=== PATIENT | female | born 1940 | race Caucasian/White ===

== ENCOUNTER → 2017-09-24 10:53 | Outpatient (CLI) | payer MEDICARE, BC, SELFPAY ==
--- NOTE | 2017-09-24 10:58 | US_ITS ---
STUDY: RENAL ULTRASOUND - COMPLETE REASON FOR EXAM: Female, 77 years old. Stage III chronic renal disease. TECHNIQUE: Ultrasound evaluation of the kidneys was performed with real-time and static bustillos-scale imaging. COMPARISON: None. FINDINGS: RIGHT KIDNEY: Normal location of the right kidney, which is normal in size. The right kidney measures 9.2 cm x 4.9 cm x 5.0 cm. There is a normal cortex of the right kidney. The renal cortex measures 1.7 cm. There is no right renal mass or cyst. There are no right renal calculi. There is no right hydronephrosis. DISTAL RIGHT URETER: There is non-visualization of the distal right ureter. There is no demonstrated right ureterovesical junction calculus. There is no demonstrated right ureteral jet. LEFT KIDNEY: Normal location of the left kidney, which is normal in size. The left kidney measures 9.4 cm x 4.0 cm x 4.8 cm. There is a normal cortex of the left kidney. The renal cortex measures 1.3 cm. There is no left renal mass or cyst. There are no left renal calculi. There is no left hydronephrosis. DISTAL LEFT URETER: There is non-visualization of the distal left ureter. There is no demonstrated left ureterovesical junction calculus. There is no demonstrated left ureteral jet. BLADDER: The distended urinary bladder has a volume of 37.7 ml. There is a normal wall thickness of the distended urinary bladder. There is no demonstrated mass within the urinary bladder. There are no demonstrated bladder calculi. US/Kidney and Bladder IMPRESSION: Normal ultrasound of the kidneys and urinary bladder. Electronically Signed: Alfonso Kent MD at 14:57 EST Tel [phone], Service support ,
== END ==
PROVIDERS: Family Provider Family Medicine; PCP Family Medicine; Visit Provider Internal Medicine Nephrology
DX: N18.3 Chronic kidney disease, stage 3 (moderate) (principal)
CPT/HCPCS: 76770

== ENCOUNTER → 2017-11-02 09:03 | Outpatient (CLI) | payer MEDICARE, BC, SELFPAY ==
[2017-11-02 11:06] LABS: Albumin, Serum 3.7 g/dL (3.2-5.0); BUN 29 mg/dL (7-18); Calcium,Total 9.4 mg/dL (8.5-10.1); Chloride 105 mmol/L (98-107); Creatinine, Serum 1.38 mg/dL (0.55-1.02); EST Glomerular Filtration Rate 40 mL/min (>60); Est Glom Filt Rate - Afr Amer 48 mL/min (>60); Glucose 132 mg/dL (74-106); Phosphorus 3.4 mg/dL (2.5-4.9); Potassium 4.6 mmol/L (3.5-5.1); Sodium Level 140 mmol/L (136-145)
[2017-11-03 08:49] LABS: Vitamin D,25 Hydroxy 24.9 ng/mL (29.95-100.01)
[2017-11-03 10:12] LABS: PTHIN 34.2 pg/mL (18.4-80.1)
== END ==
PROVIDERS: Family Provider Nurse Practitioner Family; PCP Nurse Practitioner Family; Visit Provider Internal Medicine Nephrology
DX: N18.3 Chronic kidney disease, stage 3 (moderate) (principal)
CPT/HCPCS: 36415; 80069; 82306; 83970

== ENCOUNTER → 2017-11-18 10:56 | Outpatient (CLI) | payer MEDICARE, BC, SELFPAY ==
[2017-11-18 11:54] LABS: Hemoglobin A1c 8.2 % (4.2-6.3)
== END ==
PROVIDERS: Family Provider Nurse Practitioner Family; PCP Nurse Practitioner Family; Visit Provider Nurse Practitioner
DX: E11.9 Type 2 diabetes mellitus without complications (principal)
CPT/HCPCS: 36415; 83036

== ENCOUNTER → 2018-04-04 09:28 | Outpatient (CLI) | payer MEDICARE, BC, SELFPAY ==
[2018-04-04 10:55] LABS: Hemoglobin A1c 7.8 % (4.2-6.3)
[2018-04-04 10:59] LABS: Microalbumin,Random Urine 14.9 mg/L (NO RANGE EST.); Microalbumin:Creatinine Ratio 61.3 mg/g CRE (<30 mg/g CRE)
[2018-04-04 11:12] LABS: Albumin, Serum 3.7 g/dL (3.2-5.0); BUN 61 mg/dL (7-18); Calcium,Total 9.2 mg/dL (8.5-10.1); Chloride 100 mmol/L (98-107); Creatinine, Serum 1.97 mg/dL (0.55-1.02); EST Glomerular Filtration Rate 26 mL/min (>60); Est Glom Filt Rate - Afr Amer 32 mL/min (>60); Glucose 156 mg/dL (74-106); Phosphorus 3.5 mg/dL (2.5-4.9); Potassium 4.5 mmol/L (3.5-5.1); Sodium Level 135 mmol/L (136-145)
[2018-04-04 11:17] LABS: Vitamin D,25 Hydroxy 37.6 ng/mL (29.95-100.01)
== END ==
PROVIDERS: Nurse Practitioner; Family Provider Internal Medicine; PCP Internal Medicine; Visit Provider Internal Medicine Nephrology
DX: E55.9 Vitamin D deficiency, unspecified (principal); N18.3 Chronic kidney disease, stage 3 (moderate); E11.22 Type 2 diabetes mellitus with diabetic chronic kidney disease
CPT/HCPCS: 36415; 80069; 82043; 82306; 82570; 83036

== ENCOUNTER → 2018-04-13 12:37 | Outpatient (CLI) | payer MEDICARE, BC, SELFPAY ==
[2018-04-13 13:07] LABS: Albumin, Serum 3.9 g/dL (3.2-5.0); BUN 70 mg/dL (7-18); BUN/Creat Ratio 27.6 RATIO (10-20); Calcium,Total 9.8 mg/dL (8.5-10.1); Chloride 101 mmol/L (98-107); Creatinine, Serum 2.54 mg/dL (0.55-1.02); EST Glomerular Filtration Rate 20 mL/min (>60); Est Glom Filt Rate - Afr Amer 24 mL/min (>60); Glucose 172 mg/dL (74-106); Phosphorus 4.3 mg/dL (2.5-4.9); Potassium 4.7 mmol/L (3.5-5.1); Sodium Level 139 mmol/L (136-145)
== END ==
PROVIDERS: Family Provider Internal Medicine; PCP Internal Medicine; Visit Provider Internal Medicine Nephrology
DX: N18.3 Chronic kidney disease, stage 3 (moderate) (principal)
CPT/HCPCS: 36415; 80069

== ENCOUNTER → 2018-04-18 11:02 | Outpatient (CLI) | payer MEDICARE, BC, SELFPAY ==
[2018-04-18 13:28] LABS: Albumin, Serum 3.9 g/dL (3.2-5.0); BUN 61 mg/dL (7-18); BUN/Creat Ratio 29.6 RATIO (10-20); Calcium,Total 9.7 mg/dL (8.5-10.1); Chloride 96 mmol/L (98-107); Creatinine, Serum 2.06 mg/dL (0.55-1.02); EST Glomerular Filtration Rate 25 mL/min (>60); Est Glom Filt Rate - Afr Amer 30 mL/min (>60); Glucose 322 mg/dL (74-106); Phosphorus 3.9 mg/dL (2.5-4.9); Potassium 4.2 mmol/L (3.5-5.1); Sodium Level 134 mmol/L (136-145)
== END ==
PROVIDERS: Family Provider Internal Medicine; PCP Internal Medicine; Visit Provider Internal Medicine Nephrology
DX: N18.3 Chronic kidney disease, stage 3 (moderate) (principal)
CPT/HCPCS: 36415; 80069

== ENCOUNTER → 2018-05-21 09:16 | Outpatient (CLI) | payer MEDICARE, BC, SELFPAY ==
[2018-05-21 11:08] LABS: Albumin, Serum 3.5 g/dL (3.2-5.0); BUN 40 mg/dL (7-18); BUN/Creat Ratio 20.7 RATIO (10-20); Calcium,Total 9.3 mg/dL (8.5-10.1); Chloride 99 mmol/L (98-107); Creatinine, Serum 1.93 mg/dL (0.55-1.02); EST Glomerular Filtration Rate 27 mL/min (>60); Est Glom Filt Rate - Afr Amer 33 mL/min (>60); Glucose 230 mg/dL (74-106); Phosphorus 3.5 mg/dL (2.5-4.9); Sodium Level 140 mmol/L (136-145)
== END ==
PROVIDERS: Family Provider Internal Medicine; PCP Internal Medicine; Visit Provider Internal Medicine Nephrology
DX: N18.3 Chronic kidney disease, stage 3 (moderate) (principal)
CPT/HCPCS: 36415; 80069

== ENCOUNTER → 2018-07-08 11:16 | Outpatient (CLI) | payer MEDICARE, BC, SELFPAY ==
[2018-07-08 12:07] LABS: Microalbumin:Creatinine Ratio 190.5 mg/g CRE (<30 mg/g CRE)
[2018-07-08 12:23] LABS: Albumin, Serum 3.3 g/dL (3.2-5.0); BUN 40 mg/dL (7-18); BUN/Creat Ratio 25.2 RATIO (10-20); Calcium,Total 8.7 mg/dL (8.5-10.1); Chloride 105 mmol/L (98-107); Creatinine, Serum 1.59 mg/dL (0.55-1.02); EST Glomerular Filtration Rate 34 mL/min (>60); Est Glom Filt Rate - Afr Amer 41 mL/min (>60); Glucose 155 mg/dL (74-106); Potassium 4.6 mmol/L (3.5-5.1); Sodium Level 137 mmol/L (136-145)
[2018-07-08 12:29] LABS: Hemoglobin A1c 9.2 % (4.2-6.3)
== END ==
PROVIDERS: Family Provider Internal Medicine; PCP Internal Medicine; Referring Provider Internal Medicine Nephrology; Visit Provider Internal Medicine Nephrology
DX: N18.3 Chronic kidney disease, stage 3 (moderate) (principal); E11.22 Type 2 diabetes mellitus with diabetic chronic kidney disease
CPT/HCPCS: 36415; 80069; 82043; 82570; 83036; 97113

== ENCOUNTER → 2018-07-19 10:44 | Outpatient (CLI) | payer MEDICARE, BC, SELFPAY ==
[2018-07-19 09:33] VITALS: BMI 36.2
[2018-07-19 12:07] LABS: Albumin, Serum 3.5 g/dL (3.2-5.0); BUN 29 mg/dL (7-18); BUN/Creat Ratio 18.4 RATIO (10-20); Calcium,Total 8.9 mg/dL (8.5-10.1); Chloride 108 mmol/L (98-107); Cholesterol 169 mg/dL (200); Creatinine, Serum 1.58 mg/dL (0.55-1.02); EST Glomerular Filtration Rate 34 mL/min (>60); Est Glom Filt Rate - Afr Amer 41 mL/min (>60); Glucose 80 mg/dL (74-106); High Density Lipoprotein 42 mg/dL; Phosphorus 3.9 mg/dL (2.5-4.9); Potassium 4.9 mmol/L (3.5-5.1); Sodium Level 140 mmol/L (136-145); Thyroid Stim Hormone (TSH) 3.48 uIU/mL (0.358-3.74); Triglycerides 222 mg/dL; Very Low Density Lipoprotein 44 mg/dL (5-40)
== END ==
PROVIDERS: Family Provider Internal Medicine; PCP Internal Medicine; Referring Provider Nurse Practitioner; Visit Provider Nurse Practitioner
DX: I25.10 Atherosclerotic heart disease of native coronary artery without angina pectoris (principal); E11.8 Type 2 diabetes mellitus with unspecified complications; E11.65 Type 2 diabetes mellitus with hyperglycemia; N18.3 Chronic kidney disease, stage 3 (moderate); M54.5 Low back pain; M25.551 Pain in right hip; M25.552 Pain in left hip; G89.29 Other chronic pain
CPT/HCPCS: 36415; 80061; 80069; 84443; 97113

== ENCOUNTER 2018-07-20 10:00 | Outpatient (RCR) | payer MEDICARE, BC, SELFPAY ==
--- NOTE | 2018-05-31 09:37 | HP.PTEVAL ---
Patient's Visit Information BHARATH LONGORIA is a 77 year old F referred to Physical Therapy by DEB Mendez with a diagnosis of CHRONIC HIP PAIN, BILATERAL. Date of Evaluation: 05/27/18 Physical Therapist: Rodrigo Echevarria - Visit Plan Frequency: 2x /Week Duration: 4 Weeks Plan: Start with neutral spine core strengthening in aquatic setting, hip strenthenign, postural control. Deep water hanging. Progress as tolerated. - Subjective Subjective: Pt reports to physical therapy with chronic hip pain, bilateral. pt reports that symptoms have originated about 1 year ago. pt seeked PT intervention 1 year ago but found little benefit. pt reports symptoms began following a period of decreased activity due to recovering from a heart surgery. prior to the procedure, pt was active (walking and golfing). On this date, pt reports that symptoms have increased to a point where they spend most of their day sitting with little activity beyond occasional trips to the grocery store where they rely on the support of a shopping cart to get around the store. pt uses Advil occasionally to manage pain but due to their diabetes does not take Advil with great frequency. Heat is also used as a method of symptom releif. pt reports that symptoms are constant with pain greatest in the morming and decreasing through the day. When the pain is at its worse it reaches 8-9/10 but on average is around 5/10. pt hopes to alleviate their pain and return to a more active lifestyle. - Pain Back Pain Intensity (Out of 10): 5 Pain Intensity Range: 3, 9 Hips - bilat Pain Intensity (Out of 10): 5 Pain Intensity Range: 3, 9 - Objective POSTURE: forward head with rounded shoulders, increased thorasic kyphosis. Pt. Pt. PALPATION: Pt. has normal palpation throughout B hips and lumbar spine. NEURO: equal bilateral sensation in the LE, 2+ DTR bilaterally. Pt. is able to rise on heels and toes, but did require balance aid to complete. . ROM: Lumbar: limited lateral flexion bilat. Pt. has tightness with bilateral hip ER. increased hip pain with lateral flexion bilat, increase in pain with extension over pressure, no increase in pain with flexion. MMT: LE: R/L hip: flexion- 3/5, add- 3/5, abd- 3/5; R/L knee: flexion- 3+/5, extension- 3/5; Ankle: DF- 4+/5. core weekenss due to difficulty with supine straight leg raise. Difficulty maintaining PPT with any UE/LE movements. - Goals Goal 1:: pt reports a 0/10 pain at rest Goal Time Frame: 4-6 Weeks Goal 2:: pt reports a 0/10 pain with all lumbar movements Goal Time Frame: 4-6 Weeks Goal 3:: pt reports being able to play golf with out limitations. Goal Time Frame: 4-6 Weeks Goal 4:: Pt. to have increased BLE and core strength improved by 1/2 grade throughout Goal Time Frame: 4-6 Weeks Goal 5:: Pt. to sleep throughout the night without increase in symptoms. Goal Time Frame: 4-6 Weeks Goal 6:: Pt. to complete all ADLs and house work without increase in symptoms. Goal Time Frame: 4-6 Weeks - Rehabilitation Potential Physical Therapy Diagnosis: pt presents with signs and symptoms consistent with chronic bilateral hip pain. pt presents with an increase in pain with lateral flexion and extension. pain prevents pt from performing most desired tasks. pt would benefit from physical therapy to promote a decrease in pain and an increase in activity. Rehabilitation Potential: Good - Anticipated Interventions Patient/Client Instruction: Educate patient on: Condition, Risk Factors, Benefits of Fitness Program For the Purpose of:: To improve health and function, To foster healthy habits, To improve decision making, To facilitate caregiver knowledge, To improve self management, To prevent re-injury, To improve ability to perform tasks related to life management, To improve tolerance to ADL's Therapeutic Exercise to Include: Strength training, Balance training, Postural training, Flexibilty training, Gait and locomotor training, In an aquatic setting, Passive ROM, Active ROM For the Purpose of:: To decrease pain, To increase ROM, To improve nutrient delivery to tissue, To improve muscle performance and motor function, To improve ability to perform ADL's, To improve gait and locomotor functions, To improve health of tissue, To decrease soft tissue restriction, To increase flexibility/ROM, To improve endurance, To improve balance Thank you for the opportunity to evaluate your patient. For Medicare and Medicare HMO plans, please review the plan of care and approve it. It will need to be FAXED BACK to us at [phone] for Medicare purposes. Please let me know if there are questions or concerns regarding this plan of care. Physician Signature: Date:
--- NOTE | 2018-06-28 07:45 | HP.PTREVAL ---
Henny Douglas, SOPHIE-C, It has been my pleasure to treat BHARATH LONGORIA over the last 10 visits for CHRONIC HIP PAIN, BILATERAL. Please see the progress note below for an update on the physical therapy plan of care! Subjective: Pt. reports I feel like I am about 50% better. Pt. reports having increased relief at home, but did have a bad night last night. She reprots no longer having leg cramps, but still uses her heating pad at home a decent amount of the time. Pt. reports I am feeling stronger. Objective/Function: ROM: LUMBAR SPINE: flexion- min loss NE, ext min/mod loss increase NW, SB min loss NE, rotation min/mod loss bilat increase nW. HS length- R- 75deg, L 70deg in supine. MMT: RLE- ankle 5/5 throughout; knee- ext 5-/5, flexion 5-/5; hip- flexion 4+/5, abd 4/5, ext 4+/5. LLE- ankle 5/5 throughout; knee- ext 5-/5, flexion 5-/5; hip- flexion 4+/5, abd 4/5, ext 4+/5. COre strength- poor+. GAIT: pt. has improved gait pattern, decreased lateral hip sway noted. Pt. has proper tempo and step length. Pt. has increased erector posture as well. Pt. does report increased Low back pain at ~5 min of walking. STAIRS: Pt. is able to complete with reciprocal pattern with 2 HR without LOB or increase in symptoms. Pt. is still concerned about increased pain with static standing. I talked with patient about consistent core stbility and flexion based exercises in neutral spine. Pt. consents. Plan Plan: Pt. to extend POC for x2 per week for 4 weeks with progression to independent program. Cont. to work on hip and core stability as tolerated. May use deep water distraction to reduce symptoms. Progress land and aquatic HEP as able. Goals Goal 1:: pt reports a 0/10 pain at rest Goal Time Frame: 4-6 Weeks Goal Progress: Progressing Goal 2:: pt reports a 0/10 pain with all lumbar movements Goal Time Frame: 4-6 Weeks Goal Progress: Progressing Goal 3:: pt reports being able to play golf with out limitations. Goal Time Frame: 4-6 Weeks Goal Progress: Progressing Goal 4:: Pt. to have increased BLE and core strength improved by 1/2 grade throughout Goal Time Frame: 4-6 Weeks Goal Progress: Progressing Goal 5:: Pt. to sleep throughout the night without increase in symptoms. Goal Time Frame: 4-6 Weeks Goal Progress: Goal Met Goal 6:: Pt. to complete all ADLs and house work without increase in symptoms. Goal Time Frame: 4-6 Weeks Goal Progress: Progressing Anticipated Interventions Patient/Client Instruction: Educate patient on: Condition, Risk Factors, Benefits of Fitness Program For the Purpose of:: To improve health and function, To foster healthy habits, To improve decision making, To facilitate caregiver knowledge, To improve self management, To prevent re-injury, To improve ability to perform tasks related to life management, To improve tolerance to ADL's Therapeutic Exercise to Include: Strength training, Balance training, Postural training, Flexibilty training, Gait and locomotor training, In an aquatic setting, Passive ROM, Active ROM For the Purpose of:: To decrease pain, To increase ROM, To improve nutrient delivery to tissue, To improve muscle performance and motor function, To improve ability to perform ADL's, To improve gait and locomotor functions, To improve health of tissue, To decrease soft tissue restriction, To increase flexibility/ROM, To improve endurance, To improve balance Please do not hesitate to contact me at [phone] by phone or if you have questions or concerns regarding this new plan of care! Sincerely, Rodrigo Echevarria
--- NOTE | 2018-10-26 12:17 | HP.PTDCSUM ---
HP - PT D/C Summary It has been my pleasure to treat BHARATH LONGORIA under orders from DEB Mendez, for the diagnosis of CHRONIC HIP PAIN, BILATERAL for a total of 18 visit(s). Discharge Date: 09/19/17 Please see the following information for a summary of their discharge status. - Subjective Subjective: Pt. reports I am doing better, not all the way better though. Pt. reports being 75% better overall. Pt. reports ebing HEP compliant and plans on joining local gym to do aquatic exercises. - Pain Back Pain Intensity (Out of 10): 2 Hips - bilat Pain Intensity (Out of 10): 2 - Overall Improvement % Improvement: 75 - Objective Objective/Function: ROM- lumbar spine- min loss with flexion NE, ext mod loss NE, min loss with SB and rotation NE. Pt. has tigh HS. MMT: 5/5 BLEs without increase insymptioms, fair- core strength. Pt. has progress with core stability and posture. Pt. has reduced symptoms, but not fully rectified. Pt. would benefit from continued to exercise in aquatic setting at home. Pt - Goals Goal 1:: pt reports a 0/10 pain at rest Goal Progress: Goal Met Goal 2:: pt reports a 0/10 pain with all lumbar movements Goal Progress: Progressing Goal 3:: pt reports being able to play golf with out limitations. Goal Progress: Progressing Goal 4:: Pt. to have increased BLE and core strength improved by 1/2 grade throughout Goal Progress: Progressing Goal 5:: Pt. to sleep throughout the night without increase in symptoms. Goal Progress: Goal Met Goal 6:: Pt. to complete all ADLs and house work without increase in symptoms. Goal Progress: Progressing - Plan Plan: Pt. to be DC from PT at this point in time adn to follow up with aquatic exercises on her own. - D/C Information Discharge Comments: Pt. was treated in aquatic setting for her low back pain. Pt. was treated was core stability adn ROM exercises in aquatics. Pt. is independent with her HEP for pool exercises and is doing well. Pt. is to continue with exercises on own at this point in time and follow up with physician if needed. If there are questions or concerns regarding this patient's physical therapy, please feel free to call me at [phone]. Thank you for the referral of this patient. Sincerely, Rodrigo Echevarria DPT
== END 2018-07-20 19:00 | disposition home or self-care (01) ==
LOC: PT 10:00
PROVIDERS: Family Provider Internal Medicine; PCP Internal Medicine; Referring Provider Clinical Nurse Specialist; Visit Provider Clinical Nurse Specialist
DX: M54.5 Low back pain (principal); M25.551 Pain in right hip; M25.552 Pain in left hip; G89.29 Other chronic pain
CPT/HCPCS: 97110; 97113; 97163; 97530

== ENCOUNTER 2018-07-23 13:28 | Emergency (ER) | payer MEDICARE, BC, SELFPAY ==
[2018-07-19 09:33] VITALS: BMI 36.2
[2018-07-23 13:30] VITALS: BP 163/81; PULSE 68; RESP 14; TEMP 37; O2SAT 99; BMI 34.8
--- NOTE | 2018-07-23 14:05 | EKG12_ITS ---
Test Reason : SOB Blood Pressure : / mmHG Vent. Rate : 065 BPM Atrial Rate : 065 BPM P-R Int : 174 ms QRS Dur : 116 ms QT Int : 492 ms P-R-T Axes : 060 007 128 degrees QTc Int : 511 ms Normal sinus rhythm Incomplete left bundle branch block ST & T wave abnormality, consider lateral ischemia Prolonged QT Abnormal ECG Confirmed by MARIA L VELAZQUEZ, SOCORRO ([id number]), editorial assistant JANNETTE FARFAN ([id number]) on 07/25/2018 2:14:51 PM Referred By: Marta Torres Confirmed By:SOCORRO LISA MD
--- NOTE | 2018-07-23 14:15 | NURSING ---
NO OLD EKGS
--- NOTE | 2018-07-23 14:25 | RAD_ITS ---
STUDY: X-RAY CHEST REASON FOR EXAM: Female, 78 years old. Shortness of breath. TECHNIQUE: Single AP portable view of the chest. COMPARISON: None. FINDINGS: Anatomy wires are midline. Prominent interstitial markings are seen bilaterally. There is no demonstrated pleural abnormality. Normal size heart. Normal mediastinum and ivis. Mild prominent pulmonary vascularity is noted. There is atherosclerotic calcification of the aortic arch with tortuosity. Normal visualized thoracic spine. Normal visualized ribs, clavicles, and shoulders. There is no demonstrated abnormality of the visualized soft tissue structures of the upper abdomen. RAD/Chest 1 View (Portable) IMPRESSION: Prominent interstitial markings with mild prominent pulmonary vascularity concerning for early interstitial edema and CHF exacerbation in the appropriate clinical setting. Electronically Signed: Loyd Sanderson DO at 14:46 EST , Service support ,
[2018-07-23 14:31] LABS: Absolute Neutrophil Count 6.8 X10^3/uL (2.0-7.7); Basophil# 0.02 X10^3/uL; Basophil% 0.2 % (0-1); Eosinophil# 0.34 X10^3/uL; Eosinophils% 3.7 % (0-5); Hemoglobin 11.3 g/dl (12.0-15.0); Lymphocyte % 15.1 % (19-41); Mean Corp Hgb Conc 32.3 g/gl (32-36); Mean Corpuscular Hgb 30.1 pg (27.0-32.0); Mean Corpuscular Volume 93.3 fL (81-99); Mean Platelet Vol. 10.3 fl (6.2-12.0); Monocyte# 0.73 X10^3/uL; Monocyte% 7.9 % (0-10); Neutrophil # 6.75 X10^3/uL (2.7-7.7); Platelet Count 257 K/mm3 (150-450); RBC Distribution Width CV 13.5 % (11.6-14.6); RBC Distribution Width SD 45.7 fl (35.1-43.9); Red Blood Count 3.75 M/mm3 (4.2-5.4); White Blood Count 9.3 K/mm3 (4.4-11.0)
[2018-07-23 14:35] LABS: POSITIVE COUNT NO; POSITIVE DIFFERENTIAL NO; POSITIVE MORPHOLOGY NO
[2018-07-23 14:43] LABS: Anion Gap 7 (5-15); BUN 27 mg/dL (7-18); BUN/Creat Ratio 19.1 RATIO (10-20); Calcium,Total 9.3 mg/dL (8.5-10.1); Chloride 104 mmol/L (98-107); Creatinine, Serum 1.41 mg/dL (0.55-1.02); EST Glomerular Filtration Rate 39 mL/min (>60); Est Glom Filt Rate - Afr Amer 47 mL/min (>60); Estimated Creatinine Clearance 29.31 ml/min; Glucose 168 mg/dL (74-106); Sodium Level 139 mmol/L (136-145)
[2018-07-23 16:07] VITALS: BP 169/56; PULSE 65; RESP 16; O2SAT 97
--- NOTE | 2018-07-23 16:46 | ED.DCSUM_ITS ---
- ER Visit Summary Date of Service: 07/23/18 Chief Complaint: Patient presents with cough and some subjective dyspnea for the past few days. No fever or chills. She has some rhinorrhea. This is clear and constant. She has no chest pain shortness of breath. She has no nausea or vomiting. She has had a dry cough recently. History of Present Illness: The patient is a 78 F [] Physical Examination: Not appear in acute distress. Moist mucous membranes, no obvious facial deformity No C-spine tenderness supple neck. Regular rate and rhythm without any obvious murmurs Clear lungs bilaterally speaking in full sentences without any obvious respiratory distress Abdomen soft and nontender no guarding or rebound Moves all extremities without any difficulty or pain. Skin does not show any obvious rashes or lesions, no trauma. Alert oriented ?3 with no gross focal deficit Emergency Department Course and Treatment: Patient has a normal physical exam. I cannot hear any bronchial breath sounds any wheezing, she has no upper airway congestion. She has a normal EKG and a normal workup in the emergency department. Initially she was worried about her blood pressure being high, but she did have quite a bit of salt at [facility]. She has an unremarkable workup she feels well she tells me her shortness of breath is usually only at night, she did tell me her lisinopril got increased I told her that may be causing her dry cough. Otherwise she appears well and I believe she can be discharged with follow-up in 2 days, she has a PCP appointment. Discharge stable condition Impression: Cough Subjective dyspnea This note was generated with Elysia dictation software. It may contain incorrect words, spelling, and punctuation that were not noted in review of the chart prior to signing ED Disposition - Plan for ED Patient: Disposition: Home or Assisted Living Chief Complaint: Shortness of Breath Instructions: ED Dyspnea Shortness of Breath Referrals: Fanny De Guzman MD [Primary Care Provider] - 3-5 Days
[2018-07-23 17:01] VITALS: BP 169/56; PULSE 64; RESP 14; O2SAT 99
== END 2018-07-23 17:02 | disposition home or self-care (01) ==
PROVIDERS: Emergency Provider Emergency Medicine; Family Provider Internal Medicine; PCP Internal Medicine
DX: R05 Cough (principal); R06.00 Dyspnea, unspecified; E11.9 Type 2 diabetes mellitus without complications; I10 Essential (primary) hypertension; E78.00 Pure hypercholesterolemia, unspecified
CPT/HCPCS: 71045; 80048; 84484; 85025; 93005; 99283; A4216

== ENCOUNTER → 2018-09-01 09:21 | Outpatient (CLI) | payer MEDICARE, BC, SELFPAY ==
[2018-09-01 10:13] LABS: Albumin, Serum 3.6 g/dL (3.2-5.0); BUN 83 mg/dL (7-18); BUN/Creat Ratio 36.6 RATIO (10-20); Calcium,Total 8.9 mg/dL (8.5-10.1); Chloride 106 mmol/L (98-107); Creatinine, Serum 2.27 mg/dL (0.55-1.02); EST Glomerular Filtration Rate 22 mL/min (>60); Est Glom Filt Rate - Afr Amer 27 mL/min (>60); Glucose 84 mg/dL (74-106); Phosphorus 5.2 mg/dL (2.5-4.9); Potassium 4.6 mmol/L (3.5-5.1); Sodium Level 140 mmol/L (136-145)
== END ==
PROVIDERS: Family Provider Internal Medicine; PCP Internal Medicine; Referring Provider Internal Medicine Nephrology; Visit Provider Internal Medicine Nephrology
DX: N18.3 Chronic kidney disease, stage 3 (moderate) (principal)
CPT/HCPCS: 36415; 80069

== ENCOUNTER → 2018-09-19 11:37 | Outpatient (CLI) | payer MEDICARE, BC, SELFPAY ==
[2018-09-19 13:05] LABS: Albumin, Serum 3.5 g/dL (3.2-5.0); BUN 66 mg/dL (7-18); Calcium,Total 9.2 mg/dL (8.5-10.1); Chloride 103 mmol/L (98-107); EST Glomerular Filtration Rate 23 mL/min (>60); Est Glom Filt Rate - Afr Amer 28 mL/min (>60); Glucose 163 mg/dL (74-106); Phosphorus 4.3 mg/dL (2.5-4.9); Sodium Level 137 mmol/L (136-145)
--- OUTSIDE RECORDS SUMMARY | 2018-11-21 22:53 | XMS RPT_ITS ---
:1940 Author Organization OHIP Support Name Relationship Address Phone JUNE CAVAZOS Unavailable [address] + [place] [address] R Unavailable Unavailable Unavailable VANPELT, KAYLEIGH Unavailable [address] + [place] [address] JUNE CAVAZOS Unavailable [address] + [place] [address] R Unavailable Unavailable Unavailable VANPELT, KAYLEIGH Unavailable [address] + [place] [address] JUNE CAVAZOS Unavailable [address] + [place] [address] R Unavailable Unavailable Unavailable VANPELT, KAYLEIGH Unavailable [address] + [place] [address] JUNE CAVAZOS Unavailable [address] + [place] [address] R Unavailable Unavailable Unavailable VANPELT, KAYLEIGH Unavailable [address] + [place] [address] JUNE CAVAZOS Unavailable [address] + [place] [address] R Unavailable Unavailable Unavailable VANPELT, KAYLEIGH Unavailable [address] + [place] [address] JUNE CAVAZOS Unavailable [address] + [place] [address] R Unavailable Unavailable Unavailable VANPELT, KAYLEIGH Unavailable [address] + [place] [address] JUNE CAVAZOS Unavailable [address] + [place] [address] R Unavailable Unavailable Unavailable VANPELT, KAYLEIGH Unavailable [address] + [place] [address] JUNE CAVAZOS Unavailable [address] + [place] [address] R Unavailable Unavailable Unavailable VANPELT, KAYLEIGH Unavailable [address] + [place] [address] JUNE CAVAZOS Unavailable [address] + [place] [address] R Unavailable Unavailable Unavailable VANPELT, KAYLEIGH Unavailable [address] + [place] [address] JUNE CAVAZOS Unavailable [address] + [place] [address] R Unavailable Unavailable Unavailable VANBHAVINLT, KAYLEIGH Unavailable [address] + [place] [address] JUNE CAVAZOS Unavailable [address] + [place] [address] R Unavailable Unavailable Unavailable RHONDALT, KAYLEIGH Unavailable [address] + [place] [address] JUNE CAVAZOS Unavailable [address] + [place] [address] R Unavailable Unavailable Unavailable RHONDALT, KAYLEIGH Unavailable [address] + [place] [address] JUNE CAVAZOS Unavailable [address] + [place] [address] R Unavailable Unavailable Unavailable RHONDALT, KAYLEIGH Unavailable [address] + [place] [address] JUNE CAVAZOS Unavailable [address] + [place] [address] R Unavailable Unavailable Unavailable RHONDALT, KAYLEIGH Unavailable [address] + [place] [address] QUINCY CAVAZOS Unavailable Unavailable + JUNE CAVAZOS Unavailable [address] + [place] [address] R Unavailable Unavailable Unavailable RHONDALT KAYLEIGH Unavailable [address] [phone] [place] [address] JUNE CAVAZOS Unavailable [address] + [place] [address] R Unavailable Unavailable Unavailable RHONDAKAYLEIGH TSAI Unavailable [address] [phone] [place] [address] JUNE CAVAZOS Unavailable [address] + [place] [address] R Unavailable Unavailable Unavailable RHONDAKAYLEIGH TSAI Unavailable Unavailable + Care Team Providers Name Role Phone Maria Tolentino Attending Unavailable Maria Tolentino Referring Unavailable Amber Baumann Primary Care Unavailable Maria Tolentino Attending Unavailable Talampas, Joni Primary Care Unavailable Maria Tolentino Referring Unavailable Marta Torres INTERNATIONAL REPRESENTATIVE-C Attending Unavailable Jordan Gan Referring Unavailable Marta Torres INTERNATIONAL REPRESENTATIVE-C Attending Unavailable Marta Torres INTERNATIONAL REPRESENTATIVE-C Referring Unavailable Amber Baumann Primary Care Unavailable Marta Torres INTERNATIONAL REPRESENTATIVE-C Referring Unavailable Talampas, Joni Primary Care Unavailable Maria Tolentino Attending Unavailable Maria Tolentino Attending Unavailable Maria Tolentino Referring Unavailable Talampas, Joni Primary Care Unavailable Marta Torres INTERNATIONAL REPRESENTATIVE-C Attending Unavailable Amber Baumann Referring Unavailable Maria Tolentino Attending Unavailable Maria Tolentino Referring Unavailable Talampas, Joni Primary Care Unavailable Marta Torres INTERNATIONAL REPRESENTATIVE-C Consulting Unavailable Marta Torres INTERNATIONAL REPRESENTATIVE-C Attending Unavailable Talampas, Joni Referring Unavailable Talampas, Joni Primary Care Unavailable Maria Tolentino Attending Unavailable Talampas, Joni Primary Care Unavailable Maria Tolentino Referring Unavailable Bossman Douglas INTERNATIONAL REPRESENTATIVE-C Attending Unavailable Bossman Douglas INTERNATIONAL REPRESENTATIVE-C Referring Unavailable Talampas, Joni Primary Care Unavailable Marai Tolentino Attending Unavailable Maria Tolentino Referring Unavailable Talampas, Joni Primary Care Unavailable Maria Tolentino Attending Unavailable Talampas, Joni Primary Care Unavailable Marta Torres INTERNATIONAL REPRESENTATIVE-C Attending Unavailable Talampas, Joni Referring Unavailable Marta Torres INTERNATIONAL REPRESENTATIVE-C Attending Unavailable Marta Torres INTERNATIONAL REPRESENTATIVE-C Referring Unavailable Talampas, Joni Primary Care Unavailable Maria Tolentino Consulting Unavailable Talampas, Joni Primary Care Unavailable Moiz Lin Attending Unavailable Maria Tolentino Attending Unavailable Talampas, Joni Primary Care Unavailable Maria Tolentino Referring Unavailable TESTRAKE, DEVIN Attending Unavailable TESTRAKE, DEVIN Referring Unavailable TALAMPAS, JONI D Attending Unavailable TESTRAKE, DEVIN Attending Unavailable TESTRAKE, DEVIN Referring Unavailable NEYHART OROZCO, ANGELES Referring Unavailable NEYHART OROZCO, ANGELES Attending Unavailable NEYHART OROZCO, ANGELES Referring Unavailable GIBSON, JUAN DAVID (SAMPLE MAKER ORIGINAL) Referring Unavailable GIBSON, JUAN DAVID (SAMPLE MAKER ORIGINAL) Referring Unavailable TALAMPAS, JONI D Referring Unavailable DOUGLAS, BOSSMAN (WORD PROCESSING SUPERVISOR) Attending Unavailable DOUGLAS, BOSSMAN (WORD PROCESSING SUPERVISOR) Referring Unavailable TESTRAKE, DEVIN Attending Unavailable TESTRAKE, DEVIN Referring Unavailable TALAMPAS, JONI D Attending Unavailable DOUGLAS, BOSSMAN (WORD PROCESSING SUPERVISOR) Attending Unavailable DOUGLAS, BOSSMAN (WORD PROCESSING SUPERVISOR) Referring Unavailable DOUGLAS, BOSSMAN (WORD PROCESSING SUPERVISOR) Attending Unavailable DOUGLAS, BOSSMAN (WORD PROCESSING SUPERVISOR) Referring Unavailable ASHLEY GRIFFITH Attending Unavailable SELF, SELF Referring Unavailable MARISA ORO Attending Unavailable MARISA ORO Referring Unavailable Tesha Gan Primary Care Unavailable MARISA ORO Admitting Unavailable PROBLEMS PROBLEMS DATE TYPE CONDITION / CODE ATTENDING STATUS SOURCE 09/19/2018 Unknown E55.9 - Vitamin D Maria Tolentino Active [facility] deficiency, Community unspecified / Hospital E55.9(ICD-10) Repository 09/19/2018 Unknown N17.9 - Acute kidney Rajan Maria Active [facility] failure, unspecified Community / N17.9(ICD-10) Hospital Repository 07/25/2018 Active Cardiac arrhythmia, NA Active [facility] unspecified / Clinic Main I49.9(ICD-10) [facility] Repository 07/20/2018 Unknown M54.5 - Low back Douglas Bossman Active [facility] pain / M54.5(ICD-10) INTERNATIONAL REPRESENTATIVE-C Community Hospital Repository 07/19/2018 Unknown E11.9 - Type 2 Shook, Marta Active [place] diabetes mellitus J INTERNATIONAL REPRESENTATIVE-C [facility] without Hospital complications / Repository E11.9(ICD-10) 07/19/2018 Unknown I10 - Essential Shook, Marta Active [facility] (primary) J INTERNATIONAL REPRESENTATIVE-C Community hypertension / Hospital I10(ICD-10) Repository 07/19/2018 Unknown E11.8 - Type 2 Shook, Marta Active [place] diabetes mellitus J INTERNATIONAL REPRESENTATIVE-C Community with unspecified Hospital complications / Repository E11.8(ICD-10) 07/19/2018 Unknown I25.10 - Marta Torres Active [facility] 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 / I25.10(ICD-10) 07/19/2018 Unknown E11.65 - Type 2 Marta Torres Active [place] diabetes mellitus J INTERNATIONAL REPRESENTATIVE-C Community with hyperglycemia / Hospital E11.65(ICD-10) Repository 07/08/2018 Unknown N18.3 - Chronic Maria Tolentino Active [place] kidney disease, Community stage 3 (moderate) / Hospital N18.3(ICD-10) Repository 07/08/2018 Unknown E11.22 - Type 2 Maria Tolentino Active [place] diabetes mellitus Community with diabetic Hospital chronic kidney Repository disease / E11.22(ICD-10) 05/26/2018 Active Pain in right hip / NA Active [facility] M25.551(ICD-10) Clinic Main [place] Repository 05/26/2018 Active Pain in left hip / NA Active [facility] M25.552(ICD-10) Clinic Main [place] Repository 05/26/2018 Active Other chronic pain / NA Active [facility] G89.29(ICD-10) Clinic Main [place] Repository 04/08/2018 Active Encounter for NA Active [facility] screening for [facility] Main malignant neoplasm [place] of colon / Repository Z12.11(ICD-10) 03/31/2018 Admitting Peripheral vascular LINETSKY, Active [facility] disease[facility] / I73.9(ICD-10) Repository 03/31/2018 Admitting Nonrheumatic mitral LINETSKY, Active [facility] diagnosis (valve) [facility] insufficiency / Repository I34.0(ICD-10) 03/31/2018 Unknown Peripheral vascular LINETSKY, Active [facility] disease, unspecified [facility] / I73.9(ICD-10) Repository 03/16/2018 Active Encounter for NA Active [facility] screening mammogram Clinic Main for malignant [place] neoplasm of breast / Repository Z12.31(ICD-10) 12/02/2017 Active Unknown / TESTRAKE, Active [facility] UNK(Unknown) DEVIN [facility] Main [place] Repository 10/14/2017 Admitting Follow-up / 145() GLADIS Active [facility] Diagnosis [facility] ([place]) Repository 10/14/2017 Admitting Chest Pain / GLADIS, [facility] Diagnosis [id number]() [facility]SH[facility] ([place]) Repository 10/14/2017 Admitting Edema / 161() POLINSKI, Active [facility] Diagnosis [facility] ([place]) Repository PROCEDURES PROCEDURES No Procedure Records FoundRESULTS RESULTS RENAL PROFILE Collected: 09/19/2018 Status: F Source: [place] 11:43 AM [facility] REPOSITORY TYPE CODE TESTS RESULT OUT OF RANGE REFERENCE UNITS LAB L501.0100 74-106 mg/dL High GLU 163 Result Comment: Fasting Glucose result greater than or equal to 126 mg/dL suggests DIABETES MELLITUS per A.D.A. criteria. Please note revised GLUCOSE reference range effective 2017. LAB L501.1000 7-18 mg/dL High BUN 66 LAB L501.1100 0.55-1.02 mg/dL High CREAT,SERUM 2.20 Result Comment: The validity of the calculated GFR AND GFRAA in patients over 70 years has not been determined. Clinical correlation is essential. LAB L501.1110 >60 mL/min Low EST GFR 23 Result Comment: Non- GFR Calc LAB L501.1115 >60 mL/min Low EST GFR - AA 28 Result Comment: GFR Calc LAB L501.1300 10-20 RATIO High BUN/CRE 30.0 LAB L501.1800 3.2-5.0 g/dL Normal ALB 3.5 LAB L501.2200 8.5-10.1 mg/dL CA Normal 9.2 LAB L501.2300 2.5-4.9 mg/dL Normal PHOS 4.3 LAB L501.5300 136-145 mmol/L NA Normal 137 LAB L501.5600 3.5-5.1 mmol/L K Normal 5.0 LAB L501.5900 98-107 mmol/L CL Normal 103 LAB L501.6100 21.0-32.0 mmol/L Normal CO2 24.0 Performed By: #### L500.3600 #### [facility] [address] [place], [address] RENAL PROFILE Collected: 09/01/2018 Status: F Source: [place] 9:32 AM [facility] REPOSITORY TYPE CODE TESTS RESULT OUT OF RANGE REFERENCE UNITS LAB L501.0100 74-106 mg/dL Normal GLU 84 Result Comment: Please note revised GLUCOSE reference range effective 2017. LAB L501.1000 7-18 mg/dL High BUN 83 LAB L501.1100 0.55-1.02 mg/dL High CREAT,SERUM 2.27 Result Comment: The validity of the calculated GFR AND GFRAA in patients over 70 years has not been determined. Clinical correlation is essential. LAB L501.1110 >60 mL/min Low EST GFR 22 Result Comment: Non- GFR Calc LAB L501.1115 >60 mL/min Low EST GFR - AA 27 Result Comment: GFR Calc LAB L501.1300 10-20 RATIO High BUN/CRE 36.6 LAB L501.1800 3.2-5.0 g/dL Normal ALB 3.6 LAB L501.2200 8.5-10.1 mg/dL CA Normal 8.9 LAB L501.2300 2.5-4.9 mg/dL High PHOS 5.2 LAB L501.5300 136-145 mmol/L NA Normal 140 LAB L501.5600 3.5-5.1 mmol/L K Normal 4.6 LAB L501.5900 98-107 mmol/L CL Normal 106 LAB L501.6100 21.0-32.0 mmol/L Normal CO2 27.0 Performed By: #### L500.3600 #### [facility] [address] [place], [address] PROGRESS Observed: 08/12/2018 Status: COMPLETED Source: [place] 9:[address] [facility] REPOSITORY [facility] ID: [id number] Author: Joni Grimm Service: (none) Author Type: Physician Type: Progress Notes Filed: 09/04/2018 3:27 PM Note Text: Patient presents with: Recheck: Follow up SUBJECTIVE: Graciela Cavazos is a 78 year old year old lady here today for 6 month follow up appointment for review of medical conditions. Doing better. Back on Lasix. Does diurese but still has swelling. Still with neuropathy. Seeing MEDARDO([facility]), Dr. Tolentino([facility]) and Inez (), Gladis ([place] (ophthalmology). Fasting glucose down to 60's and 80's in AM past few days. High at night to 200 to 300's. Blood pressure controlled without adverse effects from medications. PAST MEDICAL HISTORY Diagnosis Date - Allergic rhinitis, cause unspecified Allergic rhinitis - Cataract of left eye 12/31/2010 removed - Cataract of right eye 04/15/2011 removed - Diabetes mellitus without mention of complication Diabetes mellitus - Diverticulosis of colon (without mention of hemorrhage) - Dysthymic disorder Depression (non-psychotic) - Dysthymic disorder - Esophageal reflux Gastroesophageal reflux - Internal hemorrhoids without mention of complication - Nonspecific elevation of levels of transaminase or lactic acid dehydrogenase (LDH) Elevated LFT's - Peripheral vascular disease, unspecified (HCC) - PMH - PAST MEDICAL HISTORY OF 08/2007 Broken left elbow - Rheumatoid arthritis(714.0) - Unspecified closed fracture of ankle 2009 Ankle fracture - 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 ASPIRIN 81 MG TAB, DELAYED RELEASE Take one(1) tablet daily. atorvastatin (LIPITOR) 80 mg tablet Take 1 tablet by mouth once daily. blood sugar diagnostic (ONETOUCH VERIO) test strip Test blood sugar(s) 2 times daily. Dx: Type 2 DM - Controlled E11.9 Insulin: No Blood-Glucose Meter (ONETOUCH VERIO SYSTEM) [facility] Dispense One Kit - Verio Meter Kit Dx: Type 2 DM - Uncontrolled E11.65 carvedilol (COREG) 25 mg tablet Take 1 tablet by mouth twice daily. cholecalciferol, vitamin D3, (VITAMIN D3 ORAL) Take by mouth. clopidogrel (PLAVIX) 75 mg tablet Take 1 tablet by mouth once daily. COMPOUNDED PRESCRIPTION Diabetic shoes. Has PVD dulaglutide 1.5 mg/0.5 mL pnij Inject 1.5 mg subcutaneously once each week. (BJ Shook refills) furosemide (LASIX) 40 mg tablet Take 1 tablet by mouth once daily. Take once daily glimepiride (AMARYL) 4 mg tablet Take 1 tablet by mouth daily with breakfast. (BJ) insulin glargine (BASAGLAR KWIKPEN U-100 INSULIN) 100 unit/mL (3 mL) inpn Inject 36 Units subcutaneously once daily. Will adjust as indicated Lancets lancets Use as instructed two times daily E 11.9 lisinopril (ZESTRIL, PRINIVIL) 10 mg tablet Take 1 tablet by mouth once daily. pyridoxine, vitamin B6, (VITAMIN B-6) 100 mg tablet Take 100 mg by mouth once daily. therapeutic multivitamin (THERA VITAMIN) tablet Take 1 tablet by mouth daily with breakfast. potassium chloride SR (MICRO-K) 10 mEq CR capsule Take 1 capsule by mouth twice daily. (Patient not taking: Reported on 08/12/2018 ) sodium chloride (AYR, OCEAN) 0.65 % nasal spray Use 2 Sprays in each nostril as needed for Cold/Allergy Symptoms. (Patient not taking: Reported on 05/26/2018 ) No current facility-administered medications for this visit. OBJECTIVE: BP (!) 114/42 Pulse 64 Resp 16 Wt 89.8 kg (198 lb) BMI 36.21 kg/m? Patient is alert, oriented times 3, no apparent distress, affect is bright, reactive. Last 5 Encounter BP Readings: Date: BP: 08/12/2018 114/42 08/01/2018 130/62 07/25/2018 142/70 05/26/2018 128/54 03/16/2018 114/62 Last 5 Encounter Wt Readings: Date: Wt: 08/12/2018 89.8 kg (198 lb) 08/01/2018 89.4 kg (197 lb) 07/25/2018 90.3 kg (199 lb) 05/26/2018 82.6 kg (182 lb) 03/16/2018 83 kg (183 lb) Heart: Regular rate, rhythm, no murmurs, gallops, rubs. Lungs: Clear to auscultation, bilaterally, breathing non labored. Ext: No cyanosis, clubbing; 2+ bilateral lower extremities edema. Labs done July 19 and 2017, at [facility] reviewed. ASSESSMENT AND PLAN: Encounter Diagnosis ICD-10-CM 1. Type 2 diabetes mellitus with diabetic neuropathy, without long-term current use of insulin ([facility]) E11.40 glimepiride (AMARYL) 4 mg tablet insulin glargine (BASAGLAR KWIKPEN U-100 INSULIN) 100 unit/mL (3 mL) inpn lisinopril (ZESTRIL, PRINIVIL) 10 mg tablet 2. Hyperlipidemia LDL goal <70 E78.5 3. Stage 3 chronic kidney disease (HCC) N18.3 lisinopril (ZESTRIL, PRINIVIL) 10 mg tablet 4. Essential hypertension, benign I10 lisinopril (ZESTRIL, PRINIVIL) 10 mg tablet 5. Chronic bilateral low back pain without sciatica M54.5 G89.29 6. Bilateral lower extremity edema R60.0 Alpha lipoic acid info given (from [facility] supplement info) for DM and peripheral neuropathy. She continue to follow up with MEDARDO Torres at [facility]. Adjusting meds as indicated and working on diet. Encouraged protein with all meals and snacks. Lipids with LDL at 83 close to <70 ideal goal based on prior goals; on high dose statin per current statin guidelines and tolerated well. Continue present management. Continues to follow up with psychology instructor too. Back issues noted. Continue follow up with pain management. Try chair yoga discussed. Continue follow up with Nephrology, Dr. Maria Tolentino. Above issues addressed with patient. Patient involved in shared decision making for management of medical issues. History and medications reviewed. Epic updated as needed Refills taken care of and meds adjusted as indicated after reviewed history, exam and labs. Health Maintenance reviewed. Updated record and/or ordered tests as recorded. Encouraged on efforts at healthy diet and regular exercise and adequate sleep. The majority of the visit was spent counseling and/or coordinating care for the patient. Mxiy-of-cbpc time was at least 20 minutes. Joni Grimm MD CNOV Observed: 08/12/2018 Status: COMPLETED Source: [place] 8:[address] [facility] REPOSITORY Office Visit (INTMWS) GRACIELA CAVAZOS ([id number]) 1940 F Date Time Provider Department 08/12/18 8:20 AM JONI GRIMM INTMWS During your visit today, we recorded the following information about you: Pulse Respiration Blood pressure Weight 64/minute 16/minute 114/42 89.8 kg Joni Grimm MD 09/04/2018 3:27 PM Signed Patient presents with: Recheck: Follow up SUBJECTIVE: Graciela Cavazos is a 78 year old year old lady here today for 6 month follow up appointment for review of medical conditions. Doing better. Back on Lasix. Does diurese but still has swelling. Still with neuropathy. Seeing MEDARDO([facility]), Dr. Tolentino([facility]) and Inez (), Gladis ([place]), [place] (ophthalmology). Fasting glucose down to 60's and 80's in AM past few days. High at night to 200 to 300's. Blood pressure controlled without adverse effects from medications. PAST MEDICAL HISTORY Diagnosis Date - Allergic rhinitis, cause unspecified Allergic rhinitis - Cataract of left eye 12/31/2010 removed - Cataract of right eye 04/15/2011 removed - Diabetes mellitus without mention of complication Diabetes mellitus - Diverticulosis of colon (without mention of hemorrhage) - Dysthymic disorder Depression (non-psychotic) - Dysthymic disorder - Esophageal reflux Gastroesophageal reflux - Internal hemorrhoids without mention of complication - Nonspecific elevation of levels of transaminase or lactic acid dehydrogenase (LDH) Elevated LFT's - Peripheral vascular disease, unspecified (HCC) - H - PAST MEDICAL HISTORY OF 08/2007 Broken left elbow - Rheumatoid arthritis(714.0) - Unspecified closed fracture of ankle 2009 Ankle fracture - 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 ASPIRIN 81 MG TAB, DELAYED RELEASE Take one(1) tablet daily. atorvastatin (LIPITOR) 80 mg tablet Take 1 tablet by mouth once daily. blood sugar diagnostic (ONETOUCH VERIO) test strip Test blood sugar(s) 2 times daily. Dx: Type 2 DM - Controlled E11.9 Insulin: No Blood-Glucose Meter (ONETOUCH VERIO SYSTEM) [facility] [place] Dispense One Kit - Verio Meter Kit Dx: Type 2 DM - Uncontrolled E11.65 carvedilol (COREG) 25 mg tablet Take 1 tablet by mouth twice daily. cholecalciferol, vitamin D3, (VITAMIN D3 ORAL) Take by mouth. clopidogrel (PLAVIX) 75 mg tablet Take 1 tablet by mouth once daily. COMPOUNDED PRESCRIPTION Diabetic shoes. Has PVD dulaglutide 1.5 mg/0.5 mL pnij Inject 1.5 mg subcutaneously once each week. (BJ Shook refills) furosemide (LASIX) 40 mg tablet Take 1 tablet by mouth once daily. Take once daily glimepiride (AMARYL) 4 mg tablet Take 1 tablet by mouth daily with breakfast. (BJ) insulin glargine (BASAGLAR KWIKPEN U-100 INSULIN) 100 unit/mL (3 mL) inpn Inject 36 Units subcutaneously once daily. Will adjust as indicated Lancets lancets Use as instructed two times daily E 11.9 lisinopril (ZESTRIL, PRINIVIL) 10 mg tablet Take 1 tablet by mouth once daily. pyridoxine, vitamin B6, (VITAMIN B-6) 100 mg tablet Take 100 mg by mouth once daily. therapeutic multivitamin (THERA VITAMIN) tablet Take 1 tablet by mouth daily with breakfast. potassium chloride SR (MICRO-K) 10 mEq CR capsule Take 1 capsule by mouth twice daily. (Patient not taking: Reported on 08/12/2018 ) sodium chloride (AYR, OCEAN) 0.65 % nasal spray Use 2 Sprays in each nostril as needed for Cold/Allergy Symptoms. (Patient not taking: Reported on 05/26/2018 ) No current facility-administered medications for this visit. OBJECTIVE: BP (!) 114/42 Pulse 64 Resp 16 Wt 89.8 kg (198 lb) BMI 36.21 kg/m? Patient is alert, oriented times 3, no apparent distress, affect is bright, reactive. Last 5 Encounter BP Readings: Date: BP: 08/12/2018 114/42 08/01/2018 130/62 07/25/2018 142/70 05/26/2018 128/54 03/16/2018 114/62 Last 5 Encounter Wt Readings: Date: Wt: 08/12/2018 89.8 kg (198 lb) 08/01/2018 89.4 kg (197 lb) 07/25/2018 90.3 kg (199 lb) 05/26/2018 82.6 kg (182 lb) 03/16/2018 83 kg (183 lb) Heart: Regular rate, rhythm, no murmurs, gallops, rubs. Lungs: Clear to auscultation, bilaterally, breathing non labored. Ext: No cyanosis, clubbing; 2+ bilateral lower extremities edema. Labs done July 19 and 2017, at [facility] reviewed. ASSESSMENT AND PLAN: Encounter Diagnosis ICD-10-CM 1. Type 2 diabetes mellitus with diabetic neuropathy, without long-term current use of insulin (HCC) E11.40 glimepiride (AMARYL) 4 mg tablet insulin glargine (BASAGLAR KWIKPEN U-100 INSULIN) 100 unit/mL (3 mL) inpn lisinopril (ZESTRIL, PRINIVIL) 10 mg tablet 2. Hyperlipidemia LDL goal <70 E78.5 3. Stage 3 chronic kidney disease (HCC) N18.3 lisinopril (ZESTRIL, PRINIVIL) 10 mg tablet 4. Essential hypertension, benign I10 lisinopril (ZESTRIL, PRINIVIL) 10 mg tablet 5. Chronic bilateral low back pain without sciatica M54.5 G89.29 6. Bilateral lower extremity edema R60.0 Alpha lipoic acid info given (from [facility] supplement info) for DM and peripheral neuropathy. She continue to follow up with MEDARDO Torres at [facility]. Adjusting meds as indicated and working on diet. Encouraged protein with all meals and snacks. Lipids with LDL at 83 close to <70 ideal goal based on prior goals; on high dose statin per current statin guidelines and tolerated well. Continue present management. Continues to follow up with psychology instructor too. Back issues noted. Continue follow up with pain management. Try chair yoga discussed. Continue follow up with Nephrology, Dr. Maria Tolentino. Above issues addressed with patient. Patient involved in shared decision making for management of medical issues. History and medications reviewed. Epic updated as needed Refills taken care of and meds adjusted as indicated after reviewed history, exam and labs. Health Maintenance reviewed. Updated record and/or ordered tests as recorded. Encouraged on efforts at healthy diet and regular exercise and adequate sleep. The majority of the visit was spent counseling and/or coordinating care for the patient. [id number] time was at least 20 minutes. Joni Grimm MD Referring Provider: SELF [[id number]] Allergies As of Date: 08/12/2018 Noted Allergy Reaction ADHESIVE TAPE (ROSINS) 04/29/2016 9 - Itching Comments: Possible allergy. Pt had heart cath and she says her wrist was itchy and irritated where the cath was done. batazolidin [Other] 07/10/2005 5 - Intolerance CELEBREX (CELECOXIB) 10/16/2005 Comments: affected labs work diazide [Other] 07/10/2005 5 - Intolerance EFFEXOR (VENLAFAXINE HCL) 07/10/2005 1 - Mental Status Change Comments: patient uncertain INDOCIN (INDOMETHACIN SODIUM) 07/10/2005 5 - Intolerance meclomen [Other] 07/10/2005 5 - Intolerance MEVACOR (LOVASTATIN) 07/10/2005 5 - Intolerance MOTRIN (IBUPROFEN) 07/10/2005 Comments: hair loss NAPROSYN (NAPROXEN) 07/10/2005 5 - Intolerance NSAIDS (NON-STEROIDAL ANTI-INFLAM*07/10/2005 Comments: affected blood studies patient uncertain ORUDIS (KETOPROFEN) 07/10/2005 5 - Intolerance PROZAC (FLUOXETINE HCL) 07/10/2005 1 - Mental Status Change sporostacin [Other] 07/10/2005 5 - Intolerance STATINS (UQVTCVC-SWR-RLE REDUCTAS*07/04/2009 5 - Intolerance Comments: myalgia on 80 mg simvastatin VICODIN (HYDROCODONE-ACETAMINOPHE*07/10/2005 5 - Intolerance ZOLOFT (SERTRALINE HCL) 07/10/2005 1 - Mental Status Change Date Reviewed: 08/12/2018 Reviewed by: Heather Flood LPN - Fully Assessed Reason for Visit: Recheck [92] Cmt: Follow up Primary Visit Diagnosis:Type 2 diabetes mellitus with diabetic neuropathy, without long-term current use of insulin ([facility]) [E11.40] Other Visit Diagnoses:Hyperlipidemia LDL goal <70 [E78.5] Stage 3 chronic kidney disease (HCC) [N18.3] Essential hypertension, benign [I10] Chronic bilateral low back pain without sciatica [M54.5, G89.29] Bilateral lower extremity edema [R60.0] Order(s):glimepiride (AMARYL) 4 mg tabletTake 1 tablet by mouth daily with breakfast. (BJ)Disp: Rfl: insulin glargine (BASAGLAR KWIKPEN U-100 INSULIN) 100 unit/mL (3 mL) inpnInject 36 Units subcutaneously once daily. Will adjust as indicatedDisp: Rfl: lisinopril (ZESTRIL, PRINIVIL) 10 mg tabletTake 1 tablet by mouth once daily.Disp: Rfl: Prescriptions as of 08/12/2018 Sig: GLIMEPIRIDE 4 MG TABLET Take 1 tablet by mouth daily * INSULIN GLARGINE (U-100) 100 * Inject 36 Units subcutaneousl* LISINOPRIL 10 MG TABLET Take 1 tablet by mouth once d* FUROSEMIDE 40 MG TABLET Take 1 tablet by mouth once d* PYRIDOXINE (VITAMIN B6) 100 M* Take 100 mg by mouth once tasha* CARVEDILOL 25 MG TABLET Take 1 tablet by mouth twice * AMLODIPINE 5 MG TABLET Take 10 mg by mouth once becki* VITAMIN D3 ORAL Take by mouth. ATORVASTATIN 80 MG TABLET Take 1 tablet by mouth once d* DULAGLUTIDE 1.5 MG/0.5 ML SUB* Inject 1.5 mg subcutaneously * CLOPIDOGREL 75 MG TABLET Take 1 tablet by mouth once d* BLOOD SUGAR DIAGNOSTIC STRIPS Test blood sugar(s) 2 times d* LANCETS Use as instructed two times d* BLOOD-GLUCOSE METER Dispense One Kit - Verio Mete* THERAPEUTIC MULTIVITAMIN TABL* Take 1 tablet by mouth daily * * COMPOUNDED PRESCRIPTION Diabetic shoes. Has PVD * TYLENOL ARTHRITIS PAIN 650 MG* PRN use only * ASPIRIN 81 MG TABLET,DELAYED * Take one(1) tablet daily. 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 ALLERGIC RHINITIS NOS [J30.9] More... ESOPHAGEAL REFLUX [K21.9] More... Peripheral vascular disease, unspecified (HCC) * More... GLAUCOMA NOS [H40.9] More... IDIO PERIPH NEURPTHY NOS [G60.9] INVALID FOR* PAIN IN LIMB [M79.609] INVALID FOR* SYMPTOMATIC FEMALE CLIMACTERIC STATE [N95.1] INVALID FOR* ATROPHIC VAGINITIS [N95.2] INVALID FOR* PERS HX HEALTH HAZARDS NEC [Z91.89] INVALID FOR* BLADDER DISORDER NEC [596.8] INVALID FOR* NOCTURIA [R35.1] INVALID FOR* Ingrowing Nail [L60.0] INVALID FOR* Urgency of urination [R39.15] INVALID FOR* Rectocele [N81.6] INVALID FOR* Cystocele, midline [N81.11] INVALID FOR* Albuminuria [R80.9] INVALID FOR* Mixed hyperlipidemia [E78.2] INVALID FOR* Type 2 diabetes mellitus without complication (*INVALID FOR* More... Preop testing [Z01.818] INVALID FOR* More... Discharge planning issues [Z02.9] INVALID FOR* More... Atherosclerosis of [place] coronary artery with *INVALID FOR* More... HOCM (hypertrophic obstructive cardiomyopathy) *INVALID FOR* More... (aortic stenosis) [I35.0] INVALID FOR* More... Mitral regurgitation [I34.0] INVALID FOR* More... Hypovolemia [E86.1] INVALID FOR*05/02/2016 More... More... Cardiac insufficiency (HCC) [I50.9] INVALID FOR*05/04/2016 More... Atelectasis [J98.11] INVALID FOR*05/06/2016 More... Stage 3 chronic kidney disease (HCC) [N18.3] INVALID FOR* More... Sinus bradycardia [R00.1] INVALID FOR*05/06/2016 More... Fluid overload [E87.70] INVALID FOR*05/06/2016 More... Thrombocytopenia (HCC) [D69.6] INVALID FOR*05/07/2016 More... 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 SUMMARY INVALID FOR* More... Hyperlipidemia LDL goal <70 [E78.5] INVALID FOR* More... Essential hypertension [I10] INVALID FOR* More... 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] INVALID FOR* Status post aortic valve replacement with biopr*INVALID FOR* PAD (peripheral artery disease) (HCC) [I73.9] INVALID FOR* Chronic bilateral low back pain without sciatic*INVALID FOR* Diabetic polyneuropathy associated with type 2 *INVALID FOR* Prescriptions ordered this encounter Disp Refills Start End GLIMEPIRIDE 4 MG TABLET 08/12/2018 Class: Med Update Route: ORAL Sig: Take 1 tablet by mouth daily with breakfast. (BJ) INSULIN GLARGINE (U-100) 100 UNIT/ML* 08/12/2018 Class: Med Update Route: SUBCUTANEOUS Sig: Inject 36 Units subcutaneously once daily. Will adjust as indicated LISINOPRIL 10 MG TABLET 08/12/2018 Class: Med Update Route: ORAL Sig: Take 1 tablet by mouth once daily. Medications Discontinued During This Encounter glimepiride (AMARYL) 4 mg tablet 180 * 3 10/12/2016 08/12/2018 Route: ORAL Sig: Take 1 tablet by mouth twice daily with meals. Patient taking differently: Take 4 mg by mouth daily with breakfast. Disc: Reason for discontinue is not on file. insulin glargine (LANTUS SOLOSTAR U-* 08/12/2018 Class: Historical Med Route: SUBCUTANEOUS Sig: Inject 40 Units subcutaneously. Disc: Reason for discontinue is not on file. insulin glargine,hum.rec.anlog (BASA* 08/12/2018 Class: Historical Med Route: SUBCUTANEOUS Sig: Inject 40 Units subcutaneously once daily. Disc: Reason for discontinue is not on file. lisinopril (ZESTRIL, PRINIVIL) 10 mg* 07/25/2018 08/12/2018 Class: Med Update Route: ORAL Sig: Take 2 tablets by mouth once daily. Disc: Reason for discontinue is not on file. Disposition: Return for 6 months follow up. Follow-up and Disposition History Recorded Encounter Status:Closed by JONI GRIMM MD on 09/04/18 PROGRESS Observed: 08/01/2018 Status: COMPLETED Source: [facility] 10:12 AM [facility] REPOSITORY HNO ID: [id number] Author: Bossman Douglas (Cns) Service: (none) Author Type: Nurse Specialist Type: Progress Notes Filed: 08/01/2018 10:23 AM Note Text: OUTPATIENT VISIT DATE August 01, 2018 OUTPATIENT VISIT TYPE ESTABLISHED PRIMARY CARE PHYSICIAN: Joni Grimm MD CHIEF COMPLAINT: Patient presents with: 1 week f/u: SOBOE History of Present Illness: Graciela Cavazos is a 78 year old female who was last seen 07/23/2018 in urgent care, last seen in internal medicine July 25, 2018. She has been seen in the past for ACTIVE PROBLEM LIST Rheumatoid Arthritis ([facility]) Essential Hypertension, Benign Allergic Rhinitis, Cause Unspecified Esophageal Reflux Peripheral Vascular Disease, Unspecified ([facility]) Unspecified Glaucoma(365.9) Unspecified Hereditary and Idiopathic Peripheral Neuropathy Pain in Limb Symptomatic Menopausal Or Female Climacteric States Postmenopausal Atrophic Vaginitis Other Specified Personal History Presenting Hazards to Health(v15.89) Other Specified Disorder of Bladder Nocturia Ingrowing Nail Urgency of Urination Rectocele Cystocele, Midline Albuminuria Mixed Hyperlipidemia Type 2 Diabetes Mellitus Without Complication ([facility]) Preop Testing Discharge Planning Issues Atherosclerosis of [place] Coronary Artery With Stable Angina Pectoris ([facility]) Hocm (Hypertrophic Obstructive Cardiomyopathy) ([facility]) As (Aortic Stenosis) Mitral Regurgitation Stage 3 Chronic Kidney Disease ([facility]) S/P Cabg X 3 Summary Hyperlipidemia Ldl Goal <70 Essential Hypertension S/P Mitral Valve Replacement With Bioprosthetic Valve S/P Ventricular Septal Myectomy Status Post Aortic Valve Replacement With Bioprosthetic Valve Pad (Peripheral Artery Disease) ([facility]) Chronic Bilateral Low Back Pain Without Sciatica Diabetic Polyneuropathy Associated With Type 2 Diabetes Mellitus ([facility]) HPI excerpted from last visit: She was sent to ED for complains of of shortness of breath and wheezing along with chest tightness. Seen at [facility], CXR showed early signs of CHF. Normal EKG noted. Negative troponin and labs. Noted to have increased dietary sodium. Normal exam noted. Impression subjective dyspnea and cough. Since the last visit, she states that she stopped taking lasix for the last few days. Weight is increased ~20lbs since last seen at clinic 05/13/2018. How long off lasix:4 days Stopped lisinopril 4 days ago because daughter noted is could cause wheezing when she looked up information on line Does not feel improved with these changes SOBOE:no Chest discomfort: none currently Current cardiologists: Dr. Griffith and Dr. Price [employer] Consultant: Dr. Tolentino No current report of chest pain or wheezing. Notes symptoms seem worse at night with lying down. Leg swelling present. Weight gain present. Stress test 2016 negative for ischemia 2016 Cardiac cath Conclusions Severe CAD, 3VD (LAD, D1, RCA) Recommendations Bypass grafting to LAD, Diagonal, RCA AVR EKG 2017 NSR with incomplete LBBB, LVH TTE and ALLEN 2016 [facility], normal LVEF At her last visit she was resumed on lasix, advised to increased to 80 mg for three days then continue on with her usual dose of 40 mg daily. Advised to resume lisinopril. Presents today feeling improve. Home weight have decreased ~2lbs. Does have lower extremity swelling at ankles, but less than at last visit No shortness of breath on exertion, cough or wheezing present since making these changes. PAST MEDICAL HISTORY Diagnosis Date - Allergic rhinitis, cause unspecified Allergic rhinitis - Cataract of left eye 12/31/2010 removed - Cataract of right eye 04/15/2011 removed - Diabetes mellitus without mention of complication Diabetes mellitus - Diverticulosis of colon (without mention of hemorrhage) - Dysthymic disorder Depression (non-psychotic) - Dysthymic disorder - Esophageal reflux Gastroesophageal reflux - Internal hemorrhoids without mention of complication - Nonspecific elevation of levels of transaminase or lactic acid dehydrogenase (LDH) Elevated LFT's - Peripheral vascular disease, unspecified (HCC) - [facility] - PAST MEDICAL HISTORY OF 08/2007 Broken left elbow - Rheumatoid arthritis(714.0) - Unspecified closed fracture of ankle 2009 Ankle fracture - 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 PAST SURGICAL HISTORY Procedure Laterality Date - ANGIOPLASTY 10/25/2009 no stents in left - Ballooning only left leg - CABG (3) VEIN GRAFTS AND ARTERIAL GRAFT(S) 05/01/2016 - COLONOSCOP W/ OR W/O [facility] SPEC 09/12/07 - LIGATE FALLOPIAN TUBE Tubal ligation - PAST SURGICAL HISTORY OF 08/09/09 Successful VENDOR MANAGER/Stenting -right SFA Leg - PAST SURGICAL HISTORY OF 05/19/10 left leg broken-pins, screws, plates - REMOVAL GALLBLADDER 1987- Cholecystectomy - REMOVAL OF TONSILS,<14 Y/O Tonsillectomy - REMV LENS MATERIAL,PHACOFRAGMT 12/31/2010 Cataract Extraction, left eye dr raya - REVISION OF EYELID,< 1/4 LID MARGIN 03/2015 bilateral FAMILY HISTORY Problem Relation Age of Onset - Heart Mother CABG in her 80s - Stroke Maternal Grandfather - Diabetes Paternal Grandmother - Cancer Maternal Uncle Stomach Social History Substance Use Topics - Smoking status: Never Smoker - Smokeless tobacco: Never Used - Alcohol use Yes Comment: rarely 3-4 per year ALLERGIES: ALLERGIES Allergen Reactions - Adhesive Tape (Susan* Itching Possible allergy. Pt had heart cath and she says her wrist was itchy and irritated where the cath was done. - Batazolidin [Other] Intolerance - Celebrex [Celecoxib] affected labs work - Diazide [Other] Intolerance - Effexor [Venlafaxin* Mental Status Change patient uncertain - Indocin [Indomethac* Intolerance - Meclomen [Other] Intolerance - Mevacor [Lovastatin] Intolerance - Motrin [Ibuprofen] hair loss - Naprosyn [Naproxen] Intolerance - Nsaids (Non-Steroid* affected blood studies patient uncertain - Orudis [Ketoprofen] Intolerance - Prozac [Fluoxetine * Mental Status Change - Sporostacin [Other] Intolerance - Statins [Statins-Hm* Intolerance myalgia on 80 mg simvastatin - Vicodin [Hydrocodon* Intolerance - Zoloft [Sertraline * Mental Status Change MEDICATIONS furosemide (LASIX) 40 mg tablet Take 1 tablet by mouth once daily. Take once daily pyridoxine, vitamin B6, (VITAMIN B-6) 100 mg tablet Take 100 mg by mouth once daily. potassium chloride SR (MICRO-K) 10 mEq CR capsule Take 1 capsule by mouth twice daily. lisinopril (ZESTRIL, PRINIVIL) 10 mg tablet Take 2 tablets by mouth once daily. carvedilol (COREG) 25 mg tablet Take 1 tablet by mouth twice daily. amLODIPine (NORVASC) 5 mg tablet Take 10 mg by mouth once daily. cholecalciferol, vitamin D3, (VITAMIN D3 ORAL) Take by mouth. insulin glargine (LANTUS SOLOSTAR U-100 INSULIN) 100 unit/mL (3 mL) inpn Inject 40 Units subcutaneously. atorvastatin (LIPITOR) 80 mg tablet Take 1 tablet by mouth once daily. dulaglutide 1.5 mg/0.5 mL pnij Inject 1.5 mg subcutaneously once each week. (BJ Shook refills) clopidogrel (PLAVIX) 75 mg tablet Take 1 tablet by mouth once daily. blood sugar diagnostic (PulsantUCH VERIO) test strip Test blood sugar(s) 2 times daily. Dx: Type 2 DM - Controlled E11.9 Insulin: No glimepiride (AMARYL) 4 mg tablet Take 1 tablet by mouth twice daily with meals. Lancets lancets Use as instructed two times daily E 11.9 Blood-Glucose Meter (ONETOUCH VERIO SYSTEM) [facility] Dispense One Kit - Verio Meter Kit Dx: Type 2 DM - Uncontrolled E11.65 therapeutic multivitamin (THERA VITAMIN) tablet Take 1 tablet by mouth daily with breakfast. COMPOUNDED PRESCRIPTION Diabetic shoes. Has PVD acetaminophen(TYLENOL ARTHRITIS PAIN 650 MG TAB) PRN use only ASPIRIN 81 MG TAB, DELAYED RELEASE Take one(1) tablet daily. sodium chloride (AYR, OCEAN) 0.65 % nasal spray Use 2 Sprays in each nostril as needed for Cold/Allergy Symptoms. REVIEW OF SYSTEMS: GENERAL: Negative for: Weight loss or gain, Fever or Chills, Weakness and Sleep difficulties. Physical Examination: BP 130/62 Pulse 68 Resp 16 Wt 197 lb (89.4kg)General appearance: Well appearing, alert, in no acute distress, well-hydrated, well nourished. Skin: Skin color, texture, turgor normal, no suspicious rashes or lesions Neck: Supple, no adenopathy; thyroid symmetric, normal size, no bruits Lungs: Lungs clear to auscultation. No wheezing, rhonchi, rales Heart: RRR without murmur, gallop, or rubs. No ectopy Abdomen: Normal abdominal exam, Abdomen soft, non-tender. Bowel sounds normal. No masses, organomegaly Extremities: 1+ bilateral lower extremity edema, no skin discoloration, clubbing or cyanosis. Good capillary refill. Peripheral pulses: Normal Neuro: Gait normal. Sensation grossly intact. Reviewed chart, outside records, tests I personally interviewed, confirmed and edited the above information if obtained by others. TESTING: Glucose (mg/dL) Date Value 10/26/2016 164 Potassium (mmol/L) Date Value 10/26/2016 4.7 Sodium (mmol/L) Date Value 10/26/2016 139 Chloride (mmol/L) Date Value 10/26/2016 103 CO2 (mmol/L) Date Value 10/26/2016 23 Creatinine (mg/dL) Date Value 10/26/2016 1.14 BUN (mg/dL) Date Value 10/26/2016 30 Anion Gap (mmol/L) Date Value 10/26/2016 13 Calcium (mg/dL) Date Value 10/26/2016 9.4 Glucose (mg/dL) Date Value 10/26/2016 164 Potassium (mmol/L) Date Value 10/26/2016 4.7 Sodium (mmol/L) Date Value 10/26/2016 139 Chloride (mmol/L) Date Value 10/26/2016 103 CO2 (mmol/L) Date Value 10/26/2016 23 Creatinine (mg/dL) Date Value 10/26/2016 1.14 BUN (mg/dL) Date Value 10/26/2016 30 Anion Gap (mmol/L) Date Value 10/26/2016 13 Calcium (mg/dL) Date Value 10/26/2016 9.4 Protein, Total (g/dL) Date Value 07/29/2016 7.0 Albumin (g/dL) Date Value 07/29/2016 4.1 Bilirubin, Total (mg/dL) Date Value 07/29/2016 0.6 Alkaline Phosphatase (U/L) Date Value 07/29/2016 116 AST (U/L) Date Value 07/29/2016 17 ALT (U/L) Date Value 07/29/2016 10 Hemoglobin (g/dL) Date Value 07/29/2016 13.0 Hematocrit (%) Date Value 07/29/2016 40.8 WBC (k/uL) Date Value 07/29/2016 8.22 Cholesterol, Total (mg/dL) Date Value 05/18/2016 115 HDL Cholesterol (mg/dL) Date Value 05/18/2016 31 LDL Cholesterol (mg/dL) Date Value 05/18/2016 45 Triglyceride (mg/dL) Date Value 05/18/2016 193 Hemoglobin A1C Date Value Ref Range Status 04/04/2018 7.8 (A) 4.2 - 6.3 % Final Comment: [facility] 11/18/2017 8.2 Final 02/10/2017 7.2 Final 10/26/2016 8.0 (H) 4.3 - 5.6 % Final Comment: [place] Diabetes Association guidelines indicate that patients with HgbA1c in the range 5.7-6.4% are at increased risk for development of diabetes, and intervention by lifestyle modification may be beneficial. HgbA1c greater or equal to 6.5% is considered diagnostic of diabetes. 05/18/2016 6.3 (H) 4.3 - 5.6 % Final Comment: [place] Diabetes Association guidelines indicate that patients with HgbA1c in the range 5.7-6.4% are at increased risk for development of diabetes, and intervention by lifestyle modification may be beneficial. HgbA1c greater or equal to 6.5% is considered diagnostic of diabetes. 04/29/2016 7.6 (H) 4.3 - 5.6 % Final Comment: [place] Diabetes Association guidelines indicate that patients with HgbA1c in the range 5.7-6.4% are at increased risk for development of diabetes, and intervention by lifestyle modification may be beneficial. HgbA1c greater or equal to 6.5% is considered diagnostic of diabetes. 11/15/2015 6.6 (H) 4.3 - 5.6 % Final Comment: [place] Diabetes Association guidelines indicate that patients with HgbA1c in the range 5.7-6.4% are at increased risk for development of diabetes, and intervention by lifestyle modification may be beneficial. HgbA1c greater or equal to 6.5% is considered diagnostic of diabetes. 05/22/2015 8.0 (H) 4.0 - 6.0 % Final Comment: [place] Diabetes Association guidelines indicate that patients with HgbA1c in the range 5.7-6.4% are at increased risk for development of diabetes, and intervention by lifestyle modification may be beneficial. HgbA1c greater or equal to 6.5% is considered diagnostic of diabetes. Ejection Fraction - Result: 60 % Date: 04/17/2016 Time: 09:56:45 IMPRESSION: Ms. Cavazos is a 78 year old woman presents for ER follow up After my examination and review of data, I make the following recommendations. PLAN AND RECOMMENDATIONS: 1. Irregular heartbeat - ICD9: 427.9, ICD10: I49.9 (primary diagnosis) Reviewed in clinic today, no significant change from previous, reviewed with Dr. Newell - ECG COMPLETE W INTERPRETATION Normal sinus rhythm, incomplete Left bundle branch block, PACs 2. Essential hypertension - ICD9: 401.9, ICD10: I10 - improved control - Continue with current medication(s) - Encourage dietary sodium restriction/DASH diet - Recommended regular aerobic exercise. - Recommend home blood pressure monitoring, to bring results in on next visit - Goal of BP <130/80 3. Weight gain - ICD9: 783.1, ICD10: R63.5 4. Leg swelling - ICD9: 729.81, ICD10: M79.89 5. Cough - ICD9: 786.2, ICD10: R05 All but leg swelling has resolved. Leg swelling is decreased as well as weight, continue with diuretic as advised. Go to ER for chest pain, increased shortness of breath on exertion or other concerning symptoms. Follow up with psychology instructor as scheduled, sooner if not feeling improved Advised to go to ER if develops chest pain, shortness of breath, or severe worsening of symptoms. Discussed risks, benefits, alternatives, and potential side effects of medications. Ms. Cavazos expressed understanding and agreed with the plan. Bossman Douglas APRN.WORD PROCESSING SUPERVISOR CNOV Observed: 08/01/2018 Status: COMPLETED Source: ENIO 8:[address] [facility] REPOSITORY Office Visit (INTMWS) GRACIELA CAVAZOS ([id number]) 1940 F Date Time Provider Department 08/01/18 8:40 AM [facility] (JIMBO) INTMWS During your visit today, we recorded the following information about you: Pulse Respiration Blood pressure Weight 68/minute 16/minute 130/62 89.4 kg Bossman Douglas APRN.CNS 08/01/2018 10:23 AM Signed OUTPATIENT VISIT DATE August 01, 2018 OUTPATIENT VISIT TYPE ESTABLISHED PRIMARY CARE PHYSICIAN: Joni Grimm MD CHIEF COMPLAINT: Patient presents with: 1 week f/u: SOBOE History of Present Illness: Graciela Cavazos is a 78 year old female who was last seen 07/23/2018 in urgent care, last seen in internal medicine July 25, 2018. She has been seen in the past for ACTIVE PROBLEM LIST Rheumatoid Arthritis ([facility]) Essential Hypertension, Benign Allergic Rhinitis, Cause Unspecified Esophageal Reflux Peripheral Vascular Disease, Unspecified ([facility]) Unspecified Glaucoma(365.9) Unspecified Hereditary and Idiopathic Peripheral Neuropathy Pain in Limb Symptomatic Menopausal Or Female Climacteric States Postmenopausal Atrophic Vaginitis Other Specified Personal History Presenting Hazards to Health(v15.89) Other Specified Disorder of Bladder Nocturia Ingrowing Nail Urgency of Urination Rectocele Cystocele, Midline Albuminuria Mixed Hyperlipidemia Type 2 Diabetes Mellitus Without Complication ([facility]) Preop Testing Discharge Planning Issues Atherosclerosis of [place] Coronary Artery With Stable Angina Pectoris ([facility]) Hocm (Hypertrophic Obstructive Cardiomyopathy) ([facility]) As (Aortic Stenosis) Mitral Regurgitation Stage 3 Chronic Kidney Disease ([facility]) S/P Cabg X 3 Summary Hyperlipidemia Ldl Goal <70 Essential Hypertension S/P Mitral Valve Replacement With Bioprosthetic Valve S/P Ventricular Septal Myectomy Status Post Aortic Valve Replacement With Bioprosthetic Valve Pad (Peripheral Artery Disease) ([facility]) Chronic Bilateral Low Back Pain Without Sciatica Diabetic Polyneuropathy Associated With Type 2 Diabetes Mellitus ([facility]) HPI excerpted from last visit: She was sent to ED for complains of of shortness of breath and wheezing along with chest tightness. Seen at [facility], CXR showed early signs of CHF. Normal EKG noted. Negative troponin and labs. Noted to have increased dietary sodium. Normal exam noted. Impression subjective dyspnea and cough. Since the last visit, she states that she stopped taking lasix for the last few days. Weight is increased ~20lbs since last seen at clinic 05/13/2018. How long off lasix:4 days Stopped lisinopril 4 days ago because daughter noted is could cause wheezing when she looked up information on line Does not feel improved with these changes SOBOE:no Chest discomfort: none currently Current cardiologists: Dr. Griffith and Dr. Price Sap Security Consultant: Dr. Tolentino No current report of chest pain or wheezing. Notes symptoms seem worse at night with lying down. Leg swelling present. Weight gain present. Stress test 2016 negative for ischemia 2016 Cardiac cath Conclusions Severe CAD, 3VD (LAD, D1, RCA) Recommendations Bypass grafting to LAD, Diagonal, RCA AVR EKG 2017 NSR with incomplete LBBB, LVH TTE and ALLEN 2016 [facility], normal LVEF At her last visit she was resumed on lasix, advised to increased to 80 mg for three days then continue on with her usual dose of 40 mg daily. Advised to resume lisinopril. Presents today feeling improve. Home weight have decreased ~2lbs. Does have lower extremity swelling at ankles, but less than at last visit No shortness of breath on exertion, cough or wheezing present since making these changes. PAST MEDICAL HISTORY Diagnosis Date - Allergic rhinitis, cause unspecified Allergic rhinitis - Cataract of left eye 12/31/2010 removed - Cataract of right eye 04/15/2011 removed - Diabetes mellitus without mention of complication Diabetes mellitus - Diverticulosis of colon (without mention of hemorrhage) - Dysthymic disorder Depression (non-psychotic) - Dysthymic disorder - Esophageal reflux Gastroesophageal reflux - Internal hemorrhoids without mention of complication - Nonspecific elevation of levels of transaminase or lactic acid dehydrogenase (LDH) Elevated LFT's - Peripheral vascular disease, unspecified (HCC) - PMH - PAST MEDICAL HISTORY OF 08/2007 Broken left elbow - Rheumatoid arthritis(714.0) - Unspecified closed fracture of ankle 2009 Ankle fracture - 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 PAST SURGICAL HISTORY Procedure Laterality Date - ANGIOPLASTY 10/25/2009 no stents in left - Ballooning only left leg - CABG (3) VEIN GRAFTS AND ARTERIAL GRAFT(S) 05/01/2016 - COLONOSCOP W/ OR W/O BRSH SPEC 09/12/07 - LIGATE FALLOPIAN TUBE Tubal ligation - PAST SURGICAL HISTORY OF 08/09/09 Successful VENDOR MANAGER/Stenting -right SFA Leg - PAST SURGICAL HISTORY OF 05/19/10 left leg broken-pins, screws, plates - REMOVAL GALLBLADDER 1987- Cholecystectomy - REMOVAL OF TONSILS,<14 Y/O Tonsillectomy - REMV LENS MATERIAL,PHACOFRAGMT 12/31/2010 Cataract Extraction, left eye dr raya - REVISION OF EYELID,< 1/4 LID MARGIN 03/2015 bilateral FAMILY HISTORY Problem Relation Age of Onset - Heart Mother CABG in her 80s - Stroke Maternal Grandfather - Diabetes Paternal Grandmother - Cancer Maternal Uncle Stomach Social History Substance Use Topics - Smoking status: Never Smoker - Smokeless tobacco: Never Used - Alcohol use Yes Comment: rarely 3-4 per year ALLERGIES: ALLERGIES Allergen Reactions - Adhesive Tape (Susan* Itching Possible allergy. Pt had heart cath and she says her wrist was itchy and irritated where the cath was done. - Batazolidin [Other] Intolerance - Celebrex [Celecoxib] affected labs work - Diazide [Other] Intolerance - Effexor [Venlafaxin* Mental Status Change patient uncertain - Indocin [Indomethac* Intolerance - Meclomen [Other] Intolerance - Mevacor [Lovastatin] Intolerance - Motrin [Ibuprofen] hair loss - Naprosyn [Naproxen] Intolerance - Nsaids (Non-Steroid* affected blood studies patient uncertain - Orudis [Ketoprofen] Intolerance - Prozac [Fluoxetine * Mental Status Change - Sporostacin [Other] Intolerance - Statins [Statins-Hm* Intolerance myalgia on 80 mg simvastatin - Vicodin [Hydrocodon* Intolerance - Zoloft [Sertraline * Mental Status Change MEDICATIONS furosemide (LASIX) 40 mg tablet Take 1 tablet by mouth once daily. Take once daily pyridoxine, vitamin B6, (VITAMIN B-6) 100 mg tablet Take 100 mg by mouth once daily. potassium chloride SR (MICRO-K) 10 mEq CR capsule Take 1 capsule by mouth twice daily. lisinopril (ZESTRIL, PRINIVIL) 10 mg tablet Take 2 tablets by mouth once daily. carvedilol (COREG) 25 mg tablet Take 1 tablet by mouth twice daily. amLODIPine (NORVASC) 5 mg tablet Take 10 mg by mouth once daily. cholecalciferol, vitamin D3, (VITAMIN D3 ORAL) Take by mouth. insulin glargine (LANTUS SOLOSTAR U-100 INSULIN) 100 unit/mL (3 mL) inpn Inject 40 Units subcutaneously. atorvastatin (LIPITOR) 80 mg tablet Take 1 tablet by mouth once daily. dulaglutide 1.5 mg/0.5 mL pnij Inject 1.5 mg subcutaneously once each week. (BJ Shook refills) clopidogrel (PLAVIX) 75 mg tablet Take 1 tablet by mouth once daily. blood sugar diagnostic (ONETOUCH VERIO) test strip Test blood sugar(s) 2 times daily. Dx: Type 2 DM - Controlled E11.9 Insulin: No glimepiride (AMARYL) 4 mg tablet Take 1 tablet by mouth twice daily with meals. Lancets lancets Use as instructed two times daily E 11.9 Blood-Glucose Meter (WhoJamTOUCH VERIO SYSTEM) [facility] [place] Dispense One Kit - Verio Meter Kit Dx: Type 2 DM - Uncontrolled E11.65 therapeutic multivitamin (THERA VITAMIN) tablet Take 1 tablet by mouth daily with breakfast. COMPOUNDED PRESCRIPTION Diabetic shoes. Has PVD acetaminophen(TYLENOL ARTHRITIS PAIN 650 MG TAB) PRN use only ASPIRIN 81 MG TAB, DELAYED RELEASE Take one(1) tablet daily. sodium chloride (AYR, OCEAN) 0.65 % nasal spray Use 2 Sprays in each nostril as needed for Cold/Allergy Symptoms. REVIEW OF SYSTEMS: GENERAL: Negative for: Weight loss or gain, Fever or Chills, Weakness and Sleep difficulties. Physical Examination: BP 130/62 Pulse 68 Resp 16 Wt 197 lb (89.4kg)General appearance: Well appearing, alert, in no acute distress, well-hydrated, well nourished. Skin: Skin color, texture, turgor normal, no suspicious rashes or lesions Neck: Supple, no adenopathy; thyroid symmetric, normal size, no bruits Lungs: Lungs clear to auscultation. No wheezing, rhonchi, rales Heart: RRR without murmur, gallop, or rubs. No ectopy Abdomen: Normal abdominal exam, Abdomen soft, non-tender. Bowel sounds normal. No masses, organomegaly Extremities: 1+ bilateral lower extremity edema, no skin discoloration, clubbing or cyanosis. Good capillary refill. Peripheral pulses: Normal Neuro: Gait normal. Sensation grossly intact. Reviewed chart, outside records, tests I personally interviewed, confirmed and edited the above information if obtained by others. TESTING: Glucose (mg/dL) Date Value 10/26/2016 164 Potassium (mmol/L) Date Value 10/26/2016 4.7 Sodium (mmol/L) Date Value 10/26/2016 139 Chloride (mmol/L) Date Value 10/26/2016 103 CO2 (mmol/L) Date Value 10/26/2016 23 Creatinine (mg/dL) Date Value 10/26/2016 1.14 BUN (mg/dL) Date Value 10/26/2016 30 Anion Gap (mmol/L) Date Value 10/26/2016 13 Calcium (mg/dL) Date Value 10/26/2016 9.4 Glucose (mg/dL) Date Value 10/26/2016 164 Potassium (mmol/L) Date Value 10/26/2016 4.7 Sodium (mmol/L) Date Value 10/26/2016 139 Chloride (mmol/L) Date Value 10/26/2016 103 CO2 (mmol/L) Date Value 10/26/2016 23 Creatinine (mg/dL) Date Value 10/26/2016 1.14 BUN (mg/dL) Date Value 10/26/2016 30 Anion Gap (mmol/L) Date Value 10/26/2016 13 Calcium (mg/dL) Date Value 10/26/2016 9.4 Protein, Total (g/dL) Date Value 07/29/2016 7.0 Albumin (g/dL) Date Value 07/29/2016 4.1 Bilirubin, Total (mg/dL) Date Value 07/29/2016 0.6 Alkaline Phosphatase (U/L) Date Value 07/29/2016 116 AST (U/L) Date Value 07/29/2016 17 ALT (U/L) Date Value 07/29/2016 10 Hemoglobin (g/dL) Date Value 07/29/2016 13.0 Hematocrit (%) Date Value 07/29/2016 40.8 WBC (k/uL) Date Value 07/29/2016 8.22 Cholesterol, Total (mg/dL) Date Value 05/18/2016 115 HDL Cholesterol (mg/dL) Date Value 05/18/2016 31 LDL Cholesterol (mg/dL) Date Value 05/18/2016 45 Triglyceride (mg/dL) Date Value 05/18/2016 193 Hemoglobin A1C Date Value Ref Range Status 04/04/2018 7.8 (A) 4.2 - 6.3 % Final Comment: [facility] 11/18/2017 8.2 Final 02/10/2017 7.2 Final 10/26/2016 8.0 (H) 4.3 - 5.6 % Final Comment: [place] Diabetes Association guidelines indicate that patients with HgbA1c in the range 5.7-6.4% are at increased risk for development of diabetes, and intervention by lifestyle modification may be beneficial. HgbA1c greater or equal to 6.5% is considered diagnostic of diabetes. 05/18/2016 6.3 (H) 4.3 - 5.6 % Final Comment: [place] Diabetes Association guidelines indicate that patients with HgbA1c in the range 5.7-6.4% are at increased risk for development of diabetes, and intervention by lifestyle modification may be beneficial. HgbA1c greater or equal to 6.5% is considered diagnostic of diabetes. 04/29/2016 7.6 (H) 4.3 - 5.6 % Final Comment: [place] Diabetes Association guidelines indicate that patients with HgbA1c in the range 5.7-6.4% are at increased risk for development of diabetes, and intervention by lifestyle modification may be beneficial. HgbA1c greater or equal to 6.5% is considered diagnostic of diabetes. 11/15/2015 6.6 (H) 4.3 - 5.6 % Final Comment: [place] Diabetes Association guidelines indicate that patients with HgbA1c in the range 5.7-6.4% are at increased risk for development of diabetes, and intervention by lifestyle modification may be beneficial. HgbA1c greater or equal to 6.5% is considered diagnostic of diabetes. 05/22/2015 8.0 (H) 4.0 - 6.0 % Final Comment: [place] Diabetes Association guidelines indicate that patients with HgbA1c in the range 5.7-6.4% are at increased risk for development of diabetes, and intervention by lifestyle modification may be beneficial. HgbA1c greater or equal to 6.5% is considered diagnostic of diabetes. Ejection Fraction - Result: 60 % Date: 04/17/2016 Time: 09:56:45 IMPRESSION: Ms. Cavazos is a 78 year old woman presents for ER follow up After my examination and review of data, I make the following recommendations. PLAN AND RECOMMENDATIONS: 1. Irregular heartbeat - ICD9: 427.9, ICD10: I49.9 (primary diagnosis) Reviewed in clinic today, no significant change from previous, reviewed with Dr. Newell - ECG COMPLETE W INTERPRETATION Normal sinus rhythm, incomplete Left bundle branch block, PACs 2. Essential hypertension - ICD9: 401.9, ICD10: I10 - improved control - Continue with current medication(s) - Encourage dietary sodium restriction/DASH diet - Recommended regular aerobic exercise. - Recommend home blood pressure monitoring, to bring results in on next visit - Goal of BP <130/80 3. Weight gain - ICD9: 783.1, ICD10: R63.5 4. Leg swelling - ICD9: 729.81, ICD10: M79.89 5. Cough - ICD9: 786.2, ICD10: R05 All but leg swelling has resolved. Leg swelling is decreased as well as weight, continue with diuretic as advised. Go to ER for chest pain, increased shortness of breath on exertion or other concerning symptoms. Follow up with psychology instructor as scheduled, sooner if not feeling improved Advised to go to ER if develops chest pain, shortness of breath, or severe worsening of symptoms. Discussed risks, benefits, alternatives, and potential side effects of medications. Ms. Cavazos expressed understanding and agreed with the plan. Bossman Douglas APRN.WORD PROCESSING SUPERVISOR Referring Provider: BOSSMAN DOUGLAS (WORD PROCESSING SUPERVISOR) [[id number]] Allergies As of Date: 08/01/2018 Noted Allergy Reaction ADHESIVE TAPE (ROSINS) 04/29/2016 9 - Itching Comments: Possible allergy. Pt had heart cath and she says her wrist was itchy and irritated where the cath was done. batazolidin [Other] 07/10/2005 5 - Intolerance CELEBREX (CELECOXIB) 10/16/2005 Comments: affected labs work diazide [Other] 07/10/2005 5 - Intolerance EFFEXOR (VENLAFAXINE HCL) 07/10/2005 1 - Mental Status Change Comments: patient uncertain INDOCIN (INDOMETHACIN SODIUM) 07/10/2005 5 - Intolerance meclomen [Other] 07/10/2005 5 - Intolerance MEVACOR (LOVASTATIN) 07/10/2005 5 - Intolerance MOTRIN (IBUPROFEN) 07/10/2005 Comments: hair loss NAPROSYN (NAPROXEN) 07/10/2005 5 - Intolerance NSAIDS (NON-STEROIDAL ANTI-INFLAM*07/10/2005 Comments: affected blood studies patient uncertain ORUDIS (KETOPROFEN) 07/10/2005 5 - Intolerance PROZAC (FLUOXETINE HCL) 07/10/2005 1 - Mental Status Change sporostacin [Other] 07/10/2005 5 - Intolerance STATINS (QCBLUYD-OVA-UAD REDUCTAS*07/04/2009 5 - Intolerance Comments: myalgia on 80 mg simvastatin VICODIN (HYDROCODONE-ACETAMINOPHE*07/10/2005 5 - Intolerance ZOLOFT (SERTRALINE HCL) 07/10/2005 1 - Mental Status Change Date Reviewed: 08/01/2018 Reviewed by: Puja Veliz LPN - Fully Assessed Reason for Visit: 1 week f/u [Other] Cmt: SOBOE Primary Visit Diagnosis:Essential hypertension [I10] Other Visit Diagnoses:Weight gain [R63.5] Leg swelling [M79.89] Cough [R05] Order(s):furosemide (LASIX) 40 mg tabletTake 1 tablet by mouth once daily. Take once dailyDisp: 30 tabletRfl: 6 Prescriptions as of 08/01/2018 Sig: FUROSEMIDE 40 MG TABLET Take 1 tablet by mouth once d* PYRIDOXINE (VITAMIN B6) 100 M* Take 100 mg by mouth once tasha* POTASSIUM CHLORIDE ER 10 MEQ * Take 1 capsule by mouth twice* LISINOPRIL 10 MG TABLET Take 2 tablets by mouth once * CARVEDILOL 25 MG TABLET Take 1 tablet by mouth twice * AMLODIPINE 5 MG TABLET Take 10 mg by mouth once becki* VITAMIN D3 ORAL Take by mouth. INSULIN GLARGINE (U-100) 100 * Inject 40 Units subcutaneousl* ATORVASTATIN 80 MG TABLET Take 1 tablet by mouth once d* DULAGLUTIDE 1.5 MG/0.5 ML SUB* Inject 1.5 mg subcutaneously * CLOPIDOGREL 75 MG TABLET Take 1 tablet by mouth once d* BLOOD SUGAR DIAGNOSTIC STRIPS Test blood sugar(s) 2 times d* GLIMEPIRIDE 4 MG TABLET Take 1 tablet by mouth twice * Patient taking differently: Take 4 mg by mouth daily with* LANCETS Use as instructed two times d* BLOOD-GLUCOSE METER Dispense One Kit - Verio Mete* THERAPEUTIC MULTIVITAMIN TABL* Take 1 tablet by mouth daily * * COMPOUNDED PRESCRIPTION Diabetic shoes. Has PVD * TYLENOL ARTHRITIS PAIN 650 MG* PRN use only * ASPIRIN 81 MG TABLET,DELAYED * Take one(1) tablet daily. SODIUM CHLORIDE 0.65 % NASAL * Use 2 Sprays in each nostril * Patient not taking: Reported on 05/26/2018 Medication notes this encounter GLIMEPIRIDE 4 MG TABLET >> Puja Veliz LPN 08/01/2018 8:51 AM >> PUJA VELIZ LPN WedAug 01, 2018 8:51 AM Taking once daily, MEDARDO Torres refills Problem List As Of Date 08/01/2018 Noted Resolved Rheumatoid arthritis (HCC) [M06.9] INVALID FOR* BENIGN HYPERTENSION [I10] INVALID FOR* 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 ALLERGIC RHINITIS NOS [J30.9] More... ESOPHAGEAL REFLUX [K21.9] More... Peripheral vascular disease, unspecified (HCC) * More... GLAUCOMA NOS [H40.9] More... IDIO PERIPH NEURPTHY NOS [G60.9] INVALID FOR* PAIN IN LIMB [M79.609] INVALID FOR* SYMPTOMATIC FEMALE CLIMACTERIC STATE [N95.1] INVALID FOR* ATROPHIC VAGINITIS [N95.2] INVALID FOR* PERS HX HEALTH HAZARDS NEC [Z91.89] INVALID FOR* BLADDER DISORDER NEC [596.8] INVALID FOR* NOCTURIA [R35.1] INVALID FOR* Ingrowing Nail [L60.0] INVALID FOR* Urgency of urination [R39.15] INVALID FOR* Rectocele [N81.6] INVALID FOR* Cystocele, midline [N81.11] INVALID FOR* Albuminuria [R80.9] INVALID FOR* Mixed hyperlipidemia [E78.2] INVALID FOR* Type 2 diabetes mellitus without complication (*INVALID FOR* More... Preop testing [Z01.818] INVALID FOR* More... Discharge planning issues [Z02.9] INVALID FOR* More... Atherosclerosis of [place] coronary artery with *INVALID FOR* More... HOCM (hypertrophic obstructive cardiomyopathy) *INVALID FOR* More... (aortic stenosis) [I35.0] INVALID FOR* More... Mitral regurgitation [I34.0] INVALID FOR* More... Hypovolemia [E86.1] INVALID FOR*05/02/2016 More... More... Cardiac insufficiency (HCC) [I50.9] INVALID FOR*05/04/2016 More... Atelectasis [J98.11] INVALID FOR*05/06/2016 More... Stage 3 chronic kidney disease (HCC) [N18.3] INVALID FOR* More... Sinus bradycardia [R00.1] INVALID FOR*05/06/2016 More... Fluid overload [E87.70] INVALID FOR*05/06/2016 More... Thrombocytopenia (HCC) [D69.6] INVALID FOR*05/07/2016 More... 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 SUMMARY INVALID FOR* More... Hyperlipidemia LDL goal <70 [E78.5] INVALID FOR* More... Essential hypertension [I10] INVALID FOR* More... 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] INVALID FOR* Status post aortic valve replacement with biopr*INVALID FOR* PAD (peripheral artery disease) (HCC) [I73.9] INVALID FOR* Chronic bilateral low back pain without sciatic*INVALID FOR* Diabetic polyneuropathy associated with type 2 *INVALID FOR* Prescriptions ordered this encounter Disp Refills Start End FUROSEMIDE 40 MG TABLET 30 t* 6 08/01/2018 Class: Med Update Route: ORAL Sig: Take 1 tablet by mouth once daily. Take once daily Medications Discontinued During This Encounter furosemide (LASIX) 40 mg tablet 30 t* 6 07/25/2018 08/01/2018 Class: Med Update Route: ORAL Sig: Take 1 tablet by mouth once daily. Take two daily for three days then resume once daily (start July 25, 2018) Disc: Reason for discontinue is not on file. Encounter Status:Closed by BOSSMAN BRADEN on 08/01/18 12 LEAD ELECTROCARDIOGRAM Observed: 07/29/2018 Status: F Source: [place] 9:22 AM [facility] REPOSITORY [facility] Cardiovascular Services [address] [place] [id number] Lead EKG 07/23/18 1420 MR#: [id number] Acct: [id number] Name: GRACIELA CAVAZOS Rep #: [id number] : 1940 78 From: Shailesh Gaitan MD Attending Dr: Status: DEP ER Ordering Dr: Moiz Lin MD Date: 07/23/18 Location: ED Sex: F C Admitted: Test Reason : SOB Blood Pressure : / mmHG Vent. Rate : 065 BPM Atrial Rate : 065 BPM P-R Int : 174 ms QRS Dur : 116 ms QT Int : 492 ms P-R-T Axes : 060 007 128 degrees QTc Int : 511 ms Normal sinus rhythm Incomplete left bundle branch block ST AND T wave abnormality, consider lateral ischemia Prolonged QT Abnormal ECG Confirmed by SHAILESH GAITAN MD ([id number]), photograph editor JANNETTE FARFAN ([id number]) on 07/25/2018 2:14:51 PM Referred By: Marta Torres Confirmed By:SHAILESH GAITAN MD 07/25/18 1414 Date Shailesh Gaitan MD CC: Joni Grimm MD; Moiz Lin MD Signed ECG COMPLETE W Observed: 07/25/2018 Status: F Source: [facility]PRET[facility] 9:07 AM [facility] REPOSITORY NAME : GRACIELA CAVAZOS PID : [id number] : 1940 Gender : Female Race : ORD : [id number] Procedure Date : Jul 25 2018 09:07:44 Edit Date : Jul 27 2018 16:33:59 Diagnosis:SINUS RHYTHM WITH PREMATURE ATRIAL COMPLEXES ANTERIOR MYOCARDIAL INFARCTION , AGE UNDETERMINED ST & LATERAL T WAVE ABNORMALITY PROLONGED QT INTERVAL OR TU FUSION, CONSIDER HYPOKALEMIA NONSPECIFIC INTRAVENTRICULAR CONDUCTION DELAY ABNORMAL ECG Confirmed by CLIVE CASTANEDA D.O. ([id number]) on 07/27/2018 4:33:58 PM Ventricular Rate : 72 BPM Atrial Rate : 72 BPM P-R Interval : 174 ms QRS Duration : 116 ms Q-T Interval : 476 ms QTC Calculation(Bezet) : 521 ms P [place] : 46 degrees R [place] : 0 degrees T [place] : 131 degrees Test Reason : Location : [facility] : [facility] Overread By : CLIVE CASTANEDA D.O. Edited By : CLIVE CASTANEDA D.O. Referred By : BOSSMAN DOUGLAS Acquired by : BELKIS VELIZ LPN, PROGRESS Observed: 07/25/2018 Status: COMPLETED Source: [facility] 8:42 AM [facility] REPOSITORY HNO ID: [id number] Author: Bossman (Fish Frog Or Oyster Farmer) Misael Service: (none) Author Type: Nurse Specialist Type: Progress Notes Filed: 07/28/2018 7:50 AM Note Text: OUTPATIENT VISIT DATE July 25, 2018 OUTPATIENT VISIT TYPE ESTABLISHED PRIMARY CARE PHYSICIAN: Joni Grimm MD CHIEF COMPLAINT: Patient presents with: Hospital F/U: Elevated BP AND Wheezing History of Present Illness: Graciela Cavazos is a 78 year old female who was last seen 07/23/2018 in urgent care. She has been seen in the past for ACTIVE PROBLEM LIST Rheumatoid Arthritis (Hcc) Essential Hypertension, Benign Allergic Rhinitis, Cause Unspecified Esophageal Reflux Peripheral Vascular Disease, Unspecified (Hcc) Unspecified Glaucoma(365.9) Unspecified Hereditary and Idiopathic Peripheral Neuropathy Pain in Limb Symptomatic Menopausal Or Female Climacteric States Postmenopausal Atrophic Vaginitis Other Specified Personal History Presenting Hazards to Health(v15.89) Other Specified Disorder of Bladder Nocturia Ingrowing Nail Urgency of Urination Rectocele Cystocele, Midline Albuminuria Mixed Hyperlipidemia Type 2 Diabetes Mellitus Without Complication ([facility]) Preop Testing Discharge Planning Issues Atherosclerosis of [place] Coronary Artery With Stable Angina Pectoris ([facility]) Hocm (Hypertrophic Obstructive Cardiomyopathy) ([facility]) As (Aortic Stenosis) Mitral Regurgitation Stage 3 Chronic Kidney Disease ([facility]) S/P Cabg X 3 Summary Hyperlipidemia Ldl Goal <70 Essential Hypertension S/P Mitral Valve Replacement With Bioprosthetic Valve S/P Ventricular Septal Myectomy Status Post Aortic Valve Replacement With Bioprosthetic Valve Pad (Peripheral Artery Disease) ([facility]) Chronic Bilateral Low Back Pain Without Sciatica Diabetic Polyneuropathy Associated With Type 2 Diabetes Mellitus ([facility]) She was sent to ED for complains of of shortness of breath and wheezing along with chest tightness. Seen at [facility], CXR showed early signs of CHF. Normal EKG noted. Negative troponin and labs. Noted to have increased dietary sodium. Normal exam noted. Impression subjective dyspnea and cough. Since the last visit, she states that she stopped taking lasix for the last few days. Weight is increased ~20lbs since last seen at clinic 05/13/2018. Stress test 2016 negative for ischemia 2016 Cardiac cath Conclusions Severe CAD, 3VD (LAD, D1, RCA) Recommendations Bypass grafting to LAD, Diagonal, RCA AVR EKG 2017 NSR with incomplete LBBB, LVH TTE and ALLEN 2016 [facility], nor LVEF How long off lasix:4 days Stopped lisinopril 4 days ago because daughter noted is could cause wheezing when she looked up information on line Does not feel improved with these changes SOBOE:no Chest discomfort: none currently Current cardiologists: Dr. Griffith and Dr. Price Sap Security Consultant: Dr. Tolentino No current report of chest pain or wheezing. Notes symptoms seem worse at night with lying down. Leg swelling present. Weight gain present. PAST MEDICAL HISTORY Diagnosis Date - Allergic rhinitis, cause unspecified Allergic rhinitis - Cataract of left eye 12/31/2010 removed - Cataract of right eye 04/15/2011 removed - Diabetes mellitus without mention of complication Diabetes mellitus - Diverticulosis of colon (without mention of hemorrhage) - Dysthymic disorder Depression (non-psychotic) - Dysthymic disorder - Esophageal reflux Gastroesophageal reflux - Internal hemorrhoids without mention of complication - Nonspecific elevation of levels of transaminase or lactic acid dehydrogenase (LDH) Elevated LFT's - Peripheral vascular disease, unspecified (HCC) - PMH - PAST MEDICAL HISTORY OF 08/2007 Broken left elbow - Rheumatoid arthritis(714.0) - Unspecified closed fracture of ankle 2009 Ankle fracture - 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 PAST SURGICAL HISTORY Procedure Laterality Date - ANGIOPLASTY 10/25/2009 no stents in left - Ballooning only left leg - CABG (3) VEIN GRAFTS AND ARTERIAL GRAFT(S) 05/01/2016 - COLONOSCOP W/ OR W/O BRSH SPEC 09/12/07 - LIGATE FALLOPIAN TUBE Tubal ligation - PAST SURGICAL HISTORY OF 08/09/09 Successful VENDOR MANAGER/Stenting -right SFA Leg - PAST SURGICAL HISTORY OF 05/19/10 left leg broken-pins, screws, plates - REMOVAL GALLBLADDER 1987- Cholecystectomy - REMOVAL OF TONSILS,<14 Y/O Tonsillectomy - REMV LENS MATERIAL,PHACOFRAGMT 12/31/2010 Cataract Extraction, left eye dr raya - REVISION OF EYELID,< 1/4 LID MARGIN 03/2015 bilateral FAMILY HISTORY Problem Relation Age of Onset - Heart Mother CABG in her 80s - Stroke Maternal Grandfather - Diabetes Paternal Grandmother - Cancer Maternal Uncle Stomach Social History Substance Use Topics - Smoking status: Never Smoker - Smokeless tobacco: Never Used - Alcohol use Yes Comment: rarely 3-4 per year ALLERGIES: ALLERGIES Allergen Reactions - Adhesive Tape (Susan* Itching Possible allergy. Pt had heart cath and she says her wrist was itchy and irritated where the cath was done. - Batazolidin [Other] Intolerance - Celebrex [Celecoxib] affected labs work - Diazide [Other] Intolerance - Effexor [Venlafaxin* Mental Status Change patient uncertain - Indocin [Indomethac* Intolerance - Meclomen [Other] Intolerance - Mevacor [Lovastatin] Intolerance - Motrin [Ibuprofen] hair loss - Naprosyn [Naproxen] Intolerance - Nsaids (Non-Steroid* affected blood studies patient uncertain - Orudis [Ketoprofen] Intolerance - Prozac [Fluoxetine * Mental Status Change - Sporostacin [Other] Intolerance - Statins [Statins-Hm* Intolerance myalgia on 80 mg simvastatin - Vicodin [Hydrocodon* Intolerance - Zoloft [Sertraline * Mental Status Change MEDICATIONS lisinopril (ZESTRIL, PRINIVIL) 10 mg tablet Take 10 mg by mouth once daily. pyridoxine, vitamin B6, (VITAMIN B-6) 100 mg tablet Take 100 mg by mouth once daily. carvedilol (COREG) 25 mg tablet Take 1 tablet by mouth twice daily. amLODIPine (NORVASC) 5 mg tablet Take 10 mg by mouth once daily. cholecalciferol, vitamin D3, (VITAMIN D3 ORAL) Take by mouth. insulin glargine (LANTUS SOLOSTAR U-100 INSULIN) 100 unit/mL (3 mL) inpn Inject 40 Units subcutaneously. atorvastatin (LIPITOR) 80 mg tablet Take 1 tablet by mouth once daily. dulaglutide 1.5 mg/0.5 mL pnij Inject 1.5 mg subcutaneously once each week. (BJ Shook refills) clopidogrel (PLAVIX) 75 mg tablet Take 1 tablet by mouth once daily. blood sugar diagnostic (ONETOUCH VERIO) test strip Test blood sugar(s) 2 times daily. Dx: Type 2 DM - Controlled E11.9 Insulin: No furosemide (LASIX) 40 mg tablet Take 1 tablet by mouth once daily. glimepiride (AMARYL) 4 mg tablet Take 1 tablet by mouth twice daily with meals. Lancets lancets Use as instructed two times daily E 11.9 Blood-Glucose Meter (ONETOUCH VERIO SYSTEM) [facility] [place] Dispense One Kit - Verio Meter Kit Dx: Type 2 DM - Uncontrolled E11.65 therapeutic multivitamin (THERA VITAMIN) tablet Take 1 tablet by mouth daily with breakfast. COMPOUNDED PRESCRIPTION Diabetic shoes. Has PVD ASPIRIN 81 MG TAB, DELAYED RELEASE Take one(1) tablet daily. sodium chloride (AYR, OCEAN) 0.65 % nasal spray Use 2 Sprays in each nostril as needed for Cold/Allergy Symptoms. acetaminophen(TYLENOL ARTHRITIS PAIN 650 MG TAB) PRN use only REVIEW OF SYSTEMS: GENERAL: Negative for: Weight loss or gain, Fever or Chills, Weakness and Sleep difficulties. Physical Examination: BP 142/70 Pulse 84 Resp 16 Wt 199 lb (90.3kg) BP w/Orthostatic Vitals Date and Time Orthostatic BP Orthostatic Pulse BP Pulse BP Position BP Site BP Cuff Size 11/26/18 0838 -- -- 142/70 -- Sitting Right Arm Regular Adult 07/25/18 0830 -- -- 142/82 84 Sitting Right Arm Regular Adult Peak Flow Date and Time PF Resp 07/25/18829 -- 16 General appearance: Well appearing, alert, in no acute distress, well-hydrated, well nourished. Skin: Skin color, texture, turgor normal, no suspicious rashes or lesions Neck: Supple, no adenopathy; thyroid symmetric, normal size, no bruits Lungs: Lungs clear to auscultation. No wheezing, rhonchi, rales Heart: RRR without murmur, gallop, or rubs. No ectopy Abdomen: Normal abdominal exam, Abdomen soft, non-tender. Bowel sounds normal. No masses, organomegaly Extremities: 1-2+ bilateral lower extremity edema, noskin discoloration, clubbing or cyanosis. Good capillary refill. Peripheral pulses: Normal Neuro: Gait normal. Sensation grossly intact. Reviewed chart, outside records, tests I personally interviewed, confirmed and edited the above information if obtained by others. TESTING: Glucose (mg/dL) Date Value 10/26/2016 164 Potassium (mmol/L) Date Value 10/26/2016 4.7 Sodium (mmol/L) Date Value 10/26/2016 139 Chloride (mmol/L) Date Value 10/26/2016 103 CO2 (mmol/L) Date Value 10/26/2016 23 Creatinine (mg/dL) Date Value 10/26/2016 1.14 BUN (mg/dL) Date Value 10/26/2016 30 Anion Gap (mmol/L) Date Value 10/26/2016 13 Calcium (mg/dL) Date Value 10/26/2016 9.4 Glucose (mg/dL) Date Value 10/26/2016 164 Potassium (mmol/L) Date Value 10/26/2016 4.7 Sodium (mmol/L) Date Value 10/26/2016 139 Chloride (mmol/L) Date Value 10/26/2016 103 CO2 (mmol/L) Date Value 10/26/2016 23 Creatinine (mg/dL) Date Value 10/26/2016 1.14 BUN (mg/dL) Date Value 10/26/2016 30 Anion Gap (mmol/L) Date Value 10/26/2016 13 Calcium (mg/dL) Date Value 10/26/2016 9.4 Protein, Total (g/dL) Date Value 07/29/2016 7.0 Albumin (g/dL) Date Value 07/29/2016 4.1 Bilirubin, Total (mg/dL) Date Value 07/29/2016 0.6 Alkaline Phosphatase (U/L) Date Value 07/29/2016 116 AST (U/L) Date Value 07/29/2016 17 ALT (U/L) Date Value 07/29/2016 10 Hemoglobin (g/dL) Date Value 07/29/2016 13.0 Hematocrit (%) Date Value 07/29/2016 40.8 WBC (k/uL) Date Value 07/29/2016 8.22 Cholesterol, Total (mg/dL) Date Value 05/18/2016 115 HDL Cholesterol (mg/dL) Date Value 05/18/2016 31 LDL Cholesterol (mg/dL) Date Value 05/18/2016 45 Triglyceride (mg/dL) Date Value 05/18/2016 193 Hemoglobin A1C Date Value Ref Range Status 04/04/2018 7.8 (A) 4.2 - 6.3 % Final Comment: [facility] 11/18/2017 8.2 Final 02/10/2017 7.2 Final 10/26/2016 8.0 (H) 4.3 - 5.6 % Final Comment: [place] Diabetes Association guidelines indicate that patients with HgbA1c in the range 5.7-6.4% are at increased risk for development of diabetes, and intervention by lifestyle modification may be beneficial. HgbA1c greater or equal to 6.5% is considered diagnostic of diabetes. 05/18/2016 6.3 (H) 4.3 - 5.6 % Final Comment: [place] Diabetes Association guidelines indicate that patients with HgbA1c in the range 5.7-6.4% are at increased risk for development of diabetes, and intervention by lifestyle modification may be beneficial. HgbA1c greater or equal to 6.5% is considered diagnostic of diabetes. 04/29/2016 7.6 (H) 4.3 - 5.6 % Final Comment: [place] Diabetes Association guidelines indicate that patients with HgbA1c in the range 5.7-6.4% are at increased risk for development of diabetes, and intervention by lifestyle modification may be beneficial. HgbA1c greater or equal to 6.5% is considered diagnostic of diabetes. 11/15/2015 6.6 (H) 4.3 - 5.6 % Final Comment: [place] Diabetes Association guidelines indicate that patients with HgbA1c in the range 5.7-6.4% are at increased risk for development of diabetes, and intervention by lifestyle modification may be beneficial. HgbA1c greater or equal to 6.5% is considered diagnostic of diabetes. 05/22/2015 8.0 (H) 4.0 - 6.0 % Final Comment: [place] Diabetes Association guidelines indicate that patients with HgbA1c in the range 5.7-6.4% are at increased risk for development of diabetes, and intervention by lifestyle modification may be beneficial. HgbA1c greater or equal to 6.5% is considered diagnostic of diabetes. Ejection Fraction - Result: 60 % Date: 04/17/2016 Time: 09:56:45 IMPRESSION: Ms. Cavazos is a 78 year old woman presents for ER follow up After my examination and review of data, I make the following recommendations. PLAN AND RECOMMENDATIONS: 1. Irregular heartbeat - ICD9: 427.9, ICD10: I49.9 (primary diagnosis) Reviewed in clinic today, no significant change from previous, reviewed with Dr. Newell - ECG COMPLETE W INTERPRETATION Normal sinus rhythm, incomplete Left bundle branch block, PACs 2. Essential hypertension - ICD9: 401.9, ICD10: I10 - suboptimal control - Continue current medication(s) - Encouraged dietary sodium restriction/DASH diet - Recommended regular aerobic exercise. - Recommend home blood pressure monitoring, to bring results in on next visit - Goal of BP <130/80 3. Weight gain - ICD9: 783.1, ICD10: R63.5 4. Leg swelling - ICD9: 729.81, ICD10: M79.89 5. Cough - ICD9: 786.2, ICD10: R05 Likely due to volume overload having stopped lisinopril and lasix. Advised: Resume lasix, take two daily for the next three days (one in morning and one early afternoon) then resume once daily dosing. Take supplemental potassium for the next 3 days then discontinue Resume lisinopril Check weight daily and write down results. Return to clinic one week for recheck. Go to ER for chest pain, increased shortness of breath on exertion or other concerning symptoms. Follow up with psychology instructor as scheduled, sooner if not feeling improved Advised to go to ER if develops chest pain, shortness of breath, or severe worsening of symptoms. Discussed risks, benefits, alternatives, and potential side effects of medications. Ms. Cavazos expressed understanding and agreed with the plan. Bossman Douglas APRN.WORD PROCESSING SUPERVISOR CNOV Observed: 07/25/2018 Status: COMPLETED Source: JOINER 8:[address] [facility] REPOSITORY Office Visit (INTMWS) GRACIELA CAVAZOS ([id number]) 1940 F Date Time Provider Department 07/25/18 8:20 AM BOSSMAN DOUGLAS (WORD PROCESSING SUPERVISOR) INTMWS During your visit today, we recorded the following information about you: Pulse Respiration Blood pressure Weight 84/minute 16/minute 142/70 90.3 kg Bossman Douglas APRN.CNS 07/28/2018 7:50 AM Addendum OUTPATIENT VISIT DATE July 25, 2018 OUTPATIENT VISIT TYPE ESTABLISHED PRIMARY CARE PHYSICIAN: Joni Grimm MD CHIEF COMPLAINT: Patient presents with: Hospital F/U: Elevated BP AND Wheezing History of Present Illness: Graciela Cavazos is a 78 year old female who was last seen 07/23/2018 in urgent care. She has been seen in the past for ACTIVE PROBLEM LIST Rheumatoid Arthritis ([facility]) Essential Hypertension, Benign Allergic Rhinitis, Cause Unspecified Esophageal Reflux Peripheral Vascular Disease, Unspecified ([facility]) Unspecified Glaucoma(365.9) Unspecified Hereditary and Idiopathic Peripheral Neuropathy Pain in Limb Symptomatic Menopausal Or Female Climacteric States Postmenopausal Atrophic Vaginitis Other Specified Personal History Presenting Hazards to Health(v15.89) Other Specified Disorder of Bladder Nocturia Ingrowing Nail Urgency of Urination Rectocele Cystocele, Midline Albuminuria Mixed Hyperlipidemia Type 2 Diabetes Mellitus Without Complication ([facility]) Preop Testing Discharge Planning Issues Atherosclerosis of [place] Coronary Artery With Stable Angina Pectoris ([facility]) Hocm (Hypertrophic Obstructive Cardiomyopathy) ([facility]) As (Aortic Stenosis) Mitral Regurgitation Stage 3 Chronic Kidney Disease ([facility]) S/P Cabg X 3 Summary Hyperlipidemia Ldl Goal <70 Essential Hypertension S/P Mitral Valve Replacement With Bioprosthetic Valve S/P Ventricular Septal Myectomy Status Post Aortic Valve Replacement With Bioprosthetic Valve Pad (Peripheral Artery Disease) ([facility]) Chronic Bilateral Low Back Pain Without Sciatica Diabetic Polyneuropathy Associated With Type 2 Diabetes Mellitus ([facility]) She was sent to ED for complains of of shortness of breath and wheezing along with chest tightness. Seen at [facility], CXR showed early signs of CHF. Normal EKG noted. Negative troponin and labs. Noted to have increased dietary sodium. Normal exam noted. Impression subjective dyspnea and cough. Since the last visit, she states that she stopped taking lasix for the last few days. Weight is increased ~20lbs since last seen at clinic 05/13/2018. Stress test 2015 negative for ischemia 2016 Cardiac cath Conclusions Severe CAD, 3VD (LAD, D1, RCA) Recommendations Bypass grafting to LAD, Diagonal, RCA AVR EKG 2017 NSR with incomplete LBBB, LVH TTE and ALLEN 2016 [facility], nor LVEF How long off lasix:4 days Stopped lisinopril 4 days ago because daughter noted is could cause wheezing when she looked up information on line Does not feel improved with these changes SOBOE:no Chest discomfort: none currently Current cardiologists: Dr. Griffith and Dr. Price [employer] Consultant: Dr. Tolentino No current report of chest pain or wheezing. Notes symptoms seem worse at night with lying down. Leg swelling present. Weight gain present. PAST MEDICAL HISTORY Diagnosis Date - Allergic rhinitis, cause unspecified Allergic rhinitis - Cataract of left eye 12/31/2010 removed - Cataract of right eye 04/15/2011 removed - Diabetes mellitus without mention of complication Diabetes mellitus - Diverticulosis of colon (without mention of hemorrhage) - Dysthymic disorder Depression (non-psychotic) - Dysthymic disorder - Esophageal reflux Gastroesophageal reflux - Internal hemorrhoids without mention of complication - Nonspecific elevation of levels of transaminase or lactic acid dehydrogenase (LDH) Elevated LFT's - Peripheral vascular disease, unspecified (H[facility]) - PMH - PAST MEDICAL HISTORY OF 08/2007 Broken left elbow - Rheumatoid arthritis(714.0) - Unspecified closed fracture of ankle 2009 Ankle fracture - 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 PAST SURGICAL HISTORY Procedure Laterality Date - ANGIOPLASTY 10/25/2009 no stents in left - Ballooning only left leg - CABG (3) VEIN GRAFTS AND ARTERIAL GRAFT(S) 05/01/2016 - COLONOSCOP W/ OR W/O BRSH SPEC 09/12/07 - LIGATE FALLOPIAN TUBE Tubal ligation - PAST SURGICAL HISTORY OF 08/09/09 Successful VENDOR MANAGER/Stenting -right SFA Leg - PAST SURGICAL HISTORY OF 05/19/10 left leg broken-pins, screws, plates - REMOVAL GALLBLADDER 1987- Cholecystectomy - REMOVAL OF TONSILS,<14 Y/O Tonsillectomy - REMV LENS MATERIAL,PHACOFRAGMT 12/31/2010 Cataract Extraction, left eye dr raya - REVISION OF EYELID,< 1/4 LID MARGIN 03/2015 bilateral FAMILY HISTORY Problem Relation Age of Onset - Heart Mother CABG in her 80s - Stroke Maternal Grandfather - Diabetes Paternal Grandmother - Cancer Maternal Uncle Stomach Social History Substance Use Topics - Smoking status: Never Smoker - Smokeless tobacco: Never Used - Alcohol use Yes Comment: rarely 3-4 per year ALLERGIES: ALLERGIES Allergen Reactions - Adhesive Tape (Susan* Itching Possible allergy. Pt had heart cath and she says her wrist was itchy and irritated where the cath was done. - Batazolidin [Other] Intolerance - Celebrex [Celecoxib] affected labs work - Diazide [Other] Intolerance - Effexor [Venlafaxin* Mental Status Change patient uncertain - Indocin [Indomethac* Intolerance - Meclomen [Other] Intolerance - Mevacor [Lovastatin] Intolerance - Motrin [Ibuprofen] hair loss - Naprosyn [Naproxen] Intolerance - Nsaids (Non-Steroid* affected blood studies patient uncertain - Orudis [Ketoprofen] Intolerance - Prozac [Fluoxetine * Mental Status Change - Sporostacin [Other] Intolerance - Statins [Statins-Hm* Intolerance myalgia on 80 mg simvastatin - Vicodin [Hydrocodon* Intolerance - Zoloft [Sertraline * Mental Status Change MEDICATIONS lisinopril (ZESTRIL, PRINIVIL) 10 mg tablet Take 10 mg by mouth once daily. pyridoxine, vitamin B6, (VITAMIN B-6) 100 mg tablet Take 100 mg by mouth once daily. carvedilol (COREG) 25 mg tablet Take 1 tablet by mouth twice daily. amLODIPine (NORVASC) 5 mg tablet Take 10 mg by mouth once daily. cholecalciferol, vitamin D3, (VITAMIN D3 ORAL) Take by mouth. insulin glargine (LANTUS SOLOSTAR U-100 INSULIN) 100 unit/mL (3 mL) inpn Inject 40 Units subcutaneously. atorvastatin (LIPITOR) 80 mg tablet Take 1 tablet by mouth once daily. dulaglutide 1.5 mg/0.5 mL pnij Inject 1.5 mg subcutaneously once each week. (BJ Shook refills) clopidogrel (PLAVIX) 75 mg tablet Take 1 tablet by mouth once daily. blood sugar diagnostic ([employer] VERIO) test strip Test blood sugar(s) 2 times daily. Dx: Type 2 DM - Controlled E11.9 Insulin: No furosemide (LASIX) 40 mg tablet Take 1 tablet by mouth once daily. glimepiride (AMARYL) 4 mg tablet Take 1 tablet by mouth twice daily with meals. Lancets lancets Use as instructed two times daily E 11.9 Blood-Glucose Meter (ONETOUCH VERIO SYSTEM) [facility] [place] Dispense One Kit - Verio Meter Kit Dx: Type 2 DM - Uncontrolled E11.65 therapeutic multivitamin (THERA VITAMIN) tablet Take 1 tablet by mouth daily with breakfast. COMPOUNDED PRESCRIPTION Diabetic shoes. Has PVD ASPIRIN 81 MG TAB, DELAYED RELEASE Take one(1) tablet daily. sodium chloride (AYR, OCEAN) 0.65 % nasal spray Use 2 Sprays in each nostril as needed for Cold/Allergy Symptoms. acetaminophen(TYLENOL ARTHRITIS PAIN 650 MG TAB) PRN use only REVIEW OF SYSTEMS: GENERAL: Negative for: Weight loss or gain, Fever or Chills, Weakness and Sleep difficulties. Physical Examination: BP 142/70 Pulse 84 Resp 16 Wt 199 lb (90.3kg) BP w/Orthostatic Vitals Date and Time Orthostatic BP Orthostatic Pulse BP Pulse BP Position BP Site BP Cuff Size 07/25/18837 -- -- 142/70 -- Sitting Right Arm Regular Adult 07/25/18829 -- -- 142/82 84 Sitting Right Arm Regular Adult Peak Flow Date and Time PF Resp 07/25/18829 -- 16 General appearance: Well appearing, alert, in no acute distress, well-hydrated, well nourished. Skin: Skin color, texture, turgor normal, no suspicious rashes or lesions Neck: Supple, no adenopathy; thyroid symmetric, normal size, no bruits Lungs: Lungs clear to auscultation. No wheezing, rhonchi, rales Heart: RRR without murmur, gallop, or rubs. No ectopy Abdomen: Normal abdominal exam, Abdomen soft, non-tender. Bowel sounds normal. No masses, organomegaly Extremities: 1-2+ bilateral lower extremity edema, noskin discoloration, clubbing or cyanosis. Good capillary refill. Peripheral pulses: Normal Neuro: Gait normal. Sensation grossly intact. Reviewed chart, outside records, tests I personally interviewed, confirmed and edited the above information if obtained by others. TESTING: Glucose (mg/dL) Date Value 10/26/2016 164 Potassium (mmol/L) Date Value 10/26/2016 4.7 Sodium (mmol/L) Date Value 10/26/2016 139 Chloride (mmol/L) Date Value 10/26/2016 103 CO2 (mmol/L) Date Value 10/26/2016 23 Creatinine (mg/dL) Date Value 10/26/2016 1.14 BUN (mg/dL) Date Value 10/26/2016 30 Anion Gap (mmol/L) Date Value 10/26/2016 13 Calcium (mg/dL) Date Value 10/26/2016 9.4 Glucose (mg/dL) Date Value 10/26/2016 164 Potassium (mmol/L) Date Value 10/26/2016 4.7 Sodium (mmol/L) Date Value 10/26/2016 139 Chloride (mmol/L) Date Value 10/26/2016 103 CO2 (mmol/L) Date Value 10/26/2016 23 Creatinine (mg/dL) Date Value 10/26/2016 1.14 BUN (mg/dL) Date Value 10/26/2016 30 Anion Gap (mmol/L) Date Value 10/26/2016 13 Calcium (mg/dL) Date Value 10/26/2016 9.4 Protein, Total (g/dL) Date Value 07/29/2016 7.0 Albumin (g/dL) Date Value 07/29/2016 4.1 Bilirubin, Total (mg/dL) Date Value 07/29/2016 0.6 Alkaline Phosphatase (U/L) Date Value 07/29/2016 116 AST (U/L) Date Value 07/29/2016 17 ALT (U/L) Date Value 07/29/2016 10 Hemoglobin (g/dL) Date Value 07/29/2016 13.0 Hematocrit (%) Date Value 07/29/2016 40.8 WBC (k/uL) Date Value 07/29/2016 8.22 Cholesterol, Total (mg/dL) Date Value 05/18/2016 115 HDL Cholesterol (mg/dL) Date Value 05/18/2016 31 LDL Cholesterol (mg/dL) Date Value 05/18/2016 45 Triglyceride (mg/dL) Date Value 05/18/2016 193 Hemoglobin A1C Date Value Ref Range Status 04/04/2018 7.8 (A) 4.2 - 6.3 % Final Comment: [facility] 11/18/2017 8.2 Final 02/10/2017 7.2 Final 10/26/2016 8.0 (H) 4.3 - 5.6 % Final Comment: [place] Diabetes Association guidelines indicate that patients with HgbA1c in the range 5.7-6.4% are at increased risk for development of diabetes, and intervention by lifestyle modification may be beneficial. HgbA1c greater or equal to 6.5% is considered diagnostic of diabetes. 05/18/2016 6.3 (H) 4.3 - 5.6 % Final Comment: [place] Diabetes Association guidelines indicate that patients with HgbA1c in the range 5.7-6.4% are at increased risk for development of diabetes, and intervention by lifestyle modification may be beneficial. HgbA1c greater or equal to 6.5% is considered diagnostic of diabetes. 04/29/2016 7.6 (H) 4.3 - 5.6 % Final Comment: [place] Diabetes Association guidelines indicate that patients with HgbA1c in the range 5.7-6.4% are at increased risk for development of diabetes, and intervention by lifestyle modification may be beneficial. HgbA1c greater or equal to 6.5% is considered diagnostic of diabetes. 11/15/2015 6.6 (H) 4.3 - 5.6 % Final Comment: [place] Diabetes Association guidelines indicate that patients with HgbA1c in the range 5.7-6.4% are at increased risk for development of diabetes, and intervention by lifestyle modification may be beneficial. HgbA1c greater or equal to 6.5% is considered diagnostic of diabetes. 05/22/2015 8.0 (H) 4.0 - 6.0 % Final Comment: [place] Diabetes [employer] guidelines indicate that patients with HgbA1c in the range 5.7-6.4% are at increased risk for development of diabetes, and intervention by lifestyle modification may be beneficial. HgbA1c greater or equal to 6.5% is considered diagnostic of diabetes. Ejection Fraction - Result: 60 % Date: 04/17/2016 Time: 09:56:45 IMPRESSION: Ms. Cavazos is a 78 year old woman presents for ER follow up After my examination and review of data, I make the following recommendations. PLAN AND RECOMMENDATIONS: 1. Irregular heartbeat - ICD9: 427.9, ICD10: I49.9 (primary diagnosis) Reviewed in clinic today, no significant change from previous, reviewed with Dr. Newell - ECG COMPLETE W INTERPRETATION Normal sinus rhythm, incomplete Left bundle branch block, PACs 2. Essential hypertension - ICD9: 401.9, ICD10: I10 - suboptimal control - Continue current medication(s) - Encouraged dietary sodium restriction/DASH diet - Recommended regular aerobic exercise. - Recommend home blood pressure monitoring, to bring results in on next visit - Goal of BP <130/80 3. Weight gain - ICD9: 783.1, ICD10: R63.5 4. Leg swelling - ICD9: 729.81, ICD10: M79.89 5. Cough - ICD9: 786.2, ICD10: R05 Likely due to volume overload having stopped lisinopril and lasix. Advised: Resume lasix, take two daily for the next three days (one in morning and one early afternoon) then resume once daily dosing. Take supplemental potassium for the next 3 days then discontinue Resume lisinopril Check weight daily and write down results. Return to clinic one week for recheck. Go to ER for chest pain, increased shortness of breath on exertion or other concerning symptoms. Follow up with psychology instructor as scheduled, sooner if not feeling improved Advised to go to ER if develops chest pain, shortness of breath, or severe worsening of symptoms. Discussed risks, benefits, alternatives, and potential side effects of medications. Ms. Cavazos expressed understanding and agreed with the plan. Bossman Douglas APRN.WORD PROCESSING SUPERVISOR Bossman Douglas APRN.JIMBO 07/25/2018 9:51 AM Addendum Resume lasix, take two daily for the next three days (one in morning and one early afternoon) then resume once daily dosing. Take supplemental potassium for the next 3 days then discontinue Resume lisinopril Check weight daily and write down results. Return to clinic one week for recheck. Go to ER for chest pain, increased shortness of breath on exertion or other concerning symptoms. Follow up with psychology instructor as scheduled, sooner if not feeling improved Referring Provider: SELF [[id number]] Allergies As of Date: 07/25/2018 Noted Allergy Reaction ADHESIVE TAPE (ROSINS) 04/29/2016 9 - Itching Comments: Possible allergy. Pt had heart cath and she says her wrist was itchy and irritated where the cath was done. batazolidin [Other] 07/10/2005 5 - Intolerance CELEBREX (CELECOXIB) 10/16/2005 Comments: affected labs work diazide [Other] 07/10/2005 5 - Intolerance EFFEXOR (VENLAFAXINE HCL) 07/10/2005 1 - Mental Status Change Comments: patient uncertain INDOCIN (INDOMETHACIN SODIUM) 07/10/2005 5 - Intolerance meclomen [Other] 07/10/2005 5 - Intolerance MEVACOR (LOVASTATIN) 07/10/2005 5 - Intolerance MOTRIN (IBUPROFEN) 07/10/2005 Comments: hair loss NAPROSYN (NAPROXEN) 07/10/2005 5 - Intolerance NSAIDS (NON-STEROIDAL ANTI-INFLAM*07/10/2005 Comments: affected blood studies patient uncertain ORUDIS (KETOPROFEN) 07/10/2005 5 - Intolerance PROZAC (FLUOXETINE HCL) 07/10/2005 1 - Mental Status Change sporostacin [Other] 07/10/2005 5 - Intolerance STATINS (TOIYLEE-YHP-ILL REDUCTAS*07/04/2009 5 - Intolerance Comments: myalgia on 80 mg simvastatin VICODIN (HYDROCODONE-ACETAMINOPHE*07/10/2005 5 - Intolerance ZOLOFT (SERTRALINE HCL) 07/10/2005 1 - Mental Status Change Date Reviewed: 07/25/2018 Reviewed by: Puja Veliz LPN - Fully Assessed Reason for Visit: Hospital F/U [57] Cmt: Elevated BP AND Wheezing Primary Visit Diagnosis:Irregular heartbeat [I49.9] Other Visit Diagnoses:Essential hypertension [I10] Weight gain [R63.5] Leg swelling [M79.89] Cough [R05] Order(s):ECG COMPLETE W INTERPRETATION [ECG01] Order #: [id number] FUTURE potassium chloride SR (MICRO-K) 10 mEq CR capsuleTake 1 capsule by mouth twice daily.Disp: 6 capsuleRfl: 0 furosemide (LASIX) 40 mg tabletTake 1 tablet by mouth once daily. Take two daily for three days then resume once daily (start July 25, 2018)Disp: 30 tabletRfl: 6 lisinopril (ZESTRIL, PRINIVIL) 10 mg tabletTake 2 tablets by mouth once daily.Disp: Rfl: Prescriptions as of 07/25/2018 Sig: PYRIDOXINE (VITAMIN B6) 100 M* Take 100 mg by mouth once tasha* FUROSEMIDE 40 MG TABLET Take 1 tablet by mouth once d* CARVEDILOL 25 MG TABLET Take 1 tablet by mouth twice * AMLODIPINE 5 MG TABLET Take 10 mg by mouth once becki* VITAMIN D3 ORAL Take by mouth. INSULIN GLARGINE (U-100) 100 * Inject 40 Units subcutaneousl* ATORVASTATIN 80 MG TABLET Take 1 tablet by mouth once d* DULAGLUTIDE 1.5 MG/0.5 ML SUB* Inject 1.5 mg subcutaneously * CLOPIDOGREL 75 MG TABLET Take 1 tablet by mouth once d* BLOOD SUGAR DIAGNOSTIC STRIPS Test blood sugar(s) 2 times d* GLIMEPIRIDE 4 MG TABLET Take 1 tablet by mouth twice * Patient taking differently: Take by mouth. Taking 4 mg in* LANCETS Use as instructed two times d* BLOOD-GLUCOSE METER Dispense One Kit - Verio Mete* THERAPEUTIC MULTIVITAMIN TABL* Take 1 tablet by mouth daily * * COMPOUNDED PRESCRIPTION Diabetic shoes. Has PVD * ASPIRIN 81 MG TABLET,DELAYED * Take one(1) tablet daily. 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 ALLERGIC RHINITIS NOS [J30.9] More... ESOPHAGEAL REFLUX [K21.9] More... Peripheral vascular disease, unspecified (HCC) * More... GLAUCOMA NOS [H40.9] More... IDIO PERIPH NEURPTHY NOS [G60.9] INVALID FOR* PAIN IN LIMB [M79.609] INVALID FOR* SYMPTOMATIC FEMALE CLIMACTERIC STATE [N95.1] INVALID FOR* ATROPHIC VAGINITIS [N95.2] INVALID FOR* PERS HX HEALTH HAZARDS NEC [Z91.89] INVALID FOR* BLADDER DISORDER NEC [596.8] INVALID FOR* NOCTURIA [R35.1] INVALID FOR* Ingrowing Nail [L60.0] INVALID FOR* Urgency of urination [R39.15] INVALID FOR* Rectocele [N81.6] INVALID FOR* Cystocele, midline [N81.11] INVALID FOR* Albuminuria [R80.9] INVALID FOR* Mixed hyperlipidemia [E78.2] INVALID FOR* Type 2 diabetes mellitus without complication (*INVALID FOR* More... Preop testing [Z01.818] INVALID FOR* More... Discharge planning issues [Z02.9] INVALID FOR* More... Atherosclerosis of tangirnaq coronary artery with *INVALID FOR* More... HOCM (hypertrophic obstructive cardiomyopathy) *INVALID FOR* More... (aortic stenosis) [I35.0] INVALID FOR* More... Mitral regurgitation [I34.0] INVALID FOR* More... Hypovolemia [E86.1] INVALID FOR*05/02/2016 More... More... Cardiac insufficiency (HCC) [I50.9] INVALID FOR*05/04/2016 More... Atelectasis [J98.11] INVALID FOR*05/06/2016 More... Stage 3 chronic kidney disease (HCC) [N18.3] INVALID FOR* More... Sinus bradycardia [R00.1] INVALID FOR*05/06/2016 More... Fluid overload [E87.70] INVALID FOR*05/06/2016 More... Thrombocytopenia (HCC) [D69.6] INVALID FOR*05/07/2016 More... 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 SUMMARY INVALID FOR* More... Hyperlipidemia LDL goal <70 [E78.5] INVALID FOR* More... Essential hypertension [I10] INVALID FOR* More... 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 Take supplemental potassium for the next 3 days then discontinue Resume lisinopril Check weight daily and write down results. Return to clinic one week for recheck. Go to ER for chest pain, increased shortness of breath on exertion or other concerning symptoms. Follow up with psychology instructor as scheduled, sooner if not feeling improved Prescriptions ordered this encounter Disp Refills Start End LISINOPRIL 10 MG TABLET 07/25/2018 07/25/2018 Class: Med Update Route: ORAL Sig: Take 2 tablets by mouth once daily. POTASSIUM CHLORIDE ER 10 MEQ CAPSULE* 6 ca* 0 07/25/2018 Route: ORAL Sig: Take 1 capsule by mouth twice daily. FUROSEMIDE 40 MG TABLET 30 t* 6 07/25/2018 Class: Med Update Route: ORAL Sig: Take 1 tablet by mouth once daily. Take two daily for three days then resume once daily (start July 25, 2018) LISINOPRIL 10 MG TABLET 07/25/2018 Class: Med Update Route: ORAL Sig: Take 2 tablets by mouth once daily. Medications Discontinued During This Encounter lisinopril (ZESTRIL, PRINIVIL) 10 mg* 07/25/2018 Class: Historical Med Route: ORAL Sig: Take 10 mg by mouth once daily. Disc: Adjust Sig - Block E-Cancel lisinopril (ZESTRIL, PRINIVIL) 10 mg* 07/25/2018 07/25/2018 Class: Med Update Route: ORAL Sig: Take 2 tablets by mouth once daily. Disc: Reason for discontinue is not on file. furosemide (LASIX) 40 mg tablet 30 t* 6 12/17/2016 07/25/2018 Route: ORAL Sig: Take 1 tablet by mouth once daily. Disc: Adjust Sig - Block E-Cancel Encounter Status:Closed by BOSSMAN BRADEN on 07/25/18 EMERGENCY DEPARTMENT Observed: 07/23/2018 Status: F Source: [place] SUMMARY 4:46 PM [facility] REPOSITORY [facility] Medical Records Department [address] [place] [address] Emergency Department Summary 07/23/18 1642 MR#: [id number] Acct: [id number] Name: GRACIELA CAVAZOS Rep #: [id number] : 1940 78 From: Moiz Lin MD PCP: Joni Grimm MD Status: REG ER - ER Visit Summary Date of Service: 07/23/18 Chief Complaint: Patient presents with cough and some subjective dyspnea for the past few days. No fever or chills. She has some rhinorrhea. This is clear and constant. She has no chest pain shortness of breath. She has no nausea or vomiting. She has had a dry cough recently. History of Present Illness: The patient is a 78 F [] Physical Examination: Not appear in acute distress. Moist mucous membranes, no obvious facial deformity No C-spine tenderness supple neck. Regular rate and rhythm without any obvious murmurs Clear lungs bilaterally speaking in full sentences without any obvious respiratory distress Abdomen soft and nontender no guarding or rebound Moves all extremities without any difficulty or pain. Skin does not show any obvious rashes or lesions, no trauma. Alert oriented 3 with no gross focal deficit Emergency Department Course and Treatment: Patient has a normal physical exam. I cannot hear any bronchial breath sounds any wheezing, she has no upper airway congestion. She has a normal EKG and a normal workup in the emergency department. Initially she was worried about her blood pressure being high, but she did have quite a bit of salt at Thanksgiving. She has an unremarkable workup she feels well she tells me her shortness of breath is usually only at night, she did tell me her lisinopril got increased I told her that may be causing her dry cough. Otherwise she appears well and I believe she can be discharged with follow-up in 2 days, she has a PCP appointment. Discharge stable condition Impression: Cough Subjective dyspnea This note was generated with Squirrly dictation software. It may contain incorrect words, spelling, and punctuation that were not noted in review of the chart prior to signing ED Disposition - Plan for ED Patient: Disposition: Home or Assisted Living Chief Complaint: Shortness of Breath Instructions: ED Dyspnea Shortness of Breath Referrals: Joni Grimm MD [Primary Care Provider] - 3-5 Days What to do if you have Problems For any increased pain, shortness of breath, bleeding, nausea or vomiting, chest pain, or any unexpected problems, contact your Primary Care Provider. Call [facility] ([phone]) or report to the closest Emergency Room. Call 911 if necessary. 07/23/18 1646 <Electronically signed by Moiz Lin MD> Date Moiz Lin MD Cosigner Signature (If Indicated): Date CC: Joni Grimm MD CBC W/DIFF, AUTOMATED Collected: 07/23/2018 Status: F Source: [place] 2:20 PM [facility] REPOSITORY TYPE CODE TESTS RESULT OUT OF RANGE REFERENCE UNITS LAB L100.1000 4.4-11.0 K/mm3 Normal WBC 9.3 LAB L100.1200 4.2-5.4 M/mm3 Low RBC 3.75 LAB L100.1300 12.0-15.0 g/dl Low HGB 11.3 LAB L100.1400 37-47 % Low HCT 35.0 LAB L100.1500 81-99 fL Normal MCV 93.3 LAB L100.1600 27.0-32.0 pg Normal MCH 30.1 LAB L100.1700 32-36 g/gl Normal MCHC 32.3 LAB L100.1810 11.6-14.6 % Normal RDW CV 13.5 LAB L100.1820 35.1-43.9 fl High RDW SD 45.7 LAB L100.1900 150-450 K/mm3 Normal PLT 257 LAB L100.2000 6.2-12.0 fl Normal MPV 10.3 LAB L100.2100 47-70 % High NEUT% 73.0 LAB L100.2200 19-41 % Low LY% 15.1 LAB L100.2300 0-10 % Normal MONO% 7.9 LAB L100.2400 0-5 % Normal EO% 3.7 LAB L100.2500 0-1 % Normal BASO% 0.2 LAB L100.2550 0.0-0.9 % Normal IM GRAN % 0.100 Result Comment: IG% - Immature Granulocytes (promyelocytes, myelocytes and metamyelocytes) > 1% indicates that a LEFT SHIFT is Present. LAB L100.2620 2.0-7.7 X10 3/uL Normal Absolute Neut 6.8 LAB L100.2720 0.83-4.51 X10 3/ul Normal Absolute Lymph 1.40 Performed By: #### L100.0100 #### [facility] [address] [place], [place], [address] BASIC METABOLIC Collected: 07/23/2018 Status: F Source: [facility] PROFILE ([facility]) 2:20 PM [facility] REPOSITORY TYPE CODE TESTS RESULT OUT OF RANGE REFERENCE UNITS LAB L501.0100 74-106 mg/dL High GLU 168 Result Comment: Fasting Glucose result greater than or equal to 126 mg/dL suggests DIABETES MELLITUS per A.D.A. criteria. Please note revised GLUCOSE reference range effective 2017. LAB L501.1000 7-18 mg/dL High BUN 27 LAB L501.1100 0.55-1.02 mg/dL High CREAT,SERUM 1.41 Result Comment: The validity of the calculated GFR AND GFRAA in patients over 70 years has not been determined. Clinical correlation is essential. LAB L501.1110 >60 mL/min Low EST GFR 39 Result Comment: Non- GFR Calc LAB L501.1115 >60 mL/min Low EST GFR - AA 47 Result Comment: GFR Calc LAB L501.1255 ml/min Normal Estimated CRCL 29.31 LAB L501.1300 10-20 RATIO Normal BUN/CRE 19.1 LAB L501.2200 8.5-10 mg/dL Normal .1 CA 9.3 LAB L501.5300 136-14 mmol/L Normal 5 NA 139 LAB L501.5600 3.5-5. mmol/L Normal 1 K 4.0 LAB L501.5900 98-107 mmol/L Normal CL 104 LAB L501.6100 21.0-3 mmol/L Normal 2.0 CO2 28.0 LAB L501.6200 5-15 Normal GAP 7 Performed By: #### L500.2500, L501.4010 #### [facility] [address] [place], [place], [address] TROPONIN-I Collected: 07/23/2018 Status: F Source: [place] 2:20 PM [facility] REPOSITORY TYPE CODE TESTS RESULT OUT OF RANGE REFERENCE UNITS LAB L501.4010 <0.045 ng/mL Normal < 0.015 TROPONIN-I Result Comment: TROPONIN-I EXPECTED VALUES <0.045 Negative 0.045 - 0.590 Consistent with Cardiac Damage > OR = 0.600 Critical Value Not every elevated troponin is indicative of PA. These values should be used with clinical judgement in examining the patient's clinical picture for diagnosis. To establish a diagnosis of PA versus myocardial injury, there must be a demonstrated rise and/or fall in the troponin values, in addition to ischemic symptoms, EKG changes, new regional wall motion abnormality, and/or angiographical evidence. PLEASE NOTE: REFERENCE RANGES EDITED 18 Performed By: #### L500.2500, L501.4010 #### [facility] [address] [facility]. [place], [place], [address] CHEST 1 VIEW Observed: 07/23/2018 Status: F Source: [place] (PORTABLE) 2:08 PM [facility] REPOSITORY [facility] Imaging Services [address] [place] [address] 2020[address] Chest 1 View (Portable) MR#: [id number] Acct: [id number] Name: GRACIELA CAVAZOS Rep #: [id number] : 1940 F 78 From: Loyd Sanderson DO PCP: Joni Grimm MD Status: REG ER Study: Chest 1 View (Portable) Date of Exam: 07/23/18 Exam# [id number] Ordering Dr: Moiz Lin MD STUDY: X-RAY CHEST REASON FOR EXAM: Female, 78 years old. Shortness of breath. TECHNIQUE: Single AP portable view of the chest. COMPARISON: None. FINDINGS: Anatomy wires are midline. Prominent interstitial markings are seen bilaterally. There is no demonstrated pleural abnormality. Normal size heart. Normal mediastinum and ivis. Mild prominent pulmonary vascularity is noted. There is atherosclerotic calcification of the aortic arch with tortuosity. Normal visualized thoracic spine. Normal visualized ribs, clavicles, and shoulders. There is no demonstrated abnormality of the visualized soft tissue structures of the upper abdomen. RAD/Chest 1 View (Portable) IMPRESSION: Prominent interstitial markings with mild prominent pulmonary vascularity concerning for early interstitial edema and CHF exacerbation in the appropriate clinical setting. Electronically Signed: Loyd Sanderson DO at 14:46 EST , Service support , CC: Joni Grimm MD; Moiz Lin MD Staff Physical Therapist: Signed PROGRESS Observed: 07/23/2018 Status: COMPLETED Source: [facility]ER 1:17 PM [facility] REPOSITORY O ID: [id number] Author: Winifred Flower Service: (none) Author Type: Nurse Practitioner Type: Progress Notes Filed: 07/23/2018 1:28 PM Note Text: HANNAH Cavazos is a 78 year old female who presents today for CC of wheezing at night and uncomfortable feeling in chest. She is concerned she is having a stroke, or possible heart issues. Patient is talking in full sentences with no signs of facial drooping, slurred speech, weakness. States she just doesn't feel right. There were no vitals taken for this visit. PAST MEDICAL HISTORY Diagnosis Date - Allergic rhinitis, cause unspecified Allergic rhinitis - Cataract of left eye 12/31/2010 removed - Cataract of right eye 04/15/2011 removed - Diabetes mellitus without mention of complication Diabetes mellitus - Diverticulosis of colon (without mention of hemorrhage) - Dysthymic disorder Depression (non-psychotic) - Dysthymic disorder - Esophageal reflux Gastroesophageal reflux - Internal hemorrhoids without mention of complication - Nonspecific elevation of levels of transaminase or lactic acid dehydrogenase (LDH) Elevated LFT's - Peripheral vascular disease, unspecified (HCC) - PMH - PAST MEDICAL HISTORY OF 08/2007 Broken left elbow - Rheumatoid arthritis(714.0) - Unspecified closed fracture of ankle 2009 Ankle fracture - 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 ASSESSMENT/PLAN: 1. Chest tightness - ICD9: 786.59, ICD10: R07.89 Due to nature of patient's complaint and lack of investigative tools available at [facility], recommend patient be seen at nearest ED for further work up, patient's son present will transport. Declined squad. Patient does not appear toxic. Winifred Flower APRN.ABEL CNOV Observed: 07/23/2018 Status: COMPLETED Source: JOINER 1:[address] [facility] REPOSITORY Office Visit ([facility]) MACYGRACIELA Whitehead ([id number]) 1940 F Date Time Provider Department 07/23/18 1:00 PM [facility] During your visit today, we recorded the following information about you: Winifred Flower APRN.CNP 07/23/2018 1:28 PM Signed HPI Graciela Whitehead Macy is a 78 year old female who presents today for CC of wheezing at night and uncomfortable feeling in chest. She is concerned she is having a stroke, or possible heart issues. Patient is talking in full sentences with no signs of facial drooping, slurred speech, weakness. States she just doesn't feel right. There were no vitals taken for this visit. PAST MEDICAL HISTORY Diagnosis Date - Allergic rhinitis, cause unspecified Allergic rhinitis - Cataract of left eye 12/31/2010 removed - Cataract of right eye 04/15/2011 removed - Diabetes mellitus without mention of complication Diabetes mellitus - Diverticulosis of colon (without mention of hemorrhage) - Dysthymic disorder Depression (non-psychotic) - Dysthymic disorder - Esophageal reflux Gastroesophageal reflux - Internal hemorrhoids without mention of complication - Nonspecific elevation of levels of transaminase or lactic acid dehydrogenase (LDH) Elevated LFT's - Peripheral vascular disease, unspecified (HCC) - PMH - PAST MEDICAL HISTORY OF 08/2007 Broken left elbow - Rheumatoid arthritis(714.0) - Unspecified closed fracture of ankle 2009 Ankle fracture - 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 ASSESSMENT/PLAN: 1. Chest tightness - ICD9: 786.59, ICD10: R07.89 Due to nature of patient's complaint and lack of investigative tools available at [facility], recommend patient be seen at nearest ED for further work up, patient's son present will transport. Declined squad. Patient does not appear toxic. Winifred Flower, CLINICAL REVIEWER.SAMPLE MAKER ORIGINAL Referring Provider: SELF [200] Allergies As of Date: 07/23/2018 Noted Allergy Reaction ADHESIVE TAPE (ROSINS) 04/29/2016 9 - Itching Comments: Possible allergy. Pt had heart cath and she says her wrist was itchy and irritated where the cath was done. batazolidin [Other] 07/10/2005 5 - Intolerance CELEBREX (CELECOXIB) 10/16/2005 Comments: affected labs work diazide [Other] 07/10/2005 5 - Intolerance EFFEXOR (VENLAFAXINE HCL) 07/10/2005 1 - Mental Status Change Comments: patient uncertain INDOCIN (INDOMETHACIN SODIUM) 07/10/2005 5 - Intolerance meclomen [Other] 07/10/2005 5 - Intolerance MEVACOR (LOVASTATIN) 07/10/2005 5 - Intolerance MOTRIN (IBUPROFEN) 07/10/2005 Comments: hair loss NAPROSYN (NAPROXEN) 07/10/2005 5 - Intolerance NSAIDS (NON-STEROIDAL ANTI-INFLAM*07/10/2005 Comments: affected blood studies patient uncertain ORUDIS (KETOPROFEN) 07/10/2005 5 - Intolerance PROZAC (FLUOXETINE HCL) 07/10/2005 1 - Mental Status Change sporostacin [Other] 07/10/2005 5 - Intolerance STATINS (HYOXMXJ-OZF-MWI REDUCTAS*07/04/2009 5 - Intolerance Comments: myalgia on 80 mg simvastatin VICODIN (HYDROCODONE-ACETAMINOPHE*07/10/2005 5 - Intolerance ZOLOFT (SERTRALINE HCL) 07/10/2005 1 - Mental Status Change Date Reviewed: 06/17/2018 Reviewed by: Mica Shaw RN - Fully Assessed Primary Visit Diagnosis:Chest tightness [R07.89] Prescriptions as of 07/23/2018 Sig: CARVEDILOL 25 MG TABLET Take 1 tablet by mouth twice * AMLODIPINE 5 MG TABLET Take 5 mg by mouth once daily. VITAMIN D3 ORAL Take by mouth. INSULIN GLARGINE (U-100) 100 * Inject 24 Units subcutaneousl* ATORVASTATIN 80 MG TABLET Take 1 tablet by mouth once d* DULAGLUTIDE 1.5 MG/0.5 ML SUB* Inject 1.5 mg subcutaneously * CLOPIDOGREL 75 MG TABLET Take 1 tablet by mouth once d* BLOOD SUGAR DIAGNOSTIC STRIPS Test blood sugar(s) 2 times d* FUROSEMIDE 40 MG TABLET Take 1 tablet by mouth once d* GLIMEPIRIDE 4 MG TABLET Take 1 tablet by mouth twice * LANCETS Use as instructed two times d* BLOOD-GLUCOSE METER Dispense One Kit - Verio Mete* THERAPEUTIC MULTIVITAMIN TABL* Take 1 tablet by mouth daily * SODIUM CHLORIDE 0.65 % NASAL * Use 2 Sprays in each nostril * Patient not taking: Reported on 05/26/2018 * COMPOUNDED PRESCRIPTION Diabetic shoes. Has PVD * TYLENOL ARTHRITIS PAIN 650 MG* PRN use only * ASPIRIN 81 MG TABLET,DELAYED * Take one(1) tablet daily. 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 ALLERGIC RHINITIS NOS [J30.9] More... ESOPHAGEAL REFLUX [K21.9] More... Peripheral vascular disease, unspecified (HCC) * Priority: D More... GLAUCOMA NOS [H40.9] More... 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 Preop testing [Z01.818] INVALID FOR* More... Discharge planning issues [Z02.9] INVALID FOR* Priority: M More... Atherosclerosis of tangirnaq coronary artery with *INVALID FOR* Priority: A More... HOCM (hypertrophic obstructive cardiomyopathy) *INVALID FOR* Priority: A More... (aortic stenosis) [I35.0] INVALID FOR* Priority: A More... Mitral regurgitation [I34.0] INVALID FOR* Priority: A More... Hypovolemia [E86.1] INVALID FOR*05/02/2016 Priority: F More... More... Cardiac insufficiency (HCC) [I50.9] INVALID FOR*05/04/2016 Priority: C More... Atelectasis [J98.11] INVALID FOR*05/06/2016 Priority: B More... Stage 3 chronic kidney disease (HCC) [N18.3] INVALID FOR* Priority: F More... Sinus bradycardia [R00.1] INVALID FOR*05/06/2016 Priority: C More... Fluid overload [E87.70] INVALID FOR*05/06/2016 Priority: F More... Thrombocytopenia (HCC) [D69.6] INVALID FOR*05/07/2016 Priority: H More... 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 SUMMARY INVALID FOR* Priority: Very Severe More... Hyperlipidemia LDL goal <70 [E78.5] INVALID FOR* Priority: D More... Essential hypertension [I10] INVALID FOR* Priority: C More... 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 [address] [place] [address] OFFICE VISIT Date of Service: 07/19/18 MR#: [id number] Acct: [id number] Name: GRACIELA CAVAZOS Rep #: [id number] : 1940 Provider: Marta Torres NP Age/Sex: 78/F Location: [facility] Status: Signed HPI History of present illness Graciela Cavazos is a 77 year old female who presents for follow up of diabetes type 2. Diagnosed in 1995. Known renal issues. Had 2 heart valves replaced 2 years . She reports feeling well. Has not changed eating habits. Following with Dr. Tolentino nephrology. On basaglar 40 units daily in am as well as trulicity and glimepiride 4mg bid. Having low BG in am followed by rebound high at lunch. Pt denies difficulty with injections or self monitoring of BG. Denies any signs of infection or irritation at site of injections. Reports taking insulin as directed At time of visit: -Pt denies symptoms of hypertensive emergency (CP,SOB,YANG, or blurred vision) and hypotension(dizziness or lightheadedness) -Pt denies symptoms of hypoglycemia ( sweaty, confusion, anxiety, tremor, hunger, palpitations) and hyperglycemia ( polydipsia, polyuria) -Pt denies potential medication adverse effect. Hypoglycemia Aware of hypoglycemia: Yes Able to self treat low BG: Yes Frequent low Blood sugar: No Has supply of glucagon: No SMBG Checking BG 3 times daily BG 60-200+ Exam Const General: comfortable, well groomed Nutritional Appearance: overweight Orientation: oriented x3 HENMA Head: normal to inspection, normocephalic Ears: hearing grossly normal bilaterally Mouth: oral mucosae normal, moist mucous membranes Teeth and gingiva: dentition normal Eyes General: appearance normal, both eyes and all related structures Eyelids: eyelids normal Conjunctivae: conjunctivae normal Cornea: corneas normal Pupils: PERRL Neck Neck: normal visual inspection, no lymphadenopathy Resp Effort AND Inspection: normal respiratory effort, able to speak in complete sentences, symmetric chest movement Auscultation: Bilateral: Clear to Auscultation Cardio Rate: regular rate Rhythm: regular rhythm Heart Sounds: S1 normal, S2 normal GI Inspection: normal to inspection Auscultation: normal bowel sounds Palpation: soft, no guarding Skin General: no rashes or lesions noted Wounds: no wounds Diabetic Foot Pulses: L dorsalis pedis pulse: normal, R dorsalis pedis pulse: normal Monofilament test: Left foot: normal, Right foot: normal Neuro General: moves all extremities, normal light touch, pain and propioception Cranial Nerves: CN's II-XI intact bilaterally Speech: speech normal Extrem General: normal to inspection, normal capillary refill, edema 2+ Psych Appearance: well kempt Mental Status: mental status grossly normal Mood: congruent mood Affect: normal affect Speech and Movement: speech and movement normal Attitude: cooperative Thought Process: normal Thought Content: normal Judgment: judgment good Type: type 2, insulin-requiring Glucose control symptoms: Reports high post-meal glucose and nocturnal hypoglycemia Cardiopulmonary symptoms: Denies chest pain at rest or dizziness GI symptoms: Denies diarrhea, constipation, vomiting, nausea/dyspepsia or increased hunger Other symptoms: Denies change in vision or depression Pertinent visit history: Denies recent visit to ER, recent hospital admission or recent 911 calls Percentage of fasting blood glucose within goal: 25%-50% of the time Dietary compliance: Diabetes: good Diabetes education in past year: Yes Glucose testing: demonstrates correct use of meter, understands testing schedule Sick day education - understands ketone testing: Yes Physical activity: regular Intake Vital Signs07/19/18 Height 5 ft 2 in 07/19/18 Weight: 198 lb 07/19/18 Body Mass Index (BMI) 36.2 07/19/18 Blood Pressure 151/80 H 07/19/18 Blood Pressure Location Lt brachial Intake Visit Reasons: Diabetes follow-up Proc Tech Required: No Accompanied by: Self Is patient in pain?: No Allergies celecoxib [From Celebrex] Allergy (Verified 07/19/18 09:33) Other indomethacin [From Indocin] Allergy (Verified 07/19/18 09:33) Other [place]-Dye-Ukl Reductase Inhibitor Allergy (Verified 07/19/18 09:33) Pain in joints acetaminophen [From Vicodin] Adverse Reaction (Verified 07/19/18 09:33) Other adhesive tape Adverse Reaction (Verified 07/19/18 09:33) Itching fluoxetine [From Prozac] Adverse Reaction (Verified 07/19/18 09:33) Other hydrocodone [From Vicodin] Adverse Reaction (Verified 07/19/18 09:33) Other ibuprofen [From Motrin] Adverse Reaction (Verified 07/19/18 09:33) Other ketoprofen Adverse Reaction (Verified 07/19/18 09:33) Other lovastatin [From Mevacor] Adverse Reaction (Verified 07/19/18 09:33) Other meclofenamic acid [From Meclomen] Adverse Reaction (Verified 07/19/18 09:33) Other naproxen [From Naprosyn] Adverse Reaction (Verified 07/19/18 09:33) Other NSAIDS (Non-Steroidal Anti-Inflamma Adverse Reaction (Verified 07/19/18 09:33) Other sertraline [From Zoloft] Adverse Reaction (Verified 07/19/18 09:33) Other venlafaxine [From Effexor] Adverse Reaction (Verified 07/19/18 09:33) Other BATAZOLIDIN Adverse Reaction (Uncoded 04/25/18 08:43) Other DIAZIDE Adverse Reaction (Uncoded 04/25/18 08:43) Other SPOROSTACIN Adverse Reaction (Uncoded 04/25/18 08:43) Other Medications Aspirin [Adult Low Dose Aspirin EC] 81 mg PO DAILY #30 tablet. 05/11/16 [Rx Confirmed 07/19/18] Atorvastatin Calcium [Lipitor] 80 mg PO QHS #30 tab 05/11/16 [Rx Confirmed 07/19/18] Clopidogrel Bisulfate [Plavix] 75 mg PO DAILY #0 tab 05/11/16 [Rx Confirmed 07/19/18] acetaminophen ER 650 mg tablet,extended release 650 mg PO .prn tab 08/19/17 [History Confirmed 07/19/18] carvedilol 25 mg tablet 25 mg PO BID 08/19/17 [History Confirmed 07/19/18] furosemide 40 mg tablet 40 mg PO QDAY 08/19/17 [History Confirmed 07/19/18] multivitamin capsule 1 cap PO QAM 08/19/17 [History Confirmed 07/19/18] glimepiride 4 mg tablet 4 mg PO BID #180 tab 01/06/18 [Rx Confirmed 07/19/18] pen needle, diabetic 32 gauge x See Dose Instructions .ROUTE .MEDSUPPLY #50 ea 04/25/18 [Rx Confirmed 07/19/18] blood sugar diagnostic strips See Dose Instructions .ROUTE .MEDSUPPLY #100 ea 06/20/18 [Rx Confirmed 07/19/18] dulaglutide 1.5 mg/0.5 mL subcutaneous pen injector 1.5 mg SC QWEEK #2 ml 06/20/18 [Rx Confirmed 07/19/18] insulin glargine (U-100) 100 unit/mL (3 mL) subcutaneous pen 40 unit SC DAILY #12 ml 06/20/18 [Rx Confirmed 07/19/18] amlodipine 5 mg tablet 5 mg PO DAILY #90 tab 07/19/18 [Rx Confirmed 07/19/18] glimepiride 2 mg tablet 2 mg PO QAM #30 tab 07/19/18 [Rx Confirmed 07/19/18] [facility] Medical History Diabetes type 2, controlled (Acute) Heart disease (Acute) HTN (hypertension) (Chronic) Surgical History History of cataract extraction with lens replacement (Acute) S/P triple vessel bypass (Acute) Family History Grandmother Diabetes Mother Heart disease Social History Smoking Status: Never smoker second hand exposure: No alcohol intake: never substance use type: does not use ROS Const Constitutional: No chills, night sweats or fever(s) Eyes Eyes: No change in vision ENT ENT: No ear pain, ear discharge or nosebleed/epistaxis Resp Respiratory: No cough or shortness of breath Cardio Cardiology: No chest pain at rest or chest pain with exertion Gastro GI: No abdominal pain, diarrhea, constipation, vomiting or nausea/dyspepsia Genitourinary-Female: No difficulty urinating or urinary urgency Musc Musculoskeletal: Positive for back pain (doing water therapy at [facility] 1 month now) Skin Skin: No lesions or rash Neuro Neurology: No fainting or dizziness Psych Psychiatric: No anxiety, No depression Endo Endocrine: No increased thirst/drinking or increased hunger Toni/Lymp Hematologic/Lymphatic: Positive for easy bruising (medication caused); no easy bleeding Assessment AND Plan 1. Type 2 diabetes mellitus with chronic kidney disease, without long-term current use of insulin, unspecified CKD stage E11.22 BG readings high Plan Is taking insulin without issues in am. Is having low BG in am. Will give rx for glimeipride 2mg and change timing of administration. Change to 4mg in am, 2mg at lunch and if needed trial 1mg at supper to see if we can avoid am low BG. She will call in 3-4 days with update. Ob daily asa. Enc to avoid desserts in diet until BG controlled and then continue to limit. 2. Essential hypertension I10 Plan Dr. Tolentino is now managing her BP and today her BP sl elevated. Medications New: 3. Mixed hyperlipidemia E78.2 Plan Continues on statin without side effect. Taking as directed. Plan Detail Other Orders Orders: Other Medications New: Additional Comments 1. Please schedule follow up in 3 months. 2. Lab work one week before appointment. 3. Discussed importance of regular exercise and recommend starting or continuing a regular exercise program for good health. 4. The patient was encouraged to lose weight for good health 5. The importance of monitoring blood sugar regularly was reviewed. 6. The importance of monitoring the HBA1c level regularly was reviewed. 7. The importance of prper foot care and regularly checking feet to prevent sores and loss of limbs was reviewed. 8. The importance of keeping BP at or below 130/80 to prevent stroke, heart attacks, kidney failure, blindness was reviewed. Spent approximately 30 minutes with patient with over 50% of time spent in discussion and counseling regarding medication adjustment, symptoms and treatment of hypoglycemia, diet adherence, and checking BG before driving. 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: without jail use Chronic kidney disease stage: unspecified stage Essential hypertension I10 Hypertension type: essential hypertension Mixed hyperlipidemia E78.2 Hyperlipidemia type: mixed hyperlipidemia 07/20/18 0646 <Electronically signed by Marat HUANGC> Date Marta HUANGC Cosigner Signature: Date (if applicable) CC: RENAL PROFILE Collected: 07/19/2018 Status: F Source: [place] 10:50 AM [facility] REPOS[facility] Order Comment: WANTS THE RENAL INTERNATIONAL REPRESENTATIVE.SHAD WANTS THE TSH LIPID TYPE CODE TESTS RESULT OUT OF RANGE REFERENCE UNITS LAB L501.0100 74-106 mg/dL Normal GLU 80 Result Comment: Please note revised GLUCOSE reference range effective 2017. LAB L501.1000 7-18 mg/dL High BUN 29 LAB L501.1100 0.55-1.02 mg/dL High CREAT,SERUM 1.58 Result Comment: The validity of the calculated GFR AND GFRAA in patients over 70 years has not been determined. Clinical correlation is essential. LAB L501.1110 >60 mL/min Low EST GFR 34 Result Comment: Non- GFR Calc LAB L501.1115 >60 mL/min Low EST GFR - AA 41 Result Comment: GFR Calc LAB L501.1300 10-20 RATIO Normal BUN/CRE 18.4 LAB L501.1800 3.2-5.0 g/dL Normal ALB 3.5 LAB L501.2200 8.5-10.1 mg/dL CA Normal 8.9 LAB L501.2300 2.5-4.9 mg/dL Normal PHOS 3.9 LAB L501.5300 136-145 mmol/L NA Normal 140 LAB L501.5600 3.5-5.1 mmol/L K Normal 4.9 LAB L501.5900 98-107 mmol/L High CL 108 LAB L501.6100 21.0-32.0 mmol/L Normal CO2 26.0 Performed By: #### L500.3600, L500.4100, L501.9520 #### [facility] [address] [place], [place], [id number] LIPID PROFILE Collected: 07/19/2018 Status: F Source: PAT[place] 10:50 AM [facility] REPOS[facility] Order Comment: WANTS THE RENAL INTERNATIONAL REPRESENTATIVE.SHAD WANTS THE TSH LIPID TYPE CODE TESTS RESULT OUT OF RANGE REFERENCE UNITS LAB L501.4900 200 mg/dL Normal CHOL 169 Result Comment: <200 mg/dL Desirable 200-240 mg/dL Borderline >240 mg/dL High Risk LAB L501.5000 mg/dL High TRIG 222 Result Comment: The drugs N-Acetylcysteine and Metamizole may falsely depress this assay. Serum Triglycerides Reference Interval Normal <150 mg/dL Borderline high 150 - 199 mg/dL High 200 - 499 mg/dL Very High > or = 500 mg/dL LAB L501.6400 mg/dL Normal HDL 42 Result Comment: The drugs N-Acetylcysteine and Metamizole may falsely depress this assay. Reference Range HDL <40 mg/dL Low HDL Cholesterol HDL >or= 60 mg/dL High HDL Cholesterol LAB L501.6500 0-130 mg/dL Normal LDL 83 LAB L501.6600 5-40 mg/dL High VLDL 44 Performed By: #### L500.3600, L500.4100, L501.9520 #### [facility] [address] [place], [place], [id number] THYROID STIM HORMONE Collected: 07/19/2018 Status: F Source: PATO (TSH) 10:50 AM [facility] REPOS[facility] Order Comment: WANTS THE RENAL INTERNATIONAL REPRESENTATIVE.SHAD WANTS THE TSH LIPID TYPE CODE TESTS RESULT OUT OF RANGE REFERENCE UNITS LAB L501.9520 0.358-3.74 uIU/mL Normal TSH 3.48 Performed By: #### L500.3600, L500.4100, L501.9520 #### [facility] [address] [place], [address] PROGRESS Observed: 07/15/2018 Status: COMPLETED Source: JOINER 11:[address] [facility] REPOSITORY HNO ID: [id number] Author: Teodoro Keys (Rn) Service: (none) Author Type: Registered Nurse Type: Progress Notes Filed: 07/15/2018 12:04 PM Note Text: PRIMARY CARE COORDINATION FOLLOW-UP NOTE Provider Action/FYI Faxed lipid panel to [facility] per Pt request Patient identified by name and date of . YES Class A Lineman plan for next outreach: DM Self Care Signature Massimo Valerio RN July 15, 2018 PROGRESS Observed: 07/13/2018 Status: COMPLETED Source: JOINER 4:[address] [facility] REPOSITORY HNO ID: [id number] Author: Teodoro Leiva) Service: (none) Author Type: Registered Nurse Type: Progress Notes Filed: 07/15/2018 12:04 PM Note Text: PRIMARY CARE COORDINATION FOLLOW-UP NOTE Provider Action/FYI 1. Call from Pt who reports Dr. Tolentino ordered Pt to take Amlodipine 5 mg po daily, and noted she could take B6 OTC for Neuropathy 2. Pt is requesting to have lab for Lipid panel sent to [facility] Lab, she has an appt with BJ 07/19/18 and will have labs drawn at [facility] next week Patient identified by name and date of . YES Spoke to patient Class A Lineman plan for next outreach: DM Self Care Signature Massimo Valerio RN July 13, 2018 CNPTOUTREACH Observed: 07/13/2018 Status: COMPLETED Source: JOINER 12:[address] [facility] REPOSITORY Patient Outreach (FAMPWS) GRACIELA [id number]) 1940 F Date Time Provider Department 07/13/18 TEODORO KEYS (RN) FAMPWS During your visit today, we recorded the following information about you: Massimo Valerio RN 07/15/2018 12:04 PM Signed PRIMARY CARE COORDINATION FOLLOW-UP NOTE Provider Action/FYI 1. Call from Pt who reports Dr. Tolentino ordered Pt to take Amlodipine 5 mg po daily, and noted she could take B6 OTC for Neuropathy 2. Pt is requesting to have lab for Lipid panel sent to [facility], she has an appt with BJ 07/19/18 and will have labs drawn at [facility] next week Patient identified by name and date of . YES Spoke to patient Class A Lineman plan for next outreach: DM Self Care Signature Massimo Valerio RN July 13, 2018 Massimo Valerio RN 07/15/2018 12:04 PM Signed PRIMARY CARE COORDINATION FOLLOW-UP NOTE Provider Action/FYI Faxed lipid panel to [facility] per Pt request Patient identified by name and date of . YES Class A Lineman plan for next outreach: DM Self Care Signature Massimo Valerio RN July 15, 2018 Allergies As of Date: 07/13/2018 Noted Allergy Reaction ADHESIVE TAPE (ROSINS) 04/29/2016 9 - Itching Comments: Possible allergy. Pt had heart cath and she says her wrist was itchy and irritated where the cath was done. batazolidin [Other] 07/10/2005 5 - Intolerance CELEBREX (CELECOXIB) 10/16/2005 Comments: affected labs work diazide [Other] 07/10/2005 5 - Intolerance EFFEXOR (VENLAFAXINE HCL) 07/10/2005 1 - Mental Status Change Comments: patient uncertain INDOCIN (INDOMETHACIN SODIUM) 07/10/2005 5 - Intolerance meclomen [Other] 07/10/2005 5 - Intolerance MEVACOR (LOVASTATIN) 07/10/2005 5 - Intolerance MOTRIN (IBUPROFEN) 07/10/2005 Comments: hair loss NAPROSYN (NAPROXEN) 07/10/2005 5 - Intolerance NSAIDS (NON-STEROIDAL ANTI-INFLAM*07/10/2005 Comments: affected blood studies patient uncertain ORUDIS (KETOPROFEN) 07/10/2005 5 - Intolerance PROZAC (FLUOXETINE HCL) 07/10/2005 1 - Mental Status Change sporostacin [Other] 07/10/2005 5 - Intolerance STATINS (LEJMLUB-WEE-ZNB REDUCTAS*07/04/2009 5 - Intolerance Comments: myalgia on 80 mg simvastatin VICODIN (HYDROCODONE-ACETAMINOPHE*07/10/2005 5 - Intolerance ZOLOFT (SERTRALINE HCL) 07/10/2005 1 - Mental Status Change Date Reviewed: 06/17/2018 Reviewed by: Mica Shaw RN - Fully 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 VITAMIN D3 ORAL Take by mouth. INSULIN GLARGINE (U-100) 100 * Inject 24 Units subcutaneousl* ATORVASTATIN 80 MG TABLET Take 1 tablet by mouth once d* DULAGLUTIDE 1.5 MG/0.5 ML SUB* Inject 1.5 mg subcutaneously * CLOPIDOGREL 75 MG TABLET Take 1 tablet by mouth once d* BLOOD SUGAR DIAGNOSTIC STRIPS Test blood sugar(s) 2 times d* FUROSEMIDE 40 MG TABLET Take 1 tablet by mouth once d* GLIMEPIRIDE 4 MG TABLET Take 1 tablet by mouth twice * LANCETS Use as instructed two times d* BLOOD-GLUCOSE METER Dispense One Kit - Verio Mete* THERAPEUTIC MULTIVITAMIN TABL* Take 1 tablet by mouth daily * SODIUM CHLORIDE 0.65 % NASAL * Use 2 Sprays in each nostril * Patient not taking: Reported on 05/26/2018 * COMPOUNDED PRESCRIPTION Diabetic shoes. Has PVD * TYLENOL ARTHRITIS PAIN 650 MG* PRN use only * ASPIRIN 81 MG TABLET,DELAYED * Take one(1) tablet daily. 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 ALLERGIC RHINITIS NOS [J30.9] More... ESOPHAGEAL REFLUX [K21.9] More... Peripheral vascular disease, unspecified (HCC) * Priority: D More... GLAUCOMA NOS [H40.9] More... 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 Preop testing [Z01.818] INVALID FOR* More... Discharge planning issues [Z02.9] INVALID FOR* Priority: M More... Atherosclerosis of tangirnaq coronary artery with *INVALID FOR* Priority: A More... HOCM (hypertrophic obstructive cardiomyopathy) *INVALID FOR* Priority: A More... (aortic stenosis) [I35.0] INVALID FOR* Priority: A More... Mitral regurgitation [I34.0] INVALID FOR* Priority: A More... Hypovolemia [E86.1] INVALID FOR*05/02/2016 Priority: F More... More... Cardiac insufficiency (HCC) [I50.9] INVALID FOR*05/04/2016 Priority: C More... Atelectasis [J98.11] INVALID FOR*05/06/2016 Priority: B More... Stage 3 chronic kidney disease (HCC) [N18.3] INVALID FOR* Priority: F More... Sinus bradycardia [R00.1] INVALID FOR*05/06/2016 Priority: C More... Fluid overload [E87.70] INVALID FOR*05/06/2016 Priority: F More... Thrombocytopenia (HCC) [D69.6] INVALID FOR*05/07/2016 Priority: H More... 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 SUMMARY INVALID FOR* Priority: Very Severe More... Hyperlipidemia LDL goal <70 [E78.5] INVALID FOR* Priority: D More... Essential hypertension [I10] INVALID FOR* Priority: C More... 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 REPOSITORY HNO ID: [id number] Author: Teodoro Keys (Rn) Service: (none) Author Type: Registered Nurse Type: Progress Notes Filed: 07/08/2018 1:13 PM Note Text: PRIMARY CARE COORDINATION FOLLOW-UP NOTE Provider Action/FYI Spk with Pt notified Coreg sent to [facility]. Pt verbalized appreciation Patient identified by name and date of . YES Spoke to patient Signature Massimo Valerio RN July 08, 2018 PROGRESS Observed: 07/08/2018 Status: COMPLETED Source: JOINER 12:[address] [facility] REPOSITORY HNO ID: [id number] Author: Teodoro Keys (Rn) Service: (none) Author Type: Registered Nurse Type: Progress Notes Filed: 07/08/2018 1:13 PM Note Text: PRIMARY CARE COORDINATION FOLLOW-UP NOTE Provider Action/FYI Call from Pt requesting to have Coreg refill, notes checked at [facility] and it has not been sent, Class A Lineman noted it was inadvertently sent to mail order on 07/06/18. Pt is requesting Coreg be sent to [facility] in [place], will re-send request to [employer]. Patient identified by name and date of . YES Spoke to patient Signature Massimo Valerio RN July 08, 2018 MICROALB:CREAT Collected: 07/08/2018 Status: F Source: [facility] 11:30 AM [facility] REPOS[facility] TYPE CODE TESTS RESULT OUT OF RANGE REFERENCE UNITS LAB L501.1200 NO RANGE EST. mg/dL Normal UR CREAT 105.00 LAB L502.0500 NO RANGE EST. mg/L Normal 200.0 MICROALBUMIN ,UR LAB L502.0600 <30 mg/g CRE mg/g CRE High 190.5 MALB:CREAT Performed By: #### L502.0250 #### [facility] [address] [place], [address] RENAL PROFILE Collected: 07/08/2018 Status: F Source: [place] 11:30 AM [facility] REPOSITORY TYPE CODE TESTS RESULT OUT OF RANGE REFERENCE UNITS LAB L501.0100 74-106 mg/dL High GLU 155 Result Comment: Fasting Glucose result greater than or equal to 126 mg/dL suggests DIABETES MELLITUS per A.D.A. criteria. Please note revised GLUCOSE reference range effective 2017. LAB L501.1000 7-18 mg/dL High BUN 40 LAB L501.1100 0.55-1.02 mg/dL High CREAT,SERUM 1.59 Result Comment: The validity of the calculated GFR AND GFRAA in patients over 70 years has not been determined. Clinical correlation is essential. LAB L501.1110 >60 mL/min Low EST GFR 34 Result Comment: Non- GFR Calc LAB L501.1115 >60 mL/min Low EST GFR - AA 41 Result Comment: GFR Calc LAB L501.1300 10-20 RATIO High BUN/CRE 25.2 LAB L501.1800 3.2-5.0 g/dL Normal ALB 3.3 LAB L501.2200 8.5-10.1 mg/dL CA Normal 8.7 LAB L501.2300 2.5-4.9 mg/dL Normal PHOS 4.0 LAB L501.5300 136-145 mmol/L NA Normal 137 LAB L501.5600 3.5-5.1 mmol/L K Normal 4.6 LAB L501.5900 98-107 mmol/L CL Normal 105 LAB L501.6100 21.0-32.0 mmol/L Normal CO2 26.0 Performed By: #### L500.3600 #### [facility] [address] [place], [address] HEMOGLOBIN A1C Collected: 07/08/2018 Status: F Source: [place] 11:30 [facility] REPOSITORY TYPE CODE TESTS RESULT OUT OF RANGE REFERENCE UNITS LAB L501.9985 4.2-6.3 % High HGB A1C 9.2 Performed By: #### L501.9985 #### [facility] [address] [place], [address] BEBA Observed: 07/08/2018 Status: COMPLETED Source: JOINER 12:[address] [facility] REPOSITORY Patient Outreach (FAMPWS) GRACIELA CAVAZOS ([id number]) 1940 F Date Time Provider Department 07/08/18 [facility] LEIVA[facility] your visit today, we recorded the following information about you: Massimo Valerio RN 07/08/2018 1:13 PM Signed PRIMARY CARE COORDINATION FOLLOW-UP NOTE Provider Action/FYI Call from Pt requesting to have Coreg refill, notes checked at [facility] and it has not been sent, Class A Lineman noted it was inadvertently sent to mail order on 07/06/18. Pt is requesting Coreg be sent to [facility] in [place], will re-send request to [facility]. Patient identified by name and date of . YES Spoke to patient Signature Massimo Valerio RN July 08, 2018 Massimo Valerio RN 07/08/2018 1:13 PM Signed PRIMARY CARE COORDINATION FOLLOW-UP NOTE Provider Action/FYI Spk with Pt notified Coreg sent to [facility]. Pt verbalized appreciation Patient identified by name and date of . YES Spoke to patient Signature Massimo Valerio RN July 08, 2018 Allergies As of Date: 07/08/2018 Noted Allergy Reaction ADHESIVE TAPE (ROSINS) 04/29/2016 9 - Itching Comments: Possible allergy. Pt had heart cath and she says her wrist was itchy and irritated where the cath was done. batazolidin [Other] 07/10/2005 5 - Intolerance CELEBREX (CELECOXIB) 10/16/2005 Comments: affected labs work diazide [Other] 07/10/2005 5 - Intolerance EFFEXOR (VENLAFAXINE HCL) 07/10/2005 1 - Mental Status Change Comments: patient uncertain INDOCIN (INDOMETHACIN SODIUM) 07/10/2005 5 - Intolerance meclomen [Other] 07/10/2005 5 - Intolerance MEVACOR (LOVASTATIN) 07/10/2005 5 - Intolerance MOTRIN (IBUPROFEN) 07/10/2005 Comments: hair loss NAPROSYN (NAPROXEN) 07/10/2005 5 - Intolerance NSAIDS (NON-STEROIDAL ANTI-INFLAM*07/10/2005 Comments: affected blood studies patient uncertain ORUDIS (KETOPROFEN) 07/10/2005 5 - Intolerance PROZAC (FLUOXETINE HCL) 07/10/2005 1 - Mental Status Change sporostacin [Other] 07/10/2005 5 - Intolerance STATINS (AISPTWH-KIW-QVC REDUCTAS*07/04/2009 5 - Intolerance Comments: myalgia on 80 mg simvastatin VICODIN (HYDROCODONE-ACETAMINOPHE*07/10/2005 5 - Intolerance ZOLOFT (SERTRALINE HCL) 07/10/2005 1 - Mental Status Change Date Reviewed: 06/17/2018 Reviewed by: Mica Shaw RN - Fully Assessed 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 VITAMIN D3 ORAL Take by mouth. INSULIN GLARGINE (U-100) 100 * Inject 24 Units subcutaneousl* ATORVASTATIN 80 MG TABLET Take 1 tablet by mouth once d* DULAGLUTIDE 1.5 MG/0.5 ML SUB* Inject 1.5 mg subcutaneously * CLOPIDOGREL 75 MG TABLET Take 1 tablet by mouth once d* BLOOD SUGAR DIAGNOSTIC STRIPS Test blood sugar(s) 2 times d* FUROSEMIDE 40 MG TABLET Take 1 tablet by mouth once d* GLIMEPIRIDE 4 MG TABLET Take 1 tablet by mouth twice * LANCETS Use as instructed two times d* BLOOD-GLUCOSE METER Dispense One Kit - Verio Mete* THERAPEUTIC MULTIVITAMIN TABL* Take 1 tablet by mouth daily * SODIUM CHLORIDE 0.65 % NASAL * Use 2 Sprays in each nostril * Patient not taking: Reported on 05/26/2018 * COMPOUNDED PRESCRIPTION Diabetic shoes. Has PVD * TYLENOL ARTHRITIS PAIN 650 MG* PRN use only * ASPIRIN 81 MG TABLET,DELAYED * Take one(1) tablet daily. 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 ALLERGIC RHINITIS NOS [J30.9] More... ESOPHAGEAL REFLUX [K21.9] More... Peripheral vascular disease, unspecified (HCC) * Priority: D More... GLAUCOMA NOS [H40.9] More... 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 Preop testing [Z01.818] INVALID FOR* More... Discharge planning issues [Z02.9] INVALID FOR* Priority: M More... Atherosclerosis of tangirnaq coronary artery with *INVALID FOR* Priority: A More... HOCM (hypertrophic obstructive cardiomyopathy) *INVALID FOR* Priority: A More... (aortic stenosis) [I35.0] INVALID FOR* Priority: A More... Mitral regurgitation [I34.0] INVALID FOR* Priority: A More... Hypovolemia [E86.1] INVALID FOR*05/02/2016 Priority: F More... More... Cardiac insufficiency (HCC) [I50.9] INVALID FOR*05/04/2016 Priority: C More... Atelectasis [J98.11] INVALID FOR*05/06/2016 Priority: B More... Stage 3 chronic kidney disease (HCC) [N18.3] INVALID FOR* Priority: F More... Sinus bradycardia [R00.1] INVALID FOR*05/06/2016 Priority: C More... Fluid overload [E87.70] INVALID FOR*05/06/2016 Priority: F More... Thrombocytopenia (HCC) [D69.6] INVALID FOR*05/07/2016 Priority: H More... 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 SUMMARY INVALID FOR* Priority: Very Severe More... Hyperlipidemia LDL goal <70 [E78.5] INVALID FOR* Priority: D More... Essential hypertension [I10] INVALID FOR* Priority: C More... 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 Medications Discontinued During This Encounter carvedilol (COREG) 25 mg tablet 60 t* 6 07/06/2018 07/08/2018 Route: ORAL Sig: Take 1 tablet by mouth twice daily. Disc: Reason for discontinue is not on file. Encounter Status:Closed by MASSIMO VALERIO on 07/08/18 PROGRESS Observed: 07/07/2018 Status: COMPLETED Source: JOINER 3:18 PM [facility] [place] REPOSITORY HNO ID: [id number] Author: Teodoro Keys (Rn) Service: (none) Author Type: Registered Nurse Type: Progress Notes Filed: 07/07/2018 3:20 PM Note Text: PRIMARY CARE COORDINATION FOLLOW-UP NOTE Provider Action/FYI Spk with Pt notified Coreg refilled. Pt verbalized understanding and appreciation. Patient identified by name and date of . YES Spoke to patient Signature Massimo Valerio RN July 07, 2018 PROGRESS Observed: 07/06/2018 Status: COMPLETED Source: JOINER 9:[address] [facility] REPOSITORY HNO ID: [id number] Author: Teodoro Keys (Rn) Service: (none) Author Type: Registered Nurse Type: Progress Notes Filed: 07/07/2018 3:20 PM Note Text: PRIMARY CARE COORDINATION FOLLOW-UP NOTE Provider Action/FYI 1. Pt called asking for a refill of Coreg 25 mg po to [facility] in [place]- Pended for Pcp/ [employer] 2. Pt has 07/13/[address] Tolentino, Appt 07/19/18 with MEDARDO Torres who has sent in for Prescription assistance program for DM meds, awaiting decision 3. Pt was ordered dose change of Lantus to 40 units every Am, testing 3 x daily, 07/06/18 FBS 91, denies Hypoglycemia symptoms 4. Pt started receiving Physical Therapy at [facility], reports pd by Insurance Patient identified by name and date of . YES Spoke to patient Signature Massimo Valerio RN July 06, 2018 CNPTOUTREACH Observed: 07/06/2018 Status: COMPLETED Source: JOINER 12:[address] [facility] REPOSITORY Patient Outreach (FAMPWS) GRACIELA CAVAZOS ([id number]) 1940 F Date Time Provider Department 07/06/18 TEODORO KEYS (RN) FAMPWS During your visit today, we recorded the following information about you: Massimo Valerio RN 07/07/2018 3:20 PM Signed PRIMARY CARE COORDINATION FOLLOW-UP NOTE Provider Action/FYI 1. Pt called asking for a refill of Coreg 25 mg po to [facility] in [place]- Pended for Pcp/ [employer] 2. Pt has 07/13/[address] Tolentino, Appt 07/19/18 with MEDARDO Torres who has sent in for Prescription assistance program for DM meds, awaiting decision 3. Pt was ordered dose change of Lantus to 40 units every Am, testing 3 x daily, 07/06/18 FBS 91, denies Hypoglycemia symptoms 4. Pt started receiving Physical Therapy at [facility], reports pd by Insurance Patient identified by name and date of . YES Spoke to patient Signature Massimo Valerio RN July 06, 2018 Massimo Valerio RN 07/07/2018 3:20 PM Signed PRIMARY CARE COORDINATION FOLLOW-UP NOTE Provider Action/FYI Spk with Pt notified Coreg refilled. Pt verbalized understanding and appreciation. Patient identified by name and date of . YES Spoke to patient Signature Massimo Valerio RN July 07, 2018 Allergies As of Date: 07/06/2018 Noted Allergy Reaction ADHESIVE TAPE (ROSINS) 04/29/2016 9 - Itching Comments: Possible allergy. Pt had heart cath and she says her wrist was itchy and irritated where the cath was done. batazolidin [Other] 07/10/2005 5 - Intolerance CELEBREX (CELECOXIB) 10/16/2005 Comments: affected labs work diazide [Other] 07/10/2005 5 - Intolerance EFFEXOR (VENLAFAXINE HCL) 07/10/2005 1 - Mental Status Change Comments: patient uncertain INDOCIN (INDOMETHACIN SODIUM) 07/10/2005 5 - Intolerance meclomen [Other] 07/10/2005 5 - Intolerance MEVACOR (LOVASTATIN) 07/10/2005 5 - Intolerance MOTRIN (IBUPROFEN) 07/10/2005 Comments: hair loss NAPROSYN (NAPROXEN) 07/10/2005 5 - Intolerance NSAIDS (NON-STEROIDAL ANTI-INFLAM*07/10/2005 Comments: affected blood studies patient uncertain ORUDIS (KETOPROFEN) 07/10/2005 5 - Intolerance PROZAC (FLUOXETINE HCL) 07/10/2005 1 - Mental Status Change sporostacin [Other] 07/10/2005 5 - Intolerance STATINS (ORCDMAK-DUM-VPT REDUCTAS*07/04/2009 5 - Intolerance Comments: myalgia on 80 mg simvastatin VICODIN (HYDROCODONE-ACETAMINOPHE*07/10/2005 5 - Intolerance ZOLOFT (SERTRALINE HCL) 07/10/2005 1 - Mental Status Change Date Reviewed: 06/17/2018 Reviewed by: Mica Shaw RN - Fully Assessed 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 VITAMIN D3 ORAL Take by mouth. INSULIN GLARGINE (U-100) 100 * Inject 24 Units subcutaneousl* ATORVASTATIN 80 MG TABLET Take 1 tablet by mouth once d* DULAGLUTIDE 1.5 MG/0.5 ML SUB* Inject 1.5 mg subcutaneously * CLOPIDOGREL 75 MG TABLET Take 1 tablet by mouth once d* BLOOD SUGAR DIAGNOSTIC STRIPS Test blood sugar(s) 2 times d* FUROSEMIDE 40 MG TABLET Take 1 tablet by mouth once d* GLIMEPIRIDE 4 MG TABLET Take 1 tablet by mouth twice * LANCETS Use as instructed two times d* BLOOD-GLUCOSE METER Dispense One Kit - Verio Mete* THERAPEUTIC MULTIVITAMIN TABL* Take 1 tablet by mouth daily * SODIUM CHLORIDE 0.65 % NASAL * Use 2 Sprays in each nostril * Patient not taking: Reported on 05/26/2018 * COMPOUNDED PRESCRIPTION Diabetic shoes. Has PVD * TYLENOL ARTHRITIS PAIN 650 MG* PRN use only * ASPIRIN 81 MG TABLET,DELAYED * Take one(1) tablet daily. 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 ALLERGIC RHINITIS NOS [J30.9] More... ESOPHAGEAL REFLUX [K21.9] More... Peripheral vascular disease, unspecified (HCC) * Priority: D More... GLAUCOMA NOS [H40.9] More... 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 Preop testing [Z01.818] INVALID FOR* More... Discharge planning issues [Z02.9] INVALID FOR* Priority: M More... Atherosclerosis of tangirnaq coronary artery with *INVALID FOR* Priority: A More... HOCM (hypertrophic obstructive cardiomyopathy) *INVALID FOR* Priority: A More... (aortic stenosis) [I35.0] INVALID FOR* Priority: A More... Mitral regurgitation [I34.0] INVALID FOR* Priority: A More... Hypovolemia [E86.1] INVALID FOR*05/02/2016 Priority: F More... More... Cardiac insufficiency (HCC) [I50.9] INVALID FOR*05/04/2016 Priority: C More... Atelectasis [J98.11] INVALID FOR*05/06/2016 Priority: B More... Stage 3 chronic kidney disease (HCC) [N18.3] INVALID FOR* Priority: F More... Sinus bradycardia [R00.1] INVALID FOR*05/06/2016 Priority: C More... Fluid overload [E87.70] INVALID FOR*05/06/2016 Priority: F More... Thrombocytopenia (HCC) [D69.6] INVALID FOR*05/07/2016 Priority: H More... 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 SUMMARY INVALID FOR* Priority: Very Severe More... Hyperlipidemia LDL goal <70 [E78.5] INVALID FOR* Priority: D More... Essential hypertension [I10] INVALID FOR* Priority: C More... 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 Medications Discontinued During This Encounter carvedilol (COREG) 25 mg tablet 60 t* 6 11/29/2017 07/06/2018 Route: ORAL Sig: Take 1 tablet by mouth twice daily. Patient not taking: Reported on 06/17/2018 Disc: Reason for discontinue is not on file. Encounter Status:Closed by MASSIMO VALERIO on 07/07/18 RE-EVALUATION - PT (1) Observed: 06/28/2018 Status: F Source: DWIGHT 7:45 AM [facility] REPOSITORY [facility] [address] [place] [address] Fax REEVALUATION / MEDICARE RECERTIFICATION PHYSICAL THERAPY MR#: [id number] Acct: [id number] Name: GRACIELA CAVAZOS Rep #: [id number] : 1940 78 From: Rodrigo Echevarria DPT Referring Dr.: Bossman Douglas Status: REG RCR Insurance: MEDICARE PART A B DEB Alvarado, It has been my pleasure to treat GRACIELA CAVAZOS over the last 10 visits for CHRONIC HIP PAIN, BILATERAL. Please see the progress note below for an update on the physical therapy plan of care! Subjective: Pt. reports I feel like I am about 50% better. Pt. reports having increased relief at home, but did have a bad night last night. She reprots no longer having leg cramps, but still uses her heating pad at home a decent amount of the time. Pt. reports I am feeling stronger. Objective/Function: ROM: LUMBAR SPINE: flexion- min loss NE, ext min/mod loss increase NW, SB min loss NE, rotation min/mod loss bilat increase nW. HS length- R- 75deg, L 70deg in supine. MMT: RLE- ankle 5/5 throughout; knee- ext 5-/5, flexion 5- /5; hip- flexion 4+/5, abd 4/5, ext 4+/5. LLE- ankle 5/5 throughout; knee- ext 5-/5, flexion 5- /5; hip- flexion 4+/5, abd 4/5, ext 4+/5. COre strength- poor+. GAIT: pt. has improved gait pattern, decreased lateral hip sway noted. Pt. has proper tempo and step length. Pt. has increased erector posture as well. Pt. does report increased Low back pain at 5 min of walking. STAIRS: Pt. is able to complete with reciprocal pattern with 2 HR without LOB or increase in symptoms. Pt. is still concerned about increased pain with static standing. I talked with patient about consistent core stbility and flexion based exercises in neutral spine. Pt. consents. Plan Plan: Pt. to extend POC for x2 per week for 4 weeks with progression to independent program. Cont. to work on hip and core stability as tolerated. May use deep water distraction to reduce symptoms. Progress land and aquatic HEP as able. Goals Goal 1:: pt reports a 0/10 pain at rest Goal Time Frame: 4-6 Weeks Goal Progress: Progressing Goal 2:: pt reports a 0/10 pain with all lumbar movements Goal Time Frame: 4-6 Weeks Goal Progress: Progressing Goal 3:: pt reports being able to play golf with out limitations. Goal Time Frame: 4-6 Weeks Goal Progress: Progressing Goal 4:: Pt. to have increased BLE and core strength improved by 1/2 grade throughout Goal Time Frame: 4-6 Weeks Goal Progress: Progressing Goal 5:: Pt. to sleep throughout the night without increase in symptoms. Goal Time Frame: 4-6 Weeks Goal Progress: Goal Met Goal 6:: Pt. to complete all ADLs and house work without increase in symptoms. Goal Time Frame: 4-6 Weeks Goal Progress: Progressing Anticipated Interventions Patient/Client Instruction: Educate patient on: Condition, Risk Factors, Benefits of Fitness Program For the Purpose of:: To improve health and function, To foster healthy habits, To improve decision making, To facilitate caregiver knowledge, To improve self management, To prevent re-injury, To improve ability to perform tasks related to life management, To improve tolerance to ADL's Therapeutic Exercise to Include: Strength training, Balance training, Postural training, Flexibilty training, Gait and locomotor training, In an aquatic setting, Passive ROM, Active ROM For the Purpose of:: To decrease pain, To increase ROM, To improve nutrient delivery to tissue, To improve muscle performance and motor function, To improve ability to perform ADL's, To improve gait and locomotor functions, To improve health of tissue, To decrease soft tissue restriction, To increase flexibility/ROM, To improve endurance, To improve balance Please do not hesitate to contact me at [phone] by phone or if you have questions or concerns regarding this new plan of care! Sincerely, Rodrigo Echevarria <Electronically signed by Rodrigo Echevarria DPT> 06/28/18 0745 CC: Bossman Douglas; Joni Grimm MD CLS Signed For Medicare only, by signing this I certify the plan of care. Physicians Signature Date PROGRESS Observed: 06/17/2018 Status: COMPLETED Source: JOINER 12:47 PM [facility] RE[facility] HNO ID: [id number] Author: Devin Cespedes Service: (none) Author Type: Physician Type: Progress Notes Filed: 06/19/2018 8:02 PM Note Text: Subjective: Patient presents to clinic c/o painful toenails. They state that the nails are especially painful with shoe gear and pressure. Patient states that nails 1-5 b/l are painful. Patient admits to being diabetic and states that their blood sugar was 110 mg/dL this AM. Patient complaining of burning in feet and wonders if this is neuropathy. No other pedal complaints at this time. Patient states no change in medications or medical history since last visit. Objective: Patient presents to clinic ambulating in sandals Vasc: DP and PT pulses are palpable bilateral. CFT is less than 5 seconds bilateral. Skin temperature is warm to cool proximal to distal bilateral. There is no edema or varicosities noted. Neuro: Protective sensation is decreased to the foot and toes when tested with the 5.07 SWM bilateral. Vibratory sensation is decreased at the hallux IPJ bilateral. The hallux is downgoing bilateral. Derm: Nails 1-5 b/l are painful, discolored-yellow, thick, crumbly, dystrophic and with subungal debris. Skin is of normal turgor, texture and hair growth is present bilateral. There are no hyperkeratosis, ulcerations, scars, verruca or other lesions noted. Ortho: Muscle strength is 5/5 for all pedal groups tested. Ankle joint DF is full with the knee extended with no pain or crepitus noted. 1st MPJ ROM is full bilateral. Assessment: (B35.1) Onychomycosis (primary encounter diagnosis) (M79.675) Pain in toe of left foot (M79.674) Pain in toe of right foot (E11.42) Diabetic polyneuropathy associated with type 2 diabetes mellitus (HCC) Plan: Patient was seen and evaluated. Nails 1-5 bilateral were debrided in length and thickness. Discussed neuropathy of b/l feet causing burning in feet. Discussed topical medication, oral medication. Patient not interested in gabapentin as she has tried in past. Offered topical pain cream but she declined. She is going to continue with lidocaine cream Patient was instructed on the continued importance of diabetic foot care along with proper diet and keeping their blood sugar under control to prevent complications. Patient is to RTC in 3-4 months. Devin Cespedes DPM PROGRESS Observed: 06/17/2018 Status: COMPLETED Source: JOINER 12:45 PM [facility] RE[facility]ITORY HNO ID: [id number] Author: Mica Shaw RN Service: (none) Author Type: (none) Type: Progress Notes Filed: 06/19/2018 8:02 PM Note Text: AMB ROOMING INTAKE FLOWSHEET DATA Risk Screening Do you have concerns about personal safety or safety in the home?: No Pain Pain Score: 7/10 Pain Location: Other: See Comment (bilateral feet) Description: Burning, Tightness, Tingling Duration Amount of Time: 6 Duration Units: Months Frequency: Continuous Intervention: Relaxation, Other: See comment (aqua therapy) Patient is here for diabetic nail care. She reports that her blood sugar was 110 mg/dL this morning. She also c/o constant burning and tingling pain that is getting progressively worse. Pt wondering if this is neuropathy. CNOV Observed: 06/17/2018 Status: COMPLETED Source: JOINER 12:[address] [facility] REPOSITORY Office Visit (PODIWS) GRACIELA CAVAZOS ([id number]) 1940 F Date Time Provider Department 06/17/18 12:40 PM DEVIN CESPEDES PODIWS During your visit today, we recorded the following information about you: Mica Shaw RN 06/19/2018 8:02 PM Signed AMB ROOMING INTAKE FLOWSHEET DATA Risk Screening Do you have concerns about personal safety or safety in the home?: No Pain Pain Score: 7/10 Pain Location: Other: See Comment (bilateral feet) Description: Burning, Tightness, Tingling Duration Amount of Time: 6 Duration Units: Months Frequency: Continuous Intervention: Relaxation, Other: See comment (aqua therapy) Patient is here for diabetic nail care. She reports that her blood sugar was 110 mg/dL this morning. She also c/o constant burning and tingling pain that is getting progressively worse. Pt wondering if this is neuropathy. Devin Cespedes DPM 06/19/2018 8:02 PM Signed Subjective: Patient presents to clinic c/o painful toenails. They state that the nails are especially painful with shoe gear and pressure. Patient states that nails 1-5 b/l are painful. Patient admits to being diabetic and states that their blood sugar was 110 mg/dL this AM. Patient complaining of burning in feet and wonders if this is neuropathy. No other pedal complaints at this time. Patient states no change in medications or medical history since last visit. Objective: Patient presents to clinic ambulating in [facility] Vasc: DP and PT pulses are palpable bilateral. CFT is less than 5 seconds bilateral. Skin temperature is warm to cool proximal to distal bilateral. There is no edema or varicosities noted. Neuro: Protective sensation is decreased to the foot and toes when tested with the 5.07 SWM bilateral. Vibratory sensation is decreased at the hallux IPJ bilateral. The hallux is downgoing bilateral. Derm: Nails 1-5 b/l are painful, discolored-yellow, thick, crumbly, dystrophic and with subungal debris. Skin is of normal turgor, texture and hair growth is present bilateral. There are no hyperkeratosis, ulcerations, scars, verruca or other lesions noted. Ortho: Muscle strength is 5/5 for all pedal groups tested. Ankle joint DF is full with the knee extended with no pain or crepitus noted. 1st MPJ ROM is full bilateral. Assessment: (B35.1) Onychomycosis (primary encounter diagnosis) (M79.675) Pain in toe of left foot (M79.674) Pain in toe of right foot (E11.42) Diabetic polyneuropathy associated with type 2 diabetes mellitus (HCC) Plan: Patient was seen and evaluated. Nails 1-5 bilateral were debrided in length and thickness. Discussed neuropathy of b/l feet causing burning in feet. Discussed topical medication, oral medication. Patient not interested in gabapentin as she has tried in past. Offered topical pain cream but she declined. She is going to continue with lidocaine cream Patient was instructed on the continued importance of diabetic foot care along with proper diet and keeping their blood sugar under control to prevent complications. Patient is to RTC in 3-4 months. Devin Cespedes DPM Referring Provider: DEVIN CESPEDES [[id number]] Allergies As of Date: 06/17/2018 Noted Allergy Reaction ADHESIVE TAPE (ROSINS) 04/29/2016 9 - Itching Comments: Possible allergy. Pt had heart cath and she says her wrist was itchy and irritated where the cath was done. batazolidin [Other] 07/10/2005 5 - Intolerance CELEBREX (CELECOXIB) 10/16/2005 Comments: affected labs work diazide [Other] 07/10/2005 5 - Intolerance EFFEXOR (VENLAFAXINE HCL) 07/10/2005 1 - Mental Status Change Comments: patient uncertain INDOCIN (INDOMETHACIN SODIUM) 07/10/2005 5 - Intolerance meclomen [Other] 07/10/2005 5 - Intolerance MEVACOR (LOVASTATIN) 07/10/2005 5 - Intolerance MOTRIN (IBUPROFEN) 07/10/2005 Comments: hair loss NAPROSYN (NAPROXEN) 07/10/2005 5 - Intolerance NSAIDS (NON-STEROIDAL ANTI-INFLAM*07/10/2005 Comments: affected blood studies patient uncertain ORUDIS (KETOPROFEN) 07/10/2005 5 - Intolerance PROZAC (FLUOXETINE HCL) 07/10/2005 1 - Mental Status Change sporostacin [Other] 07/10/2005 5 - Intolerance STATINS (MJBXYTI-MWB-WFT REDUCTAS*07/04/2009 5 - Intolerance Comments: myalgia on 80 mg simvastatin VICODIN (HYDROCODONE-ACETAMINOPHE*07/10/2005 5 - Intolerance ZOLOFT (SERTRALINE HCL) 07/10/2005 1 - Mental Status Change Date Reviewed: 06/17/2018 Reviewed by: Mica Shaw RN - Fully Assessed Reason for Visit: Diabetic Foot Care [916] Primary Visit Diagnosis:Onychomycosis [B35.1] Other Visit Diagnoses:Pain in toe of left foot [M79.675] Pain in toe of right foot [M79.674] Diabetic polyneuropathy associated with type 2 diabetes mellitus (HCC) [E11.42] Prescriptions as of 06/17/2018 Sig: AMLODIPINE 5 MG TABLET Take 5 mg by mouth once daily. VITAMIN D3 ORAL Take by mouth. INSULIN GLARGINE (U-100) 100 * Inject 24 Units subcutaneousl* ATORVASTATIN 80 MG TABLET Take 1 tablet by mouth once d* DULAGLUTIDE 1.5 MG/0.5 ML SUB* Inject 1.5 mg subcutaneously * CLOPIDOGREL 75 MG TABLET Take 1 tablet by mouth once d* BLOOD SUGAR DIAGNOSTIC STRIPS Test blood sugar(s) 2 times d* FUROSEMIDE 40 MG TABLET Take 1 tablet by mouth once d* GLIMEPIRIDE 4 MG TABLET Take 1 tablet by mouth twice * LANCETS Use as instructed two times d* BLOOD-GLUCOSE METER Dispense One Kit - Verio Mete* THERAPEUTIC MULTIVITAMIN TABL* Take 1 tablet by mouth daily * * COMPOUNDED PRESCRIPTION Diabetic shoes. Has PVD * TYLENOL ARTHRITIS PAIN 650 MG* PRN use only * ASPIRIN 81 MG TABLET,DELAYED * Take one(1) tablet daily. 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 ALLERGIC RHINITIS NOS [J30.9] More... ESOPHAGEAL REFLUX [K21.9] More... Peripheral vascular disease, unspecified (HCC) * Priority: D More... GLAUCOMA NOS [H40.9] More... 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 Preop testing [Z01.818] INVALID FOR* More... Discharge planning issues [Z02.9] INVALID FOR* Priority: M More... Atherosclerosis of [place] coronary artery with *INVALID FOR* Priority: A More... HOCM (hypertrophic obstructive cardiomyopathy) *INVALID FOR* Priority: A More... (aortic stenosis) [I35.0] INVALID FOR* Priority: A More... Mitral regurgitation [I34.0] INVALID FOR* Priority: A More... Hypovolemia [E86.1] INVALID FOR*05/02/2016 Priority: F More... More... Cardiac insufficiency (HCC) [I50.9] INVALID FOR*05/04/2016 Priority: C More... Atelectasis [J98.11] INVALID FOR*05/06/2016 Priority: B More... Stage 3 chronic kidney disease (HCC) [N18.3] INVALID FOR* Priority: F More... Sinus bradycardia [R00.1] INVALID FOR*05/06/2016 Priority: C More... Fluid overload [E87.70] INVALID FOR*05/06/2016 Priority: F More... Thrombocytopenia (HCC) [D69.6] INVALID FOR*05/07/2016 Priority: H More... 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 SUMMARY INVALID FOR* Priority: Very Severe More... Hyperlipidemia LDL goal <70 [E78.5] INVALID FOR* Priority: D More... Essential hypertension [I10] INVALID FOR* Priority: C More... 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] INVALID FOR* Status post aortic valve replacement with biopr*INVALID FOR* PAD (peripheral artery disease) ([facility]) [I73.9] INVALID FOR* Chronic bilateral low back pain without sciatic*INVALID FOR* Diabetic polyneuropathy associated with type 2 *INVALID FOR* Encounter Status:Closed by DEVIN CESPEDES DPM on 06/19/18 INITAL EVALUATION (1) Observed: 05/31/2018 Status: F Source: [facility] - PT 9:38 AM [facility] REPOSITORY [facility] [address] [place] [address] Fax REHABILITATION SERVICES INITIAL EVALUATION MR#: [id number] Acct: [id number] Name: GRACIELA CAVAZOS Rep #: [id number] : [id number] 77 From: Rodrigo Echevarria DPT Referring Dr.: Bossman Douglas Status: REG RCR Insurance: MEDICARE PART A B ANTHEM Patient's Visit Information GRACIELA CAVAZOS is a 77 year old F referred to Physical Therapy by DEB Mendez with a diagnosis of CHRONIC HIP PAIN, BILATERAL. Date of Evaluation: 05/27/18 Physical Therapist: Rodrigo Echevarria - Visit Plan Frequency: 2x /Week Duration: 4 Weeks Plan: Start with neutral spine core strengthening in aquatic setting, hip strenthenign, postural control. Deep water hanging. Progress as tolerated. - Subjective Subjective: Pt reports to physical therapy with chronic hip pain, bilateral. pt reports that symptoms have originated about 1 year ago. pt seeked PT intervention 1 year ago but found little benefit. pt reports symptoms began following a period of decreased activity due to recovering from a heart surgery. prior to the procedure, pt was active (walking and golfing). On this date, pt reports that symptoms have increased to a point where they spend most of their day sitting with little activity beyond occasional trips to the grocery store where they rely on the support of a shopping cart to get around the store. pt uses Advil occasionally to manage pain but due to their diabetes does not take Advil with great frequency. Heat is also used as a method of symptom releif. pt reports that symptoms are constant with pain greatest in the morming and decreasing through the day. When the pain is at its worse it reaches 8-9/10 but on average is around 5/10. pt hopes to alleviate their pain and return to a more active lifestyle. - Pain Back Pain Intensity (Out of 10): 5 Pain Intensity Range: 3, 9 Hips - bilat Pain Intensity (Out of 10): 5 Pain Intensity Range: 3, 9 - Objective POSTURE: forward head with rounded shoulders, increased thorasic kyphosis. Pt. Pt. PALPATION: Pt. has normal palpation throughout B hips and lumbar spine. NEURO: equal bilateral sensation in the LE, 2+ DTR bilaterally. Pt. is able to rise on heels and toes, but did require balance aid to complete. . ROM: Lumbar: limited lateral flexion bilat. Pt. has tightness with bilateral hip ER. increased hip pain with lateral flexion bilat, increase in pain with extension over pressure, no increase in pain with flexion. MMT: LE: R/L hip: flexion- 3/5, add- 3/5, abd- 3/5; R/L knee: flexion- 3+/5, extension- 3/5; Ankle: DF- 4+/5. core weekenss due to difficulty with supine straight leg raise. Difficulty maintaining PPT with any UE/LE movements. - Goals Goal 1:: pt reports a 0/10 pain at rest Goal Time Frame: 4-6 Weeks Goal 2:: pt reports a 0/10 pain with all lumbar movements Goal Time Frame: 4-6 Weeks Goal 3:: pt reports being able to play golf with out limitations. Goal Time Frame: 4-6 Weeks Goal 4:: Pt. to have increased BLE and core strength improved by 1/2 grade throughout Goal Time Frame: 4-6 Weeks Goal 5:: Pt. to sleep throughout the night without increase in symptoms. Goal Time Frame: 4-6 Weeks Goal 6:: Pt. to complete all ADLs and house work without increase in symptoms. Goal Time Frame: 4-6 Weeks - Rehabilitation Potential Physical Therapy Diagnosis: pt presents with signs and symptoms consistent with chronic bilateral hip pain. pt presents with an increase in pain with lateral flexion and extension. pain prevents pt from performing most desired tasks. pt would benefit from physical therapy to promote a decrease in pain and an increase in activity. Rehabilitation Potential: Good - Anticipated Interventions Patient/Client Instruction: Educate patient on: Condition, Risk Factors, Benefits of Fitness Program For the Purpose of:: To improve health and function, To foster healthy habits, To improve decision making, To facilitate caregiver knowledge, To improve self management, To prevent re-injury, To improve ability to perform tasks related to life management, To improve tolerance to ADL's Therapeutic Exercise to Include: Strength training, Balance training, Postural training, Flexibilty training, Gait and locomotor training, In an aquatic setting, Passive ROM, Active ROM For the Purpose of:: To decrease pain, To increase ROM, To improve nutrient delivery to tissue, To improve muscle performance and motor function, To improve ability to perform ADL's, To improve gait and locomotor functions, To improve health of tissue, To decrease soft tissue restriction, To increase flexibility/ROM, To improve endurance, To improve balance Thank you for the opportunity to evaluate your patient. For Medicare and Medicare HMO plans, please review the plan of care and approve it. It will need to be FAXED BACK to us at [phone] for Medicare purposes. Please let me know if there are questions or concerns regarding this plan of care. Physician Signature: Date: <Electronically signed by Rodrigo Echevarria DPT> 05/31/18 0938 CC: Bossman Douglas; Joni Grimm MD CLS Signed For Medicare only, by signing this I certify the plan of care. Physicians Signature Date XR HIP 3V PELV+ Observed: 05/26/2018 Status: F Source: TAPIA AP/LAT LT 4:43 PM [facility] * * *Final Report* * * DATE OF EXAM: May 26 2018 4:43PM WOX [id number] - XR HIP 3V PELV+ AP/LAT LT / PROCEDURE REASON: multiple diagnoses * * * * Physician Interpretation * * * * XR HIP 3V PELV+ AP/LAT RT, XR HIP 3V PELV+ AP/LAT LT 05/26/2018 4:43 PM INDICATION: Chronic hip pain, bilateral Chronic hip pain, bilateral Chronic hip pain, bilateral 77 years / Female / [id number] FINDINGS: No acute bony pathology identified. Sclerotic density within the right acetabulum distribution most likely represents a bone island. Degenerative changes right and left hips identified. The SI joints are unremarkable. Stent material projects within the distribution of the right thigh IMPRESSION: No acute bony pathology Degenerative changes Staff Physical Therapist: JAZMYNE Transcribe Date/Time: May 26 2018 6:05P Dictated by : CLIVE TARIQ MD This examination was interpreted and the report reviewed and electronically signed by: CLIVE TARIQ MD on May 26 2018 6:06PM EST [id number] XR HIP 3V PELV+ Observed: 05/26/2018 Status: F Source: TAPIA AP/LAT RT 4:43 PM [facility] * * *Final Report* * * DATE OF EXAM: May 26 2018 4:43PM WOX [id number] - XR HIP 3V PELV+ AP/LAT RT / PROCEDURE REASON: multiple diagnoses * * * * Physician Interpretation * * * * XR HIP 3V PELV+ AP/LAT RT, XR HIP 3V PELV+ AP/LAT LT 05/26/2018 4:43 PM INDICATION: Chronic hip pain, bilateral Chronic hip pain, bilateral Chronic hip pain, bilateral 77 years / Female / [id number] FINDINGS: No acute bony pathology identified. Sclerotic density within the right acetabulum distribution most likely represents a bone island. Degenerative changes right and left hips identified. The SI joints are unremarkable. Stent material projects within the distribution of the right thigh IMPRESSION: No acute bony pathology Degenerative changes Staff Physical Therapist: PSCVerito Transcribe Date/Time: May 26 2018 6:05P Dictated by : CLIVE TARIQ MD This examination was interpreted and the report reviewed and electronically signed by: CLIVE TARIQ MD on May 26 2018 6:06PM EST [id number] PROGRESS Observed: 05/26/2018 Status: COMPLETED Source: JOINER 4:[address] [facility] REPOSITORY HNO ID: [id number] Author: Kelly Mo Service: (none) Author Type: (none) Type: Progress Notes Filed: 05/26/2018 4:43 PM Note Text: Radiology Service Progress Note PATIENT NAME: Graciela Cavazos DATE OF SERVICE: May 26, 2018 TIME: 4:29 PM PATIENT IDENTITY VERIFICATION COMPLETED USING TWO (2) METHODS: Patient confirmed name verbally and Date of . PATIENT GENDER DATA: Female. status: : No status: NO. PATIENT RELEVANT IMPLANT DATA REVIEWED: Not Applicable RADIOLOGY DEPARTMENT: General X-ray: Exam(s) Completed: Pelvis X-Ray: Pelvis with Hip Bilateral PERIPHERAL IV DATA: Not applicable SIGNED BY: Kelly Mo May 26, 2018 4:29 PM PROGRESS Observed: 05/26/2018 Status: COMPLETED Source: JOINER 3:[address] [facility] REPOSITORY HNO ID: [id number] Author: Bossman Douglas (Cns) Service: (none) Author Type: Nurse Specialist Type: Progress Notes Filed: 05/26/2018 4:44 PM Note Text: OUTPATIENT VISIT DATE May 26, 2018 OUTPATIENT VISIT TYPE ESTABLISHED PRIMARY CARE PHYSICIAN: Joni Grimm MD CHIEF COMPLAINT: Patient presents with: Back Pain History of Present Illness: Graciela G [place] is a 77 year old female who was last seen 01/2018 by Joni Grimm MD. She has been seen in the past for ACTIVE PROBLEM LIST Rheumatoid Arthritis ([facility]) Essential Hypertension, Benign Allergic Rhinitis, Cause Unspecified Esophageal Reflux Peripheral Vascular Disease, Unspecified ([facility]) Unspecified Glaucoma(365.9) Unspecified Hereditary and Idiopathic Peripheral Neuropathy Pain in Limb Symptomatic Menopausal Or Female Climacteric States Postmenopausal Atrophic Vaginitis Other Specified Personal History Presenting Hazards to Health(v15.89) Other Specified Disorder of Bladder Nocturia Ingrowing Nail Urgency of Urination Rectocele Cystocele, Midline Albuminuria Mixed Hyperlipidemia Type 2 Diabetes Mellitus Without Complication ([facility]) Preop Testing Discharge Planning Issues Atherosclerosis of [place] Coronary Artery With Stable Angina Pectoris ([facility]) Hocm (Hypertrophic Obstructive Cardiomyopathy) ([facility]) As (Aortic Stenosis) Mitral Regurgitation Stage 3 Chronic Kidney Disease ([facility]) S/P Cabg X 3 Summary Hyperlipidemia Ldl Goal <70 Essential Hypertension S/P Mitral Valve Replacement With Bioprosthetic Valve S/P Ventricular Septal Myectomy Status Post Aortic Valve Replacement With Bioprosthetic Valve Pad (Peripheral Artery Disease) ([facility]) Chronic Bilateral Low Back Pain Without Sciatica Diabetic Polyneuropathy Associated With Type 2 Diabetes Mellitus ([facility]) Since the last visit, she states that she has continued to have back pain, initially seen for this in August by Amber Barkley CNP. Today she reports pain continues in the same area. She notes achy pain in the mid back. She states in the morning. She does use a heating pad. Also notes bilateral hip pain on the lateral sides. Has limited her ability to exercise and stay active and walk. No radiation, no numbness or tingling, no saddle anesthesia is reported. She reports she was advised by her mining professionals Dr. Tolentino to continue to use Tylenol for pain. Avoid NSAIDs. Creatinine has recently increased and Dr. Tolentino has discontinued some medications to help with this. Recently discontinued amlodipine, lisinopril, metformin, chlorthalidone. Was started on insulin per MEDARDO Torres CNP at [facility]. Slowly titrating up dose. Also takingdulaglutide 1.5 mg Qweek. No recent hospital or ED visits. No new medical problems or medications. Able to obtain medications. No problems with taking medications or note side effects. PAST MEDICAL HISTORY Diagnosis Date - Allergic rhinitis, cause unspecified Allergic rhinitis - Cataract of left eye 12/31/2010 removed - Cataract of right eye 04/15/2011 removed - Diabetes mellitus without mention of complication Diabetes mellitus - Diverticulosis of colon (without mention of hemorrhage) - Dysthymic disorder Depression (non-psychotic) - Dysthymic disorder - Esophageal reflux Gastroesophageal reflux - Internal hemorrhoids without mention of complication - Nonspecific elevation of levels of transaminase or lactic acid dehydrogenase (LDH) Elevated LFT's - Peripheral vascular disease, unspecified (HCC) - H - PAST MEDICAL HISTORY OF 08/2007 Broken left elbow - Rheumatoid arthritis(714.0) - Unspecified closed fracture of ankle 2009 Ankle fracture - 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 PAST SURGICAL HISTORY Procedure Laterality Date - ANGIOPLASTY 10/25/2009 no stents in left - Ballooning only left leg - CABG (3) VEIN GRAFTS AND ARTERIAL GRAFT(S) 05/01/2016 - COLONOSCOP W/ OR W/O BRSH SPEC 09/12/07 - LIGATE FALLOPIAN TUBE Tubal ligation - PAST SURGICAL HISTORY OF 08/09/09 Successful VENDOR MANAGER/Stenting -right SFA Leg - PAST SURGICAL HISTORY OF 05/19/10 left leg broken-pins, screws, plates - REMOVAL GALLBLADDER 1987- Cholecystectomy - REMOVAL OF TONSILS,<14 Y/O Tonsillectomy - REMV LENS MATERIAL,PHACOFRAGMT 12/31/2010 Cataract Extraction, left eye dr raya - REVISION OF EYELID,< 1/4 LID MARGIN 03/2015 bilateral FAMILY HISTORY Problem Relation Age of Onset - Heart Mother CABG in her 80s - Stroke Maternal Grandfather - Diabetes Paternal Grandmother - Cancer Maternal Uncle Stomach Social History Substance Use Topics - Smoking status: Never Smoker - Smokeless tobacco: Never Used - Alcohol use Yes Comment: rarely 3-4 per year ALLERGIES: ALLERGIES Allergen Reactions - Adhesive Tape (Susan* Itching Possible allergy. Pt had heart cath and she says her wrist was itchy and irritated where the cath was done. - Batazolidin [Other] Intolerance - Celebrex [Celecoxib] affected labs work - Diazide [Other] Intolerance - Effexor [Venlafaxin* Mental Status Change patient uncertain - Indocin [Indomethac* Intolerance - Meclomen [Other] Intolerance - Mevacor [Lovastatin] Intolerance - Motrin [Ibuprofen] hair loss - Naprosyn [Naproxen] Intolerance - Nsaids (Non-Steroid* affected blood studies patient uncertain - Orudis [Ketoprofen] Intolerance - Prozac [Fluoxetine * Mental Status Change - Sporostacin [Other] Intolerance - Statins [Statins-Hm* Intolerance myalgia on 80 mg simvastatin - Vicodin [Hydrocodon* Intolerance - Zoloft [Sertraline * Mental Status Change MEDICATIONS dulaglutide 1.5 mg/0.5 mL pnij Inject 1.5 mg subcutaneously once each week. (BJ Shook refills) carvedilol (COREG) 25 mg tablet Take 1 tablet by mouth twice daily. metFORMIN (GLUCOPHAGE) 1,000 mg tablet Take 1 tablet by mouth twice daily with meals. chlorthalidone (HYGROTON) 25 mg tablet Take 1 tablet by mouth once daily. clopidogrel (PLAVIX) 75 mg tablet Take 1 tablet by mouth once daily. blood sugar diagnostic (PulsantUCH VERIO) test strip Test blood sugar(s) 2 times daily. Dx: Type 2 DM - Controlled E11.9 Insulin: No amLODIPine (NORVASC) 5 mg tablet Take 1 tablet by mouth once daily. atorvastatin (LIPITOR) 80 mg tablet Take 1 tablet by mouth once daily. furosemide (LASIX) 40 mg tablet Take 1 tablet by mouth once daily. glimepiride (AMARYL) 4 mg tablet Take 1 tablet by mouth twice daily with meals. Lancets lancets Use as instructed two times daily E 11.9 lisinopril (ZESTRIL, PRINIVIL) 20 mg tablet Take 1 tablet by mouth once daily. Blood-Glucose Meter ([employer] VERIO SYSTEM) [facility] Dispense One Kit - Verio Meter Kit Dx: Type 2 DM - Uncontrolled E11.65 therapeutic multivitamin (THERA VITAMIN) tablet Take 1 tablet by mouth daily with breakfast. sodium chloride (AYR, OCEAN) 0.65 % nasal spray Use 2 Sprays in each nostril as needed for Cold/Allergy Symptoms. COMPOUNDED PRESCRIPTION Diabetic shoes. Has PVD acetaminophen(TYLENOL ARTHRITIS PAIN 650 MG TAB) PRN use only ASPIRIN 81 MG TAB, DELAYED RELEASE Take one(1) tablet daily. REVIEW OF SYSTEMS: GENERAL: Negative for: Weight loss or gain, Fever or Chills, Weakness and Sleep difficulties. Physical Examination: BP 128/54 Pulse 60 Resp 16 Wt 182 lb (82.6kg) BP w/Orthostatic Vitals Date and Time Orthostatic BP Orthostatic Pulse BP Pulse BP Position BP Site BP Cuff Size 05/26/18 1545 -- -- 128/54 60 Sitting Left Arm Regular Adult Peak Flow Date and Time PF Resp 05/26/18 1545 -- 16 General appearance: Well appearing, alert, in no acute distress, well-hydrated, well nourished. Skin: Skin color, texture, turgor normal, no suspicious rashes or lesions Head: Normocephalic, no masses, lesions, tenderness or abnormalities Eyes: Anicteric sclera. Pupils are equally round and reactive to light. Extraocular movements are intact. Ears: External ears normal, canals clear, TM's normal Nose/Sinuses: Nares normal, septum midline, mucosa normal, no drainage or sinus tenderness Oropharynx: Lips, mucosa, and tongue normal, teeth and gums normal, oropharynx normal Neck: Supple, no adenopathy; thyroid symmetric, normal size, no bruits Back: Increased pain with right sided back with [id number] motion, increased pain with abduction of right and left hip, negative straight leg raise bilateral, pain on palpation left SI, mildly tender to palpation bilateral trochanter Lungs: Lungs clear to auscultation. No wheezing, rhonchi, rales Heart: RRR without murmur, gallop, or rubs. Abdomen: Normal abdominal exam, Abdomen soft, non-tender. Bowel sounds normal. No masses, organomegaly Extremities: No edema, skin discoloration, clubbing or cyanosis. Good capillary refill. Peripheral pulses: Normal Neuro: Gait normal. Sensation grossly intact. Reviewed chart, outside records, tests I personally interviewed, confirmed and edited the above information if obtained by others. TESTING: Glucose (mg/dL) Date Value 10/26/2016 164 Potassium (mmol/L) Date Value 10/26/2016 4.7 Sodium (mmol/L) Date Value 10/26/2016 139 Chloride (mmol/L) Date Value 10/26/2016 103 CO2 (mmol/L) Date Value 10/26/2016 23 Creatinine (mg/dL) Date Value 10/26/2016 1.14 BUN (mg/dL) Date Value 10/26/2016 30 Anion Gap (mmol/L) Date Value 10/26/2016 13 Calcium (mg/dL) Date Value 10/26/2016 9.4 Glucose (mg/dL) Date Value 10/26/2016 164 Potassium (mmol/L) Date Value 10/26/2016 4.7 Sodium (mmol/L) Date Value 10/26/2016 139 Chloride (mmol/L) Date Value 10/26/2016 103 CO2 (mmol/L) Date Value 10/26/2016 23 Creatinine (mg/dL) Date Value 10/26/2016 1.14 BUN (mg/dL) Date Value 10/26/2016 30 Anion Gap (mmol/L) Date Value 10/26/2016 13 Calcium (mg/dL) Date Value 10/26/2016 9.4 Protein, Total (g/dL) Date Value 07/29/2016 7.0 Albumin (g/dL) Date Value 07/29/2016 4.1 Bilirubin, Total (mg/dL) Date Value 07/29/2016 0.6 Alkaline Phosphatase (U/L) Date Value 07/29/2016 116 AST (U/L) Date Value 07/29/2016 17 ALT (U/L) Date Value 07/29/2016 10 Hemoglobin (g/dL) Date Value 07/29/2016 13.0 Hematocrit (%) Date Value 07/29/2016 40.8 WBC (k/uL) Date Value 07/29/2016 8.22 Cholesterol, Total (mg/dL) Date Value 05/18/2016 115 HDL Cholesterol (mg/dL) Date Value 05/18/2016 31 LDL Cholesterol (mg/dL) Date Value 05/18/2016 45 Triglyceride (mg/dL) Date Value 05/18/2016 193 Hemoglobin A1C Date Value Ref Range Status 04/04/2018 7.8 (A) 4.2 - 6.3 % Final Comment: [facility] 11/18/2017 8.2 Final 02/10/2017 7.2 Final 10/26/2016 8.0 (H) 4.3 - 5.6 % Final Comment: [place] Diabetes Association guidelines indicate that patients with HgbA1c in the range 5.7-6.4% are at increased risk for development of diabetes, and intervention by lifestyle modification may be beneficial. HgbA1c greater or equal to 6.5% is considered diagnostic of diabetes. 05/18/2016 6.3 (H) 4.3 - 5.6 % Final Comment: [place] Diabetes Association guidelines indicate that patients with HgbA1c in the range 5.7-6.4% are at increased risk for development of diabetes, and intervention by lifestyle modification may be beneficial. HgbA1c greater or equal to 6.5% is considered diagnostic of diabetes. 04/29/2016 7.6 (H) 4.3 - 5.6 % Final Comment: [place] Diabetes Association guidelines indicate that patients with HgbA1c in the range 5.7-6.4% are at increased risk for development of diabetes, and intervention by lifestyle modification may be beneficial. HgbA1c greater or equal to 6.5% is considered diagnostic of diabetes. 11/15/2015 6.6 (H) 4.3 - 5.6 % Final Comment: [place] Diabetes [employer] guidelines indicate that patients with HgbA1c in the range 5.7-6.4% are at increased risk for development of diabetes, and intervention by lifestyle modification may be beneficial. HgbA1c greater or equal to 6.5% is considered diagnostic of diabetes. 05/22/2015 8.0 (H) 4.0 - 6.0 % Final Comment: [place] Diabetes [employer] guidelines indicate that patients with HgbA1c in the range 5.7-6.4% are at increased risk for development of diabetes, and intervention by lifestyle modification may be beneficial. HgbA1c greater or equal to 6.5% is considered diagnostic of diabetes. Ejection Fraction - Result: 60 % Date: 04/17/2016 Time: 09:56:45 IMPRESSION: Ms. Cavazos is a 77 year old woman presents for low bakc and hip pain. After my examination and review of data, I make the following recommendations. PLAN AND RECOMMENDATIONS: 1. Acute midline low back pain without sciatica - ICD9: 724.2, ICD10: M54.5 (primary diagnosis) Continue with Tylenol for pain as needed, would like to do water physical therapy at [facility] - CONSULT TO PHYSICAL THERAPY 2. Chronic hip pain, bilateral - ICD9: 719.45, 338.29, ICD10: M25.551, M25.552, G89.29 - XR HIP GENERAL 3V PELV/AP/LAT LT - XR HIP GENERAL 3V PELV/AP/LAT RT 3. S/P CABG x 3 - ICD9: V45.81, ICD10: Z95.1 Following with psychology instructor Dr. Griffith and Dr. Price - LIPID PANEL BASIC 4. Hyperlipidemia LDL goal <70 - ICD9: 272.4, ICD10: E78.5 - LIPID PANEL BASIC 5. Elevated serum creatinine - ICD9: 790.99, ICD10: R79.89 Recent increase in creatinine. Has been following with Dr. Tolentino who has discontinued several medications - metformin, amlodipine, lisinopril, chlorthalidone. Avoidance of NSAIDs advised Advised to go to ER if develops chest pain, shortness of breath, or severe worsening of symptoms. Discussed risks, benefits, alternatives, and potential side effects of medications. Ms. Cavazos expressed understanding and agreed with the plan. Bossman Douglas APRN.WORD PROCESSING SUPERVISOR CNOV Observed: 05/26/2018 Status: COMPLETED Source: JOINER 3:[address] [facility] REPOSITORY Office Visit (INTMWS) GRACIELA CAVAZOS ([id number]) 1940 F Date Time Provider Department 05/26/18 3:20 PM BOSSMAN DOUGLAS (JIMBO) INTMWS During your visit today, we recorded the following information about you: Pulse Respiration Blood pressure Weight 60/minute 16/minute 128/54 82.6 kg Bossman Douglas APRN.CNS 05/26/2018 4:44 PM Signed OUTPATIENT VISIT DATE May 26, 2018 OUTPATIENT VISIT TYPE ESTABLISHED PRIMARY CARE PHYSICIAN: Joni Grimm MD CHIEF COMPLAINT: Patient presents with: Back Pain History of Present Illness: Graciela Cavazos is a 77 year old female who was last seen 01/2018 by Joni Grimm MD. She has been seen in the past for ACTIVE PROBLEM LIST Rheumatoid Arthritis ([facility]) Essential Hypertension, Benign Allergic Rhinitis, Cause Unspecified Esophageal Reflux Peripheral Vascular Disease, Unspecified ([facility]) Unspecified Glaucoma(365.9) Unspecified Hereditary and Idiopathic Peripheral Neuropathy Pain in Limb Symptomatic Menopausal Or Female Climacteric States Postmenopausal Atrophic Vaginitis Other Specified Personal History Presenting Hazards to Health(v15.89) Other Specified Disorder of Bladder Nocturia Ingrowing Nail Urgency of Urination Rectocele Cystocele, Midline Albuminuria Mixed Hyperlipidemia Type 2 Diabetes Mellitus Without Complication ([facility]) Preop Testing Discharge Planning Issues Atherosclerosis of [place] Coronary Artery With Stable Angina Pectoris ([facility]) Hocm (Hypertrophic Obstructive Cardiomyopathy) ([facility]) As (Aortic Stenosis) Mitral Regurgitation Stage 3 Chronic Kidney Disease ([facility]) S/P Cabg X 3 Summary Hyperlipidemia Ldl Goal <70 Essential Hypertension S/P Mitral Valve Replacement With Bioprosthetic Valve S/P Ventricular Septal Myectomy Status Post Aortic Valve Replacement With Bioprosthetic Valve Pad (Peripheral Artery Disease) ([facility]) Chronic Bilateral Low Back Pain Without Sciatica Diabetic Polyneuropathy Associated With Type 2 Diabetes Mellitus ([facility]) Since the last visit, she states that she has continued to have back pain, initially seen for this in August by Amber Barkley CNP. Today she reports pain continues in the same area. She notes achy pain in the mid back. She states in the morning. She does use a heating pad. Also notes bilateral hip pain on the lateral sides. Has limited her ability to exercise and stay active and walk. No radiation, no numbness or tingling, no saddle anesthesia is reported. She reports she was advised by her mining professionals Dr. Tolentino to continue to use Tylenol for pain. Avoid NSAIDs. Creatinine has recently increased and Dr. Tolentino has discontinued some medications to help with this. Recently discontinued amlodipine, lisinopril, metformin, chlorthalidone. Was started on insulin per MEDARDO Torres CNP at [facility]. Slowly titrating up dose. Also takingdulaglutide 1.5 mg Qweek. No recent hospital or ED visits. No new medical problems or medications. Able to obtain medications. No problems with taking medications or note side effects. PAST MEDICAL HISTORY Diagnosis Date - Allergic rhinitis, cause unspecified Allergic rhinitis - Cataract of left eye 12/31/2010 removed - Cataract of right eye 04/15/2011 removed - Diabetes mellitus without mention of complication Diabetes mellitus - Diverticulosis of colon (without mention of hemorrhage) - Dysthymic disorder Depression (non-psychotic) - Dysthymic disorder - Esophageal reflux Gastroesophageal reflux - Internal hemorrhoids without mention of complication - Nonspecific elevation of levels of transaminase or lactic acid dehydrogenase (LDH) Elevated LFT's - Peripheral vascular disease, unspecified (HCC) - [facility] - PAST MEDICAL HISTORY OF 08/2007 Broken left elbow - Rheumatoid arthritis(714.0) - Unspecified closed fracture of ankle 2009 Ankle fracture - 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 PAST SURGICAL HISTORY Procedure Laterality Date - ANGIOPLASTY 10/25/2009 no stents in left - Ballooning only left leg - CABG (3) VEIN GRAFTS AND ARTERIAL GRAFT(S) 05/01/2016 - COLONOSCOP W/ OR W/O [facility] SPEC 09/12/07 - LIGATE FALLOPIAN TUBE Tubal ligation - PAST SURGICAL HISTORY OF 08/09/09 Successful VENDOR MANAGER/Stenting -right SFA Leg - PAST SURGICAL HISTORY OF 05/19/10 left leg broken-pins, screws, plates - REMOVAL GALLBLADDER 1987- Cholecystectomy - REMOVAL OF TONSILS,<14 Y/O Tonsillectomy - REMV LENS MATERIAL,PHACOFRAGMT 12/31/2010 Cataract Extraction, left eye dr raya - REVISION OF EYELID,< 1/4 LID MARGIN 03/2015 bilateral FAMILY HISTORY Problem Relation Age of Onset - Heart Mother CABG in her 80s - Stroke Maternal Grandfather - Diabetes Paternal Grandmother - Cancer Maternal Uncle Stomach Social History Substance Use Topics - Smoking status: Never Smoker - Smokeless tobacco: Never Used - Alcohol use Yes Comment: rarely 3-4 per year ALLERGIES: ALLERGIES Allergen Reactions - Adhesive Tape (Susan* Itching Possible allergy. Pt had heart cath and she says her wrist was itchy and irritated where the cath was done. - Batazolidin [Other] Intolerance - Celebrex [Celecoxib] affected labs work - Diazide [Other] Intolerance - Effexor [Venlafaxin* Mental Status Change patient uncertain - Indocin [Indomethac* Intolerance - Meclomen [Other] Intolerance - Mevacor [Lovastatin] Intolerance - Motrin [Ibuprofen] hair loss - Naprosyn [Naproxen] Intolerance - Nsaids (Non-Steroid* affected blood studies patient uncertain - Orudis [Ketoprofen] Intolerance - Prozac [Fluoxetine * Mental Status Change - Sporostacin [Other] Intolerance - Statins [Statins-Hm* Intolerance myalgia on 80 mg simvastatin - Vicodin [Hydrocodon* Intolerance - Zoloft [Sertraline * Mental Status Change MEDICATIONS dulaglutide 1.5 mg/0.5 mL pnij Inject 1.5 mg subcutaneously once each week. ([facility] refills) carvedilol (COREG) 25 mg tablet Take 1 tablet by mouth twice daily. metFORMIN (GLUCOPHAGE) 1,000 mg tablet Take 1 tablet by mouth twice daily with meals. chlorthalidone (HYGROTON) 25 mg tablet Take 1 tablet by mouth once daily. clopidogrel (PLAVIX) 75 mg tablet Take 1 tablet by mouth once daily. blood sugar diagnostic (WhoJamTOUCH VERIO) test strip Test blood sugar(s) 2 times daily. Dx: Type 2 DM - Controlled E11.9 Insulin: No amLODIPine (NORVASC) 5 mg tablet Take 1 tablet by mouth once daily. atorvastatin (LIPITOR) 80 mg tablet Take 1 tablet by mouth once daily. furosemide (LASIX) 40 mg tablet Take 1 tablet by mouth once daily. glimepiride (AMARYL) 4 mg tablet Take 1 tablet by mouth twice daily with meals. Lancets lancets Use as instructed two times daily E 11.9 lisinopril (ZESTRIL, PRINIVIL) 20 mg tablet Take 1 tablet by mouth once daily. Blood-Glucose Meter (ONETOUCH VERIO SYSTEM) [facility] Dispense One Kit - Verio Meter Kit Dx: Type 2 DM - Uncontrolled E11.65 therapeutic multivitamin (THERA VITAMIN) tablet Take 1 tablet by mouth daily with breakfast. sodium chloride (AYR, OCEAN) 0.65 % nasal spray Use 2 Sprays in each nostril as needed for Cold/Allergy Symptoms. COMPOUNDED PRESCRIPTION Diabetic shoes. Has PVD acetaminophen(TYLENOL ARTHRITIS PAIN 650 MG TAB) PRN use only ASPIRIN 81 MG TAB, DELAYED RELEASE Take one(1) tablet daily. REVIEW OF SYSTEMS: GENERAL: Negative for: Weight loss or gain, Fever or Chills, Weakness and Sleep difficulties. Physical Examination: BP 128/54 Pulse 60 Resp 16 Wt 182 lb (82.6kg) BP w/Orthostatic Vitals Date and Time Orthostatic BP Orthostatic Pulse BP Pulse BP Position BP Site BP Cuff Size 05/26/18 1545 -- -- 128/54 60 Sitting Left Arm Regular Adult Peak Flow Date and Time PF Resp 05/26/18 1545 -- 16 General appearance: Well appearing, alert, in no acute distress, well-hydrated, well nourished. Skin: Skin color, texture, turgor normal, no suspicious rashes or lesions Head: Normocephalic, no masses, lesions, tenderness or abnormalities Eyes: Anicteric sclera. Pupils are equally round and reactive to light. Extraocular movements are intact. Ears: External ears normal, canals clear, TM's normal Nose/Sinuses: Nares normal, septum midline, mucosa normal, no drainage or sinus tenderness Oropharynx: Lips, mucosa, and tongue normal, teeth and gums normal, oropharynx normal Neck: Supple, no adenopathy; thyroid symmetric, normal size, no bruits Back: Increased pain with right sided back with elju-vf-nthr motion, increased pain with abduction of right and left hip, negative straight leg raise bilateral, pain on palpation left SI, mildly tender to palpation bilateral trochanter Lungs: Lungs clear to auscultation. No wheezing, rhonchi, rales Heart: RRR without murmur, gallop, or rubs. Abdomen: Normal abdominal exam, Abdomen soft, non-tender. Bowel sounds normal. No masses, organomegaly Extremities: No edema, skin discoloration, clubbing or cyanosis. Good capillary refill. Peripheral pulses: Normal Neuro: Gait normal. Sensation grossly intact. Reviewed chart, outside records, tests I personally interviewed, confirmed and edited the above information if obtained by others. TESTING: Glucose (mg/dL) Date Value 10/26/2016 164 Potassium (mmol/L) Date Value 10/26/2016 4.7 Sodium (mmol/L) Date Value 10/26/2016 139 Chloride (mmol/L) Date Value 10/26/2016 103 CO2 (mmol/L) Date Value 10/26/2016 23 Creatinine (mg/dL) Date Value 10/26/2016 1.14 BUN (mg/dL) Date Value 10/26/2016 30 Anion Gap (mmol/L) Date Value 10/26/2016 13 Calcium (mg/dL) Date Value 10/26/2016 9.4 Glucose (mg/dL) Date Value 10/26/2016 164 Potassium (mmol/L) Date Value 10/26/2016 4.7 Sodium (mmol/L) Date Value 10/26/2016 139 Chloride (mmol/L) Date Value 10/26/2016 103 CO2 (mmol/L) Date Value 10/26/2016 23 Creatinine (mg/dL) Date Value 10/26/2016 1.14 BUN (mg/dL) Date Value 10/26/2016 30 Anion Gap (mmol/L) Date Value 10/26/2016 13 Calcium (mg/dL) Date Value 10/26/2016 9.4 Protein, Total (g/dL) Date Value 07/29/2016 7.0 Albumin (g/dL) Date Value 07/29/2016 4.1 Bilirubin, Total (mg/dL) Date Value 07/29/2016 0.6 Alkaline Phosphatase (U/L) Date Value 07/29/2016 116 AST (U/L) Date Value 07/29/2016 17 ALT (U/L) Date Value 07/29/2016 10 Hemoglobin (g/dL) Date Value 07/29/2016 13.0 Hematocrit (%) Date Value 07/29/2016 40.8 WBC (k/uL) Date Value 07/29/2016 8.22 Cholesterol, Total (mg/dL) Date Value 05/18/2016 115 HDL Cholesterol (mg/dL) Date Value 05/18/2016 31 LDL Cholesterol (mg/dL) Date Value 05/18/2016 45 Triglyceride (mg/dL) Date Value 05/18/2016 193 Hemoglobin A1C Date Value Ref Range Status 04/04/2018 7.8 (A) 4.2 - 6.3 % Final Comment: [facility] 11/18/2017 8.2 Final 02/10/2017 7.2 Final 10/26/2016 8.0 (H) 4.3 - 5.6 % Final Comment: [place] Diabetes Association guidelines indicate that patients with HgbA1c in the range 5.7-6.4% are at increased risk for development of diabetes, and intervention by lifestyle modification may be beneficial. HgbA1c greater or equal to 6.5% is considered diagnostic of diabetes. 05/18/2016 6.3 (H) 4.3 - 5.6 % Final Comment: [place] Diabetes [employer] guidelines indicate that patients with HgbA1c in the range 5.7-6.4% are at increased risk for development of diabetes, and intervention by lifestyle modification may be beneficial. HgbA1c greater or equal to 6.5% is considered diagnostic of diabetes. 04/29/2016 7.6 (H) 4.3 - 5.6 % Final Comment: [place] Diabetes [employer] guidelines indicate that patients with HgbA1c in the range 5.7-6.4% are at increased risk for development of diabetes, and intervention by lifestyle modification may be beneficial. HgbA1c greater or equal to 6.5% is considered diagnostic of diabetes. 11/15/2015 6.6 (H) 4.3 - 5.6 % Final Comment: [place] Diabetes [employer] guidelines indicate that patients with HgbA1c in the range 5.7-6.4% are at increased risk for development of diabetes, and intervention by lifestyle modification may be beneficial. HgbA1c greater or equal to 6.5% is considered diagnostic of diabetes. 05/22/2015 8.0 (H) 4.0 - 6.0 % Final Comment: [place] Diabetes [employer] guidelines indicate that patients with HgbA1c in the range 5.7-6.4% are at increased risk for development of diabetes, and intervention by lifestyle modification may be beneficial. HgbA1c greater or equal to 6.5% is considered diagnostic of diabetes. Ejection Fraction - Result: 60 % Date: 04/17/2016 Time: 09:56:45 IMPRESSION: Ms. Cavazos is a 77 year old woman presents for low bakc and hip pain. After my examination and review of data, I make the following recommendations. PLAN AND RECOMMENDATIONS: 1. Acute midline low back pain without sciatica - ICD9: 724.2, ICD10: M54.5 (primary diagnosis) Continue with Tylenol for pain as needed, would like to do water physical therapy at [facility] - CONSULT TO PHYSICAL THERAPY 2. Chronic hip pain, bilateral - ICD9: 719.45, 338.29, ICD10: M25.551, M25.552, G89.29 - XR HIP GENERAL 3V PELV/AP/LAT LT - XR HIP GENERAL 3V PELV/AP/LAT RT 3. S/P CABG x 3 - ICD9: V45.81, ICD10: Z95.1 Following with psychology instructor Dr. Griffith and Dr. Shishebor - LIPID PANEL BASIC 4. Hyperlipidemia LDL goal <70 - ICD9: 272.4, ICD10: E78.5 - LIPID PANEL BASIC 5. Elevated serum creatinine - ICD9: 790.99, ICD10: R79.89 Recent increase in creatinine. Has been following with Dr. Tolentino who has discontinued several medications - metformin, amlodipine, lisinopril, chlorthalidone. Avoidance of NSAIDs advised Advised to go to ER if develops chest pain, shortness of breath, or severe worsening of symptoms. Discussed risks, benefits, alternatives, and potential side effects of medications. Ms. Cavazos expressed understanding and agreed with the plan. Bossman Douglas APRN.WORD PROCESSING SUPERVISOR Referring Provider: SELF [[id number]] Allergies As of Date: 05/26/2018 Noted Allergy Reaction ADHESIVE TAPE (ROSINS) 04/29/2016 9 - Itching Comments: Possible allergy. Pt had heart cath and she says her wrist was itchy and irritated where the cath was done. batazolidin [Other] 07/10/2005 5 - Intolerance CELEBREX (CELECOXIB) 10/16/2005 Comments: affected labs work diazide [Other] 07/10/2005 5 - Intolerance EFFEXOR (VENLAFAXINE HCL) 07/10/2005 1 - Mental Status Change Comments: patient uncertain INDOCIN (INDOMETHACIN SODIUM) 07/10/2005 5 - Intolerance meclomen [Other] 07/10/2005 5 - Intolerance MEVACOR (LOVASTATIN) 07/10/2005 5 - Intolerance MOTRIN (IBUPROFEN) 07/10/2005 Comments: hair loss NAPROSYN (NAPROXEN) 07/10/2005 5 - Intolerance NSAIDS (NON-STEROIDAL ANTI-INFLAM*07/10/2005 Comments: affected blood studies patient uncertain ORUDIS (KETOPROFEN) 07/10/2005 5 - Intolerance PROZAC (FLUOXETINE HCL) 07/10/2005 1 - Mental Status Change sporostacin [Other] 07/10/2005 5 - Intolerance STATINS (RUIVHUB-GBG-MFK REDUCTAS*07/04/2009 5 - Intolerance Comments: myalgia on 80 mg simvastatin VICODIN (HYDROCODONE-ACETAMINOPHE*07/10/2005 5 - Intolerance ZOLOFT (SERTRALINE HCL) 07/10/2005 1 - Mental Status Change Date Reviewed: 05/26/2018 Reviewed by: Puja Hotte MARINE MECHANIC - Fully Assessed Reason for Visit: Back Pain [12] Primary Visit Diagnosis:Acute midline low back pain without sciatica [M54.5] Other Visit Diagnoses:Chronic hip pain, bilateral [M25.551, M25.552, G89.29] S/P CABG x 3 [Z95.1] Hyperlipidemia LDL goal <70 [E78.5] Elevated serum creatinine [R79.89] Order(s):CONSULT TO PHYSICAL THERAPY [9032] Order #: [id number]: 1 XR HIP GENERAL 3V PELV/AP/LAT LT [5940609] Order #: [id number] FUTURE XR HIP GENERAL 3V PELV/AP/LAT RT [3029244] Order #: [id number] FUTURE LIPID PANEL BASIC [SQLIPB] Order #: [id number] FUTURE atorvastatin (LIPITOR) 80 mg tabletTake 1 tablet by mouth once daily.Disp: 90 tabletRfl: 1 Prescriptions as of 05/26/2018 Sig: VITAMIN D3 ORAL Take by mouth. INSULIN GLARGINE (U-100) 100 * Inject 24 Units subcutaneousl* ATORVASTATIN 80 MG TABLET Take 1 tablet by mouth once d* DULAGLUTIDE 1.5 MG/0.5 ML SUB* Inject 1.5 mg subcutaneously * CARVEDILOL 25 MG TABLET Take 1 tablet by mouth twice * CLOPIDOGREL 75 MG TABLET Take 1 tablet by mouth once d* BLOOD SUGAR DIAGNOSTIC STRIPS Test blood sugar(s) 2 times d* FUROSEMIDE 40 MG TABLET Take 1 tablet by mouth once d* GLIMEPIRIDE 4 MG TABLET Take 1 tablet by mouth twice * LANCETS Use as instructed two times d* BLOOD-GLUCOSE METER Dispense One Kit - Verio Mete* * COMPOUNDED PRESCRIPTION Diabetic shoes. Has PVD * TYLENOL ARTHRITIS PAIN 650 MG* PRN use only * ASPIRIN 81 MG TABLET,DELAYED * Take one(1) tablet daily. THERAPEUTIC MULTIVITAMIN TABL* Take 1 tablet by mouth daily * SODIUM CHLORIDE 0.65 % NASAL * Use 2 Sprays in each nostril * Patient not taking: Reported on 05/26/2018 Problem List As Of Date 05/26/2018 Noted Resolved Rheumatoid arthritis (HCC) [M06.9] INVALID FOR* BENIGN HYPERTENSION [I10] INVALID FOR* 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 ALLERGIC RHINITIS NOS [J30.9] More... ESOPHAGEAL REFLUX [K21.9] More... Peripheral vascular disease, unspecified (HCC) * Priority: D More... GLAUCOMA NOS [H40.9] More... 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 Preop testing [Z01.818] INVALID FOR* More... Discharge planning issues [Z02.9] INVALID FOR* Priority: M More... Atherosclerosis of [place] coronary artery with *INVALID FOR* Priority: A More... HOCM (hypertrophic obstructive cardiomyopathy) *INVALID FOR* Priority: A More... (aortic stenosis) [I35.0] INVALID FOR* Priority: A More... Mitral regurgitation [I34.0] INVALID FOR* Priority: A More... Hypovolemia [E86.1] INVALID FOR*05/02/2016 Priority: F More... More... Cardiac insufficiency (HCC) [I50.9] INVALID FOR*05/04/2016 Priority: C More... Atelectasis [J98.11] INVALID FOR*05/06/2016 Priority: B More... Stage 3 chronic kidney disease (HCC) [N18.3] INVALID FOR* Priority: F More... Sinus bradycardia [R00.1] INVALID FOR*05/06/2016 Priority: C More... Fluid overload [E87.70] INVALID FOR*05/06/2016 Priority: F More... Thrombocytopenia (HCC) [D69.6] INVALID FOR*05/07/2016 Priority: H More... 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 SUMMARY INVALID FOR* Priority: Very Severe More... Hyperlipidemia LDL goal <70 [E78.5] INVALID FOR* Priority: D More... Essential hypertension [I10] INVALID FOR* Priority: C More... 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] INVALID FOR* Status post aortic valve replacement with biopr*INVALID FOR* PAD (peripheral artery disease) ([facility]) [I73.9] INVALID FOR* Chronic bilateral low back pain without sciatic*INVALID FOR* Diabetic polyneuropathy associated with type 2 *INVALID FOR* Prescriptions ordered this encounter Disp Refills Start End ATORVASTATIN 80 MG TABLET 90 t* 1 05/26/2018 Route: ORAL Sig: Take 1 tablet by mouth once daily. Medications Discontinued During This Encounter amLODIPine (NORVASC) 5 mg tablet 90 t* 3 05/10/2017 05/26/2018 Route: ORAL Sig: Take 1 tablet by mouth once daily. Patient not taking: Reported on 05/26/2018 Disc: Reason for discontinue is not on file. chlorthalidone (HYGROTON) 25 mg tabl* 90 t* 3 09/20/2017 05/26/2018 Route: ORAL Sig: Take 1 tablet by mouth once daily. Patient not taking: Reported on 05/26/2018 Disc: Reason for discontinue is not on file. metFORMIN (GLUCOPHAGE) 1,000 mg tabl* 180 * 3 10/04/2017 05/26/2018 Route: ORAL Sig: Take 1 tablet by mouth twice daily with meals. Patient not taking: Reported on 05/26/2018 Disc: Reason for discontinue is not on file. lisinopril (ZESTRIL, PRINIVIL) 20 mg* 90 t* 3 08/10/2016 05/26/2018 Route: ORAL Sig: Take 1 tablet by mouth once daily. Patient not taking: Reported on 05/26/2018 Disc: Reason for discontinue is not on file. atorvastatin (LIPITOR) 80 mg tablet 90 t* 3 05/10/2017 05/26/2018 Route: ORAL Sig: Take 1 tablet by mouth once daily. Disc: Reason for discontinue is not on file. Encounter Status:Closed by BOSSMAN BRADEN on 05/26/18 PROGRESS Observed: 05/23/2018 Status: COMPLETED Source: JOINER 4:[address] [facility] REPOSITORY HNO ID: [id number] Author: Teodoro Keys (Rn) Service: (none) Author Type: Registered Nurse Type: Progress Notes Filed: 06/01/2018 2:06 PM Note Text: PRIMARY CARE COORDINATION FOLLOW-UP NOTE Provider Action/FYI 1. Spk with Pt who reports has lower back pain, wants to start water aerobics at [facility], is using a heated blanket will call [facility] to schedule, using Biofreeze OTC for pain, [facility] class available 06/13/18 2. Appt scheduled 05/26/18 with Bossman Douglas for back pain 3. Pt reports MEDARDO Torres Endocrinology Appt 04/18/18, Pt reports recently started Lantus- dosage is 24 units daily. Endocrinology is adjusting Insulin dosage, Fbs 192-260, BS 300's, Pt will call to schedule f/u with MEDARDO Tsang as directed 4. Appt with Dr. Tolentino 05/25/18 5 Health Maintenance reviewed, Pcp Appt 08/12/18 Patient identified by name and date of . YES Spoke to patient Concerns: Back Pain Appt scheduled with Bossman Douglas CNP 05/26/18 Signature Massimo Valerio RN May 23, 2018 Massimo Valerio RN May 24, 2018 5:46 PM CNPTOUTREACH Observed: 05/23/2018 Status: COMPLETED Source: JOINER 12:[address] [facility] REPOSITORY Patient Outreach (FAMPWS) GRACIELA CAVAZOS ([id number]) 1940 F Date Time Provider Department 05/23/18 TEODORO KEYS (RN) FAMPWS During your visit today, we recorded the following information about you: Massimo Valerio RN 06/01/2018 2:06 PM Signed PRIMARY CARE COORDINATION FOLLOW-UP NOTE Provider Action/FYI 1. Spk with Pt who reports has lower back pain, wants to start water aerobics at [facility], is using a heated blanket will call [facility] to schedule, using Biofreeze OTC for pain, [facility] class available 06/13/18 2. Appt scheduled 05/26/18 with Bossman Douglas for back pain 3. Pt reports MEDARDO Torres Endocrinology Appt 04/18/18, Pt reports recently started Lantus- dosage is 24 units daily. Endocrinology is adjusting Insulin dosage, Fbs 192-260, BS 300's, Pt will call to schedule f/u with MEDARDO Tsang as directed 4. Appt with Dr. Tolentino 05/25/18 5 Health Maintenance reviewed, Pcp Appt 08/12/18 Patient identified by name and date of . YES Spoke to patient Concerns: Back Pain Appt scheduled with Bossman Douglas CNP 05/26/18 Signature Massimo Valerio RN May 23, 2018 Massimo Valerio RN May 24, 2018 5:46 PM Allergies As of Date: 05/23/2018 Noted Allergy Reaction ADHESIVE TAPE (ROSINS) 04/29/2016 9 - Itching Comments: Possible allergy. Pt had heart cath and she says her wrist was itchy and irritated where the cath was done. batazolidin [Other] 07/10/2005 5 - Intolerance CELEBREX (CELECOXIB) 10/16/2005 Comments: affected labs work diazide [Other] 07/10/2005 5 - Intolerance EFFEXOR (VENLAFAXINE HCL) 07/10/2005 1 - Mental Status Change Comments: patient uncertain INDOCIN (INDOMETHACIN SODIUM) 07/10/2005 5 - Intolerance meclomen [Other] 07/10/2005 5 - Intolerance MEVACOR (LOVASTATIN) 07/10/2005 5 - Intolerance MOTRIN (IBUPROFEN) 07/10/2005 Comments: hair loss NAPROSYN (NAPROXEN) 07/10/2005 5 - Intolerance NSAIDS (NON-STEROIDAL ANTI-INFLAM*07/10/2005 Comments: affected blood studies patient uncertain ORUDIS (KETOPROFEN) 07/10/2005 5 - Intolerance PROZAC (FLUOXETINE HCL) 07/10/2005 1 - Mental Status Change sporostacin [Other] 07/10/2005 5 - Intolerance STATINS (GJYZCEU-MHK-QGC REDUCTAS*07/04/2009 5 - Intolerance Comments: myalgia on 80 mg simvastatin VICODIN (HYDROCODONE-ACETAMINOPHE*07/10/2005 5 - Intolerance ZOLOFT (SERTRALINE HCL) 07/10/2005 1 - Mental Status Change Date Reviewed: 03/16/2018 Reviewed by: Lilliam Jorge Ma - Fully Assessed 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 [9959] Prescriptions as of 05/23/2018 Sig: DULAGLUTIDE 1.5 MG/0.5 ML SUB* Inject 1.5 mg subcutaneously * CARVEDILOL 25 MG TABLET Take 1 tablet by mouth twice * X METFORMIN 1,000 MG TABLET Take 1 tablet by mouth twice * Patient not taking: Reported on 05/26/2018 CLOPIDOGREL 75 MG TABLET Take 1 tablet by mouth once d* BLOOD SUGAR DIAGNOSTIC STRIPS Test blood sugar(s) 2 times d* X CHLORTHALIDONE 25 MG TABLET Take 1 tablet by mouth once d* Patient not taking: Reported on 05/26/2018 X AMLODIPINE 5 MG TABLET Take 1 tablet by mouth once d* Patient not taking: Reported on 05/26/2018 X ATORVASTATIN 80 MG TABLET Take 1 tablet by mouth once d* FUROSEMIDE 40 MG TABLET Take 1 tablet by mouth once d* GLIMEPIRIDE 4 MG TABLET Take 1 tablet by mouth twice * LANCETS Use as instructed two times d* X LISINOPRIL 20 MG TABLET Take 1 tablet by mouth once d* Patient not taking: Reported on 05/26/2018 BLOOD-GLUCOSE METER Dispense One Kit - Verio Mete* THERAPEUTIC MULTIVITAMIN TABL* Take 1 tablet by mouth daily * SODIUM CHLORIDE 0.65 % NASAL * Use 2 Sprays in each nostril * Patient not taking: Reported on 05/26/2018 * COMPOUNDED PRESCRIPTION Diabetic shoes. Has PVD * TYLENOL ARTHRITIS PAIN 650 MG* PRN use only * ASPIRIN 81 MG TABLET,DELAYED * Take one(1) tablet daily. Problem List As Of Date 05/23/2018 Noted Resolved Rheumatoid arthritis (HCC) [M06.9] INVALID FOR* BENIGN HYPERTENSION [I10] INVALID FOR* 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 ALLERGIC RHINITIS NOS [J30.9] More... ESOPHAGEAL REFLUX [K21.9] More... Peripheral vascular disease, unspecified (HCC) * Priority: D More... GLAUCOMA NOS [H40.9] More... 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 Preop testing [Z01.818] INVALID FOR* More... Discharge planning issues [Z02.9] INVALID FOR* Priority: M More... Atherosclerosis of tangirnaq coronary artery with *INVALID FOR* Priority: A More... HOCM (hypertrophic obstructive cardiomyopathy) *INVALID FOR* Priority: A More... (aortic stenosis) [I35.0] INVALID FOR* Priority: A More... Mitral regurgitation [I34.0] INVALID FOR* Priority: A More... Hypovolemia [E86.1] INVALID FOR*05/02/2016 Priority: F More... More... Cardiac insufficiency (HCC) [I50.9] INVALID FOR*05/04/2016 Priority: C More... Atelectasis [J98.11] INVALID FOR*05/06/2016 Priority: B More... Stage 3 chronic kidney disease (HCC) [N18.3] INVALID FOR* Priority: F More... Sinus bradycardia [R00.1] INVALID FOR*05/06/2016 Priority: C More... Fluid overload [E87.70] INVALID FOR*05/06/2016 Priority: F More... Thrombocytopenia (HCC) [D69.6] INVALID FOR*05/07/2016 Priority: H More... 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 SUMMARY INVALID FOR* Priority: Very Severe More... Hyperlipidemia LDL goal <70 [E78.5] INVALID FOR* Priority: D More... Essential hypertension [I10] INVALID FOR* Priority: C More... 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] INVALID FOR* Status post aortic valve replacement with biopr*INVALID FOR* PAD (peripheral artery disease) ([facility]) [I73.9] INVALID FOR* Chronic bilateral low back pain without sciatic*INVALID FOR* Diabetic polyneuropathy associated with type 2 *INVALID FOR* Encounter Status:Closed by MASSIMO VALERIO on 06/01/18 RENAL PROFILE Collected: 05/21/2018 Status: F Source: PATO 9:21 AM [facility] REPOSITORY TYPE CODE TESTS RESULT OUT OF RANGE REFERENCE UNITS LAB L501.0100 74-106 mg/dL High GLU 230 Result Comment: Glucose result greater than or equal to 200 mg/dL suggests DIABETES MELLITUS per A.D.A. criteria. Please note revised GLUCOSE reference range effective 2017. LAB L501.1000 7-18 mg/dL High BUN 40 LAB L501.1100 0.55-1.02 mg/dL High CREAT,SERUM 1.93 Result Comment: The validity of the calculated GFR AND GFRAA in patients over 70 years has not been determined. Clinical correlation is essential. LAB L501.1110 >60 mL/min Low EST GFR 27 Result Comment: Non- GFR Calc LAB L501.1115 >60 mL/min Low EST GFR - AA 33 Result Comment: GFR Calc LAB L501.1300 10-20 RATIO High BUN/CRE 20.7 LAB L501.1800 3.2-5.0 g/dL Normal ALB 3.5 LAB L501.2200 8.5-10.1 mg/dL CA Normal 9.3 LAB L501.2300 2.5-4.9 mg/dL Normal PHOS 3.5 LAB L501.5300 136-145 mmol/L NA Normal 140 LAB L501.5600 3.5-5.1 mmol/L K Normal 4.0 LAB L501.5900 98-107 mmol/L CL Normal 99 LAB L501.6100 21.0-32.0 mmol/L Normal CO2 29.0 Performed By: #### L500.3600 #### [facility] [address] [place], [address] ENDOCRINOLOGY VISIT Observed: 04/26/2018 Status: F Source: DWIGHT REPORT 7:32 AM [facility] REPOSITORY [facility] [address] [place] [address] OFFICE VISIT Date of Service: 04/25/18 MR#: [id number] Acct: [id number] Name: GRACIELA CAVAZOS Rep #: [id number] : 1940 Provider: Marta Torres NP Age/Sex: 77/F Location: [facility] Status: Signed HPI History of present illness PI History of present illness Graciela Cavazos is a 77 year old female who presents for follow up of diabetes type 2. Diagnosed in 1995. Known renal issues. Had 2 heart valves replaced 2 years . She reports feeling well. Has not changed eating habits. Checked BG throughout the day for last few days and all BG readings 300 and above. Today will start on basal insulin. At time of visit: -Pt denies symptoms of hypertensive emergency (CP,SOB,YANG, or blurred vision) and hypotension(dizziness or lightheadedness) -Pt denies symptoms of hypoglycemia ( sweaty, confusion, anxiety, tremor, hunger, palpitations) and hyperglycemia ( polydipsia, polyuria) -Pt denies potential medication adverse effect. Hypoglycemia Aware of hypoglycemia: Yes Able to self treat low BG: Yes Frequent low Blood sugar: No Has supply of glucagon: No SMBG Checking BG 3 times daily BG 300+ Exam Const General: comfortable, well groomed Nutritional Appearance: overweight Orientation: oriented x3 HENMT Head: normal to inspection, normocephalic Ears: hearing grossly normal bilaterally Mouth: oral mucosae normal, moist mucous membranes Teeth and gingiva: dentition normal Eyes General: appearance normal, both eyes and all related structures Eyelids: eyelids normal Conjunctivae: conjunctivae normal Cornea: corneas normal Pupils: PERRL Neck Neck: normal visual inspection, no lymphadenopathy Resp Effort AND Inspection: normal respiratory effort, able to speak in complete sentences, symmetric chest movement Auscultation: Bilateral: Clear to Auscultation Cardio Rate: regular rate Rhythm: regular rhythm Heart Sounds: S1 normal, S2 normal GI Inspection: normal to inspection Auscultation: normal bowel sounds Palpation: soft, no guarding Skin General: no rashes or lesions noted Wounds: no wounds Diabetic Foot Pulses: L dorsalis pedis pulse: normal, R dorsalis pedis pulse: normal Monofilament test: Left foot: normal, Right foot: normal Neuro General: moves all extremities, normal light touch, pain and propioception Cranial Nerves: CN's II-XI intact bilaterally Speech: speech normal Extrem General: normal to inspection, normal capillary refill, edema 2+ Psych Appearance: well kempt Mental Status: mental status grossly normal Mood: congruent mood Affect: normal affect Speech and Movement: speech and movement normal Attitude: cooperative Thought Process: normal Thought Content: normal Judgment: judgment good Type: type 2 Glucose control symptoms: Reports high fasting glucose Weight and fatigue symptoms: Denies snoring Cardiopulmonary symptoms: Denies chest pain at rest, dyspnea on exertion, lightheadedness or myalgias GI symptoms: Denies constipation, diarrhea, nausea/dyspepsia or vomiting Other symptoms: Denies blurry vision or change in vision Self monitoring: Yes Diabetes education in past year: Yes Glucose testing: demonstrates correct use of meter, understands testing schedule Physical activity: regular Type: type 2, insulin-requiring Glucose control symptoms: Reports high fasting glucose and high post-meal glucose Weight and fatigue symptoms: Reports weight loss; denies snoring Cardiopulmonary symptoms: Denies chest pain at rest, dyspnea on exertion, lightheadedness or myalgias GI symptoms: Denies constipation, diarrhea, nausea/dyspepsia or vomiting Other symptoms: Denies blurry vision or change in vision Pertinent visit history: Denies recent visit to ER or recent 911 calls Self monitoring: Yes Percentage of fasting blood glucose within goal: <25% of the time Dietary compliance: Diabetes: good Diabetes education in past year: Yes Glucose testing: demonstrates correct use of meter Sick day education - understands ketone testing: Yes Intake Vital Signs04/25/18 Height 5 ft 2 in 04/25/18 Weight: 179 lb 2 oz 04/25/18 Body Mass Index (BMI) 32.7 04/25/18 Blood Pressure 122/73 04/25/18 Blood Pressure Location Lt popliteal Intake Visit Reasons: START ON INSULIN Proc Tech Required: No Accompanied by: Self Is patient in pain?: No Allergies celecoxib [From Celebrex] Allergy (Verified 04/25/18 08:43) Other indomethacin [From Indocin] Allergy (Verified 04/25/18 08:43) Other Ncrttcb-Uli-Dmm Reductase Inhibitor Allergy (Verified 04/25/18 08:43) Pain in joints acetaminophen [From Vicodin] Adverse Reaction (Verified 04/25/18 08:43) Other adhesive tape Adverse Reaction (Verified 04/25/18 08:43) Itching fluoxetine [From Prozac] Adverse Reaction (Verified 04/25/18 08:43) Other hydrocodone [From Vicodin] Adverse Reaction (Verified 04/25/18 08:43) Other ibuprofen [From Motrin] Adverse Reaction (Verified 04/25/18 08:43) Other ketoprofen Adverse Reaction (Verified 04/25/18 08:43) Other lovastatin [From Mevacor] Adverse Reaction (Verified 04/25/18 08:43) Other meclofenamic acid [From Meclomen] Adverse Reaction (Verified 04/25/18 08:43) Other naproxen [From Naprosyn] Adverse Reaction (Verified 04/25/18 08:43) Other NSAIDS (Non-Steroidal Anti-Inflamma Adverse Reaction (Verified 04/25/18 08:43) Other sertraline [From Zoloft] Adverse Reaction (Verified 04/25/18 08:43) Other venlafaxine [From Effexor] Adverse Reaction (Verified 04/25/18 08:43) Other BATAZOLIDIN Adverse Reaction (Uncoded 04/25/18 08:43) Other DIAZIDE Adverse Reaction (Uncoded 04/25/18 08:43) Other SPOROSTACIN Adverse Reaction (Uncoded 04/25/18 08:43) Other Medications Aspirin [Adult Low Dose Aspirin EC] 81 mg PO DAILY #30 tablet.dr 05/11/16 [Rx Confirmed 04/25/18] Atorvastatin Calcium [Lipitor] 80 mg PO QHS #30 tab 05/11/16 [Rx Confirmed 04/25/18] Clopidogrel Bisulfate [Plavix] 75 mg PO DAILY #0 tab 05/11/16 [Rx Confirmed 04/25/18] acetaminophen ER 650 mg tablet,extended release 650 mg PO .prn tab 08/19/17 [History Confirmed 04/25/18] blood sugar diagnostic strips See Dose Instructions .ROUTE .MEDSUPPLY #20 ea 08/19/17 [History Confirmed 04/25/18] carvedilol 25 mg tablet 25 mg PO BID 08/19/17 [History Confirmed 04/25/18] furosemide 40 mg tablet 40 mg PO QDAY 08/19/17 [History Confirmed 04/25/18] multivitamin capsule 1 cap PO QAM 08/19/17 [History Confirmed 04/25/18] dulaglutide 1.5 mg/0.5 mL subcutaneous pen injector 1.5 mg SC QWEEK #2 ml 11/18/17 [Rx Confirmed 04/25/18] glimepiride 4 mg tablet 4 mg PO BID #180 tab 01/06/18 [Rx Confirmed 04/25/18] amlodipine 5 mg tablet 5 mg PO DAILY 04/25/18 [History Confirmed 04/25/18] insulin glargine (U-100) 100 unit/mL (3 mL) subcutaneous pen 10 unit SC DAILY #15 ml 04/25/18 [Rx Confirmed 04/25/18] pen needle, diabetic 32 gauge x 5/32 See Dose Instructions .ROUTE .MEDSUPPLY #50 ea 04/25/18 [Rx Confirmed 04/25/18] Is last menstrual period known: No Post menopausal: Yes Patient : No Nurse's Note: blood sugars : low : 293 high : 528 PFSH Medical History Diabetes type 2, controlled (Acute) Heart disease (Acute) HTN (hypertension) (Chronic) Surgical History History of cataract extraction with lens replacement (Acute) S/P triple vessel bypass (Acute) Family History Grandmother Diabetes Mother Heart disease Social History Smoking Status: Never smoker second hand exposure: No alcohol intake: never substance use type: does not use ROS Const Constitutional: No anorexia, body ache, chills, fatigue, fever(s), frequent falls, decreased energy, malaise, night sweats, weakness, weight change, sleep problems, abnormal sleep pattern, change in appetite, other, headache(s), snoring or excessive sweating Eyes Eyes: No blurry vision, change in vision, double vision, discharge, dry eyes, bulging eyes, floaters, visual disturbances, eye pain, light sensitivity, spots in vision, tunnel vision or other ENT ENT: Positive for nasal congestion and nasal discharge; no abnormal hearing, ear pain, ear discharge, ear pressure, hearing loss, tinnitus, dizziness/vertigo, balance problems, nosebleed/epistaxis, nasal obstruction, nose pain, sinus pressure, sinus pain, post nasal drip, headache(s), facial pain, dental pain, dry mouth, bad breath, hoarseness, lip swelling, mouth lesions, mouth pain, sore throat, tongue swelling, throat swelling, other, difficulty swallowing or neck pain Resp Respiratory: No cough, change in phlegm color, chest congestion, excessive phlegm production, hemoptysis, pain on inspiration, shortness of breath, pain with cough, snoring, stridor, wheezing or other Cardio Cardiology: Positive for generalized swelling; no chest pain at rest, chest pain with exertion, leg pain with exertion, excessive sweating, shortness of breath, dyspnea on exertion, irregular heart rhythm, lightheadedness, orthopnea, radiating jaw, neck or arm pain, fast heart rate, slow heart rate, palpitations or other Gastro GI: No abdominal pain, belching, bloating, change in bowel habits, change in stool character, coffee ground emesis, constipation, cramping, diarrhea, heartburn, difficulty swallowing, feeling full early, excessive flatus, incontinent of stools, Vomiting blood/hematemesis, blood in stool, loose stools, Black,tarry stools, nausea/dyspepsia, pain with swallowing, vomiting or other Genitourinary-Female: Positive for urinary frequency; no difficulty urinating, burning urination, painful urination, urinary incontinence, urinary urgency, urinary hesitancy, urinary retention, blood in urine, Frequent nighttime urination/ nocturia, post void dribbling, suprapubic fullness, side pain, sexual problems, genital lesions, genital itching, hot flashes, abnormal periods, abnormal vaginal bleeding, absent period, painful periods, light periods, heavy periods, difficulty getting , painful intercourse, pelvic pain, vaginal dryness, vaginal odor, Vaginal Itching or other Musc Musculoskeletal: No abnormal walking, joint pain, back pain, deformity, joint swelling, limited range of motion, loss of height, muscle cramps, muscle weakness, decreased muscle mass, body aches, neck pain, numbness, radiating pain into limb, stiffness, tingling or other Skin Skin: No acne, hair loss, change in hair, nail changes, boil, change in skin color, dry skin, redness, excessive hair growth, yellowing of the skin, lesions, itching, rash, skin pain, skin ulcer, sores, skin swelling, wounds or other Breast Breast: No other Neuro Neurology: No frequent falls, weakness, visual disturbances, abnormal hearing, headache(s), abnormal walking, numbness or tingling Psych Psychiatric: No abnormal sleep pattern, No change in appetite Endo Endocrine: No fatigue, other or excessive sweating Aller/Imm Allergy/Immunologic: No lip swelling, tongue swelling, throat swelling, wheezing or itchy eyes Assessment AND Plan Problems 1. Type 2 diabetes mellitus with chronic kidney disease, without long-term current use of insulin, unspecified CKD stage E11.22 2. Essential hypertension I10 Plan Diabetes: Starting basal insulin today. Instructed on injections, storage, dosing, side effects, First injection given in office by patient with myself observing. Patient will call BG readings in for a few days with titration as directed. HTN: Patient checking bP at home. Medications New: Plan Detail Additional Comments 1. Please schedule follow up in 3 months. 2. Lab work one week before appointment. 3. Discussed importance of regular exercise and recommend starting or continuing a regular exercise program for good health. 4. The patient was encouraged to lose weight for good health 5. The importance of monitoring blood sugar regularly was reviewed. 6. The importance of monitoring the HBA1c level regularly was reviewed. 7. The importance of prper foot care and regularly checking feet to prevent sores and loss of limbs was reviewed. 8. The importance of keeping BP at or below 130/80 to prevent stroke, heart attacks, kidney failure, blindness was reviewed. Spent approximately 30 minutes with patient with over 50% of time spent in discussion and counseling regarding medication adjustment, symptoms and treatment of hypoglycemia, diet adherence, and checking BG before driving. Coding Level of Care Code Off vis,est,level 3 Diagnoses Type 2 diabetes mellitus with chronic kidney disease, without long-term current use of insulin, unspecified CKD stage E11.22 Diabetes mellitus type: type 2 Diabetes mellitus complication status: with kidney complications Diabetes mellitus complication detail: with chronic kidney disease Diabetes mellitus jail insulin use: without terminal operations manager use Chronic kidney disease stage: unspecified stage Essential hypertension I10 Hypertension type: essential hypertension 04/26/18 0732 <Electronically signed by Marta BOYD> Date Marta BOYD Cosigner Signature: Date (if applicable) CC: ENDOCRINOLOGY VISIT Observed: 04/18/2018 Status: F Source: DWIGHT REPORT 6:21 PM [facility] REPOSITORY [facility] [address] [place] [address] [address] [place] [address] OFFICE VISIT Date of Service: 04/18/18 MR#: [id number] Acct: [id number] Name: GRACIELA CAVAZOS Rep #: [id number] : 1940 Provider: Marta Torres NP Age/Sex: 77/F Location: [facility] Status: Signed HPI History of present illness Graciela Cavazos is a 77 year old female who presents for follow up of diabetes type 2. Diagnosed in 1995. Known renal issues. Had 2 heart valves replaced 2 years . She reports feeling well. Has not changed eating habits. Checks BG each morning with readings noted last few days in the 300 range. Not checking otherwise. At our last visit I stopped metformin but patient states her Bg were high so she resumed taking the metformin. Seen by nephrology Dr. Tolentino this past week and renal function declined dramatically At time of visit: -Pt denies symptoms of hypertensive emergency (CP,SOB,YANG, or blurred vision) and hypotension(dizziness or lightheadedness) -Pt denies symptoms of hypoglycemia ( sweaty, confusion, anxiety, tremor, hunger, palpitations) and hyperglycemia ( polydipsia, polyuria) -Pt denies potential medication adverse effect. Hypoglycemia Aware of hypoglycemia: Yes Able to self treat low BG: Yes Frequent low Blood sugar: No Has supply of glucagon: No SMBG Checking BG 1-2 times daily BG 140 until last Wednesday Since last three days BG 300 in am. No ther data Exam Const General: comfortable, well groomed Nutritional Appearance: overweight Orientation: oriented x3 HENMA Head: normal to inspection, normocephalic Ears: hearing grossly normal bilaterally Mouth: oral mucosae normal, moist mucous membranes Teeth and gingiva: dentition normal Eyes General: appearance normal, both eyes and all related structures Eyelids: eyelids normal Conjunctivae: conjunctivae normal Cornea: corneas normal Pupils: PERRL Neck Neck: normal visual inspection, no lymphadenopathy Resp Effort AND Inspection: normal respiratory effort, able to speak in complete sentences, symmetric chest movement Auscultation: Bilateral: Clear to Auscultation Cardio Rate: regular rate Rhythm: regular rhythm Heart Sounds: S1 normal, S2 normal GI Inspection: normal to inspection Auscultation: normal bowel sounds Palpation: soft, no guarding Skin General: no rashes or lesions noted Wounds: no wounds Diabetic Foot Pulses: L dorsalis pedis pulse: normal, R dorsalis pedis pulse: normal Monofilament test: Left foot: normal, Right foot: normal Neuro General: moves all extremities, normal light touch, pain and propioception Cranial Nerves: CN's II-XI intact bilaterally Speech: speech normal Extrem General: normal to inspection, normal capillary refill, edema 2+ Psych Appearance: well kempt Mental Status: mental status grossly normal Mood: congruent mood Affect: normal affect Speech and Movement: speech and movement normal Attitude: cooperative Thought Process: normal Thought Content: normal Judgment: judgment good Type: type 2 Glucose control symptoms: Reports high fasting glucose Weight and fatigue symptoms: Denies snoring Cardiopulmonary symptoms: Denies chest pain at rest, dyspnea on exertion, lightheadedness or myalgias GI symptoms: Denies constipation, diarrhea, nausea/dyspepsia or vomiting Other symptoms: Denies blurry vision or change in vision Self monitoring: Yes Diabetes education in past year: Yes Glucose testing: demonstrates correct use of meter, understands testing schedule Physical activity: regular Intake Vital Signs04/18/18 Height 5 ft 2 in 04/18/18 Weight: 180 lb 6 oz 04/18/18 Body Mass Index (BMI) 33.0 04/18/18 Blood Pressure 119/62 04/18/18 Blood Pressure Location Lt popliteal 04/18/18 Blood Pressure Position Sitting Intake Visit Reasons: follow up Proc Tech Required: No Accompanied by: Self Is patient in pain?: No Allergies celecoxib [From Celebrex] Allergy (Verified 04/18/18 10:13) Other indomethacin [From Indocin] Allergy (Verified 04/18/18 10:13) Other Dagrhkx-Rbq-Qve Reductase Inhibitor Allergy (Verified 04/18/18 10:13) Pain in joints acetaminophen [From Vicodin] Adverse Reaction (Verified 04/18/18 10:13) Other adhesive tape Adverse Reaction (Verified 04/18/18 10:13) Itching fluoxetine [From Prozac] Adverse Reaction (Verified 04/18/18 10:13) Other hydrocodone [From Vicodin] Adverse Reaction (Verified 04/18/18 10:13) Other ibuprofen [From Motrin] Adverse Reaction (Verified 04/18/18 10:13) Other ketoprofen Adverse Reaction (Verified 04/18/18 10:13) Other lovastatin [From Mevacor] Adverse Reaction (Verified 04/18/18 10:13) Other meclofenamic acid [From Meclomen] Adverse Reaction (Verified 04/18/18 10:13) Other naproxen [From Naprosyn] Adverse Reaction (Verified 04/18/18 10:13) Other NSAIDS (Non-Steroidal Anti-Inflamma Adverse Reaction (Verified 04/18/18 10:13) Other sertraline [From Zoloft] Adverse Reaction (Verified 04/18/18 10:13) Other venlafaxine [From Effexor] Adverse Reaction (Verified 04/18/18 10:13) Other BATAZOLIDIN Adverse Reaction (Uncoded 04/18/18 10:13) Other DIAZIDE Adverse Reaction (Uncoded 04/18/18 10:13) Other SPOROSTACIN Adverse Reaction (Uncoded 04/18/18 10:13) Other Medications Aspirin [Adult Low Dose Aspirin EC] 81 mg PO DAILY #30 tablet. 05/11/16 [Rx Confirmed 04/18/18] Atorvastatin Calcium [Lipitor] 80 mg PO QHS #30 tab 05/11/16 [Rx Confirmed 04/18/18] Clopidogrel Bisulfate [Plavix] 75 mg PO DAILY #0 tab 05/11/16 [Rx Confirmed 04/18/18] acetaminophen ER 650 mg tablet,extended release 650 mg PO .prn tab 08/19/17 [History Confirmed 04/18/18] blood sugar diagnostic strips See Dose Instructions .ROUTE .MEDSUPPLY #20 ea 08/19/17 [History Confirmed 04/18/18] carvedilol 25 mg tablet 25 mg PO BID 08/19/17 [History Confirmed 04/18/18] furosemide 40 mg tablet 40 mg PO QDAY 08/19/17 [History Confirmed 04/18/18] multivitamin capsule 1 cap PO QAM 08/19/17 [History Confirmed 04/18/18] dulaglutide 1.5 mg/0.5 mL subcutaneous pen injector 1.5 mg SC QWEEK #2 ml 11/18/17 [Rx Confirmed 04/18/18] glimepiride 4 mg tablet 4 mg PO BID #180 tab 01/06/18 [Rx Confirmed 04/18/18] Is last menstrual period known: No Post menopausal: Yes Patient : No Nurse's Note: blood sugars : low : 125 high : 300+ PFSH Medical History Diabetes type 2, controlled (Acute) Heart disease (Acute) HTN (hypertension) (Chronic) Surgical History History of cataract extraction with lens replacement (Acute) S/P triple vessel bypass (Acute) Family History Grandmother Diabetes Mother Heart disease Social History Smoking Status: Never smoker second hand exposure: No alcohol intake: never substance use type: does not use ROS Const Constitutional: Positive for fatigue; no anorexia, body ache, chills, fever(s), frequent falls, decreased energy, malaise, night sweats, weakness, weight change, sleep problems, abnormal sleep pattern, change in appetite, other, headache(s), snoring or excessive sweating Eyes Eyes: No blurry vision, change in vision, double vision, discharge, dry eyes, bulging eyes, floaters, visual disturbances, eye pain, light sensitivity, spots in vision, tunnel vision or other ENT ENT: No abnormal hearing, ear pain, ear discharge, ear pressure, hearing loss, tinnitus, dizziness/vertigo, balance problems, nosebleed/epistaxis, nasal congestion, nasal obstruction, nose pain, sinus pressure, sinus pain, nasal discharge, post nasal drip, headache(s), facial pain, dental pain, dry mouth, bad breath, hoarseness, lip swelling, mouth lesions, mouth pain, sore throat, tongue swelling, throat swelling, other, difficulty swallowing or neck pain Resp Respiratory: No cough, change in phlegm color, chest congestion, excessive phlegm production, hemoptysis, pain on inspiration, shortness of breath, pain with cough, snoring, stridor, wheezing or other Cardio Cardiology: Positive for generalized swelling; no chest pain at rest, chest pain with exertion, leg pain with exertion, excessive sweating, shortness of breath, dyspnea on exertion, irregular heart rhythm, lightheadedness, orthopnea, radiating jaw, neck or arm pain, fast heart rate, slow heart rate, palpitations or other Gastro GI: No abdominal pain, belching, bloating, change in bowel habits, change in stool character, coffee ground emesis, constipation, cramping, diarrhea, heartburn, difficulty swallowing, feeling full early, excessive flatus, incontinent of stools, Vomiting blood/hematemesis, blood in stool, loose stools, Black,tarry stools, nausea/dyspepsia, pain with swallowing, vomiting or other Genitourinary-Female: Positive for urinary frequency and urinary urgency; no difficulty urinating, burning urination, painful urination, urinary incontinence, urinary hesitancy, urinary retention, blood in urine, Frequent nighttime urination/ nocturia, post void dribbling, suprapubic fullness, side pain, sexual problems, genital lesions, genital itching, hot flashes, abnormal periods, abnormal vaginal bleeding, absent period, painful periods, light periods, heavy periods, difficulty getting , painful intercourse, pelvic pain, vaginal dryness, vaginal odor, Vaginal Itching or other Musc Musculoskeletal: No abnormal walking, joint pain, back pain, deformity, joint swelling, limited range of motion, loss of height, muscle cramps, muscle weakness, decreased muscle mass, body aches, neck pain, numbness, radiating pain into limb, stiffness, tingling or other Skin Skin: No acne, hair loss, change in hair, nail changes, boil, change in skin color, dry skin, redness, excessive hair growth, yellowing of the skin, lesions, itching, rash, skin pain, skin ulcer, sores, skin swelling, wounds or other Breast Breast: No other Neuro Neurology: No frequent falls, weakness, visual disturbances, abnormal hearing, headache(s), abnormal walking, numbness or tingling Psych Psychiatric: No abnormal sleep pattern, No change in appetite Endo Endocrine: Positive for fatigue; no other or excessive sweating Aller/Imm Allergy/Immunologic: No lip swelling, tongue swelling, throat swelling, wheezing or itchy eyes Assessment AND Plan Problems 1. Type 2 diabetes mellitus with chronic kidney disease, without long-term current use of insulin, unspecified CKD stage E11.22 2. Essential hypertension I10 Plan Patient will check BG intnsively over the next three days to determine pattern of BG and call to office for review. will determine what to do at that time. Discussed may need to begin use of insulin. Labs today as ordered by Dr. Tolentino Plan Detail Additional Comments 1. Please schedule follow up in 3 months. 2. Lab work one week before appointment. 3. Discussed importance of regular exercise and recommend starting or continuing a regular exercise program for good health. 4. The patient was encouraged to lose weight for good health 5. The importance of monitoring blood sugar regularly was reviewed. 6. The importance of monitoring the HBA1c level regularly was reviewed. 7. The importance of prper foot care and regularly checking feet to prevent sores and loss of limbs was reviewed. 8. The importance of keeping BP at or below 130/80 to prevent stroke, heart attacks, kidney failure, blindness was reviewed. Spent approximately 30 minutes with patient with over 50% of time spent in discussion and counseling regarding medication adjustment, symptoms and treatment of hypoglycemia, diet adherence, and checking BG before driving. Coding Level of Care Code Off vis,est,level 3 Diagnoses Type 2 diabetes mellitus with chronic kidney disease, without long-term current use of insulin, unspecified CKD stage E11.22 Diabetes mellitus type: type 2 Diabetes mellitus complication status: with kidney complications Diabetes mellitus complication detail: with chronic kidney disease Diabetes mellitus jail insulin use: without jail use Chronic kidney disease stage: unspecified stage Essential hypertension I10 Hypertension type: essential hypertension 04/18/18 1821 <Electronically signed by Marta BOYD> Date Marta Torres INTERNATIONAL REPRESENTATIVE-C Cosigner Signature: Date (if applicable) CC: RENAL PROFILE Collected: 04/18/2018 Status: F Source: [place] 11:10 AM [facility] REPOSITORY TYPE CODE TESTS RESULT OUT OF RANGE REFERENCE UNITS LAB L501.0100 74-106 mg/dL High GLU 322 Result Comment: Glucose result greater than or equal to 200 mg/dL suggests DIABETES MELLITUS per A.D.A. criteria. Please note revised GLUCOSE reference range effective 2017. LAB L501.1000 7-18 mg/dL High BUN 61 LAB L501.1100 0.55-1.02 mg/dL High CREAT,SERUM 2.06 Result Comment: The validity of the calculated GFR AND GFRAA in patients over 70 years has not been determined. Clinical correlation is essential. LAB L501.1110 >60 mL/min Low EST GFR 25 Result Comment: Non- GFR Calc LAB L501.1115 >60 mL/min Low EST GFR - AA 30 Result Comment: GFR Calc LAB L501.1300 10-20 RATIO High BUN/CRE 29.6 LAB L501.1800 3.2-5.0 g/dL Normal ALB 3.9 LAB L501.2200 8.5-10.1 mg/dL CA Normal 9.7 LAB L501.2300 2.5-4.9 mg/dL Normal PHOS 3.9 LAB L501.5300 136-145 mmol/L Low NA 134 LAB L501.5600 3.5-5.1 mmol/L K Normal 4.2 LAB L501.5900 98-107 mmol/L Low CL 96 LAB L501.6100 21.0-32.0 mmol/L Normal CO2 29.0 Performed By: #### L500.3600 #### [facility] [address] [place], [address] PROGRESS Observed: 04/14/2018 Status: COMPLETED Source: [place] 10:[address] [facility] REPOSITORY HNO ID: [id number] Author: Teodoro Keys (Rn) Service: (none) Author Type: Registered Nurse Type: Progress Notes Filed: 04/19/2018 3:32 PM Note Text: PRIMARY CARE COORDINATION FOLLOW-UP NOTE Provider Action/FYI 1. Spk with Pt who reports f/u Appt 04/13/[address] Tolentino, [facility] 04/13/18 Bun 70/ Cr 2.54, Dr. Tolentino held Metformin, Chlorthalidone, and Lisinopril and if BP Systolic <130 Pt will hold Amlodipine as well. 04/14/18 BP 116/61, Pt is checking BP and Wt daily, F/u Appt with Dr. Tolentino in May 01. 04/04/18 Hgb A1C 7.8, denies Hypoglycemia, Testing FBS only daily 3. Pt reports Appt 03/31/[address] Price Parts Identifier at [facility], Echo completed and he did not feel Pt's swelling in LE was due to circulation, states her mitral valve is working well, did not feel an U/S of LE was indicated, F/u in one year. Instructed Pt to elevate feet, Pt is following a ANA diet 4. Pt states was billed 2 charges for initial Pcp Appt, Class A Lineman provided phone number for [facility] financial counselors to review Pt's concerns and bill. 5. Pt has occasional numbness and tingling in her feet when walking, Pt feels she may be developing some Neuropathy. Patient identified by name and date of . YES Spoke to patient Class A Lineman plan for next outreach: 1. Encouraged Pt to elevate feet, Pt is weighing self daily- instructed to call Pcp/ Dr. Tolentino for increased weight gain 2. Instructed on food selections should be healthy, portion control, choose more low carb vegetables, Exercise daily eat more fresh foods, not canned or processed, Pt has been following a ANA diet 3. Early symptom awareness, prevent complications and hospitalization 4. Assist Pt to set Health Goals- Pt wants improved kidney function Thank You, Signature Massimo Valerio, RN April 14, 2018 RENAL PROFILE Collected: 04/13/2018 Status: F Source: [place] 12:40 PM [facility] REPOSITORY TYPE CODE TESTS RESULT OUT OF RANGE REFERENCE UNITS LAB L501.0100 74-106 mg/dL High GLU 172 Result Comment: Fasting Glucose result greater than or equal to 126 mg/dL suggests DIABETES MELLITUS per A.D.A. criteria. Please note revised GLUCOSE reference range effective 2017. LAB L501.1000 7-18 mg/dL High BUN 70 LAB L501.1100 0.55-1.02 mg/dL High CREAT,SERUM 2.54 Result Comment: The validity of the calculated GFR AND GFRAA in patients over 70 years has not been determined. Clinical correlation is essential. LAB L501.1110 >60 mL/min Low EST GFR 20 Result Comment: Non- GFR Calc LAB L501.1115 >60 mL/min Low EST GFR - AA 24 Result Comment: GFR Calc LAB L501.1300 10-20 RATIO High BUN/CRE 27.6 LAB L501.1800 3.2-5.0 g/dL Normal ALB 3.9 LAB L501.2200 8.5-10.1 mg/dL CA Normal 9.8 LAB L501.2300 2.5-4.9 mg/dL Normal PHOS 4.3 LAB L501.5300 136-145 mmol/L NA Normal 139 LAB L501.5600 3.5-5.1 mmol/L K Normal 4.7 LAB L501.5900 98-107 mmol/L CL Normal 101 LAB L501.6100 21.0-32.0 mmol/L Normal CO2 27.0 Performed By: #### L500.3600 #### [facility] [address] [place], [address] CNPTOUTREACH Observed: 04/12/2018 Status: COMPLETED Source: JOINER 12:[address] [facility] REPOSITORY Patient Outreach (FAMPWS) GRACIELA CAVAZOS ([id number]) 1940 F Date Time Provider Department 04/12/18 TEODORO LEIVA) FAMPWS During your visit today, we recorded the following information about you: Massimo Valerio RN 04/19/2018 3:32 PM Signed PRIMARY CARE COORDINATION FOLLOW-UP NOTE Provider Action/FYI 1. Spk with Pt who reports f/u Appt 04/13/[address] Tolentino, [facility] 04/13/18 Bun 70/ Cr 2.54, Dr. Tolentino held Metformin, Chlorthalidone, and Lisinopril and if BP Systolic <130 Pt will hold Amlodipine as well. 04/14/18 BP 116/61, Pt is checking BP and Wt daily, F/u Appt with Dr. Tolentino in May 01. 04/04/18 Hgb A1C 7.8, denies Hypoglycemia, Testing FBS only daily 3. Pt reports Appt 03/31/[address] Price Parts Identifier at [facility], Echo completed and he did not feel Pt's swelling in LE was due to circulation, states her mitral valve is working well, did not feel an U/S of LE was indicated, F/u in one year. Instructed Pt to elevate feet, Pt is following a ANA diet 4. Pt states was billed 2 charges for initial Pcp Appt, Class A Lineman provided phone number for [facility] financial counselors to review Pt's concerns and bill. 5. Pt has occasional numbness and tingling in her feet when walking, Pt feels she may be developing some Neuropathy. Patient identified by name and date of . YES Spoke to patient Class A Lineman plan for next outreach: 1. Encouraged Pt to elevate feet, Pt is weighing self daily- instructed to call Pcp/ Dr. Tolentino for increased weight gain 2. Instructed on food selections should be healthy, portion control, choose more low carb vegetables, Exercise daily eat more fresh foods, not canned or processed, Pt has been following a ANA diet 3. Early symptom awareness, prevent complications and hospitalization 4. Assist Pt to set Health Goals- Pt wants improved kidney function Thank You, Signature Massimo Valerio RN April 14, 2018 Allergies As of Date: 04/12/2018 Noted Allergy Reaction ADHESIVE TAPE (ROSINS) 04/29/2016 9 - Itching Comments: Possible allergy. Pt had heart cath and she says her wrist was itchy and irritated where the cath was done. batazolidin [Other] 07/10/2005 5 - Intolerance CELEBREX (CELECOXIB) 10/16/2005 Comments: affected labs work diazide [Other] 07/10/2005 5 - Intolerance EFFEXOR (VENLAFAXINE HCL) 07/10/2005 1 - Mental Status Change Comments: patient uncertain INDOCIN (INDOMETHACIN SODIUM) 07/10/2005 5 - Intolerance meclomen [Other] 07/10/2005 5 - Intolerance MEVACOR (LOVASTATIN) 07/10/2005 5 - Intolerance MOTRIN (IBUPROFEN) 07/10/2005 Comments: hair loss NAPROSYN (NAPROXEN) 07/10/2005 5 - Intolerance NSAIDS (NON-STEROIDAL ANTI-INFLAM*07/10/2005 Comments: affected blood studies patient uncertain ORUDIS (KETOPROFEN) 07/10/2005 5 - Intolerance PROZAC (FLUOXETINE HCL) 07/10/2005 1 - Mental Status Change sporostacin [Other] 07/10/2005 5 - Intolerance STATINS ([id number] REDUCTAS*07/04/2009 5 - Intolerance Comments: myalgia on 80 mg simvastatin VICODIN (HYDROCODONE-ACETAMINOPHE*07/10/2005 5 - Intolerance ZOLOFT (SERTRALINE HCL) 07/10/2005 1 - Mental Status Change Date Reviewed: 03/16/2018 Reviewed by: Lilliam Jorge Ma - Fully Assessed 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 [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] Cmt: Health Maintenance / Update Reason For Visit History Recorded Prescriptions as of 04/12/2018 Sig: DULAGLUTIDE 1.5 MG/0.5 ML SUB* Inject 1.5 mg subcutaneously * CARVEDILOL 25 MG TABLET Take 1 tablet by mouth twice * METFORMIN 1,000 MG TABLET Take 1 tablet by mouth twice * CHLORTHALIDONE 25 MG TABLET Take 1 tablet by mouth once d* CLOPIDOGREL 75 MG TABLET Take 1 tablet by mouth once d* BLOOD SUGAR DIAGNOSTIC STRIPS Test blood sugar(s) 2 times d* AMLODIPINE 5 MG TABLET Take 1 tablet by mouth once d* ATORVASTATIN 80 MG TABLET Take 1 tablet by mouth once d* FUROSEMIDE 40 MG TABLET Take 1 tablet by mouth once d* Patient taking differently: Take 40 mg by mouth every oth* GLIMEPIRIDE 4 MG TABLET Take 1 tablet by mouth twice * LANCETS Use as instructed two times d* LISINOPRIL 20 MG TABLET Take 1 tablet by mouth once d* BLOOD-GLUCOSE METER Dispense One Kit - Verio Mete* THERAPEUTIC MULTIVITAMIN TABL* Take 1 tablet by mouth daily * SODIUM CHLORIDE 0.65 % NASAL * Use 2 Sprays in each nostril * * COMPOUNDED PRESCRIPTION Diabetic shoes. Has PVD * TYLENOL ARTHRITIS PAIN 650 MG* PRN use only * ASPIRIN 81 MG TABLET,DELAYED * Take one(1) tablet daily. 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 ALLERGIC RHINITIS NOS [J30.9] More... ESOPHAGEAL REFLUX [K21.9] More... Peripheral vascular disease, unspecified (HCC) * Priority: D More... GLAUCOMA NOS [H40.9] More... 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 Preop testing [Z01.818] INVALID FOR* More... Discharge planning issues [Z02.9] INVALID FOR* Priority: M More... Atherosclerosis of tangirnaq coronary artery with *INVALID FOR* Priority: A More... HOCM (hypertrophic obstructive cardiomyopathy) *INVALID FOR* Priority: A More... (aortic stenosis) [I35.0] INVALID FOR* Priority: A More... Mitral regurgitation [I34.0] INVALID FOR* Priority: A More... Hypovolemia [E86.1] INVALID FOR*05/02/2016 Priority: F More... More... Cardiac insufficiency (HCC) [I50.9] INVALID FOR*05/04/2016 Priority: C More... Atelectasis [J98.11] INVALID FOR*05/06/2016 Priority: B More... Stage 3 chronic kidney disease (HCC) [N18.3] INVALID FOR* Priority: F More... Sinus bradycardia [R00.1] INVALID FOR*05/06/2016 Priority: C More... Fluid overload [E87.70] INVALID FOR*05/06/2016 Priority: F More... Thrombocytopenia (HCC) [D69.6] INVALID FOR*05/07/2016 Priority: H More... 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 Hyperlipidemia LDL goal <70 [E78.5] INVALID FOR* Priority: D More... Essential hypertension [I10] INVALID FOR* Priority: C More... 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] INVALID FOR* Status post aortic valve replacement with biopr*INVALID FOR* PAD (peripheral artery disease) ([facility]) [I73.9] INVALID FOR* Chronic bilateral low back pain without sciatic*INVALID FOR* Diabetic polyneuropathy associated with type 2 *INVALID FOR* Encounter Status:Closed by MASSIMO VALERIO on 04/19/18 FECAL OCCULT BLD Collected: 04/08/2018 Status: F Source: [facility] 11:30 AM [facility] REPOSITORY TYPE CODE TESTS RESULT OUT OF REFERENCE UNITS RANGE LAB IFO Negative Immuno Negative FOB Result Comment: This test was developed and its performance characteristics determined by [facility]'s [facility] [place] (-[facility]). It has not been cleared or approved by the FDA. -[facility] is regulated under CLIA as qualified to perform high-complexity testing. This test is used for clinical purposes. It should not be regarded as investigational or for research. Performed By: #### IFOBT #### [facility] [address], [place] [address] OFFICE VISIT Observed: 04/07/2018 Status: UNK Source: [place] (CARDIOLOGY) 12:20 PM [facility]IT[facility] REPOSITORY Chief Complaint GRACIELA CAVAZOS is being seen for an annual follow-up of PAD and CAD. History of Present Illness Patient presents as a 1 year follow up. Patient has a history of CAD and PAD. Patient is well known to Dr. Enriquez from the [facility]. Patient reports she is doing well. No recent hospitalizat ion. She does report increased swelling in her bilateral lower extremities. She had been taking 40mg Lasix daily until recently. She is currently taking 40mg Lasix once every other day. She does wear bi lateral lower compression stockings intermittently. She does not have pain with short distance walking but does require rest when walking longer distances. She denies SOB, CP. Patient describes a discom fort and sensitivity across her chest. This has been present since her CABGx3 in 2015. Since her last visit, she was diagnosed with CKD Stage III. PMHX: She is known to have coronary artery bypass graft surgery and aortic and mitral valve replacement with the Dr. Clive Langley at [facility] in April 2016. She is also known to have signifi cant PAD and underwent right SFA stenting and left SFA angioplasty about [address] Enriquez. We have known that the stent on the right side is occluded however we have managed her medically from the PAD standpoint. She does have hypertension and hyperlipidemia. From the leg standpoint she is doing well and has no ulcers or gangrene. Denies any rest pain. There are no spiritual/cultural practices/values/needs that are important to know Initial Fall Risk Screening: GRACIELA has not fallen in the last 6 months. Her fall did not result in injury. GRACIELA does not have a fear of falling. She does not need assistance with sitting, standing or walking. Does not need assista nce walking in her home. She does not need assistance in an unfamiliar setting. The patient is not using an assistive device. Active Problems Aortic stenosis (424.1) (I35.0) Arthritis (716.90) (M19.90) CAD (coronary artery disease) (414.00) (I25.10) CKD (chronic kidney disease) (585.9) (N18.9) Diabetes mellitus, type 2 (250.00) (E11.9) Hyperlipidemia (272.4) (E78.5) Mitral regurgitation (424.0) (I34.0) Peripheral artery disease (443.9) (I73.9) Surgical History History of Angioplasty With Fluoroscopic Angiography Peripheral Artery History of Ankle Surgery History of Aortic Valve Replacement History of CABG (V15.1) History of Mitral Valve Replacement History of Ventricular Septal Defect Repair Past Medical History Aortic stenosis (424.1) (I35.0) CAD (coronary artery disease) (414.00) (I25.10) CKD (chronic kidney disease) (585.9) (N18.9) History of Epicondylitis (726.32) History of diabetes mellitus (V12.29) (Z86.39) History of peripheral vascular disease (V12.59) (Z86.79) Hyperlipidemia (272.4) (E78.5) Mitral regurgitation (424.0) (I34.0) History of Rheumatoid arthritis (714.0) (M06.9) Current Meds Acetaminophen TABS; TAKE 1 TABLET EVERY 4 TO 6 HOURS NEEDED; Therapy: (Recorded:[id number]) to Recorded Dispense: 0 Days ; #: Sufficient Tablet; Refill: 0;For: Mitral regurgitation; ZACH = N; Record; Last Updated By: Tammy Parish; 03/31/2018 3:15:47 PM Carvedilol 25 MG Oral Tablet; TAKE 1 TABLET TWICE DAILY; Therapy: (Recorded:[id number]) to Recorded Dispense: 0 Days ; #: Sufficient Tablet; Refill: 0;For: Mitral regurgitation; ZACH = N; Record; Last Updated By: Marisa Oro; 04/15/2017 3:09:04 PM Chlorthalidone 25 MG Oral Tablet; TAKE 1 TABLET DAILY; Therapy: (Recorded:[id number]) to Recorded Dispense: 0 Days ; #: Sufficient Tablet; Refill: 0;For: Mitral regurgitation; ZACH = N; Record; Last Updated By: Tammy Parish; 03/31/2018 3:15:47 PM Lasix 40 MG Oral Tablet; TAKE 1 TABLET DAILY; Therapy: (Recorded:[id number]) to Recorded Dispense: 0 Days ; #: Sufficient Tablet; Refill: 0;For: Mitral regurgitation; ZACH = N; Record; Last Updated By: Marisa Oro; 04/15/2017 3:09:04 PM Lipitor 80 MG Oral Tablet; TAKE 1 TABLET DAILY; Therapy: (Recorded:[id number]) to Recorded Dispense: 0 Days ; #: Sufficient Tablet; Refill: 0;For: Mitral regurgitation; ZACH = N; Record; Last Updated By: Tammy Parish; 03/31/2018 3:15:47 PM Norvasc 5 MG Oral Tablet; Therapy: (Recorded:15Apr2017) to Recorded Dispense: 0 Days ; #: Sufficient TABS; Refill: 0;For: Mitral regurgitation; ZACH = N; Record; Last Updated By: Marisa Oro; 04/15/2017 3:09:04 PM Trulicity 0.75 MG/0.5ML Subcutaneous Solution Pen-injector; INJECT 0.75 MCG Weekly; Therapy: (Recorded:15Apr2017) to Recorded Dispense: 0 Days ; #: Sufficient ML; Refill: 0;For: Mitral regurgitation; ZACH = N; Record; Last Updated By: Marisa Oro; 04/15/2017 3:09:04 PM AmLODIPine Besylate 5 MG Oral Tablet; TAKE 1 TABLET DAILY DIRECTED; Therapy: (Recorded:[id number]) to Recorded Dispense: 0 Days ; #: Sufficient Tablet; Refill: 0; ZACH = N; Record; Last Updated By: Tammy Parish; 03/31/2018 3:10:08 PM Aspirin 81 MG TABS; TAKE 1 TABLET BY MOUTH EVERY DAY; Therapy: (Recorded:[id number]) to Recorded Dispense: 0 Days ; #:1 Tablet; Refill: 0; ZACH = N; Record; Last Updated By: Tammy Parish; 03/31/2018 3:10:08 PM Glimepiride 4 MG Oral Tablet; TAKE 1 TABLET BY MOUTH TWICE DAILY; Therapy: (Recorded:10Msv8569) to Recorded Dispense: 0 Days ; #: Sufficient Tablet; Refill: 0; ZACH = N; Record; Last Updated By: Tammy Parish; 03/31/2018 3:15:47 PM Lisinopril 20 MG Oral Tablet; Take 1 tablet daily; Therapy: (Recorded:01Soj2929) to Recorded Dispense: 0 Days ; #:30 Tablet; Refill: 3; ZACH = N; Record; Last Updated By: Tammy Parish; 03/31/2018 3:15:47 PM MetFORMIN HCl - 1000 MG Oral Tablet; TAKE 1 TABLET EVERY 12 HOURS DAILY; Therapy: (Recorded:[id number]) to Recorded Dispense: 0 Days ; #: Sufficient Tablet; Refill: 0; ZACH = N; Record; Last Updated By: Tammy Parish; 03/31/2018 3:15:47 PM Plavix 75 MG Oral Tablet; TAKE 1 TABLET DAILY; Therapy: (Recorded:[id number]) to Recorded Dispense: 0 Days ; #: Sufficient Tablet; Refill: 0; ZACH = N; Record; Last Updated By: Tammy Parish; 03/31/2018 3:39:53 PM Allergies CeleBREX CAPS Recorded By: Sara Mcnamara; 07/04/2013 9:15:24 AM Dyazide CAPS Recorded By: Sara Mcnamara; 07/04/2013 9:15:24 AM Effexor XR CP24 Recorded By: Sara Mcnamara; 07/04/2013 9:15:24 AM EQ Ibuprofen CAPS Recorded By: Sara Mcnamara; 07/04/2013 9:15:24 AM Indocin CAPS Recorded By: Sara Mcnamara; 07/04/2013 9:15:24 AM Ketoprofen CAPS Recorded By: Sara Mcnamara; 07/04/2013 9:15:24 AM Mevacor TABS Recorded By: Sara Mcnamara; 07/04/2013 9:15:24 AM Naproxen TABS Recorded By: Sara Mcnamara; 07/04/2013 9:15:24 AM NSAIDs Recorded By: Sara Mcnamara; 07/04/2013 9:15:24 AM PROzac CAPS Recorded By: Sara Mcnamara; 07/04/2013 9:15:24 AM Statins Recorded By: Sara Mcnamara; 07/04/2013 9:15:24 AM Vicodin TABS Recorded By: Sara Mcnamara; 07/04/2013 9:15:24 AM Zoloft TABS Recorded By: Sara Mcnamara; 07/04/2013 9:15:24 AM Family History Family history of Coronary artery disease involving other coronary artery bypass graft with angina pectoris Family history of diabetes mellitus (V18.0) (Z83.3) Family history of cerebrovascular accident (CVA) (V17.1) (Z82.3) Social History Never smoker Review of Systems Constitutional: not feeling tired. Eyes: no eyesight problems. ENT: no hearing loss and no nosebleeds. Cardiovascular: as noted in HPI and no intermittent leg claudication . chest discomfort and sensitivity across her prior CABG site. Respiratory: no chronic cough and no shortness of breath. Gastrointestinal: no change in bowel habits and no blood in stools. Genitourinary: no urinary frequency. Musculoskeletal: limb swelling . bilateral lower extremity swelling. Skin: no skin rashes. Neurological: no seizures and no frequent falls. Psychiatric: no depression and not suicidal. Screening Advance directives: living will and durable power of associate attorney for health care directives. Pain Screening: The patient is experiencing pain. The pain is located in the back pain . On a scale of 0 to 10 (zero being the least pain and 10 the most pain), the patient rates the pain at 7. Abuse Screening: The patient is safe in the home. Depression Screening: She denies feeling down, depressed or hopeless over the past two weeks. She denies feeling little interest or pleasure in doing things over the past two weeks. Fall Risk Assessment: 1. Is the patient age 65 or older? Yes. Risk Score 1 2. Does the patient have decreased mobility or use an assistance device? No. Risk Score 0 3. Does the patient have multiple diagnoses (>4) or 1 of the following: DM, HTN, Hypotension, CAD, Dementia, Depression? Yes. Risk Score 1 4. Is the patient on multiple Medications? Yes. Risk Score 1 7. Within the past month, has the patient had any invasive procedures? No. Risk Score 0 Low fall risk (LR) total score (1-3): 3. Vitals Vital Signs Recorded: 31Mar2018 02:55PM Heart Rate65 Dospabrh469, LUE, Sitting Rmnnchsaz63, LUE, Sitting Height5 ft 2.5 in Uekglf503 lb BMI Pzmcyrwdcy38.5 BSA Calculated1.82 O2 Lidayuvivl897, RA Physical Exam Constitutional: alert and in no acute distress. Pulmonary: no increased work of breathing or signs of respiratory distress . Cardiovascular: regular rhythm, normal S1 and S2, no murmurs , and bilateral lower extremity non-pitting edema. Skin: skin warm and dry, normal skin turgor . Psychiatric judgment and insight is normal , oriented to person, place and time , recent and remote memory intact and normal mood and affect . Diagnoses/Problems Peripheral artery disease (443.9) (I73.9) Impressions Very pleasant 77-year-old female who I know extremely well. Known history of PAD with the prior intervention to the right and the left SFA both of which have now occluded. She has no evidence of ulcers or gangrene but does have a long distance claudication Fabricio class II. On the cardiac standpoint she was diagnosed with coronary artery disease and severe aortic and mitral valve disease by me about 2 years ago. Underwent a complex operation by colleagues at [facility]. At this point she is doing great from a cardiovascular standpoint and is stable from the lower extremity PAD standpoint. I do agree with aggressive blood pressure control and risk factor modification. Does have some bilateral lower extremity swelling and we have agreed to put him milligram of Lasix once daily at this time. At site of this leg elevation and walking program are probably most effective both from the cardiovascular and lower extremity PAD standpoint. We'll see her in follow-up in one year with the echocardiogram and a PVR with exercise. Emiliano Enriquez Orders Aortic stenosis, CAD (coronary artery disease) Echocardiogram; Status:Hold For - Scheduling,Exact Date,Retrospective By Protocol Authorization; Requested for:Approx [id number]; Perform:[facility] [place] ([place]); Due:29Jun2018; Last Updated By:Tammy Parish; 03/31/2018 3:25:27 PM;Ordered; For:Aortic stenosis, CAD (coronary artery disease); Ordered By:Emiliano Enriquez; Peripheral artery disease Renew: Clopidogrel Bisulfate 75 MG Oral Tablet (Plavix); TAKE 1 TABLET DAILY Rx By: Marisa Oro; Dispense: 90 Days ; #:90 Tablet; Refill: 3;For: Peripheral artery disease; ZACH = N; Verified Transmission to [facility]; Last Updated By: Kenneth Solomon; 03/31/2018 3:39:53 PM VASC LAB PVR (Arterial Physiologic) JOSEFINA; Status:Hold For - Scheduling,Retrospective By Protocol Authorization; Requested for:Approx [id number]; Perform:[facility] [place] ([place]); Order Comments:JOSEFINA; Due:29Jun2018; Last Updated By:Tammy Parish; 03/31/2018 3:26:22 PM;Ordered; For:Peripheral artery disease; Ordered By:Emiliano Enriquez; Patient Instructions Thank you for following up in my office today. I have reviewed the results of your echocardiogram and PVR today. Your heart function looks good. Your mitral valve is working well. I do not feel you are having an increase in swelling related to your heart. The blood flow to your legs looks good. I do not feel the s welling in your legs is related to your circulation. You do not need to have any other ultrasound testing done at this time. I do not plan on performing a procedure at this time. I would like you to randa e your Lasix 40mg once daily to see if your swelling decreases. I think you may need the Lasix daily versus every other day. Please continue to walk. Continue good skin care and foot care. If you develo p any open wounds, sores, increased leg pain, chest pain or SOB please contact my office. I will plan to see you in 1 year with an echocardiogram and JOSEFINA. End of Encounter Meds Acetaminophen TABS; TAKE 1 TABLET EVERY 4 TO 6 HOURS NEEDED; Therapy: (Recorded:31Mar2018) to Recorded AmLODIPine Besylate 5 MG Oral Tablet; TAKE 1 TABLET DAILY DIRECTED; Therapy: (Recorded:31Mar2018) to Recorded Aspirin 81 MG TABS; TAKE 1 TABLET BY MOUTH EVERY DAY; Therapy: (Recorded:31Mar2018) to Recorded Carvedilol 25 MG Oral Tablet; TAKE 1 TABLET TWICE DAILY; Therapy: (Recorded:15Apr2017) to Recorded Chlorthalidone 25 MG Oral Tablet; TAKE 1 TABLET DAILY; Therapy: (Recorded:31Mar2018) to Recorded Clopidogrel Bisulfate 75 MG Oral Tablet (Plavix); TAKE 1 TABLET DAILY Requested for: 31Mar2018; Last Rx:31Mar2018 Ordered Glimepiride 4 MG Oral Tablet; TAKE 1 TABLET BY MOUTH TWICE DAILY; Therapy: (Recorded:31Mar2018) to Recorded Lasix 40 MG Oral Tablet (Furosemide); TAKE 1 TABLET DAILY; Therapy: (Recorded:15Apr2017) to Recorded Lipitor 80 MG Oral Tablet (Atorvastatin Calcium); TAKE 1 TABLET DAILY; Therapy: (Recorded:04Mwu8453) to Recorded Lisinopril 20 MG Oral Tablet; Take 1 tablet daily; Therapy: (Recorded:09Gaf3879) to Recorded MetFORMIN HCl - 1000 MG Oral Tablet; TAKE 1 TABLET EVERY 12 HOURS DAILY; Therapy: (Recorded:67Bpn8655) to Recorded Norvasc 5 MG Oral Tablet (AmLODIPine Besylate); Therapy: (Recorded:28Okl2299) to Recorded Trulicity 0.75 MG/0.5ML Subcutaneous Solution Pen-injector; INJECT 0.75 MCG Weekly; Therapy: (Recorded:70Yxt3683) to Recorded Signatures Electronically signed by : Emiliano Enriquez MD; Apr 07 2018 12:20PM EST (Author) CNCO Observed: 04/05/2018 Status: COMPLETED Source: JOINER 2:00 [facility] REPOSITORY HNO ID: [id number] Author: Mammography Coordinator Service: (none) Author Type: Physician Type: Letter Filed: 04/06/2018 11:32 PM Note Text: April 05, 2018 PID: [id number] Graciela Cavazos [address] [place] [address] Dear Ms. Cavazos, We are pleased to inform you that the results of your recent breast imaging exam on 04/05/2018 are normal and we recommend that you return to your annual screening Mammography schedule. Early detection of cancer is very important. We also understand recommendations regarding breast cancer screening are controversial. Please discuss with your primary care provider which strategy is best for you and whether a mammogram is right for you. Your imaging studies and report will be kept on file at [facility] as part of your permanent medical record and are available for your continuing care. Thank you for allowing us to help in meeting your health care needs. Sincerely, Dr. Laughlin Interpreting Radiologist [facility] (Return to Annual Mammogram schedule) CNCO Observed: 04/05/2018 Status: COMPLETED Source: JOINER 2:[address] [facility] REPOSITORY HNO ID: [id number] Author: Mammography Coordinator Service: (none) Author Type: Physician Type: Letter Filed: 04/06/2018 11:32 PM Note Text: April 05, 2018 PID: [id number] Graciela Cavazos [address] [place] [address] Dear Ms. Cavazos, We are pleased to inform you that the results of your recent breast imaging exam on 04/05/2018 are normal and we recommend that you return to your annual screening Mammography schedule. Early detection of cancer is very important. We also understand recommendations regarding breast cancer screening are controversial. Please discuss with your primary care provider which strategy is best for you and whether a mammogram is right for you. Your imaging studies and report will be kept on file at [facility] as part of your permanent medical record and are available for your continuing care. Thank you for allowing us to help in meeting your health care needs. Sincerely, Dr. Laughlin Interpreting Radiologist [facility] (Return to Annual Mammogram schedule) PROGRESS Observed: 04/05/2018 Status: COMPLETED Source: JOINER 1:[address] [facility] REPOSITORY HNO ID: [id number] Author: Delilah Godfrey Service: (none) Author Type: Schedule Checker Type: Progress Notes Filed: 04/05/2018 1:56 PM Note Text: Radiology Service Progress Note PATIENT NAME: Graciela Cavazos DATE OF SERVICE: April 05, 2018 TIME: 1:56 PM PATIENT IDENTITY VERIFICATION COMPLETED USING TWO (2) METHODS: Patient confirmed name verbally and Date of . PATIENT GENDER DATA: Female. status: : No status: N/A PATIENT RELEVANT IMPLANT DATA REVIEWED: Not Applicable RADIOLOGY DEPARTMENT: Ultrasound PERIPHERAL IV DATA: Not applicable SIGNED BY: DELILAH GODFREY RDMS RVT April 05, 2018 1:56 PM [facility] US BREAST LTD Observed: 04/05/2018 Status: F Source: [facility] 1:[address] [facility] REPOSITORY * * *Final Report* * * DATE OF EXAM: Apr 05 2018 1:48PM WRU [id number] - [facility] US BREAST LTD LT / PROCEDURE REASON: call back left breast / abnormal mammogram * * * * Physician Interpretation * * * * #[id number] - [facility] DIAGNOSTIC LT UNILATERAL LEFT DIGITAL DIAGNOSTIC MAMMOGRAM WITH CAD: 04/05/2018 HISTORY: Call Back Left Breast / Abnormal Mammogram /priors available for comparison. RESULT: TECHNIQUE: The study was acquired using full field digital technology and interpreted from soft copy. Current study was also evaluated with a Computer Aided Detection (CAD). Comparison is made to exams dated: 03/16/2018 mammogram and 06/24/2015 mammogram - [facility]. There are scattered fibroglandular elements in the left breast. There is an asymmetry in the left breast central to the nipple anterior depth. No other significant masses or calcifications are seen in the breast. INCOMPLETE: NEEDS ADDITIONAL IMAGING EVALUATION The asymmetry in the left breast is indeterminate. An ultrasound is recommended. #[id number] - [facility] BREAST [facility] ULTRASOUND OF LEFT BREAST: 04/05/2018 RESULT: Comparison is made to exams dated: 03/16/2018 mammogram and 06/24/2015 mammogram - [facility]. Ultrasound of the left breast was performed. Meier scale images of the real-time examination were reviewed. There is a benign area of fibroglandular tissue in the left breast central to the nipple anterior depth. IMPRESSION: BENIGN FINDING There is no sonographic evidence of malignancy. The area of fibroglandular tissue in the left breast is benign. Return to annual mammogram screening schedule is recommended. Glenn bach/starr:04/05/2018 14:00:14 Ct Scan Technician: Ingrid RAYO)(Alise), [facility] letter sent: Return to Annual OVERALL STUDY BIRADS: 2 Benign finding Staff Physical Therapist: Starr Transcribe Date/Time: Apr 05 2018 12:56P Dictated by : GLENN LAUGHLIN DO This examination was interpreted and the report reviewed and electronically signed by: GLENN LAUGHLIN DO on Apr 05 2018 2:00PM EST [id number] PROGRESS Observed: 04/05/2018 Status: COMPLETED Source: JOINER 1:27 PM [facility] REPOSITORY HNO ID: [id number] Author: Shanda Mo Service: (none) Author Type: (none) Type: Progress Notes Filed: 04/05/2018 1:28 PM Note Text: Radiology Service Progress Note PATIENT NAME: Graciela Cavazos DATE OF SERVICE: April 05, 2018 TIME: 1:27 PM PATIENT IDENTITY VERIFICATION COMPLETED USING TWO (2) METHODS: Patient confirmed name verbally and Date of . PATIENT GENDER DATA: Female. status: : No status: NO. PATIENT RELEVANT IMPLANT DATA REVIEWED: Not Applicable RADIOLOGY DEPARTMENT: [facility] Left diag mammogram PERIPHERAL IV DATA: Not applicable SIGNED BY: Shanda Weaver Rt April 05, 2018 1:27 PM [facility] DIAGNOSTIC LT Observed: 04/05/2018 Status: F Source: JOINER 1:12 PM [facility] REPOSITORY * * *Final Report* * * DATE OF EXAM: Apr 05 2018 1:12PM [id number] - [facility] DIAGNOSTIC LT / PROCEDURE REASON: call back left breast / abnormal mammogram * * * * Physician Interpretation * * * * RESULT: #[id number] - [facility] DIAGNOSTIC LT UNILATERAL LEFT DIGITAL DIAGNOSTIC MAMMOGRAM WITH CAD: 04/05/2018 HISTORY: Call Back Left Breast / Abnormal Mammogram /priors available for comparison. RESULT: TECHNIQUE: The study was acquired using full field digital technology and interpreted from soft copy. Current study was also evaluated with a Computer Aided Detection (CAD). Comparison is made to exams dated: 03/16/2018 mammogram and 06/24/2015 mammogram - [facility]. There are scattered fibroglandular elements in the left breast. There is an asymmetry in the left breast central to the nipple anterior depth. No other significant masses or calcifications are seen in the breast. INCOMPLETE: NEEDS ADDITIONAL IMAGING EVALUATION The asymmetry in the left breast is indeterminate. An ultrasound is recommended. #[id number] - [facility] US BREAST LTD LT ULTRASOUND OF LEFT BREAST: 04/05/2018 RESULT: Comparison is made to exams dated: 03/16/2018 mammogram and 06/24/2015 mammogram - [facility]. Ultrasound of the left breast was performed. Meier scale images of the real-time examination were reviewed. There is a benign area of fibroglandular tissue in the left breast central to the nipple anterior depth. IMPRESSION: BENIGN FINDING There is no sonographic evidence of malignancy. The area of fibroglandular tissue in the left breast is benign. Return to annual mammogram screening schedule is recommended. Glenn bach/starr:04/05/2018 14:00:14 Ct Scan Technician: Ingrid MO(Margot)(Alise), [facility] letter sent: Return to Annual OVERALL STUDY BIRADS: 2 Benign finding Staff Physical Therapist: Starr Transcribe Date/Time: Apr 05 2018 12:56P Dictated by: GLENN LAUGHLIN DO This examination was interpreted and the report reviewed and electronically signed by: GLENN LAUGHLIN DO on Apr 05 2018 2:00PM EST [id number] MICROALB:CREAT Collected: 04/04/2018 Status: F Source: PATO RATIO,[facility]OM UR 10:22 AM [facility] REPOSITORY Order Comment: PLEASE COPY RESULTS TO AMBER BARKLEY [id number] TYPE CODE TESTS RESULT OUT OF RANGE REFERENCE UNITS LAB L501.1200 NO RANGE EST. mg/dL Normal UR CREAT 24.30 LAB L502.0500 NO RANGE EST. mg/L Normal 14.9 MICROALBUMIN ,UR LAB L502.0600 <30 mg/g CRE mg/g CRE High 61.3 MALB:CREAT Performed By: #### L502.0250 #### [facility] [place], [address] RENAL PROFILE Collected: 04/04/2018 Status: F Source: PATO 10:22 AM [facility] REPOSITORY Order Comment: PLEASE COPY RESULTS TO AMBER BARKLEY [id number] TYPE CODE TESTS RESULT OUT OF RANGE REFERENCE UNITS LAB L501.0100 74-106 mg/dL High GLU 156 Result Comment: Fasting Glucose result greater than or equal to 126 mg/dL suggests DIABETES MELLITUS per A.D.A. criteria. Please note revised GLUCOSE reference range effective 2017. LAB L501.1000 7-18 mg/dL High BUN 61 LAB L501.1100 0.55-1.02 mg/dL High CREAT,SERUM 1.97 Result Comment: The validity of the calculated GFR AND GFRAA in patients over 70 years has not been determined. Clinical correlation is essential. LAB L501.1110 >60 mL/min Low EST GFR 26 Result Comment: Non- GFR Calc LAB L501.1115 >60 mL/min Low EST GFR - AA 32 Result Comment: GFR Calc LAB L501.1300 10-20 RATIO High BUN/CRE 31.0 LAB L501.1800 3.2-5.0 g/dL Normal ALB 3.7 LAB L501.2200 8.5-10.1 mg/dL CA Normal 9.2 LAB L501.2300 2.5-4.9 mg/dL Normal PHOS 3.5 LAB L501.5300 136-145 mmol/L Low NA 135 LAB L501.5600 3.5-5.1 mmol/L K Normal 4.5 LAB L501.5900 98-107 mmol/L CL Normal 100 LAB L501.6100 21.0-32.0 mmol/L Normal CO2 25.0 Performed By: #### L500.3600 #### [facility] [address] [place], [address] VITAMIN D,25 HYDROXY Collected: 04/04/2018 Status: F Source: PATO 10:22 AM [facility] REPOSITORY Order Comment: PLEASE COPY RESULTS TO AMBER BARKLEY [id number] TYPE CODE TESTS RESULT OUT OF RANGE REFERENCE UNITS LAB L506.1000 29.95-100.01 ng/mL Normal Vitamin D 37.6 25-OH Result Comment: Vitamin D 25(OH) Status Range Deficiency <20 ng/mL (50nmol/L) Insuffciency 20 - 30 ng/mL (50 - 75 nmol/L) Sufficiency 30 - 100 ng/mL (75 - 250 nmol/L) Toxicity >100 ng/mL (>250 nmol/L) Performed By: #### L506.1000 #### [facility] [address] [place], [address] HEMOGLOBIN A1C Collected: 04/04/2018 Status: F Source: PATO 9:41 AM [facility] REPOSITORY TYPE CODE TESTS RESULT OUT OF RANGE REFERENCE UNITS LAB L501.9985 4.2-6.3 % High HGB A1C 7.8 Performed By: #### L501.9985 #### [facility] [address] [place], [address] VASC LAB PVR (ARTERIAL Observed: 03/31/2018 Status: F Source: [facility] JOSEFINA 2:18 PM [facility]PIT[facility] REPOSITORY [facility], [address] [place] [address] and Vascular Lab Report PVR With Exercise Patient Name: GRACIELA Telles Physician: [id number] Emiliano Enriquez MD Study Date: 03/31/2018 Referring Emiliano Enriquez MD Physician: MRN/PID: [id number] PCP: Accession/Order#: [id number] CC Report to: Date of : 1940 Technologist: Clive Peña RVT Gender: F Technologist 2: Admission Status: Outpatient Location Performed: [facility] Diagnosis/ICD: I73.9-Peripheral vascular disease, unspecified Procedure/CPT: 99533 Peripheral artery PVR with exercise CONCLUSIONS: Right Lower PVR: Evidence of moderate arterial occlusive disease in the right lower extremity at rest. Hemodynamics are further compromised in the right lower extremity with exercise. Decreased digital perfusion noted. Left Lower PVR: Evidence of moderate arterial occlusive disease in the left lower extremity at rest. Hemodynamics are further compromised in the left lower extremity with exercise. Imaging & Doppler Findings: RIGHT Lower PVR Pressures Ratios Right Posterior Tibial (Ankle) 76 mmHg 0.50 Right Dorsalis Pedis (Ankle) 72 mmHg 0.47 Right Digit (Great Toe) 55 mmHg 0.36 Right Ankle Post Exercise 42 mmHg 0.26 5 Minute Pressure 76 mmHg 0.50 LEFT Lower PVR Pressures Ratios Left Posterior Tibial (Ankle) 104 mmHg 0.68 Left Dorsalis Pedis (Ankle) 89 mmHg 0.59 Left Digit (Great Toe) 79 mmHg 0.52 Left Ankle Post Exercise 60 mmHg 0.37 5 Minute Pressure 92 mmHg 0.61 Right Left Brachial Pressure 152 mmHg 147 mmHg [id number] Emiliano Enriquez MD Final ECHOCARDIOGRAM Observed: 03/31/2018 Status: F Source: [place] 12:49 PM [facility], [address] [place] [address] and TRANSTHORACIC ECHOCARDIOGRAM REPORT Patient Name: GRACIELA Telles Physician: [id number] Kierra Akbar MD Study Date: 03/31/2018 Referring Physician: Marisa DEWEY MRN/PID: [id number] PCP: Joni Grimm MD Accession/Order#: [id number] Department Location: [facility] Non Invasive Date of : 1940 Fellow: Gender: F Nurse: Admit Date: Schedule Checker: Tiffanie Robledo [facility] Admission Status: Outpatient Additional Staff: Height: 157.00 cm CC Report to: Weight: 80.00 kg Study Type: Echocardiogram BSA: 1.81 m2 Blood Pressure: 141 /62 mmHg Diagnosis/ICD: I35.0 Nonrheumatic aortic (valve) stenosis;I34.0 Nonrheumatic mitral (valve) insufficiency Indication: , MR Procedure/CPT: Echo Complete w/Full Doppler (34071) Patient History: CABG: CABG x 3. Valve Disorders: Aortic Valve Replacement and Mitral Valve Replacement. Diabetes: Yes Pertinent History: HTN and LE Edema. 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 Study Detail: The following Echo studies were performed: 2D, M-Mode, Doppler and color flow. Technically challenging study due to body habitus and surgical scaring and prosthetic shadowing. PHYSICIAN INTERPRETATION: Left Ventricle: The left ventricular systolic function is normal, with an estimated ejection fraction of 55-60%. The left ventricular cavity size is normal. Abnormal (paradoxical) septal motion consiste nt with post-operative status. Left ventricular diastolic filling was indeterminate. Left Atrium: The left atrium is normal in size. Right Ventricle: The right ventricle is normal in size. There is normal right ventricular global systolic function. Right Atrium: The right atrium is normal in size. Aortic Valve: The aortic valve appears abnormal. There is a bovine aortic valve bioprosthesis. There is no evidence of aortic valve regurgitation. The peak instantaneous gradient of the aortic valve is 16.2 mmHg. The mean gradient of the aortic valve is 8.8 mmHg. S/p bovine AVR with gradients of 16/8mmHg and no AI. Mitral Valve: The mitral valve is abnormal. There is a porcine mitral valve bioprosthesis. There is trace mitral valve regurgitation. S/p porcine MVR with guzman gradient of 8.6 mmHg and at least trivial MR, could be underestimated due to sheilding frmo the prosthesis ( appears to be valvular ) Prosthesis not well visualized. Tricuspid Valve: The tricuspid valve is structurally normal. There is trace tricuspid regurgitation. The doppler estimated RVSP is within normal limits at 27.2 mmHg. Pulmonic Valve: The pulmonic valve is not well visualized. The pulmonic valve regurgitation was not well visualized. Pericardium: There is no pericardial effusion noted. Aorta: The aortic root is normal. Systemic Veins: The inferior vena cava appears to be of normal size. There is IVC inspiratory collapse greater than 50%. In comparison to the previous echocardiogram(s): Compared with the prior exam from 04/15/2017 the MV gradients are similar ( prior mean MV gradient was 9.5mmHg)and the prior AV gradients were 21/15mmHg s till with preserved LV systolic function. CONCLUSIONS: 1. The left ventricular systolic function is normal with a 55-60% estimated ejection fraction. 2. Poorly visualized anatomical structures due to suboptimal image quality. 3. Abnormal septal motion consistent with post-operative status. 4. S/p porcine MVR with guzman gradient of 8.6 mmHg and at least trivial MR, could be underestimated due to sheilding frmo the prosthesis ( appears to be valvular ) Prosthesis not well visualized. 5. RVSP within normal limits. 6. S/p bovine AVR with gradients of 16/8mmHg and no AI. 7. Compared with the prior exam from 04/15/2017 the MV gradients are similar ( prior mean MV gradient was 9.5mmHg)and the prior AV gradients were 21/15mmHg still with preserved LV systolic function. QUANTITATIVE DATA SUMMARY: 2D MEASUREMENTS: Normal Ranges: LAs: 4.41 cm (2.7-4.0cm) IVSd: 1.10 cm (0.6-1.1cm) LVPWd: 1.13 cm (0.6-1.1cm) LVIDd: 4.14 cm (3.9-5.9cm) LVIDs: 2.24 cm LV Mass Index: 86.2 g/m2 LV % FS 45.9 % LA VOLUME: Normal Ranges: LA Vol A4C: 56.7 ml (22+/-6mL/m2) LA Vol A2C: 50.6 ml LA Vol BP: 54.1 ml LA Vol Index A4C: 31.3 ml/m2 LA Vol Index A2C: 28.0 ml/m2 LA Vol Index BP: 29.9 ml/m2 LA Area A4C: 17.7 cm2 LA Area A2C: 16.9 cm2 LA Major [place] A4C: 4.7 cm LA Major [place] A2C: 4.8 cm LA Volume Index: 30.0 ml/m2 LA Vol A4C: 55.7 ml LA Vol A2C: 47.2 ml RA VOLUME BY A/L METHOD: Normal Ranges: RA Area A4C: 13.1 cm2 AORTA MEASUREMENTS: Normal Ranges: Asc Ao, d: 2.40 cm (2.1-3.4cm) LV SYSTOLIC FUNCTION BY 2D PLANIMETRY (MOD): Normal Ranges: EF-A4C View: 46.8 % (>55%) EF-A2C View: 54.7 % EF-Biplane: 51.4 % LV DIASTOLIC FUNCTION: Normal Ranges: MV Peak E: 1.84 m/s (0.7-1.2 m/s) MV Peak A: 1.58 m/s (0.42-0.7 m/s) E/A Ratio: 1.17 (1.0-2.2) MV lateral e' 0.07 m/s MV medial e' 0.04 m/s MV A Dur: 133.79 msec PulmV Sys Tavo: 43.40 cm/s PulmV Murdock Tavo: 52.50 cm/s PulmV S/D Tavo: 0.83 PulmV A Revs Tavo: 14.79 cm/s PulmV A Revs Dur: 96.89 msec MITRAL VALVE: Normal Ranges: MV Vmax: 2.11 m/s (<1.3m/s) MV peak P.9 mmHg (<5mmHg) MV mean P.6 mmHg (<48mmHg) MV VTI: 71.29 cm (10-13cm) MV DT: 267 msec (150-240msec) AORTIC VALVE: Normal Ranges: AoV Vmax: 2.01 m/s (<1.7m/s) AoV Peak P.2 mmHg (<20mmHg) AoV Mean P.8 mmHg (1.7-11.5mmHg) LVOT Max Tavo: 1.22 m/s (<1.1m/s) AoV VTI: 55.95 cm (18-25cm) LVOT VTI: 35.38 cm AoV Dimensionless Index: 0.63 RIGHT VENTRICLE: RV 1 3.5 cm RV 2 3 cm RV 3 6.9 cm TAPSE: 19.0 mm TRICUSPID VALVE/RVSP: Normal Ranges: Peak TR Velocity: 2.35 m/s RV Syst Pressure: 27.2 mmHg (< 30mmHg) IVC Diam: 1.80 cm PULMONIC VALVE: Normal Ranges: PV Accel Time: 92 msec (>120ms) PV Max Tavo: 1.2 m/s (0.6-0.9m/s) PV Max P.6 mmHg Pulmonary Veins: PulmV A Revs Dur: 96.89 msec PulmV A Revs Tavo: 14.79 cm/s PulmV Murdock Tavo: 52.50 cm/s PulmV S/D Tavo: 0.83 PulmV Sys Tavo: 43.40 cm/s AORTA: Asc Ao Diam 2.73 cm [id number] Kierra Akbar MD Electronically signed on 03/31/2018 at 5:50:46 PM Final CNCO Observed: 03/16/2018 Status: COMPLETED Source: JOINER 2:[address] [facility] REPOSITORY HNO ID: [id number] Author: Mammography Coordinator Service: (none) Author Type: Physician Type: Letter Filed: 03/17/2018 11:32 PM Note Text: March 16, 2018 PID: [id number] Graciela Cavazos [address] [place] [address] Dear Ms. Cavazso, Your recent breast imaging exam on 03/16/2018 showed a possible finding that requires additional imaging studies for a complete evaluation. Most such findings are probably benign (not cancer). Please call [phone] or [phone] to schedule an appointment for your additional imaging if you have not already done so. Your breast images and report will be kept on file here as part of your permanent medical record and are available for your continuing care. Thank you for allowing us to help in meeting your health care needs. Sincerely, Dr. Anderson Interpreting Radiologist [facility] (Additional imaging) CNOV Observed: 03/16/2018 Status: COMPLETED Source: JOINER 9:[address] [facility] REPOSITORY Office Visit (WOOB) GRACIELA CAVAZOS ([id number]) 1940 F Date Time Provider Department 03/16/18 9:50 AM ANGELES MARTÍNEZ During your visit today, we recorded the following information about you: Blood pressure Weight Height 114/62 83 kg 1.575 m Lilliam Jorge Markus 03/16/2018 10:02 AM Signed Wide Area Network Administrator offered: Patient declines. Angeles Sood MD 03/16/2018 10:02 AM Signed Graciela Cavazos is a 77 year old who presents for her annual gynecologic exam without complaints. Had open heart surgery and valve replacement about 2 yrs ago- doing well now- Still with some residual pain. Postmenopausal: Yes HRT use: No. Last Pap: 2009 normal History of abnormal pap: No Last mammogram: 2017 pending History of abnormal mammogram: No Sexually active: no History of STDS: None Patient concerns for STD exposure: No. Hot flashes: No Night sweats: No Vaginal dryness: No Exercise: trying to stay active Diet: balanced Obstetric History T0 L2 SAB0 TAB0 Ectopic0 Multiple0 Live Births0 PAST MEDICAL HISTORY Diagnosis Date - Allergic rhinitis, cause unspecified Allergic rhinitis - Cataract of left eye 12/31/2010 removed - Cataract of right eye 04/15/2011 removed - Diabetes mellitus without mention of complication Diabetes mellitus - Diverticulosis of colon (without mention of hemorrhage) - Dysthymic disorder Depression (non-psychotic) - Dysthymic disorder - Esophageal reflux Gastroesophageal reflux - Internal hemorrhoids without mention of complication - Nonspecific elevation of levels of transaminase or lactic acid dehydrogenase (LDH) Elevated LFT's - Peripheral vascular disease, unspecified (HCC) - PMH - PAST MEDICAL HISTORY OF 08/2007 Broken left elbow - Rheumatoid arthritis(714.0) - Unspecified closed fracture of ankle 2009 Ankle fracture - 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 PAST SURGICAL HISTORY Procedure Laterality Date - ANGIOPLASTY 10/25/2009 no stents in left - Ballooning only left leg - CABG (3) VEIN GRAFTS AND ARTERIAL GRAFT(S) 05/01/2016 - COLONOSCOP W/ OR W/O BRSH SPEC 09/12/07 - LIGATE FALLOPIAN TUBE Tubal ligation - PAST SURGICAL HISTORY OF 08/09/09 Successful VENDOR MANAGER/Stenting -right SFA Leg - PAST SURGICAL HISTORY OF 05/19/10 left leg broken-pins, screws, plates - REMOVAL GALLBLADDER 1987- Cholecystectomy - REMOVAL OF TONSILS,<14 Y/O Tonsillectomy - REMV LENS MATERIAL,PHACOFRAGMT 12/31/2010 Cataract Extraction, left eye dr raya - REVISION OF EYELID,< 1/4 LID MARGIN 03/2015 bilateral FAMILY HISTORY Problem Relation Age of Onset - Heart Mother CABG in her 80s - Stroke Maternal Grandfather - Diabetes Paternal Grandmother - Cancer Maternal Uncle Stomach SOCIAL HISTORY Social History Substance Use Topics - Smoking status: Never Smoker - Smokeless tobacco: Never Used - Alcohol use Yes Comment: rarely 3-4 per year REVIEW OF SYSTEMS Abdomen: No abdominal pain, nausea, vomiting, diarrhea, or constipation. No bloating, early satiety, indigestion, or increased flatulence. Bladder: No dysuria, gross hematuria, urinary frequency, urinary urgency, or incontinence Breast: No breast lumps, nipple d/c, overlying skin changes, redness or skin retraction Allergies and current medication updated:Yes EXAM: BP 114/62 Ht 5' 2 (1.58m) Wt 183 lb (83.0kg) BMI 33.46 kg/(m2). GENERAL: pleasant, female in no apparent distress HEENT: Normocephalic, atraumatic, mucus membranes moist and no lesions NECK: Supple, full range of motion, no adenopathy and thyroid normal DERMATOLOGY: Normal, without lesions, non-icteric and non-hirsute BREAST: soft, non-tender, symmetric, no dominant mass, normal nipple-areolar complex, no lymphadenopathy and no nipple discharge CHEST: well healed midline scar ABDOMEN: soft, non-tender and no masses PELVIC: external genitalia normal, normal Bartholin's glands, urethra, [place] Pocket's glands, no vulvar lesions, no cervical lesions, physiologic discharge present, normal appearing perineal body and perianal region, cervical prolapse 1st degree BIMANUAL: uterus normal size, shape and consistency, no adnexal masses and non-tender RECTOVAGINAL: deferred. NEURO: alert and oriented x3,exam grossly non-focal EXTREMITIES: normal ASSESSMENT/PLAN: 1) Health maintenance: Pap/HPV screening no longer needed Mammogram ordered Mammogram up to date Nutrition, exercise and routine health maintenance exams reviewed. Calcium/Vitamin D supplementation information provided. Colon cancer screening: ordered from pcp BMD: up to date 2) Follow up one year or sooner as needed MD Angeles Ramirez MD 03/16/2018 9:42 AM Signed Calcium and Vitamin D Supplementation (from the National Institutes of Health Office of Dietary Supplements 2010) Calcium is required by the body for blood vessel, muscle, hormone and nerve functioning. Most of the body's calcium is stored in the bones and teeth where it supports structure and function. Bone is continuously broken down and reformed. When bone breakdown exceeds formation, especially in postmenopausal women, bone loss can increase the risk of osteoporosis and fractures. In addition to low calcium intake, women who smoke, have a family history of osteoporosis, are thin, or , or who take certain medications such as cancer chemotherapy, seizure mediations and steroids are at increased risk of osteoporosis. The calcium requirements in women change with age. The National Institutes of Health (NIH) recommends: 1000mg elemental calcium for premenopausal women age 19-50 1200mg elemental calcium for postmenopausal women and all women over 50 Milk, yogurt, and cheese are rich natural sources of calcium and are the major food contributors in the [place]. For example, 8oz of milk (whole, lowfat or skim) contains about 300mg calcium, 8oz of yogurt contains 415mg. Nondairy sources include salmon and sardines and vegetables, such as [place] cabbage, kale, and broccoli. Foods fortified with calcium include many fruit juices, tofu and cereals. For more food calcium content information, visit http://ods.od.nih.gov/factsheets/calcium. Calcium supplements come in several different forms. Remember that the recommendations are for millgrams (mg) of elemental calcium which may be less than the total weight of the supplement. The amount of elemental calcium is required to be printed on the label. Calcium carbonate is the least expensive form. It must be taken on a full stomach to be properly absorbed. Some patients may experience gas or constipation. Calcium phosphate and calcium citrate may be taken either with or without food and tend to have less side effects but are generally more expensive. Because of its ability to neutralize stomach acid, calcium carbonate is found in some rtnm-ift-hulytun antacid products, such as Tums? and Rolaids?. Depending on its strength, each chewable pill or softchew provides 200 to 400 mg of elemental calcium. The percentage of calcium absorbed depends on the total amount of elemental calcium consumed at one time. Absorption is highest in doses <500mg. So a woman who takes 1,000mg/day of calcium from supplements should split the dose and take 500mg at two separate times during the day. Too much calcium can cause kidney stones, constipation, difficulty absorbing other nutrients and calcium buildup in blood vessels. Women under 50 should not exceed 2500mg/day (2000mg/day for women over 50) of calcium from food and supplements. Excessive alcohol and caffeine intake can inhibit absorption of calcium. Calcium can reduce the absorption of some medications if taken at the same time of day (bisphosphonates, thyroid medication, Phenytoin and other seizure medications, some antibiotics and iron supplements). Vitamin D promotes calcium absorption in the gut and maintains adequate blood levels of calcium and phosphate for normal bone growth and bone remodeling. Vitamin D also helps regulate cell growth as well as nerve, muscle and immune system function. Vitamin D is produced in the skin as a result of ultraviolet sunlight rays and must be altered in the liver and kidney to become its active form. Recommended intake according to the National Institutes of Health is 600 International Units (IU) for girls and women ages 1-70 and 800 IU for women over 70. Very few foods in nature contain vitamin D. The flesh of fatty fish (such as salmon, tuna, and mackerel) and fish liver oils are among the best sources. Small amounts of vitamin D are found in beef liver, cheese, mushrooms and egg yolks. Most people meet at least some of their vitamin D needs through exposure to sunlight. Season, time of day, length of day, cloud cover, smog, skin melanin content, and sunscreen are among the factors that affect UV radiation exposure and vitamin D synthesis. Despite the importance of the sun for vitamin D synthesis, it is prudent to limit exposure of skin to sunlight and avoid tanning beds. UV radiation is a carcinogen responsible for most of the estimated 1.5 million skin cancers that occur annually in the [place]. Lifetime cumulative UV damage to skin is also responsible for some age-associated dryness and other cosmetic changes. In supplements and fortified foods, vitamin D is available in two forms, D2 (ergocalciferol) and D3 (cholecalciferol). The two are equivalent at normal supplement doses. For women who require high supplement doses because of vitamin D deficiency, D3 may work better to raise blood levels. Some medications can prevent proper absorption of Vitamin D. These include laxatives, corticosteroids like prednisone, the seizure drugs phenobarbital and phenytoin, the weight-loss drug orlistat ( Xenical? and AlliTM) and the cholesterol-lowering drug cholestyramine (Questran?, LoCholest?, and Prevalite?). Talk to your doctor about adjusting your recommended daily vitamin D dosage if you take these medications. You should not exceed 4000 mg of vitamin D supplementation daily unless specifically prescribed by your doctor. ACOG Screening Guidelines (2015) The following health screening schedule is recommended by the [place] [employer] [place] [employer] (ACOG). Some of these tests may be ordered or performed by your primary care doctor. Pap test screening The pap test looks at cells on the cervix (the opening from the vagina to the uterus) to look for cancer or pre-cancerous changes. These changes are caused by the human papillomavirus (HPV). Studies estimate that half of all women will test positive for this virus within 3 years of starting sexual activity. For young women with a normal immune system, 90% of HPV infections will resolve within 2 years. There is a vaccine available against some forms of HPV. This is recommended for girls and women age 9-26 and is a series of 3 injections over 6 months. Because this vaccine does not protect against all HPV types which can cause cervical cancer, women who received the vaccine still need pap tests. Pap smear screening should be started at age 21. The pap test should be done every 3 years from age 21-29. From age 30-65, pap smears can be done every 5 years if HPV test is negative or every 3 years if HPV testing is not done. For women over the age of 65, ACOG recommends against screening women who have had adequate prior screening and are not otherwise at high risk for cervical cancer. Women who have had a hysterectomy also do not need routine pap smear screening unless the pap smear was done for a cervical cancer or moderate to severe dysplasia. Breast cancer screening Mammogram should be performed every 1-2 years starting at age 40 and every year starting at age 50. Screening may be started earlier depending on family history. Cholesterol screening Lipid panel (cholesterol test) should be checked every 5 years starting at age 45. Diabetes screening Fasting glucose (blood sugar) test should be performed every 3 years starting at age 45. Colorectal cancer screening Starting at age 50, women should have a screening colonoscopy at least every 10 years. Screening may be started earlier depending on family history. Thyroid screening Thyroid function test (TSH) should be checked every 5 years starting at age 50. Bone mineral density screening All postmenopausal women age 65 and over and postmenopausal women with risk factors for osteoporosis should have a bone mineral density test performed. Risk factors include race, family history of osteoporosis, personal history of fractures, poor nutrition, smoking, heavy alcohol use, early menopause, low calcium intake and low body weight. Certain medical conditions and long-term use of some medications may also increase risk. How To Perform Pelvic Floor (Kegel) Exercises These exercises help to strengthen the pelvic floor muscles and can help improve bladder control for women. 1. You should have been instructed in the office how to contract these muscles. At home, you can insert two fingers in the vagina and feel the contraction of these muscles as you squeeze. We call these muscles the ?pelvic floor? because they help support the pelvic organs, especially during coughing and sneezing. Squeezing the pelvic floor while standing feels like you are ?lifting? the area around the vagina, and will interrupt the stream of urine while voiding. Once you are certain which muscles to use, do not exercise while urinating. Make sure you are not bearing down, squeezing your buttocks, or straining abdominally: these are not the muscles to be exercised. You may wish to place hands on your buttock muscles to keep these muscles relaxed while performing the exercises. 2. Squeeze these muscles as hard as you can for a slow count of five, eventually working up to a slow count of ten. Rest for 15 seconds, and then start another contraction. At first. these muscles may feel sore, just as other muscles may feel sore after exercise. 3. You should perform 50 squeezes every day: make sure every squeeze count by basim as hard as you can! Many women try to do these exercises in sets of five or ten at a time. Remind yourself to do these exercises by starting them every time you are waiting at a red light, watching a television commercial, or ?on hold? on the telephone. If you are having trouble concentrating, you may want to set aside a special time to perform sets of pelvic floor exercises. 4. In addition to the long, hard contractions you are doing try doing some ?quick flicks? of these muscles throughout the day. 5. You should be seen in the office after starting these exercises to make sure you are performing the contraction correctly: you may have never known how to contract these muscles before starting pelvic floor exercises, and many patients mistakenly exercise the wrong muscles. If you still feel frustrated about which muscles to use ask us for help. There are physical therapy specialists who work with pelvic floor muscles. 6. Work hard! As with any exercise program, improvement often is related to how faithfully you adhere to your exercise program. Pelvic floor exercises do not have the side effects and expense associated with other treatments for urinary incontinence, and have been known to help with severe stress incontinence. It may take several months to see the full effect of your exercise program: if you are easily discouraged, see your doctor or doctor at regular visits to assess what progress you are making. Techniques to avoid urinary accidents: Empty your bladder regularly and prior to physical activity. Avoid activity that causes leakage, if possible. Avoid or moderate the intake of alcohol and caffeine products. Try to restrict fluids prior to planned activities. Wear appropriate protection. Prevent chronic coughing which can cause a loss of urinary control. Ways to prevent chronic coughing include treating asthma, restricting smoking, and removing allergy-causing agents from your environment. Referring Provider: ANGELES MARTÍNEZ [[id number]] Allergies As of Date: 03/16/2018 Noted Allergy Reaction ADHESIVE TAPE (ROSINS) 04/29/2016 9 - Itching Comments: Possible allergy. Pt had heart cath and she says her wrist was itchy and irritated where the cath was done. batazolidin [Other] 07/10/2005 5 - Intolerance CELEBREX (CELECOXIB) 10/16/2005 Comments: affected labs work diazide [Other] 07/10/2005 5 - Intolerance EFFEXOR (VENLAFAXINE HCL) 07/10/2005 1 - Mental Status Change Comments: patient uncertain INDOCIN (INDOMETHACIN SODIUM) 07/10/2005 5 - Intolerance meclomen [Other] 07/10/2005 5 - Intolerance MEVACOR (LOVASTATIN) 07/10/2005 5 - Intolerance MOTRIN (IBUPROFEN) 07/10/2005 Comments: hair loss NAPROSYN (NAPROXEN) 07/10/2005 5 - Intolerance NSAIDS (NON-STEROIDAL ANTI-INFLAM*07/10/2005 Comments: affected blood studies patient uncertain ORUDIS (KETOPROFEN) 07/10/2005 5 - Intolerance PROZAC (FLUOXETINE HCL) 07/10/2005 1 - Mental Status Change sporostacin [Other] 07/10/2005 5 - Intolerance STATINS ([id number] REDUCTAS*07/04/2009 5 - Intolerance Comments: myalgia on 80 mg simvastatin VICODIN (HYDROCODONE-ACETAMINOPHE*07/10/2005 5 - Intolerance ZOLOFT (SERTRALINE HCL) 07/10/2005 1 - Mental Status Change Date Reviewed: 03/16/2018 Reviewed by: Lilliam Jorge Ma - Fully Assessed Reason for Visit: Yearly Exam [187] Primary Visit Diagnosis:Gynecologic exam normal [Z01.419] Other Visit Diagnoses:Encounter for screening mammogram for malignant neoplasm of breast [Z12.31] Menopausal state [N95.1] Order(s):[facility]CRE[facility] [[id number]] Order #: [id number] FUTURE Prescriptions as of 03/16/2018 Sig: DULAGLUTIDE 1.5 MG/0.5 ML SUB* Inject 1.5 mg subcutaneously * CARVEDILOL 25 MG TABLET Take 1 tablet by mouth twice * METFORMIN 1,000 MG TABLET Take 1 tablet by mouth twice * CHLORTHALIDONE 25 MG TABLET Take 1 tablet by mouth once d* CLOPIDOGREL 75 MG TABLET Take 1 tablet by mouth once d* BLOOD SUGAR DIAGNOSTIC STRIPS Test blood sugar(s) 2 times d* AMLODIPINE 5 MG TABLET Take 1 tablet by mouth once d* ATORVASTATIN 80 MG TABLET Take 1 tablet by mouth once d* FUROSEMIDE 40 MG TABLET Take 1 tablet by mouth once d* Patient taking differently: Take 40 mg by mouth every oth* GLIMEPIRIDE 4 MG TABLET Take 1 tablet by mouth twice * LANCETS Use as instructed two times d* LISINOPRIL 20 MG TABLET Take 1 tablet by mouth once d* BLOOD-GLUCOSE METER Dispense One Kit - Verio Mete* THERAPEUTIC MULTIVITAMIN TABL* Take 1 tablet by mouth daily * SODIUM CHLORIDE 0.65 % NASAL * Use 2 Sprays in each nostril * * COMPOUNDED PRESCRIPTION Diabetic shoes. Has PVD * TYLENOL ARTHRITIS PAIN 650 MG* PRN use only * ASPIRIN 81 MG TABLET,DELAYED * Take one(1) tablet daily. Problem List As Of Date 03/16/2018 Noted Resolved Rheumatoid arthritis (HCC) [M06.9] INVALID FOR* BENIGN HYPERTENSION [I10] INVALID FOR* 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 ALLERGIC RHINITIS NOS [J30.9] More... ESOPHAGEAL REFLUX [K21.9] More... Peripheral vascular disease, unspecified (HCC) * Priority: D More... GLAUCOMA NOS [H40.9] More... 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 Preop testing [Z01.818] INVALID FOR* More... Discharge planning issues [Z02.9] INVALID FOR* Priority: M More... Atherosclerosis of tangirnaq coronary artery with *INVALID FOR* Priority: A More... HOCM (hypertrophic obstructive cardiomyopathy) *INVALID FOR* Priority: A More... (aortic stenosis) [I35.0] INVALID FOR* Priority: A More... Mitral regurgitation [I34.0] INVALID FOR* Priority: A More... Hypovolemia [E86.1] INVALID FOR*05/02/2016 Priority: F More... More... Cardiac insufficiency (HCC) [I50.9] INVALID FOR*05/04/2016 Priority: C More... Atelectasis [J98.11] INVALID FOR*05/06/2016 Priority: B More... Stage 3 chronic kidney disease (HCC) [N18.3] INVALID FOR* Priority: F More... Sinus bradycardia [R00.1] INVALID FOR*05/06/2016 Priority: C More... Fluid overload [E87.70] INVALID FOR*05/06/2016 Priority: F More... Thrombocytopenia ([facility]) [D69.6] INVALID FOR*05/07/2016 Priority: H More... 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 Hyperlipidemia LDL goal <70 [E78.5] INVALID FOR* Priority: D More... Essential hypertension [I10] INVALID FOR* Priority: C More... 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 Most of the body's calcium is stored in the bones and teeth where it supports structure and function. Bone is continuously broken down and reformed. When bone breakdown exceeds formation, especially in postmenopausal women, bone loss can increase the risk of osteoporosis and fractures. In addition to low calcium intake, women who smoke, have a family history of osteoporosis, are thin, or , or who take certain medications such as cancer chemotherapy, seizure mediations and steroids are at increased risk of osteoporosis. The calcium requirements in women change with age. The National Institutes of Health (NIH) recommends: 1000mg elemental calcium for premenopausal women age 19-50 1200mg elemental calcium for postmenopausal women and all women over 50 Milk, yogurt, and cheese are rich natural sources of calcium and are the major food contributors in the [place]. For example, 8oz of milk (whole, lowfat or skim) contains about 300mg calcium, 8oz of yogurt contains 415mg. Nondairy sources include salmon and sardines and vegetables, such as [place] cabbage, kale, and broccoli. Foods fortified with calcium include many fruit juices, tofu and cereals. For more food calcium content information, visit http://ods.od.nih.gov/factsheets/calcium. Calcium supplements come in several different forms. Remember that the recommendations are for millgrams (mg) of elemental calcium which may be less than the total weight of the supplement. The amount of elemental calcium is required to be printed on the label. Calcium carbonate is the least expensive form. It must be taken on a full stomach to be properly absorbed. Some patients may experience gas or constipation. Calcium phosphate and calcium citrate may be taken either with or without food and tend to have less side effects but are generally more expensive. Because of its ability to neutralize stomach acid, calcium carbonate is found in some nxkt-xht-hrejumg antacid products, such as Tums? and Rolaids?. Depending on its strength, each chewable pill or softchew provides 200 to 400 mg of elemental calcium. The percentage of calcium absorbed depends on the total amount of elemental calcium consumed at one time. Absorption is highest in doses <500mg. So a woman who takes 1,000mg/day of calcium from supplements should split the dose and take 500mg at two separate times during the day. Too much calcium can cause kidney stones, constipation, difficulty absorbing other nutrients and calcium buildup in blood vessels. Women under 50 should not exceed 2500mg/day (2000mg/day for women over 50) of calcium from food and supplements. Excessive alcohol and caffeine intake can inhibit absorption of calcium. Calcium can reduce the absorption of some medications if taken at the same time of day (bisphosphonates, thyroid medication, Phenytoin and other seizure medications, some antibiotics and iron supplements). Vitamin D promotes calcium absorption in the gut and maintains adequate blood levels of calcium and phosphate for normal bone growth and bone remodeling. Vitamin D also helps regulate cell growth as well as nerve, muscle and immune system function. Vitamin D is produced in the skin as a result of ultraviolet sunlight rays and must be altered in the liver and kidney to become its active form. Recommended intake according to the National Institutes of Health is 600 International Units (IU) for girls and women ages 1-70 and 800 IU for women over 70. Very few foods in nature contain vitamin D. The flesh of fatty fish (such as salmon, tuna, and mackerel) and fish liver oils are among the best sources. Small amounts of vitamin D are found in beef liver, cheese, mushrooms and egg yolks. Most people meet at least some of their vitamin D needs through exposure to sunlight. Season, time of day, length of day, cloud cover, smog, skin melanin content, and sunscreen are among the factors that affect UV radiation exposure and vitamin D synthesis. Despite the importance of the sun for vitamin D synthesis, it is prudent to limit exposure of skin to sunlight and avoid tanning beds. UV radiation is a carcinogen responsible for most of the estimated 1.5 million skin cancers that occur annually in the [place]. Lifetime cumulative UV damage to skin is also responsible for some age-associated dryness and other cosmetic changes. In supplements and fortified foods, vitamin D is available in two forms, D2 (ergocalciferol) and D3 (cholecalciferol). The two are equivalent at normal supplement doses. For women who require high supplement doses because of vitamin D deficiency, D3 may work better to raise blood levels. Some medications can prevent proper absorption of Vitamin D. These include laxatives, corticosteroids like prednisone, the seizure drugs phenobarbital and phenytoin, the weight-loss drug orlistat ( Xenical? and AlliTM) and the cholesterol-lowering drug cholestyramine (Questran?, LoCholest?, and Prevalite?). Talk to your doctor about adjusting your recommended daily vitamin D dosage if you take these medications. You should not exceed 4000 mg of vitamin D supplementation daily unless specifically prescribed by your doctor. ACOG Screening Guidelines (2015) The following health screening schedule is recommended by the [place] [employer] [place] [employer] (ACOG). Some of these tests may be ordered or performed by your primary care doctor. Pap test screening The pap test looks at cells on the cervix (the opening from the vagina to the uterus) to look for cancer or pre-cancerous changes. These changes are caused by the human papillomavirus (HPV). Studies estimate that half of all women will test positive for this virus within 3 years of starting sexual activity. For young women with a normal immune system, 90% of HPV infections will resolve within 2 years. There is a vaccine available against some forms of HPV. This is recommended for girls and women age 9-26 and is a series of 3 injections over 6 months. Because this vaccine does not protect against all HPV types which can cause cervical cancer, women who received the vaccine still need pap tests. Pap smear screening should be started at age 21. The pap test should be done every 3 years from age 21-29. From age 30-65, pap smears can be done every 5 years if HPV test is negative or every 3 years if HPV testing is not done. For women over the age of 65, ACOG recommends against screening women who have had adequate prior screening and are not otherwise at high risk for cervical cancer. Women who have had a hysterectomy also do not need routine pap smear screening unless the pap smear was done for a cervical cancer or moderate to severe dysplasia. Breast cancer screening Mammogram should be performed every 1-2 years starting at age 40 and every year starting at age 50. Screening may be started earlier depending on family history. Cholesterol screening Lipid panel (cholesterol test) should be checked every 5 years starting at age 45. Diabetes screening Fasting glucose (blood sugar) test should be performed every 3 years starting at age 45. Colorectal cancer screening Starting at age 50, women should have a screening colonoscopy at least every 10 years. Screening may be started earlier depending on family history. Thyroid screening Thyroid function test (TSH) should be checked every 5 years starting at age 50. Bone mineral density screening All postmenopausal women age 65 and over and postmenopausal women with risk factors for osteoporosis should have a bone mineral density test performed. Risk factors include race, family history of osteoporosis, personal history of fractures, poor nutrition, smoking, heavy alcohol use, early menopause, low calcium intake and low body weight. Certain medical conditions and long-term use of some medications may also increase risk. How To Perform Pelvic Floor (Kegel) Exercises These exercises help to strengthen the pelvic floor muscles and can help improve bladder control for women. 1. You should have been instructed in the office how to contract these muscles. At home, you can insert two fingers in the vagina and feel the contraction of these muscles as you squeeze. We call these muscles the ?pelvic floor? because they help support the pelvic organs, especially during coughing and sneezing. Squeezing the pelvic floor while standing feels like you are ?lifting? the area around the vagina, and will interrupt the stream of urine while voiding. Once you are certain which muscles to use, do not exercise while urinating. Make sure you are not bearing down, squeezing your buttocks, or straining abdominally: these are not the muscles to be exercised. You may wish to place hands on your buttock muscles to keep these muscles relaxed while performing the exercises. 2. Squeeze these muscles as hard as you can for a slow count of five, eventually working up to a slow count of ten. Rest for 15 seconds, and then start another contraction. At first. these muscles may feel sore, just as other muscles may feel sore after exercise. 3. You should perform 50 squeezes every day: make sure every squeeze count by basim as hard as you can! Many women try to do these exercises in sets of five or ten at a time. Remind yourself to do these exercises by starting them every time you are waiting at a red light, watching a television commercial, or ?on hold? on the telephone. If you are having trouble concentrating, you may want to set aside a special time to perform sets of pelvic floor exercises. 4. In addition to the long, hard contractions you are doing try doing some ?quick flicks? of these muscles throughout the day. 5. You should be seen in the office after starting these exercises to make sure you are performing the contraction correctly: you may have never known how to contract these muscles before starting pelvic floor exercises, and many patients mistakenly exercise the wrong muscles. If you still feel frustrated about which muscles to use ask us for help. There are physical therapy specialists who work with pelvic floor muscles. 6. Work hard! As with any exercise program, improvement often is related to how faithfully you adhere to your exercise program. Pelvic floor exercises do not have the side effects and expense associated with other treatments for urinary incontinence, and have been known to help with severe stress incontinence. It may take several months to see the full effect of your exercise program: if you are easily discouraged, see your doctor or doctor at regular visits to assess what progress you are making. Techniques to avoid urinary accidents: Empty your bladder regularly and prior to physical activity. Avoid activity that causes leakage, if possible. Avoid or moderate the intake of alcohol and caffeine products. Try to restrict fluids prior to planned activities. Wear appropriate protection. Prevent chronic coughing which can cause a loss of urinary control. Ways to prevent chronic coughing include treating asthma, restricting smoking, and removing allergy-causing agents from your environment. Disposition: Return in 1 year (on 03/16/2019) for Annual Exam. Follow-up and Disposition History Recorded Encounter Status:Closed by ANGELES OROZCO MD on 03/16/18 PROGRESS Observed: 03/16/2018 Status: COMPLETED Source: JOINER 9:42 AM [facility] REPOSITORY O ID: [id number] Author: Angeles Orozco Service: (none) Author Type: Physician Type: Progress Notes Filed: 03/16/2018 10:02 AM Note Text: Graciela Cavazos is a 77 year old who presents for her annual gynecologic exam without complaints. Had open heart surgery and valve replacement about 2 yrs ago- doing well now- Still with some residual pain. Postmenopausal: Yes HRT use: No. Last Pap: 2009 normal History of abnormal pap: No Last mammogram: 2017 pending History of abnormal mammogram: No Sexually active: no History of STDS: None Patient concerns for STD exposure: No. Hot flashes: No Night sweats: No Vaginal dryness: No Exercise: trying to stay active Diet: balanced Obstetric History T0 L2 SAB0 TAB0 Ectopic0 Multiple0 Live Births0 PAST MEDICAL HISTORY Diagnosis Date - Allergic rhinitis, cause unspecified Allergic rhinitis - Cataract of left eye 12/31/2010 removed - Cataract of right eye 04/15/2011 removed - Diabetes mellitus without mention of complication Diabetes mellitus - Diverticulosis of colon (without mention of hemorrhage) - Dysthymic disorder Depression (non-psychotic) - Dysthymic disorder - Esophageal reflux Gastroesophageal reflux - Internal hemorrhoids without mention of complication - Nonspecific elevation of levels of transaminase or lactic acid dehydrogenase (LDH) Elevated LFT's - Peripheral vascular disease, unspecified (HCC) - PMH - PAST MEDICAL HISTORY OF 08/2007 Broken left elbow - Rheumatoid arthritis(714.0) - Unspecified closed fracture of ankle 2009 Ankle fracture - 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 PAST SURGICAL HISTORY Procedure Laterality Date - ANGIOPLASTY 10/25/2009 no stents in left - Ballooning only left leg - CABG (3) VEIN GRAFTS AND ARTERIAL GRAFT(S) 05/01/2016 - COLONOSCOP W/ OR W/O [facility] SPEC 09/12/07 - LIGATE FALLOPIAN TUBE Tubal ligation - PAST SURGICAL HISTORY OF 08/09/09 Successful VENDOR MANAGER/Stenting -right SFA Leg - PAST SURGICAL HISTORY OF 05/19/10 left leg broken-pins, screws, plates - REMOVAL GALLBLADDER 1987- Cholecystectomy - REMOVAL OF TONSILS,<14 Y/O Tonsillectomy - REMV LENS MATERIAL,PHACOFRAGMT 12/31/2010 Cataract Extraction, left eye dr raya - REVISION OF EYELID,< 1/4 LID MARGIN 03/2015 bilateral FAMILY HISTORY Problem Relation Age of Onset - Heart Mother CABG in her 80s - Stroke Maternal Grandfather - Diabetes Paternal Grandmother - Cancer Maternal Uncle Stomach SOCIAL HISTORY Social History Substance Use Topics - Smoking status: Never Smoker - Smokeless tobacco: Never Used - Alcohol use Yes Comment: rarely 3-4 per year REVIEW OF SYSTEMS Abdomen: No abdominal pain, nausea, vomiting, diarrhea, or constipation. No bloating, early satiety, indigestion, or increased flatulence. Bladder: No dysuria, gross hematuria, urinary frequency, urinary urgency, or incontinence Breast: No breast lumps, nipple d/c, overlying skin changes, redness or skin retraction Allergies and current medication updated:Yes EXAM: BP 114/62 Ht 5' 2 (1.58m) Wt 183 lb (83.0kg) BMI 33.46 kg/(m2). GENERAL: pleasant, female in no apparent distress HEENT: Normocephalic, atraumatic, mucus membranes moist and no lesions NECK: Supple, full range of motion, no adenopathy and thyroid normal DERMATOLOGY: Normal, without lesions, non-icteric and non-hirsute BREAST: soft, non-tender, symmetric, no dominant mass, normal nipple-areolar complex, no lymphadenopathy and no nipple discharge CHEST: well healed midline scar ABDOMEN: soft, non-tender and no masses PELVIC: external genitalia normal, normal Bartholin's glands, urethra, [place]'s glands, no vulvar lesions, no cervical lesions, physiologic discharge present, normal appearing perineal body and perianal region, cervical prolapse 1st degree BIMANUAL: uterus normal size, shape and consistency, no adnexal masses and non-tender RECTOVAGINAL: deferred. NEURO: alert and oriented x3,exam grossly non-focal EXTREMITIES: normal ASSESSMENT/PLAN: 1) Health maintenance: Pap/HPV screening no longer needed Mammogram ordered Mammogram up to date Nutrition, exercise and routine health maintenance exams reviewed. Calcium/Vitamin D supplementation information provided. Colon cancer screening: ordered from pcp BMD: up to date 2) Follow up one year or sooner as needed Angeles Sood MD PROGRESS Observed: 03/16/2018 Status: COMPLETED Source: JOINER 9:[address] [facility] REPOSITORY HNO ID: [id number] Author: Lilliam Jorge Ma Service: (none) Author Type: (none) Type: Progress Notes Filed: 03/16/2018 10:02 AM Note Text: Wide Area Network Administrator offered: Patient declines. PROGRESS Observed: 03/16/2018 Status: COMPLETED Source: JOINER 9:[address] [facility] REPOSITORY HNO ID: [id number] Author: Pepper Mo Service: (none) Author Type: (none) Type: Progress Notes Filed: 03/16/2018 9:08 AM Note Text: Radiology Service Progress Note PATIENT NAME: Graciela Cavazos DATE OF SERVICE: March 16, 2018 TIME: 9:08 AM PATIENT IDENTITY VERIFICATION COMPLETED USING TWO (2) METHODS: Patient confirmed name verbally and Date of . PATIENT GENDER DATA: Female. status: : No status: NO. PATIENT RELEVANT IMPLANT DATA REVIEWED: Not Applicable RADIOLOGY DEPARTMENT: [facility] DATA: Not applicable SIGNED BY: Pepper Mo March 16, 2018 9:08 AM [facility] SCREENING Observed: 03/16/2018 Status: F Source: JOINER 9:[address] [facility] REPOSITORY * * *Final Report* * * DATE OF EXAM: Mar 16 2018 9:08AM [facility] [id number] - [facility] SCREENING / PROCEDURE REASON: Encounter for screening mammogram for malignant neoplasm of breast * * * * Physician Interpretation * * * * RESULT: #[id number] - [facility] SCREENING BILATERAL DIGITAL SCREENING MAMMOGRAM WITH CAD: 03/16/2018 HISTORY: Screening Mammogram - patient reports NO breast symptoms /priors available for comparison. RESULT: TECHNIQUE: The study was acquired using full field digital technology and interpreted from soft copy. Current study was also evaluated with a Computer Aided Detection (CAD). Comparison is made to exams dated: 06/24/2015 mammogram, 05/11/2014 mammogram, and 01/05/2012 mammogram - [facility]. There are scattered fibroglandular elements in both breasts. There is a possible focal asymmetry in the left breast upper inner aspect anterior depth. No other significant masses, calcifications, or other findings are seen in either breast. IMPRESSION: INCOMPLETE: NEEDS ADDITIONAL IMAGING EVALUATION The possible focal asymmetry in the left breast is indeterminate. Additional views are recommended. Earline Anderson M.D., lp/starr:03/16/2018 14:52:18 Ct Scan Technician: Madison RAYO)(Alise), [facility] letter sent: Additional Imaging Needed Mammogram BI-RADS: 0 Incomplete: needs additional imaging evaluation If this report indicates you need additional imaging, and it has NOT yet been performed, please call , to schedule. We sincerely thank you for choosing the [facility] for your breast imaging needs. Staff Physical Therapist: Starr Transcribe Date/Time: Mar 16 2018 8:41A Dictated by: EARLINE ANDERSON MD This examination was interpreted and the report reviewed and electronically signed by: EARLINE ANDERSON MD on Mar 16 2018 2:52PM EST [id number] PROGRESS Observed: 03/03/2018 Status: COMPLETED Source: JOINER 3:26 PM [facility] REPOSITORY HNO ID: [id number] Author: Devin Cespedes Service: (none) Author Type: Physician Type: Progress Notes Filed: 03/05/2018 12:01 AM Note Text: Devin Cespedes DPM Department of Podiatry [address] [facility] [address] Dept: [phone] Dept Diabetic Nail Care SUBJECTIVE: Follow up office visit: This 77 year old female presents to clinic c/o painful toenails. Patient states that the nails are especially painful with shoe gear and pressure. Patient complains of neuropathic pain. Feels it may be due to swelling of legs. Ptient admits to being diabetic but did not check sugar this AM. Patient has appointment with [facility] vascular surgery next month for follow-up pad. Patient denies claudication type symptoms when walking. No other pedal complaints at this time. No change in medications or medical history since last visit. OBJECTIVE: Patient presents to clinic ambulating in easy spirit sandals. Vasc: DP and PT pulses are faint but strongly audible bilateral. CFT is less than 5 seconds bilateral. Skin temperature is warm to warm proximal to distal bilateral. There is moderate edema or varicosities noted. Hair growth present. Neuro: Protective sensation is absent to the foot and toes when tested with the 5.07 SWM bilateral. Vibratory sensation is absent at the hallux bilateral. significant neurological defecits. Derm: Inspection and palpation performed. Nails 1-5 b/l are painful, discolored-yellow, thick, crumbly, dystrophic and with subungal debris. Skin is of normal turgor and texture. Hyperkeratosis not present. NO ulcerations, scars, verruca or other lesions noted. Ortho: Ankle joint DF is full with the knee extended and full with knee flexed. No pain or crepitus noted. STJ, MTJ ROM are full and free of pain or crepitus. Muscle strength is 5/5 for dorsiflexors, plantarflexors, inverters, everters. Digital deformities include no. ASSESSMENT: (B35.1) Onychomycosis (primary encounter diagnosis) (M79.675) Pain in toe of left foot (M79.674) Pain in toe of right foot (E11.42) Diabetic polyneuropathy associated with type 2 diabetes mellitus (HCC) (I87.2) Venous (peripheral) insufficiency PLAN: Patient was seen and evaluated. Nails 1-5 bilateral were debrided in length and thickness. Discussed neuropathy. Discussed treatment options for neuropathy not limited to pain creams, lyrica or neurontin. She would like to wait until her vascular appointment prior to being placed on any Medication. Discussed swelling of b/l legs . Discussed use of compression stockings. She is seeing vascular surgery in one month. Discussed obtaining venous ultrasound with reflux. She is going to discuss with vascular. Patient was instructed on the continued importance of diabetic foot care along with proper diet and keeping their blood sugar under control to prevent complications. Patient is to RTC in 3-4 months. Devin Cespedes DPM CNOV Observed: 03/03/2018 Status: COMPLETED Source: JOINER 3:[address] [facility] REPOSITORY Office Visit (PODIWS) MACYGRACIELA COLE ([id number]) 1940 F Date Time Provider Department 03/03/18 3:20 PM DEVIN CESPEDES During your visit today, we recorded the following information about you: Devin Cespedes DPM 03/05/2018 12:01 AM Signed Devin Cespedes DPM Department of Podiatry [address] [facility] [address] Dept: [phone] Dept Diabetic Nail Care SUBJECTIVE: Follow up office visit: This 77 year old female presents to clinic c/o painful toenails. Patient states that the nails are especially painful with shoe gear and pressure. Patient complains of neuropathic pain. Feels it may be due to swelling of legs. Ptient admits to being diabetic but did not check sugar this AM. Patient has appointment with [facility] vascular surgery next month for follow-up pad. Patient denies claudication type symptoms when walking. No other pedal complaints at this time. No change in medications or medical history since last visit. OBJECTIVE: Patient presents to clinic ambulating in easy spirit sandals. Vasc: DP and PT pulses are faint but strongly audible bilateral. CFT is less than 5 seconds bilateral. Skin temperature is warm to warm proximal to distal bilateral. There is moderate edema or varicosities noted. Hair growth present. Neuro: Protective sensation is absent to the foot and toes when tested with the 5.07 SWM bilateral. Vibratory sensation is absent at the hallux bilateral. significant neurological defecits. Derm: Inspection and palpation performed. Nails 1-5 b/l are painful, discolored-yellow, thick, crumbly, dystrophic and with subungal debris. Skin is of normal turgor and texture. Hyperkeratosis not present. NO ulcerations, scars, verruca or other lesions noted. Ortho: Ankle joint DF is full with the knee extended and full with knee flexed. No pain or crepitus noted. STJ, MTJ ROM are full and free of pain or crepitus. Muscle strength is 5/5 for dorsiflexors, plantarflexors, inverters, everters. Digital deformities include no. ASSESSMENT: (B35.1) Onychomycosis (primary encounter diagnosis) (M79.675) Pain in toe of left foot (M79.674) Pain in toe of right foot (E11.42) Diabetic polyneuropathy associated with type 2 diabetes mellitus (HCC) (I87.2) Venous (peripheral) insufficiency PLAN: Patient was seen and evaluated. Nails 1-5 bilateral were debrided in length and thickness. Discussed neuropathy. Discussed treatment options for neuropathy not limited to pain creams, lyrica or neurontin. She would like to wait until her vascular appointment prior to being placed on any Medication. Discussed swelling of b/l legs . Discussed use of compression stockings. She is seeing vascular surgery in one month. Discussed obtaining venous ultrasound with reflux. She is going to discuss with vascular. Patient was instructed on the continued importance of diabetic foot care along with proper diet and keeping their blood sugar under control to prevent complications. Patient is to RTC in 3-4 months. DAVE Arango DPM 03/03/2018 4:05 PM Signed Venous insufficiency. Would patient benefit from venous ultrasound with reflux to see how adequate her venous return is? Referring Provider: DEVIN CESPEDES [[id number]] Allergies As of Date: 03/03/2018 Noted Allergy Reaction ADHESIVE TAPE (ROSINS) 04/29/2016 9 - Itching Comments: Possible allergy. Pt had heart cath and she says her wrist was itchy and irritated where the cath was done. batazolidin [Other] 07/10/2005 5 - Intolerance CELEBREX (CELECOXIB) 10/16/2005 Comments: affected labs work diazide [Other] 07/10/2005 5 - Intolerance EFFEXOR (VENLAFAXINE HCL) 07/10/2005 1 - Mental Status Change Comments: patient uncertain INDOCIN (INDOMETHACIN SODIUM) 07/10/2005 5 - Intolerance meclomen [Other] 07/10/2005 5 - Intolerance MEVACOR (LOVASTATIN) 07/10/2005 5 - Intolerance MOTRIN (IBUPROFEN) 07/10/2005 Comments: hair loss NAPROSYN (NAPROXEN) 07/10/2005 5 - Intolerance NSAIDS (NON-STEROIDAL ANTI-INFLAM*07/10/2005 Comments: affected blood studies patient uncertain ORUDIS (KETOPROFEN) 07/10/2005 5 - Intolerance PROZAC (FLUOXETINE HCL) 07/10/2005 1 - Mental Status Change sporostacin [Other] 07/10/2005 5 - Intolerance STATINS (ABQMBRF-LVS-HFI REDUCTAS*07/04/2009 5 - Intolerance Comments: myalgia on 80 mg simvastatin VICODIN (HYDROCODONE-ACETAMINOPHE*07/10/2005 5 - Intolerance ZOLOFT (SERTRALINE HCL) 07/10/2005 1 - Mental Status Change Date Reviewed: 03/03/2018 Reviewed by: Tova Cee Ma - Fully Assessed Reason for Visit: Diabetic Foot Care [916] Primary Visit Diagnosis:Onychomycosis [B35.1] Other Visit Diagnoses:Pain in toe of left foot [M79.675] Pain in toe of right foot [M79.674] Diabetic polyneuropathy associated with type 2 diabetes mellitus (HCC) [E11.42] Venous (peripheral) insufficiency [I87.2] Prescriptions as of 03/03/2018 Sig: DULAGLUTIDE 1.5 MG/0.5 ML SUB* Inject 1.5 mg subcutaneously * CARVEDILOL 25 MG TABLET Take 1 tablet by mouth twice * METFORMIN 1,000 MG TABLET Take 1 tablet by mouth twice * CHLORTHALIDONE 25 MG TABLET Take 1 tablet by mouth once d* CLOPIDOGREL 75 MG TABLET Take 1 tablet by mouth once d* BLOOD SUGAR DIAGNOSTIC STRIPS Test blood sugar(s) 2 times d* AMLODIPINE 5 MG TABLET Take 1 tablet by mouth once d* ATORVASTATIN 80 MG TABLET Take 1 tablet by mouth once d* FUROSEMIDE 40 MG TABLET Take 1 tablet by mouth once d* Patient taking differently: Take 40 mg by mouth every oth* GLIMEPIRIDE 4 MG TABLET Take 1 tablet by mouth twice * LANCETS Use as instructed two times d* LISINOPRIL 20 MG TABLET Take 1 tablet by mouth once d* BLOOD-GLUCOSE METER Dispense One Kit - Verio Mete* THERAPEUTIC MULTIVITAMIN TABL* Take 1 tablet by mouth daily * SODIUM CHLORIDE 0.65 % NASAL * Use 2 Sprays in each nostril * * COMPOUNDED PRESCRIPTION Diabetic shoes. Has PVD * TYLENOL ARTHRITIS PAIN 650 MG* PRN use only * ASPIRIN 81 MG TABLET,DELAYED * Take one(1) tablet daily. 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 ALLERGIC RHINITIS NOS [J30.9] More... ESOPHAGEAL REFLUX [K21.9] More... Peripheral vascular disease, unspecified (HCC) * Priority: D More... GLAUCOMA NOS [H40.9] More... 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 Preop testing [Z01.818] INVALID FOR* More... Discharge planning issues [Z02.9] INVALID FOR* Priority: M More... Atherosclerosis of tangirnaq coronary artery with *INVALID FOR* Priority: A More... HOCM (hypertrophic obstructive cardiomyopathy) *INVALID FOR* Priority: A More... (aortic stenosis) [I35.0] INVALID FOR* Priority: A More... Mitral regurgitation [I34.0] INVALID FOR* Priority: A More... Hypovolemia [E86.1] INVALID FOR*05/02/2016 Priority: F More... More... Cardiac insufficiency (HCC) [I50.9] INVALID FOR*05/04/2016 Priority: C More... Atelectasis [J98.11] INVALID FOR*05/06/2016 Priority: B More... Stage 3 chronic kidney disease (HCC) [N18.3] INVALID FOR* Priority: F More... Sinus bradycardia [R00.1] INVALID FOR*05/06/2016 Priority: C More... Fluid overload [E87.70] INVALID FOR*05/06/2016 Priority: F More... Thrombocytopenia ([facility]) [D69.6] INVALID FOR*05/07/2016 Priority: H More... 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 Hyperlipidemia LDL goal <70 [E78.5] INVALID FOR* Priority: D More... Essential hypertension [I10] INVALID FOR* Priority: C More... 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 Would patient benefit from venous ultrasound with reflux to see how adequate her venous return is? Disposition: Return in about 3 months (around 06/03/2018) for nail care. Follow-up and Disposition History Recorded Encounter Status:Closed by DEVIN CESPEDES DPM on 03/05/18 PROGRESS Observed: 02/08/2018 Status: COMPLETED Source: JOINER 9:51 AM [facility] [place] REPOSITORY O ID: [id number] Author: Joni Grimm Service: (none) Author Type: Physician Type: Progress Notes Filed: 02/14/2018 8:43 PM Note Text: HISTORY Graciela Cavazos is a 77 year old lady here for yearly exam and follow up appointment.Also here to be formally established as had been following with Dr. Gan. Follows with MEDARDO Torres CNP for DM and Dr. Maria Tolentino (nephrology). Told is CKD stage 3. History of arthritis. No severe pain or synovitis to want referral to Rheumatology at this time. Vitamin D added per Dr. Tolentino. Follow up with Dr. Montesinos for CAD and PAD through . Also s/p myomectomy for HOCM. Also follows with Dr. Griffith. PAST MEDICAL HISTORY Diagnosis Date - Allergic rhinitis, cause unspecified Allergic rhinitis - Cataract of left eye 12/31/2010 removed - Cataract of right eye 04/15/2011 removed - Diabetes mellitus without mention of complication Diabetes mellitus - Diverticulosis of colon (without mention of hemorrhage) - Dysthymic disorder Depression (non-psychotic) - Dysthymic disorder - Esophageal reflux Gastroesophageal reflux - Internal hemorrhoids without mention of complication - Nonspecific elevation of levels of transaminase or lactic acid dehydrogenase (LDH) Elevated LFT's - Peripheral vascular disease, unspecified (HCC) - PMH - PAST MEDICAL HISTORY OF 08/2007 Broken left elbow - Rheumatoid arthritis(714.0) - Unspecified closed fracture of ankle 2009 Ankle fracture - 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 Current Outpatient Prescriptions: carvedilol (COREG) 25 mg tablet Take 1 tablet by mouth twice daily. metFORMIN (GLUCOPHAGE) 1,000 mg tablet Take 1 tablet by mouth twice daily with meals. chlorthalidone (HYGROTON) 25 mg tablet Take 1 tablet by mouth once daily. clopidogrel (PLAVIX) 75 mg tablet Take 1 tablet by mouth once daily. blood sugar diagnostic ([employer] VERIO) test strip Test blood sugar(s) 2 times daily. Dx: Type 2 DM - Controlled E11.9 Insulin: No amLODIPine (NORVASC) 5 mg tablet Take 1 tablet by mouth once daily. atorvastatin (LIPITOR) 80 mg tablet Take 1 tablet by mouth once daily. furosemide (LASIX) 40 mg tablet Take 1 tablet by mouth once daily. (Patient taking differently: Take 40 mg by mouth every other day.) glimepiride (AMARYL) 4 mg tablet Take 1 tablet by mouth twice daily with meals. Lancets lancets Use as instructed two times daily E 11.9 lisinopril (ZESTRIL, PRINIVIL) 20 mg tablet Take 1 tablet by mouth once daily. Blood-Glucose Meter ([employer] VERIO SYSTEM) [facility] [place] Dispense One Kit - Verio Meter Kit Dx: Type 2 DM - Uncontrolled E11.65 therapeutic multivitamin (THERA VITAMIN) tablet Take 1 tablet by mouth daily with breakfast. sodium chloride (AYR, OCEAN) 0.65 % nasal spray Use 2 Sprays in each nostril as needed for Cold/Allergy Symptoms. COMPOUNDED PRESCRIPTION Diabetic shoes. Has PVD acetaminophen(TYLENOL ARTHRITIS PAIN 650 MG TAB) PRN use only ASPIRIN 81 MG TAB, DELAYED RELEASE Take one(1) tablet daily. dulaglutide 1.5 mg/0.5 mL pnij Inject 1.5 mg subcutaneously once each week. ([facility] refills) No current facility-administered medications for this visit. ALLERGIES Allergen Reactions - Adhesive Tape (Susan* Itching Possible allergy. Pt had heart cath and she says her wrist was itchy and irritated where the cath was done. - Batazolidin [Other] Intolerance - Celebrex [Celecoxib] affected labs work - Diazide [Other] Intolerance - Effexor [Venlafaxin* Mental Status Change patient uncertain - Indocin [Indomethac* Intolerance - Meclomen [Other] Intolerance - Mevacor [Lovastatin] Intolerance - Motrin [Ibuprofen] hair loss - Naprosyn [Naproxen] Intolerance - Nsaids (Non-Steroid* affected blood studies patient uncertain - Orudis [Ketoprofen] Intolerance - Prozac [Fluoxetine * Mental Status Change - Sporostacin [Other] Intolerance - Statins [Statins-Hm* Intolerance myalgia on 80 mg simvastatin - Vicodin [Hydrocodon* Intolerance - Zoloft [Sertraline * Mental Status Change FAMILY HISTORY Problem Relation Age of Onset - Heart Mother CABG in her 80s - Stroke Maternal Grandfather - Diabetes Paternal Grandmother - Cancer Maternal Uncle Stomach Social History Marital status: Spouse name: June Years of education: Number of children: 2 Occupational History 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 PHYSICAL EXAMINATION: Blood pressure 106/50, pulse 60, resp. rate 16, weight 82.1 kg (181 lb). General appearance: well appearing, in no acute distress, well-hydrated, well nourished Skin: Skin color, texture, turgor normal. No significant rashes or lesions. Head: Normal Eyes: Anicteric sclera. Pupils are equally round and reactive to light. Extraocular movements are intact. Ears: External ears normal. Canals clear. TM's unremarkable. Nose/Sinuses: negative Oropharynx: Lips, mucosa, and tongue normal. Teeth and gums normal. Oropharynx normal. Neck: Neck supple, no adenopathy; thyroid symmetric, normal size, no bruits. Lungs: Lungs clear to auscultation Heart: negative. RRR without murmur, gallop, or rubs. No ectopy. Abdomen: Abdomen soft, non-tender. Bowel sounds normal. No masses, organomegaly Extremities: Extremities normal. No deformities, edema, or skin discoloration. Good capillary refill. No active synovitis noted. Musculoskeletal: grossly normal Peripheral pulses: Normal Neuro: Gait normal. Reflexes normal and symmetric. Sensation grossly intact. No gross focal neurological deficits. Labs reviewed. ASSESSMENT AND PLAN See diagnoses and orders Encounter Diagnosis ICD-10-CM 1. Type 2 diabetes mellitus without complication, without long-term current use of insulin ([facility]) E11.9 2. Essential hypertension I10 3. Rheumatoid arthritis, involving unspecified site, unspecified rheumatoid factor presence ([facility]) M06.9 4. Stage 3 chronic kidney disease N18.3 5. HOCM (hypertrophic obstructive cardiomyopathy) ([facility]) I42.1 6. Colon cancer screening Z12.11 FECAL OCCULT BLOOD TEST Here for to be formall established with [facility] for yearly exam and follow up appointment. Stable on current meds and management per specialists as noted in HPI. Continues to follow up with providers for Endocrinology, Cardiology, Cardiothoracic surgery, and Nephrology . Labs done through [facility] and . Will let me know if/when needs referral to Rheumatology for RA diagnosis. Further evaluation and treatment as indicated. Above issues addressed with patient. Patient involved in shared decision making for management of her medical issues. History and medications reviewed. Epic updated as needed Refills taken care of and meds adjusted as indicated after reviewed history, exam and labs. Health Maintenance reviewed. Updated record and/or ordered tests as recorded. Encouraged on efforts at healthy diet and regular exercise and adequate sleep. The majority of the visit was spent counseling and/or coordinating care for the patient. [id number]-eg-[id number] time was at least 40 minutes. Joni Grimm MD CNOV Observed: 02/08/2018 Status: COMPLETED Source: JOINER 9:[address] [facility] REPOSITORY Office Visit (INTMWS) GRACIELA CAVAZOS ([id number]) 1940 F Date Time Provider Department 02/08/18 9:00 AM JONI GRIMM During your visit today, we recorded the following information about you: Pulse Respiration Blood pressure Weight 60/minute 16/minute 106/50 82.1 kg Joni Grimm MD 02/14/2018 8:43 PM Signed HISTORY Graciela Cavazos is a 77 year old lady here for yearly exam and follow up appointment.Also here to be formally established as had been following with Dr. Gan. Follows with MEDARDO Torres CNP for DM and Dr. Maria Tolentino (nephrology). Told is CKD stage 3. History of arthritis. No severe pain or synovitis to want referral to Rheumatology at this time. Vitamin D added per Dr. Tolentino. Follow up with Dr. Montesinos for CAD and PAD through . Also s/p myomectomy for HOCM. Also follows with Dr. Griffith. PAST MEDICAL HISTORY Diagnosis Date - Allergic rhinitis, cause unspecified Allergic rhinitis - Cataract of left eye 12/31/2010 removed - Cataract of right eye 04/15/2011 removed - Diabetes mellitus without mention of complication Diabetes mellitus - Diverticulosis of colon (without mention of hemorrhage) - Dysthymic disorder Depression (non-psychotic) - Dysthymic disorder - Esophageal reflux Gastroesophageal reflux - Internal hemorrhoids without mention of complication - Nonspecific elevation of levels of transaminase or lactic acid dehydrogenase (LDH) Elevated LFT's - Peripheral vascular disease, unspecified (HCC) - PMH - PAST MEDICAL HISTORY OF 08/2007 Broken left elbow - Rheumatoid arthritis(714.0) - Unspecified closed fracture of ankle 2009 Ankle fracture - 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 Current Outpatient Prescriptions: carvedilol (COREG) 25 mg tablet Take 1 tablet by mouth twice daily. metFORMIN (GLUCOPHAGE) 1,000 mg tablet Take 1 tablet by mouth twice daily with meals. chlorthalidone (HYGROTON) 25 mg tablet Take 1 tablet by mouth once daily. clopidogrel (PLAVIX) 75 mg tablet Take 1 tablet by mouth once daily. blood sugar diagnostic ([employer] VERIO) test strip Test blood sugar(s) 2 times daily. Dx: Type 2 DM - Controlled E11.9 Insulin: No amLODIPine (NORVASC) 5 mg tablet Take 1 tablet by mouth once daily. atorvastatin (LIPITOR) 80 mg tablet Take 1 tablet by mouth once daily. furosemide (LASIX) 40 mg tablet Take 1 tablet by mouth once daily. (Patient taking differently: Take 40 mg by mouth every other day.) glimepiride (AMARYL) 4 mg tablet Take 1 tablet by mouth twice daily with meals. Lancets lancets Use as instructed two times daily E 11.9 lisinopril (ZESTRIL, PRINIVIL) 20 mg tablet Take 1 tablet by mouth once daily. Blood-Glucose Meter ([employer] VERIO SYSTEM) [facility] [place] Dispense One Kit - Verio Meter Kit Dx: Type 2 DM - Uncontrolled E11.65 therapeutic multivitamin (THERA VITAMIN) tablet Take 1 tablet by mouth daily with breakfast. sodium chloride (AYR, OCEAN) 0.65 % nasal spray Use 2 Sprays in each nostril as needed for Cold/Allergy Symptoms. COMPOUNDED PRESCRIPTION Diabetic shoes. Has PVD acetaminophen(TYLENOL ARTHRITIS PAIN 650 MG TAB) PRN use only ASPIRIN 81 MG TAB, DELAYED RELEASE Take one(1) tablet daily. dulaglutide 1.5 mg/0.5 mL pnij Inject 1.5 mg subcutaneously once each week. ([facility]ook refills) No current facility-administered medications for this visit. ALLERGIES Allergen Reactions - Adhesive Tape (Susan* Itching Possible allergy. Pt had heart cath and she says her wrist was itchy and irritated where the cath was done. - Batazolidin [Other] Intolerance - Celebrex [Celecoxib] affected labs work - Diazide [Other] Intolerance - Effexor [Venlafaxin* Mental Status Change patient uncertain - Indocin [Indomethac* Intolerance - Meclomen [Other] Intolerance - Mevacor [Lovastatin] Intolerance - Motrin [Ibuprofen] hair loss - Naprosyn [Naproxen] Intolerance - Nsaids (Non-Steroid* affected blood studies patient uncertain - Orudis [Ketoprofen] Intolerance - Prozac [Fluoxetine * Mental Status Change - Sporostacin [Other] Intolerance - Statins [Statins-Hm* Intolerance myalgia on 80 mg simvastatin - Vicodin [Hydrocodon* Intolerance - Zoloft [Sertraline * Mental Status Change FAMILY HISTORY Problem Relation Age of Onset - Heart Mother CABG in her 80s - Stroke Maternal Grandfather - Diabetes Paternal Grandmother - Cancer Maternal Uncle Stomach Social History Marital status: Spouse name: June Years of education: Number of children: 2 Occupational History 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 PHYSICAL EXAMINATION: Blood pressure 106/50, pulse 60, resp. rate 16, weight 82.1 kg (181 lb). General appearance: well appearing, in no acute distress, well-hydrated, well nourished Skin: Skin color, texture, turgor normal. No significant rashes or lesions. Head: Normal Eyes: Anicteric sclera. Pupils are equally round and reactive to light. Extraocular movements are intact. Ears: External ears normal. Canals clear. TM's unremarkable. Nose/Sinuses: negative Oropharynx: Lips, mucosa, and tongue normal. Teeth and gums normal. Oropharynx normal. Neck: Neck supple, no adenopathy; thyroid symmetric, normal size, no bruits. Lungs: Lungs clear to auscultation Heart: negative. RRR without murmur, gallop, or rubs. No ectopy. Abdomen: Abdomen soft, non-tender. Bowel sounds normal. No masses, organomegaly Extremities: Extremities normal. No deformities, edema, or skin discoloration. Good capillary refill. No active synovitis noted. Musculoskeletal: grossly normal Peripheral pulses: Normal Neuro: Gait normal. Reflexes normal and symmetric. Sensation grossly intact. No gross focal neurological deficits. Labs reviewed. ASSESSMENT AND PLAN See diagnoses and orders Encounter Diagnosis ICD-10-CM 1. Type 2 diabetes mellitus without complication, without long-term current use of insulin (HCC) E11.9 2. Essential hypertension I10 3. Rheumatoid arthritis, involving unspecified site, unspecified rheumatoid factor presence (HCC) M06.9 4. Stage 3 chronic kidney disease N18.3 5. HOCM (hypertrophic obstructive cardiomyopathy) ([facility]) I42.1 6. Colon cancer screening Z12.11 FECAL OCCULT BLOOD TEST Here for to be formall established with pa plus for yearly exam and follow up appointment. Stable on current meds and management per specialists as noted in HPI. Continues to follow up with providers for Endocrinology, Cardiology, Cardiothoracic surgery, and Nephrology . Labs done through [facility] and . Will let me know if/when needs referral to Rheumatology for RA diagnosis. Further evaluation and treatment as indicated. Above issues addressed with patient. Patient involved in shared decision making for management of her medical issues. History and medications reviewed. Epic updated as needed Refills taken care of and meds adjusted as indicated after reviewed history, exam and labs. Health Maintenance reviewed. Updated record and/or ordered tests as recorded. Encouraged on efforts at healthy diet and regular exercise and adequate sleep. The majority of the visit was spent counseling and/or coordinating care for the patient. [id number]-vi-[id number] time was at least 40 minutes. Joni Grimm MD Referring Provider: SELF [200] Allergies As of Date: 02/08/2018 Noted Allergy Reaction ADHESIVE TAPE (ROSINS) 04/29/2016 9 - Itching Comments: Possible allergy. Pt had heart cath and she says her wrist was itchy and irritated where the cath was done. batazolidin [Other] 07/10/2005 5 - Intolerance CELEBREX (CELECOXIB) 10/16/2005 Comments: affected labs work diazide [Other] 07/10/2005 5 - Intolerance EFFEXOR (VENLAFAXINE HCL) 07/10/2005 1 - Mental Status Change Comments: patient uncertain INDOCIN (INDOMETHACIN SODIUM) 07/10/2005 5 - Intolerance meclomen [Other] 07/10/2005 5 - Intolerance MEVACOR (LOVASTATIN) 07/10/2005 5 - Intolerance MOTRIN (IBUPROFEN) 07/10/2005 Comments: hair loss NAPROSYN (NAPROXEN) 07/10/2005 5 - Intolerance NSAIDS (NON-STEROIDAL ANTI-INFLAM*07/10/2005 Comments: affected blood studies patient uncertain ORUDIS (KETOPROFEN) 07/10/2005 5 - Intolerance PROZAC (FLUOXETINE HCL) 07/10/2005 1 - Mental Status Change sporostacin [Other] 07/10/2005 5 - Intolerance STATINS (KKGOBYR-KMY-VQE REDUCTAS*07/04/2009 5 - Intolerance Comments: myalgia on 80 mg simvastatin VICODIN (HYDROCODONE-ACETAMINOPHE*07/10/2005 5 - Intolerance ZOLOFT (SERTRALINE HCL) 07/10/2005 1 - Mental Status Change Date Reviewed: 02/08/2018 Reviewed by: Heather Flood LPN - Fully Assessed Reason for Visit: Establish Care [42] Cmt: Transferring care Reason For Visit History Recorded Primary Visit Diagnosis:Type 2 diabetes mellitus without complication, without long-term current use of insulin (HCC) [E11.9] Other Visit Diagnoses:Essential hypertension [I10] Rheumatoid arthritis, involving unspecified site, unspecified rheumatoid factor presence (HCC) [M06.9] Stage 3 chronic kidney disease [N18.3] HOCM (hypertrophic obstructive cardiomyopathy) (HCC) [I42.1] Colon cancer screening [Z12.11] Order(s):dulaglutide 1.5 mg/0.5 mL pnijInject 1.5 mg subcutaneously once each week. (MEDARDO Torres refisidro)Disp: Rfl: FECAL OCCULT BLOOD TEST [SQIFOBT] Order #: [id number] FUTURE Prescriptions as of 02/08/2018 Sig: CARVEDILOL 25 MG TABLET Take 1 tablet by mouth twice * METFORMIN 1,000 MG TABLET Take 1 tablet by mouth twice * CHLORTHALIDONE 25 MG TABLET Take 1 tablet by mouth once d* CLOPIDOGREL 75 MG TABLET Take 1 tablet by mouth once d* BLOOD SUGAR DIAGNOSTIC STRIPS Test blood sugar(s) 2 times d* AMLODIPINE 5 MG TABLET Take 1 tablet by mouth once d* ATORVASTATIN 80 MG TABLET Take 1 tablet by mouth once d* FUROSEMIDE 40 MG TABLET Take 1 tablet by mouth once d* Patient taking differently: Take 40 mg by mouth every oth* GLIMEPIRIDE 4 MG TABLET Take 1 tablet by mouth twice * LANCETS Use as instructed two times d* LISINOPRIL 20 MG TABLET Take 1 tablet by mouth once d* BLOOD-GLUCOSE METER Dispense One Kit - Verio Mete* THERAPEUTIC MULTIVITAMIN TABL* Take 1 tablet by mouth daily * SODIUM CHLORIDE 0.65 % NASAL * Use 2 Sprays in each nostril * * COMPOUNDED PRESCRIPTION Diabetic shoes. Has PVD * TYLENOL ARTHRITIS PAIN 650 MG* PRN use only * ASPIRIN 81 MG TABLET,DELAYED * Take one(1) tablet daily. 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 ALLERGIC RHINITIS NOS [J30.9] More... ESOPHAGEAL REFLUX [K21.9] More... Peripheral vascular disease, unspecified (HCC) * Priority: D More... GLAUCOMA NOS [H40.9] More... 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 Preop testing [Z01.818] INVALID FOR* More... Discharge planning issues [Z02.9] INVALID FOR* Priority: M More... Atherosclerosis of tangirnaq coronary artery with *INVALID FOR* Priority: A More... HOCM (hypertrophic obstructive cardiomyopathy) *INVALID FOR* Priority: A More... (aortic stenosis) [I35.0] INVALID FOR* Priority: A More... Mitral regurgitation [I34.0] INVALID FOR* Priority: A More... Hypovolemia [E86.1] INVALID FOR*05/02/2016 Priority: F More... More... Cardiac insufficiency (HCC) [I50.9] INVALID FOR*05/04/2016 Priority: C More... Atelectasis [J98.11] INVALID FOR*05/06/2016 Priority: B More... CKD (chronic kidney disease) [N18.9] INVALID FOR* Priority: F More... Sinus bradycardia [R00.1] INVALID FOR*05/06/2016 Priority: C More... Fluid overload [E87.70] INVALID FOR*05/06/2016 Priority: F More... Thrombocytopenia (HCC) [D69.6] INVALID FOR*05/07/2016 Priority: H More... 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 Hyperlipidemia LDL goal <70 [E78.5] INVALID FOR* Priority: D More... Essential hypertension [I10] INVALID FOR* Priority: C More... 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 ([facility]J Shook refills) Medications Discontinued During This Encounter lisinopril (ZESTRIL) 40 mg tablet 90 t* 3 09/20/2017 02/08/2018 Route: ORAL Sig: Take 1 tablet by mouth once daily. Disc: Dosage adjustment metFORMIN (GLUCOPHAGE) 500 mg tablet 90 t* 3 10/12/2016 02/08/2018 Route: ORAL Sig: Take 1 tablet by mouth daily before dinner. Disc: Reason for discontinue is not on file. dulaglutide (TRULICITY) 0.75 mg/0.5 * 11/25/2017 02/08/2018 Class: Med Update Route: SUBCUTANEOUS Sig: Inject 1.5 mg subcutaneously once each week. Disc: Reason for discontinue is not on file. Disposition: Return in about 6 months (around 08/10/2018) for 6 months follow up (labs at [facility] through MEDARDO Torres and Dr. Maria Tolentino). Follow-up and Disposition History Recorded Encounter Status:Closed by JONI GRIMM MD on 02/14/18 BEBA Observed: 01/25/2018 Status: COMPLETED Source: JOINER 12:[address] [facility] REPOSITORY Patient Outreach (FAMPST) GRACIELA CAVAZOS ([id number]) 1940 F Date Time Provider Department 01/25/18 [facility] During your visit today, we recorded the following information about you: Allergies As of Date: 01/25/2018 Noted Allergy Reaction ADHESIVE TAPE (ROSINS) 04/29/2016 9 - Itching Comments: Possible allergy. Pt had heart cath and she says her wrist was itchy and irritated where the cath was done. batazolidin [Other] 07/10/2005 5 - Intolerance CELEBREX (CELECOXIB) 10/16/2005 Comments: affected labs work diazide [Other] 07/10/2005 5 - Intolerance EFFEXOR (VENLAFAXINE HCL) 07/10/2005 1 - Mental Status Change Comments: patient uncertain INDOCIN (INDOMETHACIN SODIUM) 07/10/2005 5 - Intolerance meclomen [Other] 07/10/2005 5 - Intolerance MEVACOR (LOVASTATIN) 07/10/2005 5 - Intolerance MOTRIN (IBUPROFEN) 07/10/2005 Comments: hair loss NAPROSYN (NAPROXEN) 07/10/2005 5 - Intolerance NSAIDS (NON-STEROIDAL ANTI-INFLAM*07/10/2005 Comments: affected blood studies patient uncertain ORUDIS (KETOPROFEN) 07/10/2005 5 - Intolerance PROZAC (FLUOXETINE HCL) 07/10/2005 1 - Mental Status Change sporostacin [Other] 07/10/2005 5 - Intolerance STATINS (XZQUTEG-AES-FYE REDUCTAS*07/04/2009 5 - Intolerance Comments: myalgia on 80 mg simvastatin VICODIN (HYDROCODONE-ACETAMINOPHE*07/10/2005 5 - Intolerance ZOLOFT (SERTRALINE HCL) 07/10/2005 1 - Mental Status Change Date Reviewed: 12/02/2017 Reviewed by: Mica Shaw RN - Fully Assessed Visit Diagnosis:Medication management [Z79.899] Order(s):BASIC METABOLIC PNL [SQBMP] Order #: [id number] FUTURE Prescriptions as of 01/25/2018 Sig: CARVEDILOL 25 MG TABLET Take 1 tablet by mouth twice * X DULAGLUTIDE 0.75 MG/0.5 ML HIGHTOWER* Inject 1.5 mg subcutaneously * X METFORMIN 1,000 MG TABLET Take 1 tablet by mouth twice * Patient not taking: Reported on 05/26/2018 CLOPIDOGREL 75 MG TABLET Take 1 tablet by mouth once d* BLOOD SUGAR DIAGNOSTIC STRIPS Test blood sugar(s) 2 times d* X CHLORTHALIDONE 25 MG TABLET Take 1 tablet by mouth once d* Patient not taking: Reported on 05/26/2018 X LISINOPRIL 40 MG TABLET Take 1 tablet by mouth once d* X AMLODIPINE 5 MG TABLET Take 1 tablet by mouth once d* Patient not taking: Reported on 05/26/2018 X ATORVASTATIN 80 MG TABLET Take 1 tablet by mouth once d* FUROSEMIDE 40 MG TABLET Take 1 tablet by mouth once d* GLIMEPIRIDE 4 MG TABLET Take 1 tablet by mouth twice * X METFORMIN 500 MG TABLET Take 1 tablet by mouth daily * LANCETS Use as instructed two times d* X LISINOPRIL 20 MG TABLET Take 1 tablet by mouth once d* Patient not taking: Reported on 05/26/2018 BLOOD-GLUCOSE METER Dispense One Kit - Verio Mete* THERAPEUTIC MULTIVITAMIN TABL* Take 1 tablet by mouth daily * SODIUM CHLORIDE 0.65 % NASAL * Use 2 Sprays in each nostril * Patient not taking: Reported on 05/26/2018 * COMPOUNDED PRESCRIPTION Diabetic shoes. Has PVD * TYLENOL ARTHRITIS PAIN 650 MG* PRN use only * ASPIRIN 81 MG TABLET,DELAYED * Take one(1) tablet daily. 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 ALLERGIC RHINITIS NOS [J30.9] More... ESOPHAGEAL REFLUX [K21.9] More... Peripheral vascular disease, unspecified (HCC) * Priority: D More... GLAUCOMA NOS [H40.9] More... 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 Preop testing [Z01.818] INVALID FOR* More... Discharge planning issues [Z02.9] INVALID FOR* Priority: M More... Atherosclerosis of tangirnaq coronary artery with *INVALID FOR* Priority: A More... HOCM (hypertrophic obstructive cardiomyopathy) *INVALID FOR* Priority: A More... (aortic stenosis) [I35.0] INVALID FOR* Priority: A More... Mitral regurgitation [I34.0] INVALID FOR* Priority: A More... Hypovolemia [E86.1] INVALID FOR*05/02/2016 Priority: F More... More... Cardiac insufficiency (HCC) [I50.9] INVALID FOR*05/04/2016 Priority: C More... Atelectasis [J98.11] INVALID FOR*05/06/2016 Priority: B More... CKD (chronic kidney disease) [N18.9] INVALID FOR* Priority: F More... Sinus bradycardia [R00.1] INVALID FOR*05/06/2016 Priority: C More... Fluid overload [E87.70] INVALID FOR*05/06/2016 Priority: F More... Thrombocytopenia (HCC) [D69.6] INVALID FOR*05/07/2016 Priority: H More... 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 SUMMARY INVALID FOR* Priority: Very Severe More... Hyperlipidemia LDL goal <70 [E78.5] INVALID FOR* Priority: D More... Essential hypertension [I10] INVALID FOR* Priority: C More... 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 REPOSITORY HNO ID: [id number] Author: Teodoro Keys (Rn) Service: (none) Author Type: Registered Nurse Type: Progress Notes Filed: 02/09/2018 2:33 PM Note Text: PRIMARY CARE COORDINATION FOLLOW-UP NOTE Provider Action/FYI 1. Pt denies CP, Sob, has edema often, using support hose, encouraged elevation of feet, taking Lasix as needed per Dr. Tolentino's plan 2. Pt reports Appt 10/14/[address] Griffith, no medication reported, F/u with [facility] in March, Dr. Tolentino Appt 11/16/17, f/u lab work ordered Mar, decreased Lisinopril to 20 mg daily, due to 11/02/17 Creatinine 1.38, Vit D level 24.9 , 3. Appt with MEDARDO Torres 11/18/17, Hgb A1C 8.2 plan increased Trulicity to 1.5 mg weekly, stopped Metformin due to creatinine, Pt noted BS increased after stopping Metformin and she restarted Metformin on her own, Class A Lineman advised to call MEDARDO Tsang to advise on DM medications. Pt noted she will call for DM med plan. Pt reports FBS 150- 200, one low BS 70 treated with OJ, reviewed [facility] Hypoglycemia treatment. Pt verbalized understanding. 4. Pt is establishing with Dr. Grimm 02/08/18, Renal Profile ordered by Dr. Tolentino for April 03. Pt denies needs or concerns at this time Patient identified by name and date of . YES Spoke to patient Class A Lineman plan for next outreach: Will follow up with Pt related DM medication plan, Health Maintenance and self care Instructed to update Pcp for new or changing symptoms to prevent complications or Adm. Signature Massimo Valerio RN January 10, 2018 DURGAUTRCONRAD Observed: 01/10/2018 Status: COMPLETED Source: JOINER 12:[address] [facility] REPOSITORY Patient Outreach (FAMPWS) GRACIELA CAVAZOS ([id number]) 1940 F Date Time Provider Department 01/10/18 TEODORO KEYS (RN) FAMPWS During your visit today, we recorded the following information about you: Massimo Valerio RN 02/09/2018 2:33 PM Signed PRIMARY CARE COORDINATION FOLLOW-UP NOTE Provider Action/FYI 1. Pt denies CP, Sob, has edema often, using support hose, encouraged elevation of feet, taking Lasix as needed per Dr. Tolentino's plan 2. Pt reports Appt 10/14/[address] Griffith, no medication reported, F/u with [facility] in March, Dr. Tolentino Appt 11/16/17, f/u lab work ordered Mar, decreased Lisinopril to 20 mg daily, due to 11/02/17 Creatinine 1.38, Vit D level 24.9 , 3. Appt with MEDARDO Torres 11/18/17, Hgb A1C 8.2 plan increased Trulicity to 1.5 mg weekly, stopped Metformin due to creatinine, Pt noted BS increased after stopping Metformin and she restarted Metformin on her own, Class A Lineman advised to call MEDARDO Torres [facility] Trin[facility] to advise on DM medications. Pt noted she will call for DM med plan. Pt reports FBS 150-200, one low BS 70 treated with OJ, reviewed [facility] Hypoglycemia treatment. Pt verbalized understanding. 4. Pt is establishing with Dr. Grimm 02/08/18, Renal Profile ordered by Dr. Tolentino for April 03. Pt denies needs or concerns at this time Patient identified by name and date of . YES Spoke to patient Class A Lineman plan for next outreach: Will follow up with Pt related DM medication plan, Health Maintenance and self care Instructed to update Pcp for new or changing symptoms to prevent complications or Adm. Signature Massimo Valerio RN January 10, 2018 Allergies As of Date: 01/10/2018 Noted Allergy Reaction ADHESIVE TAPE (ROSINS) 04/29/2016 9 - Itching Comments: Possible allergy. Pt had heart cath and she says her wrist was itchy and irritated where the cath was done. batazolidin [Other] 07/10/2005 5 - Intolerance CELEBREX (CELECOXIB) 10/16/2005 Comments: affected labs work diazide [Other] 07/10/2005 5 - Intolerance EFFEXOR (VENLAFAXINE HCL) 07/10/2005 1 - Mental Status Change Comments: patient uncertain INDOCIN (INDOMETHACIN SODIUM) 07/10/2005 5 - Intolerance meclomen [Other] 07/10/2005 5 - Intolerance MEVACOR (LOVASTATIN) 07/10/2005 5 - Intolerance MOTRIN (IBUPROFEN) 07/10/2005 Comments: hair loss NAPROSYN (NAPROXEN) 07/10/2005 5 - Intolerance NSAIDS (NON-STEROIDAL ANTI-INFLAM*07/10/2005 Comments: affected blood studies patient uncertain ORUDIS (KETOPROFEN) 07/10/2005 5 - Intolerance PROZAC (FLUOXETINE HCL) 07/10/2005 1 - Mental Status Change sporostacin [Other] 07/10/2005 5 - Intolerance STATINS (IHNMMHI-OFQ-CND REDUCTAS*07/04/2009 5 - Intolerance Comments: myalgia on 80 mg simvastatin VICODIN (HYDROCODONE-ACETAMINOPHE*07/10/2005 5 - Intolerance ZOLOFT (SERTRALINE HCL) 07/10/2005 1 - Mental Status Change Date Reviewed: 12/02/2017 Reviewed by: Mica Shaw RN - Fully Assessed 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] Cmt: DM, HTN, CKD Reason For Visit History Recorded Prescriptions as of 01/10/2018 Sig: CARVEDILOL 25 MG TABLET Take 1 tablet by mouth twice * X DULAGLUTIDE 0.75 MG/0.5 ML HIGHTOWER* Inject 1.5 mg subcutaneously * CHLORTHALIDONE 25 MG TABLET Take 1 tablet by mouth once d* CLOPIDOGREL 75 MG TABLET Take 1 tablet by mouth once d* BLOOD SUGAR DIAGNOSTIC STRIPS Test blood sugar(s) 2 times d* AMLODIPINE 5 MG TABLET Take 1 tablet by mouth once d* ATORVASTATIN 80 MG TABLET Take 1 tablet by mouth once d* FUROSEMIDE 40 MG TABLET Take 1 tablet by mouth once d* Patient taking differently: Take 40 mg by mouth every oth* GLIMEPIRIDE 4 MG TABLET Take 1 tablet by mouth twice * LANCETS Use as instructed two times d* LISINOPRIL 20 MG TABLET Take 1 tablet by mouth once d* BLOOD-GLUCOSE METER Dispense One Kit - Verio Mete* THERAPEUTIC MULTIVITAMIN TABL* Take 1 tablet by mouth daily * SODIUM CHLORIDE 0.65 % NASAL * Use 2 Sprays in each nostril * * COMPOUNDED PRESCRIPTION Diabetic shoes. Has PVD * TYLENOL ARTHRITIS PAIN 650 MG* PRN use only * ASPIRIN 81 MG TABLET,DELAYED * Take one(1) tablet daily. METFORMIN 1,000 MG TABLET Take 1 tablet by mouth twice * X LISINOPRIL 40 MG TABLET Take 1 tablet by mouth once d* X METFORMIN 500 MG TABLET Take 1 tablet by mouth daily * Medication notes this encounter DULAGLUTIDE 0.75 MG/0.5 ML SUBCUTANEOUS PEN INJECTOR >> Massimo Valerio RN 01/10/2018 2:05 PM >> MASSIMO VALERIO WedJanuary 10, 2018 2:05 PM Trulicity increased to 1.5 mg weekly by MEDARDO THORNTON 11/18/17 METFORMIN 1,000 MG TABLET >> Massimo Valerio RN 01/10/2018 2:02 PM >> MASSIMO VALERIO WedJanuary 10, 2018 2:02 PM MEDARDO THORNTON 11/18/17 stopped Problem List As Of Date 01/10/2018 Noted Resolved Rheumatoid arthritis (HCC) [M06.9] INVALID FOR* BENIGN HYPERTENSION [I10] INVALID FOR* 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 ALLERGIC RHINITIS NOS [J30.9] More... ESOPHAGEAL REFLUX [K21.9] More... Peripheral vascular disease, unspecified (HCC) * Priority: D More... GLAUCOMA NOS [H40.9] More... 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 Preop testing [Z01.818] INVALID FOR* More... Discharge planning issues [Z02.9] INVALID FOR* Priority: M More... Atherosclerosis of tangirnaq coronary artery with *INVALID FOR* Priority: A More... HOCM (hypertrophic obstructive cardiomyopathy) *INVALID FOR* Priority: A More... (aortic stenosis) [I35.0] INVALID FOR* Priority: A More... Mitral regurgitation [I34.0] INVALID FOR* Priority: A More... Hypovolemia [E86.1] INVALID FOR*05/02/2016 Priority: F More... More... Cardiac insufficiency (HCC) [I50.9] INVALID FOR*05/04/2016 Priority: C More... Atelectasis [J98.11] INVALID FOR*05/06/2016 Priority: B More... CKD (chronic kidney disease) [N18.9] INVALID FOR* Priority: F More... Sinus bradycardia [R00.1] INVALID FOR*05/06/2016 Priority: C More... Fluid overload [E87.70] INVALID FOR*05/06/2016 Priority: F More... Thrombocytopenia (HCC) [D69.6] INVALID FOR*05/07/2016 Priority: H More... 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 Hyperlipidemia LDL goal <70 [E78.5] INVALID FOR* Priority: D More... Essential hypertension [I10] INVALID FOR* Priority: C More... 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 They state that the nails are especially painful with shoe gear and pressure. Patient states that nails 1-5 b/l are painful. Patient admits to being diabetic and states that their blood sugar was 180 mg/dL this AM. No other pedal complaints at this time. Patient states no change in medications or medical history since last visit. Objective: Patient presents to clinic ambulating in dress shoes Vasc: DP and PT pulses are faint bilateral. CFT is less than 5 seconds bilateral. Skin temperature is warm to cool proximal to distal bilateral. There is no edema or varicosities noted. Neuro: Protective sensation is intact to the foot and toes when tested with the 5.07 SWM bilateral. Vibratory sensation is decreased at the hallux IPJ bilateral. The hallux is downgoing bilateral. Derm: Nails 1-5 b/l are painful, discolored-yellow, thick, crumbly, dystrophic and with subungal debris. B/l hallux medial border shows mild splitting of nail plate. Skin is of normal turgor, texture and hair growth is present bilateral. There are no hyperkeratosis, ulcerations, scars, verruca or other lesions noted. Ortho: Muscle strength is 5/5 for all pedal groups tested. Ankle joint DF is full with the knee extended with no pain or crepitus noted. 1st MPJ ROM is full bilateral. Assessment: (B35.1) Onychomycosis (primary encounter diagnosis) (M79.675) Pain in toe of left foot (M79.674) Pain in toe of right foot (E11.42) Diabetic polyneuropathy associated with type 2 diabetes mellitus (HCC) Plan: Patient was seen and evaluated. Nails 1-5 bilateral were debrided in length and thickness. B/l hallux nail plate is showing splitting. No ingrowing infection present. The splitting nail border was removed. If this becomes painful, could consider matrixectomy if adequate perfusion present. Patient was instructed on the continued importance of diabetic foot care along with proper diet and keeping their blood sugar under control to prevent complications. Patient is to RTC in 3-4 months. Devin Cespedes DPM CNOV Observed: 12/02/2017 Status: COMPLETED Source: JOINER 1:[address] [facility] REPOSITORY Office Visit (PODIWS) GRACIELA CAVAZOS ([id number]) 1940 F Date Time Provider Department 12/02/17 1:00 PM DEVIN CESPEDES PODIWS During your visit today, we recorded the following information about you: Mica Shaw RN 12/02/2017 10:01 PM Signed Pt reports that her blood sugar was 180 this morning. Devin Cespedes DPM 12/02/2017 10:01 PM Signed Subjective: Patient presents to clinic c/o painful toenails. They state that the nails are especially painful with shoe gear and pressure. Patient states that nails 1-5 b/l are painful. Patient admits to being diabetic and states that their blood sugar was 180 mg/dL this AM. No other pedal complaints at this time. Patient states no change in medications or medical history since last visit. Objective: Patient presents to clinic ambulating in dress shoes Vasc: DP and PT pulses are faint bilateral. CFT is less than 5 seconds bilateral. Skin temperature is warm to cool proximal to distal bilateral. There is no edema or varicosities noted. Neuro: Protective sensation is intact to the foot and toes when tested with the 5.07 SWM bilateral. Vibratory sensation is decreased at the hallux IPJ bilateral. The hallux is downgoing bilateral. Derm: Nails 1-5 b/l are painful, discolored-yellow, thick, crumbly, dystrophic and with subungal debris. B/l hallux medial border shows mild splitting of nail plate. Skin is of normal turgor, texture and hair growth is present bilateral. There are no hyperkeratosis, ulcerations, scars, verruca or other lesions noted. Ortho: Muscle strength is 5/5 for all pedal groups tested. Ankle joint DF is full with the knee extended with no pain or crepitus noted. 1st MPJ ROM is full bilateral. Assessment: (B35.1) Onychomycosis (primary encounter diagnosis) (M79.675) Pain in toe of left foot (M79.674) Pain in toe of right foot (E11.42) Diabetic polyneuropathy associated with type 2 diabetes mellitus (HCC) Plan: Patient was seen and evaluated. Nails 1-5 bilateral were debrided in length and thickness. B/l hallux nail plate is showing splitting. No ingrowing infection present. The splitting nail border was removed. If this becomes painful, could consider matrixectomy if adequate perfusion present. Patient was instructed on the continued importance of diabetic foot care along with proper diet and keeping their blood sugar under control to prevent complications. Patient is to RTC in 3-4 months. Devin Cespedes DPM Referring Provider: DEVIN CESPEDES [[id number]] Allergies As of Date: 12/02/2017 Noted Allergy Reaction ADHESIVE TAPE (ROSINS) 04/29/2016 9 - Itching Comments: Possible allergy. Pt had heart cath and she says her wrist was itchy and irritated where the cath was done. CELEBREX (CELECOXIB) 10/16/2005 Comments: affected labs work EFFEXOR (VENLAFAXINE HCL) 07/10/2005 1 - Mental Status Change Comments: patient uncertain INDOCIN (INDOMETHACIN SODIUM) 07/10/2005 5 - Intolerance MEVACOR (LOVASTATIN) 07/10/2005 5 - Intolerance MOTRIN (IBUPROFEN) 07/10/2005 Comments: hair loss NAPROSYN (NAPROXEN) 07/10/2005 5 - Intolerance NSAIDS (NON-STEROIDAL ANTI-INFLAM*07/10/2005 Comments: affected blood studies patient uncertain ORUDIS (KETOPROFEN) 07/10/2005 5 - Intolerance PROZAC (FLUOXETINE HCL) 07/10/2005 1 - Mental Status Change STATINS (CLDXSMA-EQR-MOP REDUCTAS*07/04/2009 5 - Intolerance Comments: myalgia on 80 mg simvastatin VICODIN (HYDROCODONE-ACETAMINOPHE*07/10/2005 5 - Intolerance ZOLOFT (SERTRALINE HCL) 07/10/2005 1 - Mental Status Change batazolidin [Other] 07/10/2005 5 - Intolerance diazide [Other] 07/10/2005 5 - Intolerance meclomen [Other] 07/10/2005 5 - Intolerance sporostacin [Other] 07/10/2005 5 - Intolerance Date Reviewed: 12/02/2017 Reviewed by: Mica Shaw RN - Fully Assessed Reason for Visit: Established Patient [175] Cmt: nail care Primary Visit Diagnosis:Onychomycosis [B35.1] Other Visit Diagnoses:Pain in toe of left foot [M79.675] Pain in toe of right foot [M79.674] Diabetic polyneuropathy associated with type 2 diabetes mellitus (HCC) [E11.42] Prescriptions as of 12/02/2017 Sig: CARVEDILOL 25 MG TABLET Take 1 tablet by mouth twice * DULAGLUTIDE 0.75 MG/0.5 ML HIGHTOWER* Inject 1.5 mg subcutaneously * METFORMIN 1,000 MG TABLET Take 1 tablet by mouth twice * CHLORTHALIDONE 25 MG TABLET Take 1 tablet by mouth once d* CLOPIDOGREL 75 MG TABLET Take 1 tablet by mouth once d* LISINOPRIL 40 MG TABLET Take 1 tablet by mouth once d* BLOOD SUGAR DIAGNOSTIC STRIPS Test blood sugar(s) 2 times d* AMLODIPINE 5 MG TABLET Take 1 tablet by mouth once d* ATORVASTATIN 80 MG TABLET Take 1 tablet by mouth once d* FUROSEMIDE 40 MG TABLET Take 1 tablet by mouth once d* Patient taking differently: Take 40 mg by mouth every oth* METFORMIN 500 MG TABLET Take 1 tablet by mouth daily * GLIMEPIRIDE 4 MG TABLET Take 1 tablet by mouth twice * LANCETS Use as instructed two times d* BLOOD-GLUCOSE METER Dispense One Kit - Verio Mete* THERAPEUTIC MULTIVITAMIN TABL* Take 1 tablet by mouth daily * * COMPOUNDED PRESCRIPTION Diabetic shoes. Has PVD * TYLENOL ARTHRITIS PAIN 650 MG* PRN use only * ASPIRIN 81 MG TABLET,DELAYED * Take one(1) tablet daily. 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 ALLERGIC RHINITIS NOS [J30.9] More... ESOPHAGEAL REFLUX [K21.9] More... Peripheral vascular disease, unspecified (HCC) * Priority: D More... GLAUCOMA NOS [H40.9] More... 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 Preop testing [Z01.818] INVALID FOR* More... Discharge planning issues [Z02.9] INVALID FOR* Priority: M More... Atherosclerosis of tangirnaq coronary artery with *INVALID FOR* Priority: A More... HOCM (hypertrophic obstructive cardiomyopathy) *INVALID FOR* Priority: A More... (aortic stenosis) [I35.0] INVALID FOR* Priority: A More... Mitral regurgitation [I34.0] INVALID FOR* Priority: A More... Hypovolemia [E86.1] INVALID FOR*05/02/2016 Priority: F More... More... Cardiac insufficiency (HCC) [I50.9] INVALID FOR*05/04/2016 Priority: C More... Atelectasis [J98.11] INVALID FOR*05/06/2016 Priority: B More... CKD (chronic kidney disease) [N18.9] INVALID FOR* Priority: F More... Sinus bradycardia [R00.1] INVALID FOR*05/06/2016 Priority: C More... Fluid overload [E87.70] INVALID FOR*05/06/2016 Priority: F More... Thrombocytopenia (HCC) [D69.6] INVALID FOR*05/07/2016 Priority: H More... 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 Hyperlipidemia LDL goal <70 [E78.5] INVALID FOR* Priority: D More... Essential hypertension [I10] INVALID FOR* Priority: C More... 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 ENDOCRINOLOGY VISIT Observed: 11/21/2017 Status: F Source: [place] REPORT 6:44 PM [facility] RE[facility] [address] [place] [address]. [address] [place] [address] OFFICE VISIT Date of Service: 11/18/17 MR#: [id number] Acct: [id number] Name: GRACIELA CAVAZOS Rep #: [id number] : 1940 Provider: Marta Torres NP Age/Sex: 77/F Location: [facility] Status: Signed HPI History of present illness Graciela Cavazos is a 77 year old female who presents for follow up of diabetes type 2. Diagnosed in 1995. Known renal issues. Had 2 hear valves replaced last year. She reports feeling well. Has not changed eating habits. Checks BG each morning with readings noted in the 100-120 range. Not checking otherwise. She had decreased her metformin to 1000 daily instead of 2000 and she noticed BG readings becoming much more elevated. She states nephrology thought increasing trulicity was better than use of metformin At time of visit: -Pt denies symptoms of hypertensive emergency (CP,SOB,YANG, or blurred vision) and hypotension(dizziness or lightheadedness) -Pt denies symptoms of hypoglycemia ( sweaty, confusion, anxiety, tremor, hunger, palpitations) and hyperglycemia ( polydipsia, polyuria) -Pt denies potential medication adverse effect. Hypoglycemia Aware of hypoglycemia: Yes Able to self treat low BG: Yes Frequent low Blood sugar: No Has supply of glucagon: No SMBG Checking BG 4 times daily BG 120-200 during the week or two that she reduced her metformin Type: type 2 Weight and fatigue symptoms: Denies snoring Cardiopulmonary symptoms: Reports chest pain at rest (incisional pain); denies myalgias, dyspnea on exertion or lightheadedness GI symptoms: Denies constipation, diarrhea, nausea/dyspepsia or vomiting Other symptoms: Denies blurry vision or change in vision Dietary compliance: Diabetes: good Diabetes education in past year: Yes Weight and fatigue symptoms: Denies snoring Cardiopulmonary symptoms: Denies chest pain at rest, dyspnea on exertion, lightheadedness or myalgias GI symptoms: Denies constipation, diarrhea, nausea/dyspepsia or vomiting Other symptoms: Denies blurry vision or change in vision Exam Const General: comfortable, well groomed Nutritional Appearance: overweight Orientation: oriented x3 HENMT Head: normal to inspection, normocephalic Ears: hearing grossly normal bilaterally Mouth: oral mucosae normal, moist mucous membranes Teeth and gingiva: dentition normal Eyes General: appearance normal, both eyes and all related structures Eyelids: eyelids normal Conjunctivae: conjunctivae normal Cornea: corneas normal Pupils: PERRL Neck Neck: normal visual inspection, no lymphadenopathy Resp Effort AND Inspection: normal respiratory effort, able to speak in complete sentences, symmetric chest movement Auscultation: Bilateral: Clear to Auscultation Cardio Rate: regular rate Rhythm: regular rhythm Heart Sounds: S1 normal, S2 normal GI Inspection: normal to inspection Auscultation: normal bowel sounds Palpation: soft, no guarding Skin General: no rashes or lesions noted Wounds: no wounds Diabetic Foot Pulses: L dorsalis pedis pulse: normal, R dorsalis pedis pulse: normal Monofilament test: Left foot: normal, Right foot: normal Neuro General: moves all extremities, normal light touch, pain and propioception Cranial Nerves: CN's II-XI intact bilaterally Speech: speech normal Extrem General: normal to inspection, normal capillary refill, edema Psych Appearance: well kempt Mental Status: mental status grossly normal Mood: congruent mood Affect: normal affect Speech and Movement: speech and movement normal Attitude: cooperative Thought Process: normal Thought Content: normal Judgment: judgment good Intake Vital Signs11/18/17 Height 5 ft 2 in 11/18/17 Weight: 183 lb 6 oz 11/18/17 Body Mass Index (BMI) 33.5 11/18/17 Blood Pressure 119/70 11/18/17 Blood Pressure Location Lt popliteal 11/18/17 Blood Pressure Position Sitting Intake Visit Reasons: Diabetes Proc Tech Required: No Accompanied by: Self Is patient in pain?: No Allergies celecoxib [From Celebrex] Allergy (Verified 11/18/17 09:48) Other indomethacin [From Indocin] Allergy (Verified 11/18/17 09:48) Other Wrmtbbs-Oar-Vqn Reductase Inhibitor Allergy (Verified 11/18/17 09:48) Pain in joints acetaminophen [From Vicodin] Adverse Reaction (Verified 11/18/17 09:48) Other adhesive tape Adverse Reaction (Verified 11/18/17 09:48) Itching fluoxetine [From Prozac] Adverse Reaction (Verified 11/18/17 09:48) Other hydrocodone [From Vicodin] Adverse Reaction (Verified 11/18/17 09:48) Other ibuprofen [From Motrin] Adverse Reaction (Verified 11/18/17 09:48) Other ketoprofen Adverse Reaction (Verified 11/18/17 09:48) Other lovastatin [From Mevacor] Adverse Reaction (Verified 11/18/17 09:48) Other meclofenamic acid [From Meclomen] Adverse Reaction (Verified 11/18/17 09:48) Other naproxen [From Naprosyn] Adverse Reaction (Verified 11/18/17 09:48) Other NSAIDS (Non-Steroidal Anti-Inflamma Adverse Reaction (Verified 11/18/17 09:48) Other sertraline [From Zoloft] Adverse Reaction (Verified 11/18/17 09:48) Other venlafaxine [From Effexor] Adverse Reaction (Verified 11/18/17 09:48) Other BATAZOLIDIN Adverse Reaction (Uncoded 11/18/17 09:48) Other DIAZIDE Adverse Reaction (Uncoded 11/18/17 09:48) Other SPOROSTACIN Adverse Reaction (Uncoded 11/18/17 09:48) Other Medications Aspirin [Adult Low Dose Aspirin EC] 81 mg PO DAILY #30 tablet. 05/11/16 [Rx Confirmed 11/18/17] Atorvastatin Calcium [Lipitor] 80 mg PO QHS #30 tab 05/11/16 [Rx Confirmed 11/18/17] Clopidogrel Bisulfate [Plavix] 75 mg PO DAILY #0 tab 05/11/16 [Rx Confirmed 11/18/17] acetaminophen ER 650 mg tablet,extended release 650 mg PO .prn tab 08/19/17 [History Confirmed 11/18/17] amlodipine 5 mg tablet 5 mg PO QDAY 08/19/17 [History Confirmed 11/18/17] blood sugar diagnostic strips See Dose Instructions .ROUTE .MEDSUPPLY #20 ea 08/19/17 [History Confirmed 11/18/17] carvedilol 25 mg tablet 25 mg PO BID 08/19/17 [History Confirmed 11/18/17] chlorthalidone 25 mg tablet 25 mg PO QDAY 08/19/17 [History Confirmed 11/18/17] furosemide 40 mg tablet 40 mg PO QDAY 08/19/17 [History Confirmed 11/18/17] glimepiride 4 mg tablet 4 mg PO BID tab 08/19/17 [History Confirmed 11/18/17] multivitamin capsule 1 cap PO QAM 08/19/17 [History Confirmed 11/18/17] dulaglutide 1.5 mg/0.5 mL subcutaneous pen injector 1.5 mg SC QWEEK #2 ml 11/18/17 [Rx] lisinopril 20 mg tablet 20 mg PO QDAY #90 tab 11/18/17 [Rx Confirmed 11/18/17] metformin 500 mg tablet 500 mg PO BID #180 tab 11/18/17 [Rx Confirmed 11/18/17] Is last menstrual period known: No Post menopausal: Yes Patient : No Nurse's Note: blood sugars : low : high : PFSH Medical History Diabetes type 2, controlled (Acute) Heart disease (Acute) HTN (hypertension) (Chronic) Surgical History History of cataract extraction with lens replacement (Acute) S/P triple vessel bypass (Acute) Family History Grandmother Diabetes Mother Heart disease Social History Smoking Status: Never smoker second hand exposure: No alcohol intake: never substance use type: does not use ROS Const Constitutional: No anorexia, body ache, chills, fatigue, fever(s), frequent falls, decreased energy, malaise, night sweats, weakness, weight change, sleep problems, abnormal sleep pattern, change in appetite, other, headache(s), snoring or excessive sweating Eyes Eyes: No blurry vision, change in vision, double vision, discharge, dry eyes, bulging eyes, floaters, visual disturbances, eye pain, light sensitivity, spots in vision, tunnel vision or other ENT ENT: Positive for nasal discharge; no abnormal hearing, ear pain, ear discharge, ear pressure, hearing loss, tinnitus, dizziness/vertigo, balance problems, nosebleed/epistaxis, nasal congestion, nasal obstruction, nose pain, sinus pressure, sinus pain, post nasal drip, headache(s), facial pain, dental pain, dry mouth, bad breath, hoarseness, lip swelling, mouth lesions, mouth pain, sore throat, tongue swelling, throat swelling, other, difficulty swallowing or neck pain Resp Respiratory: No cough, change in phlegm color, chest congestion, excessive phlegm production, hemoptysis, pain on inspiration, shortness of breath, pain with cough, snoring, stridor, wheezing or other Cardio Cardiology: Positive for generalized swelling; no chest pain at rest, chest pain with exertion, leg pain with exertion, excessive sweating, shortness of breath, dyspnea on exertion, irregular heart rhythm, lightheadedness, orthopnea, radiating jaw, neck or arm pain, fast heart rate, slow heart rate, palpitations or other Gastro GI: No abdominal pain, belching, bloating, change in bowel habits, change in stool character, coffee ground emesis, constipation, cramping, diarrhea, heartburn, difficulty swallowing, feeling full early, excessive flatus, incontinent of stools, Vomiting blood/hematemesis, blood in stool, loose stools, Black,tarry stools, nausea/dyspepsia, pain with swallowing, vomiting or other Genitourinary-Female: Positive for urinary frequency and urinary urgency; no difficulty urinating, burning urination, painful urination, urinary incontinence, urinary hesitancy, urinary retention, blood in urine, Frequent nighttime urination/ nocturia, post void dribbling, suprapubic fullness, side pain, sexual problems, genital lesions, genital itching, hot flashes, abnormal periods, abnormal vaginal bleeding, absent period, painful periods, light periods, heavy periods, difficulty getting , painful intercourse, pelvic pain, vaginal dryness, vaginal odor, Vaginal Itching or other Musc Musculoskeletal: No abnormal walking, joint pain, back pain, deformity, joint swelling, limited range of motion, loss of height, muscle cramps, muscle weakness, decreased muscle mass, body aches, neck pain, numbness, radiating pain into limb, stiffness, tingling or other Neuro Neurology: No frequent falls, weakness, visual disturbances, abnormal hearing, headache(s), abnormal walking, numbness or tingling Psych Psychiatric: No abnormal sleep pattern, No change in appetite Endo Endocrine: No fatigue, other or excessive sweating Aller/Imm Allergy/Immunologic: No lip swelling, tongue swelling, throat swelling or wheezing Assessment AND Plan 1. Diabetes mellitus E11.9 Plan Due to creatinine of 1.48 pt will stop metformin and will increase trulicity to 1.5 mg weekly. Has been using her glimepride. Will call if BG readings do not improve or if they increase. Pt denies difficulty with injections or self monitoring of BG. Denies any signs of infection or irritation at site of injections. Reports taking as directed . Control portions Food selections should be healthy Choose more low carb vegetables Avoid snacks and desserts. Drink water Exercise daily Eat more fresh foods, not canned or processed Eat more slowly Orders Orders: Medications New: dulaglutide (Trulicity) inject into abdomen, thigh, or uppe1.5 mg (0.5 mL) Sub-Q QWEEK r arm (deltoid muscle); rotate sites Plan Detail Other Medications Discontinued: Additional Comments 1. Please schedule follow up in 3 months. 2. Lab work one week before appointment. 3. Discussed importance of regular exercise and recommend starting or continuing a regular exercise program for good health. 4. The patient was encouraged to lose weight for good health 5. The importance of monitoring blood sugar regularly was reviewed. 6. The importance of monitoring the HBA1c level regularly was reviewed. 7. The importance of prper foot care and regularly checking feet to prevent sores and loss of limbs was reviewed. 8. The importance of keeping BP at or below 130/80 to prevent stroke, heart attacks, kidney failure, blindness was reviewed. Spent approximately 30 minutes with patient with over 50% of time spent in discussion and counseling regarding medication adjustment, symptoms and treatment of hypoglycemia, diet adherence, and checking BG before driving. Labs ordered. Coding Level of Care Code Off vis,est,level 4 Diagnoses Diabetes mellitus E11.9 Time Spent (min) 30 11/21/17 4661 <Electronically signed by Marta BOYD> Date Marta BOYD Cosigner Signature: Date (if applicable) CC: HEMOGLOBIN A1C Collected: 11/18/2017 Status: F Source: [place] 11:04 AM [facility] REPOSITORY TYPE CODE TESTS RESULT OUT OF RANGE REFERENCE UNITS LAB L501.9985 4.2-6.3 % High HGB A1C 8.2 Performed By: #### L501.9985 #### [facility] [address] [place], [address] RENAL PROFILE Collected: 11/02/2017 Status: F Source: PATO 9:18 AM [facility] REPOSITORY TYPE CODE TESTS RESULT OUT OF RANGE REFERENCE UNITS LAB L501.0100 74-106 mg/dL High GLU 132 Result Comment: Fasting Glucose result greater than or equal to 126 mg/dL suggests DIABETES MELLITUS per A.D.A. criteria. Please note revised GLUCOSE reference range effective 2017. LAB L501.1000 7-18 mg/dL High BUN 29 LAB L501.1100 0.55-1.02 mg/dL High CREAT,SERUM 1.38 Result Comment: The validity of the calculated GFR AND GFRAA in patients over 70 years has not been determined. Clinical correlation is essential. LAB L501.1110 >60 mL/min Low EST GFR 40 Result Comment: Non- GFR Calc LAB L501.1115 >60 mL/min Low EST GFR - AA 48 Result Comment: GFR Calc LAB L501.1300 10-20 RATIO High BUN/CRE 21.0 LAB L501.1800 3.2-5.0 g/dL Normal ALB 3.7 LAB L501.2200 8.5-10.1 mg/dL CA Normal 9.4 LAB L501.2300 2.5-4.9 mg/dL Normal PHOS 3.4 LAB L501.5300 136-145 mmol/L NA Normal 140 LAB L501.5600 3.5-5.1 mmol/L K Normal 4.6 LAB L501.5900 98-107 mmol/L CL Normal 105 LAB L501.6100 21.0-32.0 mmol/L Normal CO2 25.0 Performed By: #### L500.3600 #### [facility] [address] [place], [address] VITAMIN D,25 HYDROXY Collected: 11/02/2017 Status: F Source: [place] 9:18 AM [facility] REPOSITORY TYPE CODE TESTS RESULT OUT OF REFERENCE UNITS RANGE LAB L506.1000 29.95-100.01 ng/mL Low Vitamin D 24.9 25-OH Result Comment: Vitamin D 25(OH) Status Range Deficiency <20 ng/mL (50nmol/L) Insuffciency 20 - 30 ng/mL (50 - 75 nmol/L) Sufficiency 30 - 100 ng/mL (75 - 250 nmol/L) Toxicity >100 ng/mL (>250 nmol/L) Performed By: #### L506.1000 #### [facility] [address] [place], [address] PTHIN Collected: 11/02/2017 Status: F Source: [place] 9:18 AM [facility] REPOSITORY TYPE CODE TESTS RESULT OUT OF RANGE REFERENCE UNITS LAB L509.1000 18.4-80.1 pg/mL Normal PTHIN 34.2 Result Comment: Please Note: PTH INTACT METHOD AND REFERENCE RANGE CHANGE Effective 08/18/2017. Performed By: #### L509.1000 #### [facility] [address] [place], [address] PROGRESS Observed: 10/07/2017 Status: COMPLETED Source: JOINER 4:[address] [facility] REPOSITORY HNO ID: [id number] Author: Teodoro Keys (Rn) Service: (none) Author Type: Registered Nurse Type: Progress Notes Filed: 10/17/2017 10:49 PM Note Text: PRIMARY CARE COORDINATION QUICK NOTE Provider Action/FYI Chart review, Patient identified by name and date . Massimo Valerio RN October 07, 2017 4:27 PM CNPTOUTREACH Observed: 09/06/2017 Status: COMPLETED Source: JOINER 12:[address] [facility] REPOSITORY Patient Outreach (FAMPWS) GRACIELA CAVAZOS ([id number]) 1940 F Date Time Provider Department 09/06/17 TEODORO KEYS (GARRISON) FAMPWS During your visit today, we recorded the following information about you: Massimo Valerio RN 10/17/2017 10:49 PM Signed PRIMARY CARE COORDINATION QUICK NOTE Provider Action/FYI Chart review, Patient identified by name and date . Massimo Valerio RN October 07, 2017 4:27 PM Allergies As of Date: 09/06/2017 Noted Allergy Reaction ADHESIVE TAPE (ROSINS) 04/29/2016 9 - Itching Comments: Possible allergy. Pt had heart cath and she says her wrist was itchy and irritated where the cath was done. CELEBREX (CELECOXIB) 10/16/2005 Comments: affected labs work EFFEXOR (VENLAFAXINE HCL) 07/10/2005 1 - Mental Status Change Comments: patient uncertain INDOCIN (INDOMETHACIN SODIUM) 07/10/2005 5 - Intolerance MEVACOR (LOVASTATIN) 07/10/2005 5 - Intolerance MOTRIN (IBUPROFEN) 07/10/2005 Comments: hair loss NAPROSYN (NAPROXEN) 07/10/2005 5 - Intolerance NSAIDS (NON-STEROIDAL ANTI-INFLAM*07/10/2005 Comments: affected blood studies patient uncertain ORUDIS (KETOPROFEN) 07/10/2005 5 - Intolerance PROZAC (FLUOXETINE HCL) 07/10/2005 1 - Mental Status Change STATINS (AVDOJMQ-MZD-SGV REDUCTAS*07/04/2009 5 - Intolerance Comments: myalgia on 80 mg simvastatin VICODIN (HYDROCODONE-ACETAMINOPHE*07/10/2005 5 - Intolerance ZOLOFT (SERTRALINE HCL) 07/10/2005 1 - Mental Status Change batazolidin [Other] 07/10/2005 5 - Intolerance diazide [Other] 07/10/2005 5 - Intolerance meclomen [Other] 07/10/2005 5 - Intolerance sporostacin [Other] 07/10/2005 5 - Intolerance Date Reviewed: 08/19/2017 Reviewed by: Tova Cee Ma - Fully Assessed Prescriptions as of 09/06/2017 Sig: AMLODIPINE 5 MG TABLET Take 1 tablet by mouth once d* ATORVASTATIN 80 MG TABLET Take 1 tablet by mouth once d* CARVEDILOL 25 MG TABLET Take 1 tablet by mouth twice * DULAGLUTIDE 0.75 MG/0.5 ML HIGHTOWER* Inject 0.75 mg subcutaneously* FUROSEMIDE 40 MG TABLET Take 1 tablet by mouth once d* Patient taking differently: Take 40 mg by mouth every oth* METFORMIN 500 MG TABLET Take 1 tablet by mouth daily * GLIMEPIRIDE 4 MG TABLET Take 1 tablet by mouth twice * X CHLORTHALIDONE 25 MG TABLET Take 1 tablet by mouth once d* X METFORMIN 1,000 MG TABLET 1 tablet QAM, 1 tablet QPM wi* X LISINOPRIL 40 MG TABLET Take 1 tablet by mouth once d* X CLOPIDOGREL 75 MG TABLET Take 1 tablet by mouth once d* LANCETS Use as instructed two times d* X BLOOD SUGAR DIAGNOSTIC STRIPS Test blood sugar(s) 2 times d* LISINOPRIL 20 MG TABLET Take 1 tablet by mouth once d* BLOOD-GLUCOSE METER Dispense One Kit - Verio Mete* THERAPEUTIC MULTIVITAMIN TABL* Take 1 tablet by mouth daily * SODIUM CHLORIDE 0.65 % NASAL * Use 2 Sprays in each nostril * * COMPOUNDED PRESCRIPTION Diabetic shoes. Has PVD * TYLENOL ARTHRITIS PAIN 650 MG* PRN use only * ASPIRIN 81 MG TABLET,DELAYED * Take one(1) tablet daily. 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 ALLERGIC RHINITIS NOS [J30.9] More... ESOPHAGEAL REFLUX [K21.9] More... Peripheral vascular disease, unspecified (HCC) * Priority: D More... GLAUCOMA NOS [H40.9] More... 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 Preop testing [Z01.818] INVALID FOR* More... Discharge planning issues [Z02.9] INVALID FOR* Priority: M More... Atherosclerosis of tangirnaq coronary artery with *INVALID FOR* Priority: A More... HOCM (hypertrophic obstructive cardiomyopathy) *INVALID FOR* Priority: A More... (aortic stenosis) [I35.0] INVALID FOR* Priority: A More... Mitral regurgitation [I34.0] INVALID FOR* Priority: A More... Hypovolemia [E86.1] INVALID FOR*05/02/2016 Priority: F More... More... Cardiac insufficiency (HCC) [I50.9] INVALID FOR*05/04/2016 Priority: C More... Atelectasis [J98.11] INVALID FOR*05/06/2016 Priority: B More... CKD (chronic kidney disease) [N18.9] INVALID FOR* Priority: F More... Sinus bradycardia [R00.1] INVALID FOR*05/06/2016 Priority: C More... Fluid overload [E87.70] INVALID FOR*05/06/2016 Priority: F More... Thrombocytopenia (HCC) [D69.6] INVALID FOR*05/07/2016 Priority: H More... 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 Hyperlipidemia LDL goal <70 [E78.5] INVALID FOR* Priority: D More... Essential hypertension [I10] INVALID FOR* Priority: C More... 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] INVALID FOR* Status post aortic valve replacement with biopr*INVALID FOR* PAD (peripheral artery disease) (HCC) [I73.9] INVALID FOR* Chronic bilateral low back pain without sciatic*INVALID FOR* Encounter Status:Closed by CHAUNCEY, PRODUSER on 10/17/17 ECHOCARDIOGRAM Observed: 04/15/2017 Status: F Source: [place] 4:12 PM [facility], [address] [place] [address] and TRANSTHORACIC ECHOCARDIOGRAM REPORT Patient Name: GRACIELA Telles Physician: [id number] Pepper HENDERSONKERMAN Study Date: 04/15/2017 Referring Emiliano Enriquez Physician: MRN/PID: [id number] PCP: Marisa Oro PAC Accession/Order#: [id number] [facility] Location: Date of : 1940 Fellow: Gender: F Nurse: Admit Date: 04/15/2017 Schedule Checker: Khanh Hernández [facility] Admission Status: Outpatient Additional Staff: Height: 157.48 cm CC Report to: Weight: 79.83 kg Study Type: Echocardiogram BSA: 1.81 m2 Diagnosis/ICD: I35.8 Other nonrheumatic aortic valve disorders; I34.0 Nonrheumatic mitral (valve) insufficiency Indication: aortic valvee stenosis;mitral regugitation Procedure/CPT: Echo Complete w/Full Doppler (10456) Patient History: Valve Disorders: Aortic Valve Replacement and Mitral Valve Replacement. Pertinent History: CAD, HTN and Hyperlipidemia. CABG, PAD, right SFA stenting and left SFA angioplasty. Study Detail: The following Echo studies were performed: 2D, M-Mode, Doppler and color flow. Technically challenging study due to body habitus. PHYSICIAN INTERPRETATION: Left Ventricle: The left ventricular systolic function is normal, with an estimated ejection fraction of 65-70%. The left ventricular cavity size is normal. Spectral Doppler shows a pseudonormal pattern of left ventricular diastolic filling. Left Atrium: The left atrium is mildly dilated. Right Ventricle: The right ventricle is normal in size. There is low normal right ventricular systolic function. Right Atrium: The right atrium is normal in size. Aortic Valve: The aortic valve was not well visualized. The aortic valve dimensionless index is 0.66. There is no evidence of aortic valve regurgitation. The peak instantaneous gradient of the aortic va lve is 21.2 mmHg. The mean gradient of the aortic valve is 15.0 mmHg. Mitral Valve: The mitral valve is abnormal. Echo findings are consistent with normal mitral valve prosthesis structure and function. There is a mitral valve bioprosthesis. There is no evidence of mitral valve regurgitation. Tricuspid Valve: The tricuspid valve was not well visualized. There is trace to mild tricuspid regurgitation. Pulmonic Valve: The pulmonic valve is not well visualized. There is no indication of pulmonic valve regurgitation. Pericardium: There is no pericardial effusion noted. Aorta: The aortic root is abnormal. There is mild dilatation of the aortic root. Pulmonary Artery: The tricuspid regurgitant velocity is 2.30 m/s, and with an estimated right atrial pressure of 5 mmHg, the estimated pulmonary artery pressure is mildly elevated with the RVSP at 31 mmHg. CONCLUSIONS: 1. The left ventricular systolic function is normal with a 65-70% estimated ejection fraction. 2. Spectral Doppler shows a pseudonormal pattern of left ventricular diastolic filling. QUANTITATIVE DATA SUMMARY: 2D MEASUREMENTS: Normal Ranges: LAs: 2.80 cm (2.7-4.0cm) IVSd: 1.10 cm (0.6-1.1cm) LVPWd: 1.10 cm (0.6-1.1cm) LVIDd: 3.90 cm (3.9-5.9cm) LVIDs: 2.60 cm LV Mass Index: 77.4 g/m2 LV % FS 33.3 % M-MODE MEASUREMENTS: Normal Ranges: Ao Root: 3.60 cm (2.0-3.7cm) LV SYSTOLIC FUNCTION BY 2D PLANIMETRY (MOD): Normal Ranges: EF-A4C View: 67.8 % (>55%) EF-A2C View: 65.8 % EF-Biplane: 66.8 % LV DIASTOLIC FUNCTION: Normal Ranges: MV Peak E: 1.87 m/s (0.7-1.2 m/s) MV Peak A: 1.72 m/s (0.42-0.7 m/s) E/A Ratio: 1.09 (1.0-2.2) MV lateral e' 0.04 m/s MV A Dur: 108.00 msec E/e' Ratio: 53.30 (<8.0) PulmV Sys Tavo: 51.50 cm/s PulmV Murdock Tavo: 73.60 cm/s PulmV S/D Tavo: 0.70 PulmV A Revs Tavo: 29.40 cm/s PulmV A Revs Dur: 95.00 msec MITRAL VALVE: Normal Ranges: MV Vmax: 2.13 m/s (<1.3m/s) MV peak P.2 mmHg (<5mmHg) MV mean P.5 mmHg (<48mmHg) MV DT: 264 msec (150-240msec) AORTIC VALVE: Normal Ranges: AoV Vmax: 2.30 m/s (<1.7m/s) AoV Peak P.2 mmHg (<20mmHg) AoV Mean P.0 mmHg (1.7-11.5mmHg) LVOT Max Tavo: 1.29 m/s (<1.1m/s) AoV VTI: 53.80 cm (18-25cm) LVOT VTI: 35.50 cm AoV Dimensionless Index: 0.66 TRICUSPID VALVE/RVSP: Normal Ranges: Peak TR Velocity: 2.30 m/s RV Syst Pressure: 19.1 (< 30mmHg) PULMONIC VALVE: Normal Ranges: PV Accel Time: 85 msec (>120ms) PV Max Tavo: 1.0 m/s (0.6-0.9m/s) PV Max P.7 mmHg PV Mean P.0 mmHg PV VTI: 24.10 cm Pulmonary Veins: PulmV A Revs Dur: 95.00 msec PulmV A Revs Tavo: 29.40 cm/s PulmV Murdock Tavo: 73.60 cm/s PulmV S/D Tavo: 0.70 PulmV Sys Tavo: 51.50 cm/s [id number] Pepper Walsh MD Electronically signed on 04/15/2017 at 10:27:38 PM Final VASC LAB PVR (ARTERIAL Observed: 04/15/2017 Status: F Source: [facility]) EXER 1:16 PM [facility], [address] [place] [address] and Vascular Lab Report PVR With Exercise Patient Name: GRACIELA Telles Physician: [id number] Olu CAVAZOS Study Date: 04/15/2017 Referring Emiliano Enriquez Physician: MRN/PID: [id number] PCP: Accession/Order#: [id number] CC Report to: Date of : 1940 Technologist: Juan Luis Gilmore RVT Gender: F Technologist 2: Admission Status: Outpatient Location Performed: [facility] Diagnosis/ICD: I73.9 Peripheral vascular disease, unspecified Procedure/CPT: 92507 Peripheral artery PVR with exercise CONCLUSIONS: Right Lower PVR: There is evidence of mild disease at the femoral level. Hemodynamics are further compromised in the right lower extremity with exercise. Decreased digital perfusion noted. Left Lower PVR: There is evidence of mild disease at the femoral popiteal level. Hemodynamics are further compromised in the left lower extremity with exercise. Decreased digital perfusion noted. Exercise:Exercise completed at 0% grade and 2 miles per hour for 5 minutes. The patient experienced pain in the left thigh at 1 minute. Imaging & Doppler Findings: RIGHT Lower PVR Pressures Ratios Right High Thigh 147 mmHg 1.13 Right Low Thigh 95 mmHg 0.73 Right Calf 91 mmHg 0.70 Right Posterior Tibial (Ankle) 68 mmHg 0.52 Right Dorsalis Pedis (Ankle) 54 mmHg 0.42 Right Digit (Great Toe) 38 mmHg 0.29 Right Ankle Post Exercise 39 mmHg 0.26 5 Minute Pressure 51 mmHg 0.38 LEFT Lower PVR Pressures Ratios Left High Thigh 130 mmHg 1.00 Left Low Thigh 128 mmHg 0.98 Left Calf 101 mmHg 0.78 Left Posterior Tibial (Ankle) 76 mmHg 0.58 Left Dorsalis Pedis (Ankle) 63 mmHg 0.48 Left Digit (Great Toe) 46 mmHg 0.35 Left Ankle Post Exercise 50 mmHg 0.33 5 Minute Pressure 68 mmHg 0.50 Right Left Brachial Pressure 122 mmHg 130 mmHg 21032 Olu Obregon MD Final ALLERGIES ALLERGIES DATE TYPE / CODE NAME / CODE REACTION SEVERITY SOURCE Drug NSAIDS Other Unknown [place] [facility] Allergy/739592184( (Non-Steroidal Community SNOMED CT) Anti-Inflamma/F00 Hospital 2155110(RXNORM) Repository Drug Fglpgok-Lwd-Kij Pain in joints Unknown [place] [facility] Allergy/881861639( Reductase [facility] SNOMED [facility]) Inhibitor/X493563 Hospital 095(RXNORM) Repository Drug hydrocodone/F0060 Other Unknown [place] 8 Allergy/934977630( 58528(RXNORM) [facility]als[address]) Hospital Repository Drug acetaminophen/F00 Other Unknown [place] 8 Allergy/600036746( 0514542(RXNORM) [facility] SN[facility]) Hospital Repository Drug lovastatin/X08322 Other Unknown [place] [facility] Allergy/194802380( 2063(RXNORM) [facility] SNOMED CT) Hospital Repository Drug indomethacin/F006 Other Unknown [place] 8 Allergy/797545995( 856377(RXNORM) [facility] SNOMED CT) Hospital Repository Drug ibuprofen/H069531 Other Unknown [place] [facility] Allergy/342095843( 377(RXNORM) [facility] SNOMED CT) Hospital Repository Drug naproxen/U3496190 Other Unknown [place] [facility] Allergy/788629601( 80(RXNORM) [facility] SNOMED CT) Hospital Repository Drug meclofenamic Other Unknown [place] 8 Allergy/660021199( acid/I567225736(R Community SNOMED CT) XNORM) Hospital Repository Drug ketoprofen/W56876 Other Unknown [place] 8 Allergy/730383135( 2394[facility] Drug adhesive Itching Unknown [place] [facility] Allergy/649660037( tape/F518253529(R Community SNOMED CT) XNORM) Hospital Repository Drug venlafaxine/F0060 Other Unknown [place] 8 Allergy/513473267( 66819(RXNORM) [facility] SNOMED CT) Hospital Repository Drug fluoxetine/V64929 Other Unknown [place] [facility] Allergy/539426157( 4613(RXNORM) [facility] SNOMED CT) Hospital Repository Drug sertraline/V73908 Other Unknown [place] [facility] Allergy/347952113( 4615(RXNORM) [facility] SNOMED CT) Hospital Repository Drug celecoxib/B425791 Other Unknown [place] [facility] Allergy/917173816( 731(RXNORM) [facility] SNOMED CT) Hospital Repository Miscellaneous BATAZOLIDIN Other Unknown [place] 8 Allergy/774576296( [facility] SNOMED CT) Hospital Repository Miscellaneous DIAZIDE Other Unknown [place] 8 Allergy/482279697( [facility] SNOMED CT) Hospital Repository Miscellaneous SPOROSTACIN Other Unknown [place] [facility] Allergy/891269794( [facility] SNOMED CT) Hospital Repository Chemical/569436501 ADHESIVE TAPE ITCHING [place] [facility] (SNOMED CT) (ROSINS) [facility] [place] Repository Drug ZNDKVOS-PDA-IXP INTOLERANCE [place] [facility] Class/014550632(SN REDUCTASE Clinic Main OMED CT) INHIBITORS [place] Repository DRUG CELECOXIB [place] INGREDI/261630208( Clinic Main SNOMED [facility]) [place] Repository DRUG VENLAFAXINE HCL Mental Chg [place] [facility] INGREDI/531211052( Clinic Main SNOMED [facility]) [place] Repository DRUG/638632888(SNO INDOMETHACIN INTOLERANCE [place] [address]) SODIUM [facility] [place] Repository DRUG LOVASTATIN INTOLERANCE [place] [facility] INGREDI/157297717( Clinic Main SNOMED CT) [place] Repository DRUG IBUPROFEN [place] [facility] INGREDI/051582605( Clinic Main SNOMED [facility]) [place] Repository DRUG NAPROXEN INTOLERANCE [place] [facility] INGREDI/339184199( Clinic Main SNOMED [facility]) [place] Repository Drug NSAIDS [place] [facility] Class/108347093(SN (NON-STEROIDAL Clinic Main OMED CT) ANTI-INFLAMMATORY [place] DRUG) Repository DRUG KETOPROFEN INTOLERANCE [place] [facility] INGREDI/034496356( Clinic Main SNOMED CT) [place] Repository DRUG FLUOXETINE HCL Mental Chg [place] [facility] INGREDI/180632716( Clinic Main SNOMED CT) [place] Repository DRUG/192222132(SNO HYDROCODONE-ACETA INTOLERANCE [place] [address]) MINOPHEN Clinic [facility] [place] Repository DRUG SERTRALINE HCL [facility] [place] [facility] INGREDI/629416962( Clinic Main SNOMED CT) [place] Repository Miscellaneous OTHER INTOLERANCE [place] [facility] Allergy/754512819( Clinic Main SNOMED CT) [place] Repository ENCOUNTERS ENCOUNTERS ADMIT/DISCHARGE ACCOUNT NUMBER ADMITTING ENCOUNTER LOCATION SOURCE CLASS 09/19/2018 [id number] General acute hospital ding:LAB.FUT Repository URE 09/01/2018 [id number] General acute hospital ding:LAB.FUT Repository URE 08/12/2018/09/05/19 [id number] Ambulatory [place] [facility] [place] Repository 08/01/2018/08/04/20 [id number] Ambulatory [address] Repository 07/25/2018/07/25/20 [id number] Ambulatory [address] Repository 07/25/2018/07/29/20 [id number] Ambulatory [address] Repository 07/23/2018/07/23/20 [id number] Emergency [address] ding:ED Repository 07/23/2018/07/25/20 [id number] Ambulatory [address] Repository 07/20/2018 [id number] Ambulatory [facility] ding:PT Repository 07/19/2018 [id number] Ambulatory [facility] ding:LAB Repository 07/19/2018/07/19/20 [id number] Ambulatory BMSBuilding: [place] 18 BMS.[facility] Repository 07/11/2018 [id number] Ambulatory [facility] ding:LAB.FUT Repository URE 07/08/2018 [id number] Ambulatory [facility] ding:LAB Repository 06/17/2018/06/21/20 [id number] Ambulatory [address] Repository 05/26/2018/05/26/20 [id number] Ambulatory [address] Repository 05/26/2018/05/30/20 [id number] Ambulatory [address] Repository 05/21/2018 [id number] Ambulatory [facility] ding:LAB.FUT Repository URE 04/25/2018/04/25/20 [id number] Ambulatory BMSBuilding: [place] 18 BMS.[facility] Repository 04/18/2018 [id number] Ambulatory [facility] ding:LAB Repository 04/18/2018/04/18/20 [id number] Ambulatory BMSBuilding: [place] 18 BMS.[facility] Repository 04/13/2018 [id number] Ambulatory [facility] ding:LAB Repository 04/08/2018 [id number] Ambulatory [facility] Repository 04/05/2018/04/05/20 [id number] Ambulatory [address] Repository 04/05/2018/04/05/20 [id number] Ambulatory [address] Repository 04/04/2018 [id number] Ambulatory [facility] ding:LAB Repository 03/31/2018 [id number] [place], Ambulatory [facility] Repository 03/16/2018/03/17/20 [id number] Ambulatory [address] Main [place] Repository 03/16/2018/03/16/20 [id number] Ambulatory [address] Repository 03/03/2018/03/07/20 [id number] Ambulatory [address] Main [place] Repository 02/08/2018/02/16/20 [id number] Ambulatory [address] Repository 12/02/2017/12/04/19 [id number] Ambulatory [address] Repository 11/18/2017 [id number] Ambulatory [facility] ding:LAB Repository 11/18/2017/11/19/19 [id number] Ambulatory BMSBuilding: [place] Repository 11/02/2017 [id number] Ambulatory [facility] ding:LAB Repository 10/14/2017 [id number] Ambulatory [address] [place] [address] ([place]) Repository PAYERS PAYERS ENCOUNTER GUARANTOR PAYER SUBSCRIBER SOURCE 09/19/2018 JUNE Leonard Primary GRACIELA G [place] [id number] Insurance:MEDICARE ACKERMANDOB: [facility] A [facility] [id number] Number: Repository [address]Tce: [phone] [id number] [phone] () Date:2018-09-15 09/19/2018 Secondary GRACIELA G [place] Insurance:ANTHEMPolic ACKERMANDOB: Community y Number: [id number] Hospital [id number] Repository Date:9751-86-17XH [address], [place] [address]EX: 09/19/2018 Tertiary NOT GIVENUNK [place] Insurance:SELF PAY [facility] Number: Effective Repository Date:2018-09-15 09/01/2018 JUNE Leonard Primary GRACIELA G [place] [id number] Insurance:MEDICARE ACKERMANDOB: [facility] [id number] Number: Repository [address]Okj: 330 [id number] [phone] (HP) Date:2018-08-01 09/01/2018 Secondary GRACIELA G [place] Insurance:ANTHEMPolic ACKERMANDOB: Community y Number: [id number] Hospital [id number] Repository Date:6702-54-05QN [address] [place] [address]FD: 09/01/2018 Tertiary NOT GIVENUNK [place] Insurance:SELF PAY [facility] Number: Effective Repository Date:2018-08-01 07/23/2018 JUNE Leonard Primary GRACIELA G [place] [id number] Insurance:MEDICARE ACKERMANDOB: [id number] [place] Number[facility] Repository [address]Yid: 330 [id number] [phone] (HP) Date:2018-07-23 07/23/2018 Secondary GRACIELA G [place] Insurance:ANTHEMPolic ACKERMANDOB: Community y Number: [id number] Hospital [id number] Repository Date:8535-79-92HT [address] [place] [address]OT: 07/23/2018 Tertiary NOT GIVENUNK [place] Insurance:SELF PAY [facility] Number: Effective Repository Date:2018-07-23 07/20/2018 JUNE L Primary GRACIELA G [place] [id number] Insurance:MEDICARE ACKERMANDOB: [facility] [id number] Number: Repository [address]Vkd: 330 [id number] [phone] (HP) Date:2007-05-30 07/20/2018 Secondary GRACIELA G [place] Insurance:ANTHEMPolic ACKERMANDOB: Community y Number: [id number] Hospital [id number] Repository Date:0002-74-90[address], [place] [address]PO: 07/20/2018 Tertiary NOT GIVENUNK [place] Insurance:SELF PAY [facility] Number: Effective Repository Date:2018-05-26 07/19/2018 JUNE L Primary GRACIELA G [place] [id number] Insurance:MEDICARE ACKERMANDOB: [facility] [id number] Number: Repository [address]Gxw: 330 [id number] [phone] (HP) Date:2018-07-19 07/19/2018 Secondary GRACIELA G [place] Insurance:ANTHEMPolic ACKERMANDOB: Community y Number: [id number] Hospital [id number] Repository Date:0141-77-58[address], [place] [address]UU: 07/19/2018 Tertiary NOT GIVENUNK [place] Insurance:SELF PAY [facility] Number: Effective Repository Date:2018-07-19 07/19/2018 JUNE L Primary GRACIELA G [place] [id number] Insurance:MEDICARE ACKERMANDOB: [facility] [id number] Number: Repository [address]Pio: 330 [id number] [phone] (HP) Date:2018-06-21 07/19/2018 Secondary GRACIELA G [place] Insurance:ANTHEMPolic ACKERMANDOB: Community y Number: [id number] Hospital [id number] Repository Date:7585-77-38[address], [place] [address]LM: 07/19/2018 Tertiary NOT GIVENUNK [place] Insurance:SELF PAY [facility] Number: Effective Repository Date:2018-07-19 07/11/2018 JUNE L Primary GRACIELA G [place] [id number] Insurance:MEDICARE ACKERMANDOB: [id number] [place] Number: Repository [address]Lkp: 330 [id number] [phone] () Date:2018-07-11 07/11/2018 Secondary GRACIELA G [place] Insurance:ANTHEMPolic ACKERMANDOB: Community y Number: [id number] Hospital [id number] Repository Date:7011-53-51CX [address] [address]ZG: 07/11/2018 Tertiary NOT GIVENUNK [place] Insurance:SELF PAY [facility] Number: Effective Repository Date:2018-07-11 07/08/2018 JUNE L Primary GRACIELA G [place] [id number] Insurance:MEDICARE ACKERMANDOB: Community [place] PART A [facility] [id number] [facility] [place] Number: Repository [address]Hbb: 330 [id number] [phone] () Date:2018-07-08 07/08/2018 Secondary GRACIELA G [place] Insurance:ANTHEMPolic ACKERMANDOB: Community y Number: [id number] Hospital [id number] Repository Date:2791-35-99JX [address] [address]YC: 07/08/2018 Tertiary NOT GIVENUNK [place] Insurance:SELF PAY [facility] Number: Effective Repository Date:2018-07-08 05/21/2018 JUNE L Primary GRACIELA G [place] [id number] Insurance:MEDICARE ACKERMANDOB: [facility] PART A [facility] [id number] [facility] [place] Number: Repository [address]Lni: 330 [id number] [phone] () Date:2018-05-10 05/21/2018 Secondary GRACIELA G [place] Insurance:ANTHEMPolic ACKERMANDOB: Community y Number: [id number] Hospital [id number] Repository Date:3733-61-63HE [address] [address]HR: 05/21/2018 Tertiary NOT GIVENUNK [place] Insurance:SELF PAY [facility] Number: Effective Repository Date:2018-05-10 04/25/2018 June Leonard Primary GRACIELA [place] [facility] [id number] Insurance:MEDICARE ACKERMANDOB: [id number] Number: Repository [address]Rej: 330 [id number] [phone] () Date:2018-04-21 04/25/2018 Secondary GRACIELA G [place] [place] Insurance:ANTHEMPolic ACKERMANDOB: Community y Number: [id number] [facility] [id number] Repository Date:3908-15-11[address] [place] [address] 87061BA: 04/25/2018 Tertiary NOT GIVENUNK Pat[place] Insurance:SELF PAY [facility] Number: Effective Repository Date:2018-04-25 04/18/2018 June Leonard Primary GRACIELA G [place] [id number] Insurance:MEDICARE ACKERMANDOB: [place] [id number] [place] Number: Repository [id number]: 330 [id number] [phone] () Date:2018-04-18 04/18/2018 Secondary GRACIELA G [place] Insurance:ANTHEMPolic ACKERMANDOB: Community y Number: [id number] Hospital [id number] Repository Date:2894-49-54[address] [place] [address] 77121JL: 04/18/2018 Tertiary NOT GIVENUNK [place] Insurance:SELF PAY [facility] Number: Effective Repository Date:2018-04-18 04/18/2018 June Leonard Primary GRACIELA [place] [id number] Insurance:MEDICARE ACKERMANDOB: [place] [id number] Number: Repository [id number]: 330 [id number] [phone] () Date:2017-11-18 04/18/2018 Secondary GRACIELA G [place] Insurance:ANTHEMPolic ACKERMANDOB: Community y Number: [id number] Hospital [id number] Repository Date:2250-70-68WM [address] [place] [address] 04918DY: 04/18/2018 Tertiary NOT GIVENUNK [place] Insurance:SELF PAY [facility] Number: Effective Repository Date:2018-04-18 04/13/2018 June Leonard Primary GRACIELA [place] Pato [id number] Insurance:MEDICARE ACKERMANDOB: [facility] [id number] Number[place] Repository [id number]: [phone] [id number] [phone] () Date:2018-04-13 04/13/2018 Secondary GRACIELA G [place] Insurance:ANTHEMPolic ACKERMANDOB: Community y Number: [id number] Hospital [id number] Repository Date:6527-36-04QI [id number] [place] [address] 20725UR: 04/13/2018 Tertiary NOT GIVENUNK [place] Insurance:SELF PAY [facility] Number: Effective Repository Date:2018-04-13 04/04/2018 June Leonard Primary GRACIELA [place] [id number] Insurance:MEDICARE ACKERMANDOB: [facility] [id number] Number[place] Repository [id number]: [phone] [id number] [phone] () Date:2018-04-04 04/04/2018 Secondary GRACIELA G [place] Insurance:ANTHEMPolic ACKERMANDOB: Community y Number: [id number] Hospital [id number] Repository Date:9785-89-70[id number] [place] [address] 10327RC: 04/04/2018 Tertiary NOT GIVENUNK [place] Insurance:SELF PAY [facility] Number: Effective Repository Date:2018-04-04 03/31/2018 GRACIELA G Primary GRACIELA G [employer] ACKERMANDOB: Insurance:MedicarePol ACKERMANDOB: [facility] icy Number: [id number] Repository [place] [id number] 0 [facility], Date:[facility] [place] [address]Kcw: A [place] [address]Grv: (HP) (HP) 03/31/2018 Secondary GRACIELA G [facility] Insurance:MedicarePol ACKERMANDOB: Hospitals icy Number: [id number] Repository [id number] [place] Date:Plan Name:[place] [address]Ynz: (HP) 03/31/2018 Tertiary GRACIELA G [facility] Insurance:AnthemPolic ACKERMANDOB: Hospitals y Number: [id number] Repository [id number] 0 [place] Date:Plan Name:[place], [place] [address]Piu: (HP) 11/18/2017 June Aisha Primary GRACIELA G Pat[place] [id number] Insurance:MEDICARE ACKERMANDOB: [facility] PART A [facility] [id number] Number[place] Repository [address]Ofk: 330 [id number] [phone] (HP) Date:2017-11-18 11/18/2017 Secondary GRACIELA G [place] Insurance:ANTHEMPolic ACKERMANDOB: Community y Number: [id number] Hospital [id number] Repository Date:[id number] [address]: 11/18/2017 Tertiary NOT GIVENUNK [place] Insurance:SELF PAY [facility] Number: Effective Repository Date:2017-11-18 11/18/2017 June L Primary GRACIELA G [place] [id number] Insurance:MEDICARE ACKERMANDOB: [place] PART A [facility] [id number] Number[place] Repository [address]Ujy: 330 [id number] [phone] (HP) Date:2017-08-19 11/18/2017 Secondary GRACIELA G [place] Insurance:ANTHEMPolic ACKERMANDOB: Community y Number: [id number] Hospital [id number] Repository Date:8049-47-28[id number] [place] [address] 904[address]VR: 11/18/2017 Tertiary NOT GIVENUNK [place] Insurance:SELF PAY [facility] Number: Effective Repository Date:2017-11-18 11/02/2017 June Leonard Primary GRACIELA G [place] [id number] Insurance:MEDICARE ACKERMANDOB: [place] PART A [facility] [id number] Number[place] Repository [address]Whi: [phone] [id number] [phone] () Date:2017-11-02 11/02/2017 Secondary GRACIELA G Pat[place] Insurance:ANTHEMPolic ACKERMANDOB: Community y Number: [id number] Hospital [id number] Repository Date:5666-54-04LI [address], [place] [address]LI: 11/02/2017 Tertiary NOT GIVENUNK [place] Insurance:SELF PAY [facility] Number: Effective Repository Date:2017-11-02
== END ==
PROVIDERS: Family Provider Internal Medicine; PCP Internal Medicine; Referring Provider Internal Medicine Nephrology; Visit Provider Internal Medicine Nephrology
DX: N17.9 Acute kidney failure, unspecified (principal); E55.9 Vitamin D deficiency, unspecified
CPT/HCPCS: 36415; 80069

== ENCOUNTER → 2018-10-19 09:46 | Outpatient (CLI) | payer MEDICARE, BC, SELFPAY ==
[2018-10-19 08:44] VITALS: BMI 34.8
[2018-10-19 11:13] LABS: Hemoglobin A1c 7.9 % (4.2-6.3)
[2018-10-19 11:16] LABS: BUN 57 mg/dL (7-18); BUN/Creat Ratio 29.1 RATIO (10-20); Calcium,Total 9.1 mg/dL (8.5-10.1); Chloride 104 mmol/L (98-107); Creatinine, Serum 1.96 mg/dL (0.55-1.02); EST Glomerular Filtration Rate 26 mL/min (>60); Est Glom Filt Rate - Afr Amer 32 mL/min (>60); Glucose 120 mg/dL (74-106); Phosphorus 4.1 mg/dL (2.5-4.9); Potassium 4.3 mmol/L (3.5-5.1); Sodium Level 142 mmol/L (136-145); Vitamin D,25 Hydroxy 25.4 ng/mL (29.95-100.01)
== END ==
PROVIDERS: Nurse Practitioner; Family Provider Internal Medicine; PCP Internal Medicine; Referring Provider Internal Medicine Nephrology; Visit Provider Internal Medicine Nephrology
DX: E11.9 Type 2 diabetes mellitus without complications (principal); I10 Essential (primary) hypertension; N17.9 Acute kidney failure, unspecified; E55.9 Vitamin D deficiency, unspecified
CPT/HCPCS: 36415; 80069; 82306; 83036

== ENCOUNTER → 2019-01-02 09:32 | Outpatient (CLI) | payer MEDICARE, BC, SELFPAY ==
[2018-10-19 08:44] VITALS: BMI 34.8
[2019-01-02 11:19] LABS: Rheumatoid Factor < 10.0 IU/mL (<15)
[2019-01-02 11:28] LABS: Vitamin D,25 Hydroxy 27.2 ng/mL (29.95-100.01)
[2019-01-02 11:40] LABS: Erythrocyte Sedimentation Rate 38 mm/hr (0-30)
== END ==
PROVIDERS: Family Provider Internal Medicine; PCP Internal Medicine; Referring Provider Internal Medicine Nephrology; Visit Provider Internal Medicine Nephrology
DX: E55.9 Vitamin D deficiency, unspecified (principal); M25.561 Pain in right knee
CPT/HCPCS: 36415; 82306; 85652; 86431

== ENCOUNTER → 2019-01-24 12:33 | Outpatient (CLI) | payer MEDICARE, BC, SELFPAY ==
[2018-10-19 08:44] VITALS: BMI 34.8
[2019-01-24 13:11] LABS: Hematocrit 35.4 % (37-47); Hemoglobin 11.8 g/dl (12.0-15.0); Mean Corp Hgb Conc 33.3 g/gl (32-36); Mean Corpuscular Hgb 30.1 pg (27.0-32.0); Mean Corpuscular Volume 90.3 fL (81-99); Mean Platelet Vol. 10.9 fl (6.2-12.0); Platelet Count 248 K/mm3 (150-450); RBC Distribution Width CV 12.5 % (11.6-14.6); RBC Distribution Width SD 40.9 fl (35.1-43.9); Red Blood Count 3.92 M/mm3 (4.2-5.4); White Blood Count 8.8 K/mm3 (4.4-11.0)
[2019-01-24 13:19] LABS: Scan Indicated on CBC? Y/N NO
[2019-01-24 13:35] LABS: Albumin, Serum 3.4 g/dL (3.2-5.0); BUN 58 mg/dL (7-18); Calcium,Total 9.4 mg/dL (8.5-10.1); Chloride 102 mmol/L (98-107); Creatinine, Serum 2.15 mg/dL (0.55-1.02); EST Glomerular Filtration Rate 24 mL/min (>60); Est Glom Filt Rate - Afr Amer 29 mL/min (>60); Glucose 251 mg/dL (74-106); Phosphorus 2.9 mg/dL (2.5-4.9); Potassium 4.3 mmol/L (3.5-5.1); Sodium Level 138 mmol/L (136-145)
== END ==
PROVIDERS: Family Provider Internal Medicine; PCP Internal Medicine; Referring Provider Internal Medicine Nephrology; Visit Provider Internal Medicine Nephrology
DX: N18.3 Chronic kidney disease, stage 3 (moderate) (principal)
CPT/HCPCS: 36415; 80069; 85027

== ENCOUNTER → 2019-03-29 16:00 | Outpatient (CLI) | payer MEDICARE, BC, SELFPAY ==
[2018-10-19 08:44] VITALS: BMI 34.8
--- NOTE | 2019-03-29 16:06 | VDLE_ITS ---
Reason For Study: Pain RLE RIGHT LEFT GSV is normal. CFV is compressible, spontaneous, phasic, CFV is compressible, spontaneous, phasic, competent, and demonstrates normal competent and demonstrates normal augmentation. augmentation. FV is compressible, spontaneous, phasic, competent and demonstrates normal augmentation. POP V is compressible, spontaneous, phasic, competent and demonstrates normal augmentation. T/P Trunk is compressible. PTV is compressible. RT PerV is compressible. Patient unable to tolerate compressions in the mid/distal thigh; relied on color doppler Rt Calf GSV harvested for CABG. Procedure Exam performed in department. A preliminary report was called and/or faxed to Dr. Aguilar. Interpretation Summary There is no evidence of right lower extremity deep vein thrombosis. Right great saphenous vein appears patent and compressible segmentally. Patient did not tolerate compression mid and distal thigh so flow used for diagnosis. Without being able to compress there is a possibility of error in interpretation in this location Right calf great saphenous vein harvested Patent and compressible left common femoral vein Ordering Physician: Roe Aguilar Referring Physician: Fanny De Guzman Performed By: Tova Owusu, ANGELIA, RVT
== END ==
PROVIDERS: Family Provider Internal Medicine; PCP Internal Medicine; Referring Provider Orthopaedic Surgery; Visit Provider Orthopaedic Surgery
DX: M79.604 Pain in right leg (principal)
CPT/HCPCS: 93971

== ENCOUNTER → 2019-04-17 09:14 | Outpatient (CLI) | payer MEDICARE, BC, SELFPAY ==
[2018-10-19 08:44] VITALS: BMI 34.8
[2019-04-17 09:48] LABS: Hematocrit 36.7 % (37-47); Hemoglobin 11.8 g/dL (12.0-15.0); Mean Corp Hgb Conc 32.2 g/dL (32-36); Mean Corpuscular Hgb 29.9 pg (27.0-32.0); Mean Corpuscular Volume 92.9 fL (81-99); Mean Platelet Vol. 10.7 fl (6.2-12.0); Platelet Count 247 K/mm3 (150-450); RBC Distribution Width CV 13.2 % (11.6-14.6); Red Blood Count 3.95 M/mm3 (4.2-5.4); White Blood Count 9.7 K/mm3 (4.4-11.0)
[2019-04-17 10:53] LABS: Albumin, Serum 3.4 g/dL (3.2-5.0); BUN 39 mg/dL (7-18); BUN/Creat Ratio 20.6 RATIO (10-20); Calcium,Total 9.5 mg/dL (8.5-10.1); Chloride 105 mmol/L (98-107); Creatinine, Serum 1.89 mg/dL (0.55-1.02); EST Glomerular Filtration Rate 27 mL/min (>60); Est Glom Filt Rate - Afr Amer 33 mL/min (>60); Glucose 139 mg/dL (74-106); Phosphorus 3.5 mg/dL (2.5-4.9); Potassium 4.9 mmol/L (3.5-5.1); Sodium Level 140 mmol/L (136-145)
== END ==
PROVIDERS: Family Provider Internal Medicine; PCP Internal Medicine; Referring Provider Internal Medicine Nephrology; Visit Provider Internal Medicine Nephrology
DX: N18.3 Chronic kidney disease, stage 3 (moderate) (principal); E79.0 Hyperuricemia without signs of inflammatory arthritis and tophaceous disease
CPT/HCPCS: 36415; 80069; 84550; 85027

== ENCOUNTER → 2019-08-04 10:50 | Outpatient (CLI) | payer MEDICARE, BC, SELFPAY ==
[2018-10-19 08:44] VITALS: BMI 34.8
[2019-08-04 11:55] LABS: PTHIN 74.6 pg/mL (18.4-80.1)
== END ==
PROVIDERS: Family Provider Internal Medicine; PCP Internal Medicine; Referring Provider Internal Medicine Nephrology; Visit Provider Internal Medicine Nephrology
DX: N18.3 Chronic kidney disease, stage 3 (moderate) (principal)
CPT/HCPCS: 36415; 83970

== ENCOUNTER → 2019-10-17 12:19 | Outpatient (CLI) | payer MEDICARE, BC, SELFPAY ==
[2018-10-19 08:44] VITALS: BMI 34.8
[2019-10-17 13:14] LABS: Albumin, Serum 3.4 g/dL (3.2-5.0); BUN 29 mg/dL (7-18); BUN/Creat Ratio 18.4 RATIO (10-20); Calcium,Total 9.4 mg/dL (8.5-10.1); Chloride 109 mmol/L (98-107); Creatinine, Serum 1.58 mg/dL (0.55-1.02); EST Glomerular Filtration Rate 34 mL/min (>60); Est Glom Filt Rate - Afr Amer 41 mL/min (>60); Glucose 177 mg/dL (74-106); Phosphorus 4.4 mg/dL (2.5-4.9); Potassium 4.8 mmol/L (3.5-5.1); Sodium Level 141 mmol/L (136-145)
[2019-10-17 13:16] LABS: PTHIN 26.7 pg/mL (18.4-80.1)
== END ==
PROVIDERS: PCP Internal Medicine; Visit Provider Internal Medicine Nephrology
DX: E55.9 Vitamin D deficiency, unspecified (principal); N17.9 Acute kidney failure, unspecified; N18.3 Chronic kidney disease, stage 3 (moderate)
CPT/HCPCS: 36415; 80069; 82306; 83970

== ENCOUNTER → 2020-01-15 10:59 | Outpatient (CLI) | payer MEDICARE, BC, SELFPAY ==
[2018-10-19 08:44] VITALS: BMI 34.8
[2020-01-15 12:36] LABS: Albumin, Serum 3.3 g/dL (3.2-5.0); BUN 63 mg/dL (7-18); BUN/Creat Ratio 27.3 RATIO (10-20); Chloride 108 mmol/L (98-107); Creatinine, Serum 2.31 mg/dL (0.55-1.02); EST Glomerular Filtration Rate 22 mL/min (>60); Est Glom Filt Rate - Afr Amer 26 mL/min (>60); Glucose 171 mg/dL (74-106); Phosphorus 3.9 mg/dL (2.5-4.9); Potassium 4.2 mmol/L (3.5-5.1); Sodium Level 141 mmol/L (136-145)
== END ==
PROVIDERS: PCP Internal Medicine; Referring Provider Internal Medicine Nephrology; Visit Provider Internal Medicine Nephrology
DX: N17.9 Acute kidney failure, unspecified (principal)
CPT/HCPCS: 36415; 80069

== ENCOUNTER → 2020-01-23 14:17 | Outpatient (CLI) | payer MEDICARE, BC, SELFPAY ==
[2018-10-19 08:44] VITALS: BMI 34.8
--- NOTE | 2020-01-23 14:31 | VDLE_ITS ---
Reason For Study: Swelling/Pain RIGHT LEFT CFV is compressible, spontaneous, phasic, GSV is normal. competent and demonstrates normal CFV is compressible, spontaneous, phasic, augmentation. competent, and demonstrates normal Procedure augmentation. Exam performed in department. FV is compressible, spontaneous, phasic, A preliminary report was called and/or faxed competent and demonstrates normal to [facility]. augmentation. POP V is compressible, spontaneous, phasic, competent and demonstrates normal augmentation. T/P Trunk is compressible. PTV is compressible. LT PerV is compressible. Interpretation Summary Deep veins of the left lower extremity are patent and compressible segmentally. There is no evidence of left lower extremity deep vein thrombosis. Valvular competence appears intact within the proximal deep venous system on the left . The left great saphenous vein appears patent and compressible segmentally. Ordering Physician: Dave Cespedes Referring Physician: Fanny De Guzman M.D. Performed By: Joselyn Cedillo RVT
== END ==
PROVIDERS: PCP Internal Medicine; Visit Provider Podiatrist Foot & Ankle Surgery
DX: M79.672 Pain in left foot (principal); R22.42 Localized swelling, mass and lump, left lower limb
CPT/HCPCS: 93971

== ENCOUNTER → 2020-01-24 13:27 | Outpatient (CLI) | payer MEDICARE, BC, SELFPAY ==
[2018-10-19 08:44] VITALS: BMI 34.8
[2020-01-24 15:08] LABS: Albumin, Serum 3.3 g/dL (3.2-5.0); BUN 33 mg/dL (7-18); BUN/Creat Ratio 21.3 RATIO (10-20); Calcium,Total 9.2 mg/dL (8.5-10.1); Chloride 106 mmol/L (98-107); Creatinine, Serum 1.55 mg/dL (0.55-1.02); EST Glomerular Filtration Rate 34 mL/min (>60); Est Glom Filt Rate - Afr Amer 42 mL/min (>60); Glucose 186 mg/dL (74-106); Phosphorus 3.2 mg/dL (2.5-4.9); Potassium 4.8 mmol/L (3.5-5.1); Sodium Level 139 mmol/L (136-145)
== END ==
PROVIDERS: PCP Internal Medicine; Referring Provider Internal Medicine Nephrology; Visit Provider Internal Medicine Nephrology
DX: N17.9 Acute kidney failure, unspecified (principal); E11.22 Type 2 diabetes mellitus with diabetic chronic kidney disease; N18.3 Chronic kidney disease, stage 3 (moderate)
CPT/HCPCS: 36415; 80069

== ENCOUNTER 2020-02-11 16:44 | Observation (INO) | payer MEDICARE, BC, SELFPAY ==
[2018-10-19 08:44] VITALS: BMI 34.8
[2020-02-11] VITALS (7 sets, daily range): BP systolic 127–169; BP diastolic 69–92; PULSE 57–161; RESP 13–20; TEMP 36.4–36.9; O2SAT 95–100; BMI 34.5; BMI 34.8
--- NOTE | 2020-02-11 16:58 | EKG12_ITS ---
Test Reason : CP Blood Pressure : / mmHG Vent. Rate : 159 BPM Atrial Rate : 082 BPM P-R Int : 000 ms QRS Dur : 112 ms QT Int : 318 ms P-R-T Axes : 000 -11 149 degrees QTc Int : 517 ms Supraventricular tachycardia Incomplete left bundle branch block Consider Left ventricular hypertrophy with repolarization abnormality Abnormal ECG Confirmed by ENE VELAZQUEZ, MEGHAN ([id number]), field map editor MIMI CORREA ([id number]) on 02/13/2020 11:10:31 AM Referred By: Confirmed By:MEGHAN LUQUE MD
--- NOTE | 2020-02-11 16:58 | RAD_ITS ---
STUDY: X-RAY CHEST REASON FOR EXAM: Female, 79 years old. PALPITATIONS X 2 DAYS INTERMITTENT, HX CABG AND VALVE REPLACEMENTS TECHNIQUE: Frontal view of the chest COMPARISON: None. FINDINGS: Coronary bypass sternotomy wires are in place. The lungs are clear and expanded. There is no demonstrated pleural abnormality. Normal size heart. Normal mediastinum and ivis. Normal visualized pulmonary arteries. Normal visualized aortic arch and descending thoracic aorta. Normal visualized thoracic spine. Normal visualized ribs, clavicles, and shoulders. There is no demonstrated abnormality of the visualized soft tissue structures of the upper abdomen. RAD/Chest 1 View (Portable) IMPRESSION: Normal x-ray examination of the chest. Electronically Signed: Bridgette Catherine, at 18:23 EDT Tel , Service support ,
--- NOTE | 2020-02-11 17:01 | ED.VIS.GEN ---
History of Present Illness Chief Complaint: Palpitations Informant: Patient Narrative: Patient presents the emergency department for the evaluation of intermittent chest palpitations. Symptoms have been off and on for the past 3 days. She states for the past 2 days she is pretty much been in her chair. She is felt fatigued. She denies any chest pain or shortness of breath. No syncope. She has a history of hypertrophic obstructive cardiomyopathy and is status post CABG and valvular repairs. She denies any prior history of dysrhythmias. 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. Past Medical History - Allergies and Home Meds Allergies/Adverse Reactions: Allergies celecoxib [From Celebrex] Allergy (Verified 02/11/20 16:48) Other indomethacin [From Indocin] Allergy (Verified 02/11/20 16:48) Other Fzlpgdg-Iff-Wli Reductase Inhibitor Allergy (Verified 02/11/20 16:48) Pain in joints acetaminophen [From Vicodin] Adverse Reaction (Verified 02/11/20 16:48) Other adhesive tape Adverse Reaction (Verified 02/11/20 16:48) Itching fluoxetine [From Prozac] Adverse Reaction (Verified 02/11/20 16:48) Other hydrocodone [From Vicodin] Adverse Reaction (Verified 02/11/20 16:48) Other ibuprofen [From Motrin] Adverse Reaction (Verified 02/11/20 16:48) Other ketoprofen Adverse Reaction (Verified 02/11/20 16:48) Other lovastatin [From Mevacor] Adverse Reaction (Verified 02/11/20 16:48) Other meclofenamic acid [From Meclomen] Adverse Reaction (Verified 02/11/20 16:48) Other naproxen [From Naprosyn] Adverse Reaction (Verified 02/11/20 16:48) Other NSAIDS (Non-Steroidal Anti-Inflamma Adverse Reaction (Verified 02/11/20 16:48) Other sertraline [From Zoloft] Adverse Reaction (Verified 02/11/20 16:48) Other venlafaxine [From Effexor] Adverse Reaction (Verified 02/11/20 16:48) Other BATAZOLIDIN Adverse Reaction (Uncoded 02/11/20 16:48) Other DIAZIDE Adverse Reaction (Uncoded 02/11/20 16:48) Other SPOROSTACIN Adverse Reaction (Uncoded 02/11/20 16:48) Other Primary Care Physician: Fanny De Guzman MD [Primary Care Provider] - Surgical History: coronary bypass surgery - X 3, - - Aortic Valve replacement, Mitral Valve replacement, Myectomy, Right leg stent. Smoking Status: Never smoker - Family History Maternal Family History: Family History (Last Reviewed 10/19/18 @ 08:41 by María Alberto) Grandmother Diabetes Mother Heart disease Family History: Reports: No pertinent history Paternal Family History: Family History (Last Reviewed 10/19/18 @ 08:41 by María Alberto) Grandmother Diabetes Mother Heart disease Family History: Reports: No pertinent history Review of Systems General: Denies: Chills, Fever, Sweats Eyes: Denies: Visual changes - bilaterally, Diplopia ENT: Denies: Rhinorrhea, Sore throat Cardiovascular: Denies: Chest pain, Palpitations Respiratory: Denies: Dyspnea, Cough, Dyspnea on exertion Gastrointestinal: Denies: Abdominal pain, Nausea, Vomiting, Diarrhea, Melena, Hematochezia Genitourinary: Denies: Dysuria, Hematuria, Frequency Musculoskeletal: Denies: Back pain, Extremity Pain Skin: Denies: Rash, Wounds Neurological: Denies: Headache, Weakness, Numbness Physical Exam Vital Signs/Narrative: Vital Signs Temp Pulse Resp BP Pulse Ox 02/11/20 16:46 98.0 F 161 H 20 H 127/69 H 98 Inital Vital Signs reviewed: Yes General: Well nourished, Well developed, No Acute Distress Head: Normocephalic, Atraumatic Eyes: Perrl, EOMI ENT: Moist mucous membranes, No rhinorrhea Neck: Supple, Nontender Cardiovascular: Regular rate, No murmurs, Tachycardia Respiratory: No distress, CTA bilaterally, Chest nontender Abdomen: Soft, Nontender, Nondistended, Normal bowel sounds Back: Nontender, Normal Inspection Extremities: Nontender, No edema Skin: Normal color, No rash Neurological: Alert, Oriented x3, Cranial nerves II-XII grossly intact, Normal Strength, Normal Sensation Psychological: Normal affect, Normal Mood Diagnostic/Tx/Re-eval Clinical Impression(s) from Imaging Studies Chest X-Ray 02/11/20 16:58 IMPRESSION: Normal x-ray examination of the chest. Electronically Signed: Bridgette Catherine at 18:23 EDT Tel , Service support , Laboratory Last Values WBC 9.6 K/mm3 (4.4-11.0) 02/11/20 16:55 RBC 3.65 M/mm3 (4.2-5.4) L 02/11/20 16:55 Hgb 11.1 g/dL (12.0-15.0) L 02/11/20 16:55 Hct 35.4 % (37-47) L 02/11/20 16:55 MCV 97.0 fL (81-99) 02/11/20 16:55 MCH 30.4 pg (27.0-32.0) 02/11/20 16:55 MCHC 31.4 g/dL (32-36) L 02/11/20 16:55 RDW Std Deviation 52.3 fl (35.1-43.9) H 02/11/20 16:55 RDW Coeff of Rose 14.7 % (11.6-14.6) H 02/11/20 16:55 Plt Count 257 K/mm3 (150-450) 02/11/20 16:55 MPV 11.0 fl (6.2-12.0) 02/11/20 16:55 Immature Gran % (Auto) 0.200 % (0.0-0.9) 02/11/20 16:55 Neut % (Auto) 69.9 % (47-70) 02/11/20 16:55 Lymph % (Auto) 19.5 % (19-41) 02/11/20 16:55 Traill % (Auto) 6.5 % (0-10) 02/11/20 16:55 Eos % (Auto) 3.4 % (0-5) 02/11/20 16:55 Baso % (Auto) 0.5 % (0-1) 02/11/20 16:55 Absolute Neuts (auto) 6.7 X10^3/uL (2.0-7.7) 02/11/20 16:55 Absolute Lymphs (auto) 1.87 X10^3/uL (0.83-4.51) 02/11/20 16:55 Nucleated RBC % 0 % (0-5) 02/11/20 16:55 PT 13.4 SECONDS (11.7-14.9) 02/11/20 16:55 INR 1.1 02/11/20 16:55 APTT 37.3 Seconds (24.1-36.2) H 02/11/20 16:55 Sodium 141 mmol/L (136-145) 02/11/20 16:55 Potassium 4.9 mmol/L (3.5-5.1) 02/11/20 16:55 Chloride 111 mmol/L (98-107) H 02/11/20 16:55 Carbon Dioxide 26.0 mmol/L (21.0-32.0) 02/11/20 16:55 Anion Gap 4 (5-15) L 02/11/20 16:55 BUN 31 mg/dL (7-18) H 02/11/20 16:55 Creatinine 1.62 mg/dL (0.55-1.02) H 02/11/20 16:55 Estim Creat Clear Calc 24.06 ml/min 02/11/20 16:55 Est GFR (MDRD) Af Amer 40 mL/min (>60) L 02/11/20 16:55 Est GFR (MDRD) Non-Af 33 mL/min (>60) L 02/11/20 16:55 BUN/Creatinine Ratio 19.1 RATIO (10-20) 02/11/20 16:55 Glucose 157 mg/dL (74-106) H 02/11/20 16:55 Calcium 9.1 mg/dL (8.5-10.1) 02/11/20 16:55 Magnesium 1.7 mg/dL (1.6-2.6) 02/11/20 16:55 Total Bilirubin 0.50 mg/dL (0.20-1.00) 02/11/20 16:55 AST 27 U/L (15-37) 02/11/20 16:55 ALT 39 U/L (13-56) 02/11/20 16:55 Alkaline Phosphatase 173 U/L (45-117) H 02/11/20 16:55 Troponin I 0.102 ng/mL (<0.045) H 02/11/20 16:55 Total Protein 7.2 g/dL (6.4-8.2) 02/11/20 16:55 Albumin 3.4 g/dL (3.2-5.0) 02/11/20 16:55 Globulin 3.8 g/dL (2.2-4.2) 02/11/20 16:55 Albumin/Globulin Ratio 0.9 RATIO (0.9-2.4) 02/11/20 16:55 TSH 4.44 uIU/mL (0.358-3.74) H 02/11/20 16:55 - EKG Initial EKG Interpretation: SVT - Patient has a regular tachycardic rhythm at a rate of 159. There is some noted ST depression - Medical Decision Making Patient remained at a heart rate of 1 57-1 60 very consistently. While administering Cardizem the patient went into a normal sinus rhythm. Repeat EKG confirms the sinus rhythm. Her troponin is slightly elevated which I suspect is rate dependent. Plan will be to admit the patient into the hospital for first time what I believe is most likely atrial flutter/atrial fibrillation. ED Disposition - Plan for ED Patient: Disposition: [facility] Diagnosis: SVT (supraventricular tachycardia) Referrals: Fanny De Guzman MD [Primary Care Provider] -
[2020-02-11] MEDS: dilTIAZem 25 MG/5 ML Vial 20 MG IV BOLUS (17:17)
[2020-02-11 17:23] LABS: Absolute Lymphocyte Count 1.87 X10^3/uL (0.83-4.51); Absolute Neutrophil Count 6.7 X10^3/uL (2.0-7.7); Basophil# 0.05 X10^3/uL; Basophil% 0.5 % (0-1); Eosinophil# 0.33 X10^3/uL; Eosinophils% 3.4 % (0-5); Hematocrit 35.4 % (37-47); Hemoglobin 11.1 g/dL (12.0-15.0); Lymphocyte # 1.87 X10^3/ul (4.0); Lymphocyte % 19.5 % (19-41); Mean Corp Hgb Conc 31.4 g/dL (32-36); Mean Corpuscular Hgb 30.4 pg (27.0-32.0); Monocyte# 0.62 X10^3/uL; Monocyte% 6.5 % (0-10); NRBC Flagged by Analyzer 0 % (0-5); Neutrophil # 6.68 X10^3/uL (2.7-7.7); Neutrophil % 69.9 % (47-70); Platelet Count 257 K/mm3 (150-450); RBC Distribution Width CV 14.7 % (11.6-14.6); RBC Distribution Width SD 52.3 fl (35.1-43.9); Red Blood Count 3.65 M/mm3 (4.2-5.4); White Blood Count 9.6 K/mm3 (4.4-11.0)
--- NOTE | 2020-02-11 17:28 | EKG12_ITS ---
Test Reason : RHYTHM CONVERSION Blood Pressure : / mmHG Vent. Rate : 073 BPM Atrial Rate : 073 BPM P-R Int : 190 ms QRS Dur : 112 ms QT Int : 452 ms P-R-T Axes : 051 -07 101 degrees QTc Int : 497 ms Normal sinus rhythm Incomplete left bundle branch block Nonspecific ST and T wave abnormality Prolonged QT Abnormal ECG Confirmed by ENE VELAZQUEZ, MEGHAN ([id number]), editor producer MIMI CORREA ([id number]) on 02/13/2020 11:10:53 AM Referred By: Confirmed By:MEGHAN LUQUE MD
[2020-02-11 18:03] LABS: ALB/GLOB Ratio 0.9 RATIO (0.9-2.4); AST(SGOT) 27 U/L (15-37); Alanine Aminotransfer ALT/SGPT 39 U/L (13-56); Albumin, Serum 3.4 g/dL (3.2-5.0); Alkaline Phosphatase 173 U/L (45-117); Anion Gap 4 (5-15); BUN 31 mg/dL (7-18); BUN/Creat Ratio 19.1 RATIO (10-20); Calcium,Total 9.1 mg/dL (8.5-10.1); Chloride 111 mmol/L (98-107); Creatinine, Serum 1.62 mg/dL (0.55-1.02); EST Glomerular Filtration Rate 33 mL/min (>60); Est Glom Filt Rate - Afr Amer 40 mL/min (>60); Estimated Creatinine Clearance 24.06 ml/min; Globulin 3.8 g/dL (2.2-4.2); Glucose 157 mg/dL (74-106); Magnesium 1.7 mg/dL (1.6-2.6); Potassium 4.9 mmol/L (3.5-5.1); Protein, Total 7.2 g/dL (6.4-8.2); Sodium Level 141 mmol/L (136-145); Thyroid Stim Hormone (TSH) 4.44 uIU/mL (0.358-3.74)
[2020-02-11 18:08] LABS: International Normalized Ratio 1.1; Prothrombin Time (Protime)PT. 13.4 SECONDS (11.7-14.9)
[2020-02-11 18:09] LABS: Partial Thromboplast Time 37.3 Seconds (24.1-36.2)
--- NOTE | 2020-02-11 20:08 | HP.PCM_ITS ---
Problem List (1) Paroxysmal atrial fibrillation with rapid ventricular response Status: Acute (2) Normochromic normocytic anemia Status: Chronic (3) Chronic renal failure, stage 3 (moderate) Status: Chronic (4) Elevated troponin Status: Acute (5) Morbid obesity Status: Chronic (6) Hyperuricemia Status: Chronic (7) Status post aortic valve replacement with bioprosthetic valve Status: Chronic Comment: 2016 at [facility] (8) History of mitral valve replacement with bioprosthetic valve Status: Chronic Comment: 2016 at [facility] (9) SVT (supraventricular tachycardia) Status: Resolved (10) Coronary artery disease Status: Chronic Qualifiers: Coronary Disease-Associated Artery/Lesion type: wainwright artery (11) Aortic valve stenosis Status: Chronic Comment: had AV replacement in 2016 with bioprosthetic valve (12) Mitral valve disease Status: Chronic (13) Hypertrophic obstructive cardiomyopathy (HOCM) Status: Chronic (14) 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 Comment: has a stent in the R leg and had ballon angioplasty of the left (15) Diabetes mellitus Status: Chronic Qualifiers: Diabetes mellitus type: type 2 Diabetes mellitus medical terminologist insulin use: with medical terminologist use Diabetes mellitus complication status: with kidney complications Diabetes mellitus complication detail: with chronic kidney disease Chronic kidney disease stage: unspecified stage Qualified Code(s): E11.22 - Type 2 diabetes mellitus with diabetic chronic kidney disease; Z79.4 - alf (current) use of insulin Comment: diagnosed at the age of 62 (16) Hypertension Status: Chronic Qualifiers: Hypertension type: essential hypertension Qualified Code(s): I10 - Essential (primary) hypertension; I10 - Essential (primary) hypertension; I10 - Essential (primary) hypertension Comment: No lightheadedness or dizziness. Checking BP at home (17) Hyperlipidemia Status: Chronic Qualifiers: Hyperlipidemia type: mixed hyperlipidemia Qualified Code(s): E78.2 - Mixed hyperlipidemia; E78.2 - Mixed hyperlipidemia; E78.2 - Mixed hyperlipidemia Comment: Chol 152, tri 249, LDL 61, HDL 41. On statin and tolerating well. Tri higher with A1c currently 7.8 (18) GERD (gastroesophageal reflux disease) Status: Chronic (19) Glaucoma Status: Chronic (20) Osteoarthritis Status: Chronic History of Present Illness Date of Admission: 02/11/20 Chief Complaint: pulse racing associated with lightheadedness The patient is a 79 year old F with a past medical history of hypertension, diabetes mellitus type 2, hyperlipidemia, coronary artery disease with history of CABG x3 vessels in 2016 at the [facility], aortic stenosis with bioprosthetic aortic valve replacement in 2016, mitral valve disease with history of bioprosthetic mitral valve replacement, tonic renal failure stage III, hyperuricemia, GERD, peripheral arterial disease with history of a stent in the right lower extremity and balloon angioplasty in the left lower extremity, osteoarthritis, chronic normochromic normocytic anemia, hypertrophic obstructive cardiomyopathy, glaucoma and morbid obesity who presented to the emergency department at [facility] on 02/11/2020 complaining of her heart racing intermittently and sometimes associated with lightheadedness. This had been going on for 3 days. She denied chest pain and also denied SOB and diaphoresis. She had lightheadedness but, no syncope. EKG in the ED showed AF with RVR and she denied any hx of AF. She converted spontaneously while Dr. Levi was in the room before IV Cardizem had a chance to have worked. The initial EKG showed ST depression in the precordial leads but, this resolved after converting to NSR. The T wave angle in the precordial leads is a sharper angle than normal. As I watched the telemetry during my interview and exam she was having a lot of PAC's. Vital signs at presentation to the emergency room were temp 98 ?F, pulse rate 161, blood pressure 127/69, respiratory rate 20 and she was 98% saturated on room air. CBC showed a hemoglobin of 11.1 which is within her baseline. She had normochromic normocytic indices. Platelets and white blood cell count were within normal limits. The PT was 13.4 and the PTT was mildly increased at 37.3. Potassium was 4.9 and the BUN was 31 with a creatinine of 1.62 which is within her baseline. A random blood sugar was 157. Calcium was 9.1 and the magnesium was borderline low at 1.7. Troponin was increased at 0.102 which is likely secondary to demand ischemia related to the RVR. TSH was 4.44. Chest x-ray showed no pleural effusions, infiltrates or pulmonary vascular congestion. She is being admitted to a monitored bed on PCU. Past Medical History Past Medical History (Chronic Problems): Chronic Problems (Last Reviewed 02/11/20 @ 20:[address] Fadumo Jones DO) Normochromic normocytic anemia (Chronic) Chronic renal failure, stage 3 (moderate) (Chronic) Morbid obesity (Chronic) Hyperuricemia (Chronic) Status post aortic valve replacement with bioprosthetic valve (Chronic) 2016 at [facility] History of mitral valve replacement with bioprosthetic valve (Chronic) 2016 at [facility] Coronary artery disease (Chronic) Aortic valve stenosis (Chronic) had AV replacement in 2016 with bioprosthetic valve Mitral valve disease (Chronic) Hypertrophic obstructive cardiomyopathy (HOCM) (Chronic) PAOD (peripheral arterial occlusive disease) (Chronic) has a stent in the R leg and had ballon angioplasty of the left Diabetes mellitus (Chronic) diagnosed at the age of 62 Hypertension (Chronic) No lightheadedness or dizziness. Checking BP at home Hyperlipidemia (Chronic) Chol 152, tri 249, LDL 61, HDL 41. On statin and tolerating well. Tri higher with A1c currently 7.8 GERD (gastroesophageal reflux disease) (Chronic) Glaucoma (Chronic) Osteoarthritis (Chronic) Medical History: Medical History (Last Reviewed 02/11/20 @ 20:[address] Fadumo Jones DO) Diabetes type 2, controlled E11.9 dx : 1991 last exacerbation : dka :never hypoglycemic episode : never er visit : never Heart disease I51.9 Neuropathy G62.9 HTN (hypertension) I10 Allergies celecoxib [From Celebrex] Allergy (Verified 02/11/20 16:48) Other indomethacin [From Indocin] Allergy (Verified 02/11/20 16:48) Other Jczdmcr-Jtu-Vvt Reductase Inhibitor Allergy (Verified 02/11/20 16:48) Pain in joints acetaminophen [From Vicodin] Adverse Reaction (Verified 02/11/20 16:48) Other adhesive tape Adverse Reaction (Verified 02/11/20 16:48) Itching fluoxetine [From Prozac] Adverse Reaction (Verified 02/11/20 16:48) Other hydrocodone [From Vicodin] Adverse Reaction (Verified 02/11/20 16:48) Other ibuprofen [From Motrin] Adverse Reaction (Verified 02/11/20 16:48) Other ketoprofen Adverse Reaction (Verified 02/11/20 16:48) Other lovastatin [From Mevacor] Adverse Reaction (Verified 02/11/20 16:48) Other meclofenamic acid [From Meclomen] Adverse Reaction (Verified 02/11/20 16:48) Other naproxen [From Naprosyn] Adverse Reaction (Verified 02/11/20 16:48) Other NSAIDS (Non-Steroidal Anti-Inflamma Adverse Reaction (Verified 02/11/20 16:48) Other sertraline [From Zoloft] Adverse Reaction (Verified 02/11/20 16:48) Other venlafaxine [From Effexor] Adverse Reaction (Verified 02/11/20 16:48) Other BATAZOLIDIN Adverse Reaction (Uncoded 02/11/20 16:48) Other DIAZIDE Adverse Reaction (Uncoded 02/11/20 16:48) Other SPOROSTACIN Adverse Reaction (Uncoded 02/11/20 16:48) Other Home Medications: Ambulatory Orders Medication Instructions Recorded Aspirin [Adult Low Dose Aspirin EC] 81 mg PO DAILY #30 tablet. 05/11/16 Atorvastatin Calcium [Lipitor] 80 mg PO QHS #30 tab 05/11/16 Clopidogrel Bisulfate [Plavix] 75 mg PO DAILY #0 tab 05/11/16 carvedilol 25 mg tablet 25 mg PO BID 08/19/17 multivitamin 1 cap PO QAM 08/19/17 pen needle, diabetic 32 gauge x See Dose Instructions .ROUTE 04/25/18 .MEDSUPPLY #50 ea blood sugar diagnostic See Dose Instructions .ROUTE 06/20/18 .MEDSUPPLY #100 ea dulaglutide 1.5 mg/0.5 mL 1.5 mg SC QWEEK #2 ml 06/20/18 subcutaneous pen injector Lisinopril [Zestril] 10 mg DAILY 07/23/18 cholecalciferol (vitamin D3) 25 1,000 unit PO DAILY 10/19/18 mcg (1,000 unit) capsule glimepiride 4 mg tablet 4 mg PO BID tab 10/19/18 pyridoxine (vitamin B6) 100 mg 100 mg PO DAILY 10/19/18 tablet insulin glargine 100 unit/mL (3 32 unit SC DAILY #12 ml 11/09/18 mL) subcutaneous pen Allopurinol [Zyloprim] 100 mg PO DAILYCM 02/11/20 traMADol [Ultram (G)] 50 mg PO Q6H PRN PRN 02/11/20 Surgical History: Surgical History (Last Reviewed 02/11/20 @ 20:[address] Fadumo Jones DO) History of cataract extraction with lens replacement S/P triple vessel bypass Z95.1 Surgical History: coronary bypass surgery - X 3, - - Bioprosthetic aortic Valve replacement, bioprosthetic mitral Valve replacement, Myectomy for atrophic struct of cardiomyopathy, Right leg stent and ballon angioplasty of the left leg Psychiatric History: No pertinent psych hx LIVING COACH History: No pertinent LIVING COACH history Lives: Spouse/ Significant Other - she has 2 children who are Smoking Status: Never smoker Tobacco Use: Non-smoker Alcohol: Rare Drugs: None - *Family History Maternal Family History: Family History (Last Reviewed 02/11/20 @ 20:[address] Fadumo Jones DO) Grandmother Diabetes Mother Heart disease History Items: No pertinent history Paternal Family History: Family History (Last Reviewed 02/11/20 @ 20:[address] Fadumo Jones DO) Grandmother Diabetes Mother Heart disease History Items: No pertinent history Review of Systems Constitutional: Denies: Anorexia, Chills, Fever, Malaise, Weakness, Weight Deborah nge Eyes: Denies: Blurred vision HEENT: Denies: Head Aches, Nasal Congestion, Sinus Congestion, Sinus Drainage, Sore Throat Cardiovascular: Reports: Edema - of the ankles but, she tells me it is pretty good today. Denies: Chest Pain, Palpitations Respiratory: Denies: Cough, Shortness of Breath, Shortness of breath at rest, Sputum production, Wheezing Gastrointestinal: Denies: Abdominal Pain, Constipation, Diarrhea, Nausea, Vomiting Genitourinary: Reports: Nocturia. Denies: Dysuria Musculoskeletal: Reports: Joint Tenderness. Denies: Arm Pain, Joint Pain Skin: Denies: Jaundice, Rash, Wounds Neurological: Denies: Balance problems, Blurred vision, Double vision, Confusion, Focal weakness, Numbness, Tingling, Tremor, Seizures Psychiatric: Denies: Anxiety, Depression, Homicidal Ideations, Suicidal Ideations Endocrine: Denies: Hx of Thyroiditis Hematologic/ Lymphatic: Denies: Easy Bruising, Easy Bleeding, Hx of blood clot VTE Information - Inpt Only VTE Present on Admission: No - recently had an US of the RLE and it was negative for DVT per the patient VTE Mechan Device Prophylaxis: Knee High JANES Hose VTE Pharm Prophylaxis ordered?: No Reason prophylaxis not ordered:: Treatment Not Indicated - pt is on full anticoagulation with heparin for PAF with RVR Patient Problems: Active and Suspected Problems (Last Reviewed 02/11/20 @ 20:[address] Fadumo Jones, DO) Paroxysmal atrial fibrillation with rapid ventricular response (Acute) Elevated troponin (Acute) - Physical Exam Vitals/I&O's: Vital Signs Temp Pulse Resp BP Pulse Ox 98 F 61 13 154/90 H 100 02/11/20 19:25 02/11/20 19:25 02/11/20 19:25 02/11/20 19:25 02/11/20 19:25 Oxygen Delivery Method Room Air Weight: 196 lb 10.437 oz Body Mass Index (BMI) 34.8 General: Alert, Oriented x3, Cooperative, No apparent distress, Well developed, Well nourished HEENT: Atraumatic, PERRLA, EOMI, Normocephalic Oral: Moist Mucosa, No Gingival or Mucosal Lesions/ Ulcerations Neck: Supple, No JVD, Trachea Midline, - - ? r carotid bruit....difficult to hear in the ED Lungs: Clear to auscultation, Normal air movement, Diminished - in the right base over the left base Cardiovascular: Normal S1, Normal S2, Irregular Rate - she is in NSR but, with very frequent PAC's, No rub noted, No Gallop Abdomen: Bowel Sounds Present, Soft, Non Tender, Non-Distended, Obese Extremities: No clubbing, No cyanosis, Capillary Refill Less than 3 Seconds, Diminished Peripheral Pulses - she has a good Left DP but the remainder of the pedal pulses are diminished, Edema - she has significant pitting edema of both ankles and the distal pretibial area of both LE's Skin: No rashes, No breakdown Musculoskeletal: No Tenderness to Palpation of Joints or Extremities, No Muscle Wasting Neurological: Cranial nerves II-XII grossly intact, Neuro grossly intact Psych/Mental Status: Normal Affect, Appropriate Laboratory Results 02/11/20 16:55: WBC 9.6, RBC 3.65 L, Hgb 11.1 L, Hct 35.4 L, MCV 97.0, MCH 30.4, MCHC 31.4 L, RDW Std Deviation 52.3 H, RDW Coeff of Rose 14.7 H, Plt Count 257, MPV 11.0, Immature Gran % (Auto) 0.200, Neut % (Auto) 69.9, Lymph % (Auto) 19.5, [place] % (Auto) 6.5, Eos % (Auto) 3.4, Baso % (Auto) 0.5, Absolute Neuts (auto) 6.7, Absolute Lymphs (auto) 1.87, Nucleated RBC % 0 02/11/20 16:55: PT 13.4, INR 1.1, APTT 37.3 H 02/11/20 16:55: Sodium 141, Potassium 4.9, Chloride 111 H, Carbon Dioxide 26.0, Anion Gap 4 L, BUN 31 H, Creatinine 1.62 H, Estim Creat Clear Calc 24.06, Est GFR (MDRD) Af Amer 40 L, Est GFR (MDRD) Non-Af 33 L, BUN/Creatinine Ratio 19.1, Glucose 157 H, Calcium 9.1, Magnesium 1.7, Total Bilirubin 0.50, AST 27, ALT 39, Alkaline Phosphatase 173 H, Troponin I 0.102 H, Total Protein 7.2, Albumin 3.4, Globulin 3.8, Albumin/Globulin Ratio 0.9, TSH 4.44 H Assessment/Plan All Active Problems (Last Reviewed 02/11/20 @ 20:[address] Fadumo Jones, DO) Paroxysmal atrial fibrillation with rapid ventricular response (Acute) Elevated troponin (Acute) SVT (supraventricular tachycardia) (Resolved) Impressions 1. Paroxysmal atrial fibrillation with rapid ventricular response of new onset the past 3 days 2. Abnormal EKG with ST segment depression and a mildly elevated troponin, possibly secondary to demand ischemia related to tachycardia 3. Coronary artery disease with history of CABG x3 in 2016 at [facility] 4. Status post bioprosthetic aortic valve replacement in 2016 5. Status post bioprosthetic mitral valve replacement in 2016 6. Status myectomy for hypertrophic obstructive cardiomyopathy 7. Diabetes mellitus type 2 8. Hypertension 9. Hyperlipidemia 10. Chronic renal failure stage III 11. Normochromic normocytic anemia of uncertain etiology-possibly secondary to chronic renal failure 12. Hyperuricemia on allopurinol 13. GERD 14. Morbid obesity 15. Osteoarthritis Admit to PCU on telemetry Serial CE's Obtain ECHO in the a.m. Continuous heparin infusion with bolus-likely transition to Eliquis after we see if she is goiing to need a heart cath for elevated troponin Continue carvedilol 25 mg twice daily and add Cardizem CD 120 mg twice daily for rate control Supplement the magnesium to keep it around 2 CXR-no pleural effusions and no significant pulmonary vascular congestion Consult [facility]-Dr. Meyer Recheck the lab in the AM including lipid panel Check a hemoglobin A1c Inpatient E&M: [id number] Init Hosp L3
[2020-02-11] MEDS: Heparin Injection (Vial) 5,000 UNIT/ML VIAL 6000 UNIT IV (20:51)
[2020-02-11] MEDS: HEPARIN/D5w 25,000 UNITS 25,000 UNITS/250 ML IV.SOLN. 12 UNITS IV (20:51)
[2020-02-11 21:15] LABS: Hemoglobin A1c 7.5 % (3.8-5.6)
[2020-02-11 21:21] LABS: BNP,B-Type NATRIURETIC PEPTIDE 371.5 pg/mL (0-100)
[2020-02-11] MEDS: Atorvastatin Calcium 80 MG Tablet PO (22:15)
[2020-02-11] MEDS: dilTIAZem CD 120 MG Capsule PO (22:16)
[2020-02-11] MEDS: Carvedilol 25 MG Tablet PO (22:16)
[2020-02-11 22:21] LABS: Bedside Glucose 178 mg/dL (70-110)
[2020-02-12 01:10] VITALS: BP 152/72; PULSE 66; RESP 18; TEMP 36.7; O2SAT 96
[2020-02-12 03:00] VITALS: PULSE 71
[2020-02-12 03:50] LABS: Anion Gap 6 (5-15); BUN 28 mg/dL (7-18); BUN/Creat Ratio 19.9 RATIO (10-20); Calcium,Total 8.5 mg/dL (8.5-10.1); Chloride 110 mmol/L (98-107); Cholesterol 151 mg/dL (200); Creatinine, Serum 1.41 mg/dL (0.55-1.02); EST Glomerular Filtration Rate 38 mL/min (>60); Est Glom Filt Rate - Afr Amer 46 mL/min (>60); Estimated Creatinine Clearance 27.64 ml/min; Glucose 177 mg/dL (74-106); High Density Lipoprotein 28 mg/dL; Magnesium 2.1 mg/dL (1.6-2.6); Partial Thromboplast Time > 250.0 Seconds (24.1-36.2); Phosphorus 3.4 mg/dL (2.5-4.9); Potassium 4.5 mmol/L (3.5-5.1); Sodium Level 141 mmol/L (136-145); Triglycerides 249 mg/dL; Very Low Density Lipoprotein 50 mg/dL (5-40)
[2020-02-12 03:55] VITALS: BP 139/82; PULSE 67; RESP 18; TEMP 36.9; O2SAT 99
[2020-02-12 07:00] VITALS: PULSE 56
[2020-02-12 07:01] LABS: Bedside Glucose 148 mg/dL (70-110)
[2020-02-12] MEDS: Magnesium Oxide 400 MG Tablet PO (08:11)
[2020-02-12] MEDS: Glimepiride 4 MG Tablet PO (08:11)
[2020-02-12] MEDS: Aspirin E.C. 81 MG Tablet PO (08:11)
[2020-02-12] MEDS: Multivitamins,Therapeutic Tablet 1 TABLET PO (08:11)
[2020-02-12] MEDS: Allopurinol 100 MG Tablet PO (08:11)
[2020-02-12] MEDS: HEPARIN/D5w 25,000 UNITS 25,000 UNITS/250 ML IV.SOLN. 9 UNITS IV (09:45)
[2020-02-12] MEDS: Carvedilol 25 MG Tablet PO (09:53)
[2020-02-12] MEDS: Clopidogrel Bisulfate 75 MG Tablet PO (09:53)
[2020-02-12] MEDS: Lisinopril 10 MG Tablet PO (09:53)
[2020-02-12] MEDS: Pyridoxine HCl 100 MG Tablet PO (09:53)
[2020-02-12] MEDS: dilTIAZem CD 120 MG Capsule PO (09:53)
[2020-02-12 09:55] VITALS: BP 149/70; PULSE 74; RESP 16; TEMP 36.6; O2SAT 98
[2020-02-12 10:29] LABS: T4 Free Direct 0.99 ng/dL (0.76-1.46)
--- NOTE | 2020-02-12 11:38 | CASEMGMT ---
Patient has a Healthcare Power of Dispersion Mixer and a Healthcare Living Will in [facility]. SW printed documents and placed them in her paper chart. Margret FOSS MSW
[2020-02-12 12:00] LABS: Bedside Glucose 196 mg/dL (70-110)
--- NOTE | 2020-02-12 12:00 | NURSING ---
pt very upset, stating if ECHO doesn't come soon she will leave. This RN explained that ECHO was on there way, This RN had called a half hour ago and they were finishing two patients and will be in to see her. Encouraged pt to rest and eat lunch and will keep her updated.
--- NOTE | 2020-02-12 12:34 | PCM.PN.HOSP ---
Patient Problems: Active and Suspected Problems (Last Reviewed 02/11/20 @ 20:[address] Fadumo Jones, DO) Paroxysmal atrial fibrillation with rapid ventricular response (Acute) Elevated troponin (Acute) Reason for Visit: palpitations Subjective: No further palpitations or LH, no SOB, no CP/pressure/tightness. No LE edema. Denies hx Afib. Vitals/I&O's: Vital Signs Temp Pulse Resp BP Pulse Ox 97.9 F 74 16 149/70 H 98 02/12/20 09:55 02/12/20 09:55 02/12/20 09:55 02/12/20 09:55 02/12/20 09:55 Oxygen Flow Rate (L/min) 2 Oxygen Delivery Method Room Air Weight: 198 lb 3.129 oz Body Mass Index (BMI) 34.8 Intake and Output for Last 24 Hours 02/10/20 02/11/20 02/12/20 23:59 23:59 23:59 Intake Total 291.6 / 291.6 256.05 / 256.05 Balance 291.6 / 291.6 256.05 / 256.05 General: Alert, Oriented x3, Cooperative HEENT: Atraumatic, PERRLA, EOMI, Normocephalic Neck: Supple, No JVD, Negative Carotid Bruits Lungs: Clear to auscultation, Normal air movement Cardiovascular: No murmurs, Irregular Rate, Murmur - 2/6 systolic murmur best at LSB Abdomen: Bowel Sounds Present, Soft, Non Tender Extremities: No edema, Capillary Refill Less than 3 Seconds Skin: No rashes, No breakdown Musculoskeletal: No Tenderness to Palpation of Joints or Extremities Neurological: Cranial nerves II-XII grossly intact Psych/Mental Status: Normal Affect, Appropriate, Alert and oriented to time, place, person, mood and affect Laboratory Results 02/11/20 16:55: WBC 9.6, RBC 3.65 L, Hgb 11.1 L, Hct 35.4 L, MCV 97.0, MCH 30.4, MCHC 31.4 L, RDW Std Deviation 52.3 H, RDW Coeff of Rose 14.7 H, Plt Count 257, MPV 11.0, Immature Gran % (Auto) 0.200, Neut % (Auto) 69.9, Lymph % (Auto) 19.5, [place] % (Auto) 6.5, Eos % (Auto) 3.4, Baso % (Auto) 0.5, Absolute Neuts (auto) 6.7, Absolute Lymphs (auto) 1.87, Nucleated RBC % 0 02/11/20 16:55: PT 13.4, INR 1.1, APTT 37.3 H 02/11/20 16:55: Sodium 141, Potassium 4.9, Chloride 111 H, Carbon Dioxide 26.0, Anion Gap 4 L, BUN 31 H, Creatinine 1.62 H, Estim Creat Clear Calc 24.06, Est GFR (MDRD) Af Amer 40 L, Est GFR (MDRD) Non-Af 33 L, BUN/Creatinine Ratio 19.1, Glucose 157 H, Calcium 9.1, Magnesium 1.7, Total Bilirubin 0.50, AST 27, ALT 39, Alkaline Phosphatase 173 H, Troponin I 0.102 H, Total Protein 7.2, Albumin 3.4, Globulin 3.8, Albumin/Globulin Ratio 0.9, TSH 4.44 H 02/11/20 16:55: Hemoglobin A1c 7.5 H 02/11/20 16:55: B-Natriuretic Peptide 371.5 H 02/11/20 20:45: Troponin I 0.142 H 02/11/20 22:11: POC Glucose 178 H 02/11/20 23:38: Troponin I 0.177 H 02/12/20 03:16: Sodium 141, Potassium 4.5, Chloride 110 H, Carbon Dioxide 25.0, Anion Gap 6, BUN 28 H, Creatinine 1.41 H, Estim Creat Clear Calc 27.64, Est GFR (MDRD) Af Amer 46 L, Est GFR (MDRD) Non-Af 38 L, BUN/Creatinine Ratio 19.9, Glucose 177 H, Calcium 8.5, Phosphorus 3.4, Magnesium 2.1, Triglycerides 249 H, Cholesterol 151, LDL Cholesterol 73, VLDL Cholesterol 50 H, HDL Cholesterol 28 L 02/12/20 03:16: APTT > 250.0 H* 02/12/20 03:16: Troponin I 0.159 H 02/12/20 03:16: Free T4 0.99 02/12/20 06:56: POC Glucose 148 H 02/12/20 11:56: POC Glucose 196 H 02/12/20 12:23: APTT Pending Current Medications Acetaminophen (Tylenol) 650 mg PO Q6H PRN PRN PRN Reason: Pain Score 1-10/Temp > 100.7 F Al Hydroxide/Mg Hydroxide (Mylanta Ii) 30 ml PO Q6H PRN PRN PRN Reason: Gastric Burning [facility] Admin: 02/12/20 08:11 Dose: 100 mg Documented by: Aspirin (Ecotrin) [facility] Last Admin: 02/12/20 08:11 Dose: 81 mg Documented by: Atorvastatin Calcium (Lipitor) 80 mg PO QHS [facility] Last Admin: 02/11/20 22:15 Dose: 80 mg Documented by: Carvedilol (Coreg) 25 mg PO BID [facility] Last Admin: 02/12/20 09:53 Dose: 25 mg Documented by: Cholecalciferol (Vitamin D (25mcg)) 1,000 unit PO DAILY [facility] Last Admin: 02/12/20 09:53 Dose: 1,000 unit Documented by: Clopidogrel Bisulfate (Plavix) 75 mg PO DAILY [facility] Last Admin: 02/12/20 09:53 Dose: 75 mg Documented by: Dextrose (D50w Syringe) 0 gm IV X1 PRN; Protocol PRN Reason: Hypoglycemia Diltiazem HCl (Cardizem Cd) 120 mg PO BID [facility] Last Admin: 02/12/20 09:53 Dose: 120 mg Documented by: Glimepiride (Amaryl) [facility] Last Admin: 02/12/20 08:11 Dose: 4 mg Documented by: Glucagon () 1 mg IM .X1 PRN PRN Reason: Hypoglycemia Heparin Sodium (Porcine) (Heparin Na) 0 unit IV UD PRN; Protocol Heparin Sodium/Dextrose () 25,000 units in 250 mls @ 12 mls/hr IV .[id number] [facility]; Protocol Last Admin: 02/12/20 09:45 Dose: 900 units/hr, 9 mls/hr Documented by: Sodium Chloride () 250 mls @ 15 mls/hr IV .[id number] PRN PRN Reason: Saline Flush Sodium Chloride () 250 mls @ 15 mls/hr IV .[id number] PRN PRN Reason: Additional IVPB Infusion Insulin Glargine (Lantus ([facility])) 20 units SC DAILY [facility] Last Admin: 02/12/20 12:12 Dose: Not Given Documented by: Insulin Human Lispro (Humalog Kwikpen (Bkc)) 0 unit SC [facility]; Protocol Last Admin: 02/12/20 12:12 Dose: Not Given Documented by: Lisinopril (Zestril) 10 mg PO DAILY [facility] Last Admin: 02/12/20 09:53 Dose: 10 mg Documented by: Magnesium Hydroxide (Milk Of Magnesia) 30 ml PO DAILY PRN PRN PRN Reason: Constipation Magnesium Oxide (Mag-Ox 400) [facility] Last Admin: 02/12/20 08:11 Dose: 400 mg Documented by: Melatonin (Melatonin) 3 mg PO QHS PRN PRN PRN Reason: INSOMNIA Morphine Sulfate () 2 mg IV Q3H PRN PRN PRN Reason: Pain Score 6-10/10 Multivitamins (Multivitamin) [facility] Last Admin: 02/12/20 08:11 Dose: 1 tablet Documented by: Nitroglycerin (Nitrostat) 0.4 mg SUBLINGUAL Q5M PRN PRN Reason: CARDIAC/CHEST PAIN Non-Formulary Medication (Dulaglutide) 1.5 mg SC QWEEK [facility] Ondansetron HCl (Zofran) 4 mg IV Q8H PRN PRN PRN Reason: NAUSEA/VOMITING Prochlorperazine Edisylate (Compazine Iv) 5 mg IV Q4H PRN PRN PRN Reason: Breakthrough Nausea/Vomiting Pyridoxine HCl (Vitamin B-6) 100 mg PO DAILY [facility] Last Admin: 02/12/20 09:53 Dose: 100 mg Documented by: Senna/Docusate Sodium (Senokot-S, Maria E-Colace) 2 tablet PO BID PRN PRN PRN Reason: Constipation Sodium Chloride () 10 - 40 ml IV UD PRN PRN Reason: SALINE FLUSH Tramadol HCl (Ultram) 50 mg PO Q6H PRN PRN PRN Reason: Pain (1-10) or Fever STROKE Vital Signs/Narrative: Vital Signs Temp Pulse Resp BP Pulse Ox 02/12/20 09:55 97.9 F 74 16 149/70 H 98 Medical Necessity - Tobacco Use Smoking Status: Never smoker Tobacco Use: Non-smoker Assessment/Plan All Active Problems (Last Reviewed 02/11/20 @ 20:[address] Fadumo Jones, DO) Paroxysmal atrial fibrillation with rapid ventricular response (Acute) Elevated troponin (Acute) SVT (supraventricular tachycardia) (Resolved) 1. Afib RVR - initial episode. unclear how long this episode has been going on for. No further Palp/LH. Echo pending. Cardiology eval pending. Rate improved. Continue coreg and cardizem. TSH elevated however ft4 normal. Mildly elevated bnp 371.5. CHADVASC score 5. Defer anticoagulation to cardiology given her ongoing use of aspirin and plavix. On heparin drip. 2. Indeterminate trop - cardiology following. echo pending. mild elevation. No CP. 0.177 max. 3. CKDIII - no significant increase over baseline. Trend. 4. CAD with prior CABGx3 5. hx bioprosthetic mitral and aortic valve - echo pending 6. DMt2 with obesity - lantus + SSI. product expert consult. A1C 7.5. 7. HTN - stable 8. Hx PAD - prior stents RLE DVT ppx: heparin drip This patient was seen by Bobo Murrell PA-C under the supervision of Doctor Elliott.
[2020-02-12 13:08] LABS: Partial Thromboplast Time 207.6 Seconds (24.1-36.2)
--- NOTE | 2020-02-12 13:45 | PCM.DC ---
- Discharge Diagnoses Current Active Problems: Current Active and Chronic Problems (Last Reviewed 02/11/20 @ 20:[address] Fadumo Jones, DO) Paroxysmal atrial fibrillation with rapid ventricular response (Acute) Normochromic normocytic anemia (Chronic) Chronic renal failure, stage 3 (moderate) (Chronic) Elevated troponin (Acute) Morbid obesity (Chronic) Hyperuricemia (Chronic) Status post aortic valve replacement with bioprosthetic valve (Chronic) 2016 at [facility] History of mitral valve replacement with bioprosthetic valve (Chronic) 2016 at [facility] You will use the following diet at home:: Calorie/Carbohydrate Controlled (specify 1200, 1400, etc) - 1800 fabrizio / day, Cardiac Your food should be the consistency of: Regular Your liquids should be the consistency of: Regular/Thin Discharge Activity: Return to Normal Activity Allergies/Adverse Reactions: Allergies celecoxib [From Celebrex] Allergy (Verified 02/11/20 16:48) Other indomethacin [From Indocin] Allergy (Verified 02/11/20 16:48) Other Kfsvzyl-Byu-Jeu Reductase Inhibitor Allergy (Verified 02/11/20 16:48) Pain in joints acetaminophen [From Vicodin] Adverse Reaction (Verified 02/11/20 16:48) Other adhesive tape Adverse Reaction (Verified 02/11/20 16:48) Itching fluoxetine [From Prozac] Adverse Reaction (Verified 02/11/20 16:48) Other hydrocodone [From Vicodin] Adverse Reaction (Verified 02/11/20 16:48) Other ibuprofen [From Motrin] Adverse Reaction (Verified 02/11/20 16:48) Other ketoprofen Adverse Reaction (Verified 02/11/20 16:48) Other lovastatin [From Mevacor] Adverse Reaction (Verified 02/11/20 16:48) Other meclofenamic acid [From Meclomen] Adverse Reaction (Verified 02/11/20 16:48) Other naproxen [From Naprosyn] Adverse Reaction (Verified 02/11/20 16:48) Other NSAIDS (Non-Steroidal Anti-Inflamma Adverse Reaction (Verified 02/11/20 16:48) Other sertraline [From Zoloft] Adverse Reaction (Verified 02/11/20 16:48) Other venlafaxine [From Effexor] Adverse Reaction (Verified 02/11/20 16:48) Other BATAZOLIDIN Adverse Reaction (Uncoded 02/11/20 16:48) Other DIAZIDE Adverse Reaction (Uncoded 02/11/20 16:48) Other SPOROSTACIN Adverse Reaction (Uncoded 02/11/20 16:48) Other Medications to take at Discharge Aspirin [Adult Low Dose Aspirin EC] 81 mg PO DAILY #30 tablet. 05/11/16 Atorvastatin Calcium [Lipitor] 80 mg PO QHS #30 tab 05/11/16 carvedilol 25 mg tablet 25 mg PO BID 08/19/17 multivitamin 1 cap PO QAM 08/19/17 pen needle, diabetic 32 gauge x See Dose Instructions .ROUTE .MEDSUPPLY #50 ea 04/25/18 blood sugar diagnostic See Dose Instructions .ROUTE .MEDSUPPLY #100 ea 06/20/18 dulaglutide 1.5 mg/0.5 mL subcutaneous pen injector 1.5 mg SC QWEEK #2 ml 06/20/18 Lisinopril [Zestril] 10 mg PO DAILY 07/23/18 cholecalciferol (vitamin D3) 25 mcg (1,000 unit) capsule 1,000 unit PO DAILY 10/19/18 glimepiride 4 mg tablet 4 mg PO BID tab 10/19/18 pyridoxine (vitamin B6) 100 mg tablet 100 mg PO DAILY 10/19/18 insulin glargine 100 unit/mL (3 mL) subcutaneous pen 32 unit SC DAILY #12 ml 11/09/18 Allopurinol [Zyloprim] 100 mg PO DAILYCM 02/11/20 traMADol [Ultram] 50 mg PO Q6H PRN PRN 02/11/20 Acetaminophen [Tylenol Tablet] 650 mg PO Q6H PRN PRN tablet 02/12/20 Apixaban [Eliquis] 5 mg PO BID #60 tab 02/12/20 Diltiazem CD [Cardizem CD] 120 mg PO BID #60 cap 02/12/20 The following prescriptions were given: Diltiazem CD [Cardizem CD] 120 mg PO BID #60 cap Transmission Status: Pending to [facility] Apixaban [Eliquis] 5 mg PO BID #60 tab Transmission Status: Pending to [facility] Primary Care Physician: Fanny De Guzman MD [Primary Care Provider] - Please follow up with your Primary Care Physician in: 2 weeks Test Results: Test results from this visit will be discussed in further detail at your follow-up appointment, if applicable. Please Follow Up With: Omkar Ricci MD When: 1-2 weeks Please Follow Up With: Your recorder gravity prospecting When: 2-4 weeks Proposed Discharge Date: 02/12/20
--- NOTE | 2020-02-12 14:01 | DS.PCM_ITS ---
<Bobo Murrell - Last Filed: 02/12/20 14:01> Discharge Date and Diagnosis Date of Admission: 02/11/20 Date of Discharge: 02/12/20 - Primary Discharge Diagnosis Acute Problems: Active Problems Paroxysmal atrial fibrillation with rapid ventricular response Indeterminate troponin CKDIII CAD with prior CABG Hx Aortic and mitral valve replacement with bioprosthetic valves Hx CAD HTN DMt2 with obesity - Secondary Discharge Diagnosis Chronic Problems: Chronic Problems (Last Reviewed 02/11/20 @ 20:[address] Fadumo Jones, DO) Normochromic normocytic anemia (Chronic) Chronic renal failure, stage 3 (moderate) (Chronic) Morbid obesity (Chronic) Hyperuricemia (Chronic) Status post aortic valve replacement with bioprosthetic valve (Chronic) [facility] History of mitral valve replacement with bioprosthetic valve (Chronic) 2016 [facility] Coronary artery disease (Chronic) Aortic valve stenosis (Chronic) had AV replacement in 2016 with bioprosthetic valve Mitral valve disease (Chronic) Hypertrophic obstructive cardiomyopathy (HOCM) (Chronic) PAOD (peripheral arterial occlusive disease) (Chronic) has a stent in the R leg and had ballon angioplasty of the left Diabetes mellitus (Chronic) diagnosed at the age of 62 Hypertension (Chronic) No lightheadedness or dizziness. Checking BP at home Hyperlipidemia (Chronic) Chol 152, tri 249, LDL 61, HDL 41. On statin and tolerating well. Tri higher with A1c currently 7.8 GERD (gastroesophageal reflux disease) (Chronic) Glaucoma (Chronic) Osteoarthritis (Chronic) Hospital Course and Treatment Imaging Results: RAD/Chest 1 View (Portable) IMPRESSION: Normal x-ray examination of the chest. Consults: Radhames - Cardiology Operations: None Procedures: None Summary of Care Provided: Hospital course: The patient is a 79 year old F with pmhx as above who presented to the ER with LH and palpitations. She presented to the ER and was found to have Afib with RVR which she did not have a known history of. She converted spontaneously in the ER after IV cardizem. She was admitted and placed on cardizem in addition to her home coreg and a heparin drip. She had indeterminate troponin. She had an echo about 9 months ago and a repeat was deferred. She was seen by cardiology the following day who advised ongoing rate conrol with the above meds and anticoagulation with eliquis, as well as discontinuiation of plavix at this time.She had no further symptoms. She was discharged home in stable condition. She plans to follow up with her prior founder and chief technical officer whom performed her interventions, and also with Dr. Ricci in 1-2 weeks. She will also need follow up with her PCP in 2 weeks. She was discharged home in stable condition. This patient was seen by Bobo Murrell PA-C under the supervision of Doctor Earl. [] - Physical Exam Vitals/I&O's: Vital Signs Temp Pulse Resp BP Pulse Ox 97.9 F 74 16 149/70 H 98 02/12/20 09:55 02/12/20 09:55 02/12/20 09:55 02/12/20 09:55 02/12/20 09:55 Oxygen Flow Rate (L/min) 2 Oxygen Delivery Method Room Air Weight: 198 lb 3.129 oz Body Mass Index (BMI) 34.8 Intake and Output for Last 24 Hours 02/10/20 02/11/20 02/12/20 23:59 23:59 23:59 Intake Total 291.6 / 291.6 286.80 / 286.80 Balance 291.6 / 291.6 286.80 / 286.80 General: Alert, Oriented x3, Cooperative HEENT: Atraumatic, PERRLA, EOMI, Normocephalic Neck: Supple, No JVD, Negative Carotid Bruits Lungs: Clear to auscultation, Normal air movement Cardiovascular: Irregular Rate, Murmur - 2/6 systolic murmur LSB Abdomen: Bowel Sounds Present, Soft, Non Tender Extremities: No edema, Capillary Refill Less than 3 Seconds Skin: No rashes, No breakdown Musculoskeletal: No Tenderness to Palpation of Joints or Extremities Neurological: Cranial nerves II-XII grossly intact Psych/Mental Status: Normal Affect, Appropriate, Alert and oriented to time, place, person, mood and affect Laboratory Results 02/11/20 16:55: WBC 9.6, RBC 3.65 L, Hgb 11.1 L, Hct 35.4 L, MCV 97.0, MCH 30.4, MCHC 31.4 L, RDW Std Deviation 52.3 H, RDW Coeff of Rose 14.7 H, Plt Count 257, MPV 11.0, Immature Gran % (Auto) 0.200, Neut % (Auto) 69.9, Lymph % (Auto) 19.5, [place] % (Auto) 6.5, Eos % (Auto) 3.4, Baso % (Auto) 0.5, Absolute Neuts (auto) 6.7, Absolute Lymphs (auto) 1.87, Nucleated RBC % 0 02/11/20 16:55: PT 13.4, INR 1.1, APTT 37.3 H 02/11/20 16:55: Sodium 141, Potassium 4.9, Chloride 111 H, Carbon Dioxide 26.0, Anion Gap 4 L, BUN 31 H, Creatinine 1.62 H, Estim Creat Clear Calc 24.06, Est GFR (MDRD) Af Amer 40 L, Est GFR (MDRD) Non-Af 33 L, BUN/Creatinine Ratio 19.1, Glucose 157 H, Calcium 9.1, Magnesium 1.7, Total Bilirubin 0.50, AST 27, ALT 39, Alkaline Phosphatase 173 H, Troponin I 0.102 H, Total Protein 7.2, Albumin 3.4, Globulin 3.8, Albumin/Globulin Ratio 0.9, TSH 4.44 H 02/11/20 16:55: Hemoglobin A1c 7.5 H 02/11/20 16:55: B-Natriuretic Peptide 371.5 H 02/11/20 20:45: Troponin I 0.142 H 02/11/20 22:11: POC Glucose 178 H 02/11/20 23:38: Troponin I 0.177 H 02/12/20 03:16: Sodium 141, Potassium 4.5, Chloride 110 H, Carbon Dioxide 25.0, Anion Gap 6, BUN 28 H, Creatinine 1.41 H, Estim Creat Clear Calc 27.64, Est GFR (MDRD) Af Amer 46 L, Est GFR (MDRD) Non-Af 38 L, BUN/Creatinine Ratio 19.9, Glucose 177 H, Calcium 8.5, Phosphorus 3.4, Magnesium 2.1, Triglycerides 249 H, Cholesterol 151, LDL Cholesterol 73, VLDL Cholesterol 50 H, HDL Cholesterol 28 L 02/12/20 03:16: APTT > 250.0 H* 02/12/20 03:16: Troponin I 0.159 H 02/12/20 03:16: Free T4 0.99 02/12/20 06:56: POC Glucose 148 H 02/12/20 11:56: POC Glucose 196 H 02/12/20 12:23: APTT 207.6 H* Current Medications Acetaminophen (Tylenol) 650 mg PO Q6H PRN PRN PRN Reason: Pain Score 1-10/Temp > 100.7 F Al Hydroxide/Mg Hydroxide (Mylanta Ii) 30 ml PO Q6H PRN PRN PRN Reason: Gastric Burning [facility] Admin: 02/12/20 08:11 Dose: 100 mg Documented by: Aspirin (Ecotrin) [facility] Last Admin: 02/12/20 08:11 Dose: 81 mg Documented by: Atorvastatin Calcium (Lipitor) 80 mg PO QHS [facility] Last Admin: 02/11/20 22:15 Dose: 80 mg Documented by: Carvedilol (Coreg) 25 mg PO BID [facility] Last Admin: 02/12/20 09:53 Dose: 25 mg Documented by: Cholecalciferol (Vitamin D (25mcg)) 1,000 unit PO DAILY [facility] Last Admin: 02/12/20 09:53 Dose: 1,000 unit Documented by: Clopidogrel Bisulfate (Plavix) 75 mg PO DAILY [facility] Last Admin: 02/12/20 09:53 Dose: 75 mg Documented by: Dextrose (D50w Syringe) 0 gm IV X1 PRN; Protocol PRN Reason: Hypoglycemia Diltiazem HCl (Cardizem Cd) 120 mg PO BID [facility] Last Admin: 02/12/20 09:53 Dose: 120 mg Documented by: Glimepiride (Amaryl) [facility] Last Admin: 02/12/20 08:11 Dose: 4 mg Documented by: Glucagon () 1 mg IM .X1 PRN PRN Reason: Hypoglycemia Heparin Sodium (Porcine) (Heparin Na) 0 unit IV UD PRN; Protocol Heparin Sodium/Dextrose () 25,000 units in 250 mls @ 12 mls/hr IV .[id number] [facility]; Protocol Last Titration: 02/12/20 13:10 Dose: 0 units/hr, 0 mls/hr Documented by: Sodium Chloride () 250 mls @ 15 mls/hr IV .[id number] PRN PRN Reason: Saline Flush Sodium Chloride () 250 mls @ 15 mls/hr IV .[id number] PRN PRN Reason: Additional IVPB Infusion Insulin Glargine (Lantus (Bk)) 20 units SC DAILY [facility] Last Admin: 02/12/20 12:12 Dose: Not Given Documented by: Insulin Human Lispro (Humalog Kwikpen (Bk)) 0 unit SC ACHS [facility]; Protocol Last Admin: 02/12/20 12:12 Dose: Not Given Documented by: Lisinopril (Zestril) 10 mg PO DAILY [facility] Last Admin: 02/12/20 09:53 Dose: 10 mg Documented by: Magnesium Hydroxide (Milk Of Magnesia) 30 ml PO DAILY PRN PRN PRN Reason: Constipation Magnesium Oxide (Mag-Ox 400) [facility] Last Admin: 02/12/20 08:11 Dose: 400 mg Documented by: Melatonin (Melatonin) 3 mg PO QHS PRN PRN PRN Reason: INSOMNIA Morphine Sulfate () 2 mg IV Q3H PRN PRN PRN Reason: Pain Score 6-10/10 Multivitamins (Multivitamin) [facility] Last Admin: 02/12/20 08:11 Dose: 1 tablet Documented by: Nitroglycerin (Nitrostat) 0.4 mg SUBLINGUAL Q5M PRN PRN Reason: CARDIAC/CHEST PAIN Ondansetron HCl (Zofran) 4 mg IV Q8H PRN PRN PRN Reason: NAUSEA/VOMITING Prochlorperazine Edisylate (Compazine Iv) 5 mg IV Q4H PRN PRN PRN Reason: Breakthrough Nausea/Vomiting Pyridoxine HCl (Vitamin B-6) 100 mg PO DAILY [facility] Last Admin: 02/12/20 09:53 Dose: 100 mg Documented by: Senna/Docusate Sodium (Senokot-S, Maria E-Colace) 2 tablet PO BID PRN PRN PRN Reason: Constipation Sodium Chloride () 10 - 40 ml IV UD PRN PRN Reason: SALINE FLUSH Tramadol HCl (Ultram) 50 mg PO Q6H PRN PRN PRN Reason: Pain (1-10) or Fever Discharge Diet: Low fat/ Low Cholesterol, 1800 Calorie Control Diet, 2000 mg Sodium Diet Discharge Activity: Return to Normal Activity Home Medications: Medications to take at Discharge Aspirin [Adult Low Dose Aspirin EC] 81 mg PO DAILY #30 tablet. 05/11/16 Atorvastatin Calcium [Lipitor] 80 mg PO QHS #30 tab 05/11/16 carvedilol 25 mg tablet 25 mg PO BID 08/19/17 multivitamin 1 cap PO QAM 08/19/17 pen needle, diabetic 32 gauge x See Dose Instructions .ROUTE .MEDSUPPLY #50 ea 04/25/18 blood sugar diagnostic See Dose Instructions .ROUTE .MEDSUPPLY #100 ea 06/20/18 dulaglutide 1.5 mg/0.5 mL subcutaneous pen injector 1.5 mg SC QWEEK #2 ml 06/20/18 Lisinopril [Zestril] 10 mg PO DAILY 07/23/18 cholecalciferol (vitamin D3) 25 mcg (1,000 unit) capsule 1,000 unit PO DAILY 10/19/18 glimepiride 4 mg tablet 4 mg PO BID tab 10/19/18 pyridoxine (vitamin B6) 100 mg tablet 100 mg PO DAILY 10/19/18 insulin glargine 100 unit/mL (3 mL) subcutaneous pen 32 unit SC DAILY #12 ml 11/09/18 Allopurinol [Zyloprim] 100 mg PO DAILYCM 02/11/20 traMADol [Ultram] 50 mg PO Q6H PRN PRN 02/11/20 Acetaminophen [Tylenol Tablet] 650 mg PO Q6H PRN PRN tab 02/12/20 Apixaban [Eliquis] 5 mg PO BID #60 tab 02/12/20 Diltiazem CD [Cardizem CD] 120 mg PO BID #60 cap 02/12/20 Following Prescrptions Were Given to Patient: Diltiazem CD [Cardizem CD] 120 mg PO BID #60 cap Transmission Status: Received by [facility] Apixaban [Eliquis] 5 mg PO BID #60 tab Transmission Status: Received by [facility] Primary Care Physician: Fanny De Guzman MD [Primary Care Provider] - Please follow up with your Primary Care Physician in: 2 weeks Please Follow Up With: Omkar Ricci MD When: 1-2 weeks Please Follow Up With: Your founder and chief technical officer When: 2-4 weeks Disposition: Home Minutes spent on discharge:: 35 Patient Condition:: Stable Medical Necessity - Tobacco Use Smoking Status: Never smoker Tobacco Use: Non-smoker Meaningful Use Info Meaningful Use Diagnoses (Choose all that apply): None applicable <JaneeAriel ba - Last Filed: 02/13/20 07:11> Discharge Date and Diagnosis - Secondary Discharge Diagnosis Chronic Problems: Chronic Problems (Last Reviewed 02/11/20 @ 20:[address] Fadumo Jones, DO) Normochromic normocytic anemia (Chronic) Chronic renal failure, stage 3 (moderate) (Chronic) Morbid obesity (Chronic) Hyperuricemia (Chronic) Status post aortic valve replacement with bioprosthetic valve (Chronic) 2016 [facility] History of mitral valve replacement with bioprosthetic valve (Chronic) 2016 [facility] Coronary artery disease (Chronic) Aortic valve stenosis (Chronic) had AV replacement in 2016 with bioprosthetic valve Mitral valve disease (Chronic) Hypertrophic obstructive cardiomyopathy (HOCM) (Chronic) PAOD (peripheral arterial occlusive disease) (Chronic) has a stent in the R leg and had ballon angioplasty of the left Diabetes mellitus (Chronic) diagnosed at the age of 62 Hypertension (Chronic) No lightheadedness or dizziness. Checking BP at home Hyperlipidemia (Chronic) Chol 152, tri 249, LDL 61, HDL 41. On statin and tolerating well. Tri higher with A1c currently 7.8 GERD (gastroesophageal reflux disease) (Chronic) Glaucoma (Chronic) Osteoarthritis (Chronic) Hospital Course and Treatment Summary of Care Provided: This patient was seen in conjunction with Bobo Murrell PA-C . I have independently interviewed and examined the patient and reviewed pertinent historical, laboratory, and other data. Please refer to Bobo Murrell PA-C note for details of this patient's presentation, findings, and recommendations. I have reviewed Bobo Murrell PA-C note and concur with documented findings. In brief, patient is a 72-year-old lady with significant past cardiac history including CABG, valvular heart disease with history of aortic and mitral valve replacement with bioprosthetic valves who presented with palpitation patient was found to be in A. fib with RVR admitted to monitored bed for further management Hospital course: As documented above - Physical Exam Vitals/I&O's: Vital Signs Temp Pulse Resp BP Pulse Ox 97.5 F L 48 L 16 133/54 H 97 02/12/20 14:12 02/12/20 14:12 02/12/20 14:12 02/12/20 14:12 02/12/20 14:12 Oxygen Flow Rate (L/min) 2 Oxygen Delivery Method Room Air Weight: 89.9 kg Body Mass Index (BMI) 34.8 Intake and Output for Last 24 Hours 02/11/20 02/12/20 02/13/20 23:59 23:59 23:59 Intake Total 291.6 / 291.6 286.80 / 286.80 Balance 291.6 / 291.6 286.80 / 286.80 Laboratory Results 02/12/20 03:16: Free T4 0.99 02/12/20 11:56: POC Glucose 196 H 02/12/20 12:23: APTT 207.6 H* Inpatient E&M: 37916 Disch Hosp
--- NOTE | 2020-02-12 14:03 | CASEMGMT ---
Call to [facility] pharmacy where Eliquis was e-scribed previously and per tech, pt's co-pay is $32 at this time. Pt updated and provided with Eliquis 30 day free trial card at this time. Pt voices no further questions/concerns/needs at this time. Brandy JI CM
[2020-02-12 14:12] VITALS: BP 133/54; PULSE 48; RESP 16; TEMP 36.4; O2SAT 97
--- NOTE | 2020-02-12 14:52 | PHA.DC.MC ---
Pharmacy Service has performed discharge medication reconciliation and counseling for this patient. 1. APIXABAN 5MG PO BID 2. DILTIAZEM CD 120MG PO BID The patient's discharge medication list was reviewed for discrepancies and discrepancies were resolved. Home Medications Aspirin [Adult Low Dose Aspirin EC] 81 mg PO DAILY #30 tablet. 05/11/16 Atorvastatin Calcium [Lipitor] 80 mg PO QHS #30 tab 05/11/16 carvedilol 25 mg tablet 25 mg PO BID 08/19/17 multivitamin 1 cap PO QAM 08/19/17 pen needle, diabetic 32 gauge x See Dose Instructions .ROUTE .MEDSUPPLY #50 ea 04/25/18 blood sugar diagnostic See Dose Instructions .ROUTE .MEDSUPPLY #100 ea 06/20/18 dulaglutide 1.5 mg/0.5 mL subcutaneous pen injector 1.5 mg SC QWEEK #2 ml 06/20/18 Lisinopril [Zestril] 10 mg PO DAILY 07/23/18 cholecalciferol (vitamin D3) 25 mcg (1,000 unit) capsule 1,000 unit PO DAILY 10/19/18 glimepiride 4 mg tablet 4 mg PO BID tab 10/19/18 pyridoxine (vitamin B6) 100 mg tablet 100 mg PO DAILY 10/19/18 insulin glargine 100 unit/mL (3 mL) subcutaneous pen 32 unit SC DAILY #12 ml 11/09/18 Allopurinol [Zyloprim] 100 mg PO DAILYCM 02/11/20 traMADol [Ultram] 50 mg PO Q6H PRN PRN 02/11/20 Acetaminophen [Tylenol Tablet] 650 mg PO Q6H PRN PRN tab 02/12/20 Apixaban [Eliquis] 5 mg PO BID #60 tab 02/12/20 Diltiazem CD [Cardizem CD] 120 mg PO BID #60 cap 02/12/20 The patient was counseled on the following discharge medications and changes in medications for homegoing were reviewed. The Reason for Use, instructions for use, and potential side effects were reviewed for all new medications. The patient's questions regarding all of their medications were answered. The patient was able to verbally demonstrate an understanding of their discharge medications.
--- NOTE | 2020-02-12 16:16 | CON.PCM_ITS ---
Reason for Consult Date of Consultation: 02/12/20 History of Present Illness: The patient is a 79 year old F with a past medical history of hypertension, diabetes mellitus type 2, hyperlipidemia, coronary artery disease with history of CABG x3 vessels in 2016 at the [facility], ao rtic stenosis with bioprosthetic aortic valve replacement in 2016, mitral valve disease with history of bioprosthetic mitral valve replacement, tonic renal failure stage III, hyperuricemia, GERD, peripheral arterial disease with history of a stent in the right lower extremity and balloon angioplasty in the left lower extremity, osteoarthritis, chronic normochromic normocytic anemia, hypertrophic obstructive cardiomyopathy, glaucoma and morbid obesity who presented to the emergency department at [facility] on 02/11/2020 complaining of her heart racing intermittently and sometimes associated with lightheadedness. This had been going on for 3 days. She denied chest pain and also denied SOB and diaphoresis. She had lightheadedness but, no syncope. EKG in the ED showed AF with RVR and she denied any hx of AF. She converted spontaneously while Dr. Levi was in the room before IV Cardizem had a chance to have worked. Patient has remained in sinus rhythm overnight. She is doing well overall. Review of systems: All else is negative except that in the HPI. All systems reviewed. Past Medical History Allergies/Adverse Reactions: Allergies celecoxib [From Celebrex] Allergy (Verified 02/11/20 16:48) Other indomethacin [From Indocin] Allergy (Verified 02/11/20 16:48) Other Fxmyjnt-Lak-Xai Reductase Inhibitor Allergy (Verified 02/11/20 16:48) Pain in joints acetaminophen [From Vicodin] Adverse Reaction (Verified 02/11/20 16:48) Other adhesive tape Adverse Reaction (Verified 02/11/20 16:48) Itching fluoxetine [From Prozac] Adverse Reaction (Verified 02/11/20 16:48) Other hydrocodone [From Vicodin] Adverse Reaction (Verified 02/11/20 16:48) Other ibuprofen [From Motrin] Adverse Reaction (Verified 02/11/20 16:48) Other ketoprofen Adverse Reaction (Verified 02/11/20 16:48) Other lovastatin [From Mevacor] Adverse Reaction (Verified 02/11/20 16:48) Other meclofenamic acid [From Meclomen] Adverse Reaction (Verified 02/11/20 16:48) Other naproxen [From Naprosyn] Adverse Reaction (Verified 02/11/20 16:48) Other NSAIDS (Non-Steroidal Anti-Inflamma Adverse Reaction (Verified 02/11/20 16:48) Other sertraline [From Zoloft] Adverse Reaction (Verified 02/11/20 16:48) Other venlafaxine [From Effexor] Adverse Reaction (Verified 02/11/20 16:48) Other BATAZOLIDIN Adverse Reaction (Uncoded 02/11/20 16:48) Other DIAZIDE Adverse Reaction (Uncoded 02/11/20 16:48) Other SPOROSTACIN Adverse Reaction (Uncoded 02/11/20 16:48) Other Home Medications: Ambulatory Orders Medication Instructions Recorded Aspirin [Adult Low Dose Aspirin EC] 81 mg PO DAILY #30 tablet. 05/11/16 Atorvastatin Calcium [Lipitor] 80 mg PO QHS #30 tab 05/11/16 carvedilol 25 mg tablet 25 mg PO BID 08/19/17 multivitamin 1 cap PO QAM 08/19/17 pen needle, diabetic 32 gauge x See Dose Instructions .ROUTE 04/25/18 .MEDSUPPLY #50 ea blood sugar diagnostic See Dose Instructions .ROUTE 06/20/18 .MEDSUPPLY #100 ea dulaglutide 1.5 mg/0.5 mL 1.5 mg SC QWEEK #2 ml 06/20/18 subcutaneous pen injector Lisinopril [Zestril] 10 mg PO DAILY 07/23/18 cholecalciferol (vitamin D3) 25 1,000 unit PO DAILY 10/19/18 mcg (1,000 unit) capsule glimepiride 4 mg tablet 4 mg PO BID tab 10/19/18 pyridoxine (vitamin B6) 100 mg 100 mg PO DAILY 10/19/18 tablet insulin glargine 100 unit/mL (3 32 unit SC DAILY #12 ml 11/09/18 mL) subcutaneous pen Allopurinol [Zyloprim] 100 mg PO DAILYCM 02/11/20 traMADol [Ultram] 50 mg PO Q6H PRN PRN 02/11/20 Acetaminophen [Tylenol Tablet] 650 mg PO Q6H PRN PRN tab 02/12/20 Apixaban [Eliquis] 5 mg PO BID #60 tab 02/12/20 Diltiazem CD [Cardizem CD] 120 mg PO BID #60 cap 02/12/20 Past Medical History (Chronic Problems): Chronic Problems (Last Reviewed 02/11/20 @ 20:[address] Fadumo Jones DO) Normochromic normocytic anemia (Chronic) Chronic renal failure, stage 3 (moderate) (Chronic) Morbid obesity (Chronic) Hyperuricemia (Chronic) Status post aortic valve replacement with bioprosthetic valve (Chronic) 2016 at [facility] History of mitral valve replacement with bioprosthetic valve (Chronic) 2016 at [facility] Coronary artery disease (Chronic) Aortic valve stenosis (Chronic) had AV replacement in 2016 with bioprosthetic valve Mitral valve disease (Chronic) Hypertrophic obstructive cardiomyopathy (HOCM) (Chronic) PAOD (peripheral arterial occlusive disease) (Chronic) has a stent in the R leg and had ballon angioplasty of the left Diabetes mellitus (Chronic) diagnosed at the age of 62 Hypertension (Chronic) No lightheadedness or dizziness. Checking BP at home Hyperlipidemia (Chronic) Chol 152, tri 249, LDL 61, HDL 41. On statin and tolerating well. 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 Fadumo Jones DO) Grandmother Diabetes Mother Heart disease History Items: No pertinent history Paternal Family History: Family History (Last Reviewed 02/11/20 @ 20:[address] Fadumo Jones DO) Grandmother Diabetes Mother Heart disease History Items: No pertinent history Lives: Spouse/ Significant Other - she has 2 children who are Smoking Status: Never smoker Tobacco Use: Non-smoker Alcohol: Rare Drugs: None Objective: Vital Signs Temp Pulse Resp BP Pulse Ox 97.5 F L 48 L 16 133/54 H 97 02/12/20 14:12 02/12/20 14:12 02/12/20 14:12 02/12/20 14:12 02/12/20 14:12 Oxygen Flow Rate (L/min) 2 Oxygen Delivery Method Room Air Weight: 198 lb 3.129 oz Body Mass Index (BMI) 34.8 Intake and Output for Last 24 Hours 02/10/20 02/11/20 02/12/20 23:59 23:59 23:59 Intake Total 291.6 / 291.6 286.80 / 286.80 Balance 291.6 / 291.6 286.80 / 286.80 General: Awake, Alert, Oriented x 3 HEENT: Atraumatic Oral: Moist Mucosa Neck: Supple Lungs: Clear to auscultation Abdomen: Soft Extremities: No edema Skin: No Rashes Psych/Mental Status: Appropriate 02/11/20 16:55: WBC 9.6, RBC 3.65 L, Hgb 11.1 L, Hct 35.4 L, MCV 97.0, MCH 30.4, MCHC 31.4 L, Plt Count 257, MPV 11.0, Immature Gran % (Auto) 0.200, Neut % (Auto) 69.9, Lymph % (Auto) 19.5, Hernando % (Auto) 6.5, Eos % (Auto) 3.4, Baso % (Auto) 0.5, Absolute Neuts (auto) 6.7, Nucleated RBC % 0 02/11/20 16:55: PT 13.4, INR 1.1, APTT 37.3 H 02/11/20 16:55: Sodium 141, Potassium 4.9, Chloride 111 H, Carbon Dioxide 26.0, Anion Gap 4 L, BUN 31 H, Creatinine 1.62 H, Est GFR (MDRD) Af Amer 40 L, Est GFR (MDRD) Non-Af 33 L, BUN/Creatinine Ratio 19.1, Glucose 157 H, Calcium 9.1, Magnesium 1.7, Total Bilirubin 0.50, Troponin I 0.102 H 02/11/20 16:55: Hemoglobin A1c 7.5 H 02/11/20 16:55: B-Natriuretic Peptide 371.5 H 02/11/20 20:45: Troponin I 0.142 H 02/11/20 23:38: Troponin I 0.177 H 02/12/20 03:16: Sodium 141, Potassium 4.5, Chloride 110 H, Carbon Dioxide 25.0, Anion Gap 6, BUN 28 H, Creatinine 1.41 H, Est GFR (MDRD) Af Amer 46 L, Est GFR (MDRD) Non-Af 38 L, BUN/Creatinine Ratio 19.9, Glucose 177 H, Calcium 8.5, Phosphorus 3.4, Magnesium 2.1, Triglycerides 249 H, Cholesterol 151, LDL Cholesterol 73, VLDL Cholesterol 50 H, HDL Cholesterol 28 L 02/12/20 03:16: APTT > 250.0 H* 02/12/20 03:16: Troponin I 0.159 H 02/12/20 12:23: APTT 207.6 H* Rhythm: EKG: ECHO: Stress Test: Cardiac Cath: PCI: CT Surgery: Holter monitor: EPS: PPM: CXR: Chest CT Scan: Assessment/Plan 1. Atrial fibrillation: Paroxysmal. Continue beta-blockers. We will start the patient on Eliquis. We can stop the Plavix. Patient will discuss this with her primary rn clinical appeals as well. 2. Coronary artery disease: Stable from the standpoint. Slight elevation in troponin could be just from the A. fib with RVR. 3. History of bioprosthetic aortic valve: Appears stable from the standpoint. Patient had an echo less than a year back. She can get another echo as an outpatient.
== END 2020-02-12 13:45 | disposition home or self-care (01) ==
LOC: ED 18:44 → PCU 19:22
PROVIDERS: Hospitalist; Physician Assistant; Admitting Provider Internal Medicine; Emergency Provider Emergency Medicine; PCP Internal Medicine; Visit Provider Internal Medicine
DX: I48.0 Paroxysmal atrial fibrillation (principal); I25.10 Atherosclerotic heart disease of native coronary artery without angina pectoris; E11.22 Type 2 diabetes mellitus with diabetic chronic kidney disease; I12.9 Hypertensive chronic kidney disease with stage 1 through stage 4 chronic kidney disease, or unspecified chronic kidney disease; N18.3 Chronic kidney disease, stage 3 (moderate); R94.31 Abnormal electrocardiogram [ECG] [EKG]; E66.01 Morbid (severe) obesity due to excess calories; I42.1 Obstructive hypertrophic cardiomyopathy; M19.90 Unspecified osteoarthritis, unspecified site; E78.2 Mixed hyperlipidemia; Z68.35 Body mass index [BMI] 35.0-35.9, adult; Z95.1 Presence of aortocoronary bypass graft; Z79.899 Other long term (current) drug therapy; Z79.82 Long term (current) use of aspirin; Z79.02 Long term (current) use of antithrombotics/antiplatelets; Z79.4 Long term (current) use of insulin; Z95.2 Presence of prosthetic heart valve
CPT/HCPCS: 36415; 71045; 80048; 80053; 80061; 82962; 83036; 83735; 83880; 84100; 84439; 84443; 84484; 85025; 85610; 85730; 93005; 96365; 96366; 96375; 96376; 97802; 99218; 99285; J7030; A4216; G0378

== ENCOUNTER → 2020-03-12 11:11 | Outpatient (CLI) | payer MEDICARE, BC, SELFPAY ==
[2020-02-20 13:56] VITALS: BMI 36.3
[2020-03-12 13:36] LABS: Anion Gap 6 (5-15); BUN 51 mg/dL (7-18); BUN/Creat Ratio 25.4 RATIO (10-20); Calcium,Total 9.2 mg/dL (8.5-10.1); Chloride 103 mmol/L (98-107); Creatinine, Serum 2.01 mg/dL (0.55-1.02); EST Glomerular Filtration Rate 26 mL/min (>60); Est Glom Filt Rate - Afr Amer 31 mL/min (>60); Glucose 211 mg/dL (74-106); Potassium 4.3 mmol/L (3.5-5.1); Sodium Level 136 mmol/L (136-145)
== END ==
PROVIDERS: PCP Internal Medicine; Referring Provider Specialist; Visit Provider Specialist
DX: I25.10 Atherosclerotic heart disease of native coronary artery without angina pectoris (principal); N18.3 Chronic kidney disease, stage 3 (moderate); Z95.1 Presence of aortocoronary bypass graft; Z95.2 Presence of prosthetic heart valve
CPT/HCPCS: 36415; 80048

== ENCOUNTER → 2020-03-27 07:49 | Outpatient (CLI) | payer MEDICARE, BC, SELFPAY ==
[2020-02-20 13:56] VITALS: BMI 36.3
[2020-03-27 09:01] LABS: Anion Gap 3 (5-15); BUN 41 mg/dL (7-18); BUN/Creat Ratio 22.2 RATIO (10-20); Calcium,Total 9.2 mg/dL (8.5-10.1); Chloride 106 mmol/L (98-107); Creatinine, Serum 1.85 mg/dL (0.55-1.02); EST Glomerular Filtration Rate 28 mL/min (>60); Est Glom Filt Rate - Afr Amer 34 mL/min (>60); Glucose 231 mg/dL (74-106); Potassium 4.9 mmol/L (3.5-5.1); Sodium Level 136 mmol/L (136-145)
== END ==
PROVIDERS: PCP Internal Medicine; Referring Provider Specialist; Visit Provider Specialist
DX: R60.9 Edema, unspecified (principal); N18.3 Chronic kidney disease, stage 3 (moderate); I48.91 Unspecified atrial fibrillation; Z95.2 Presence of prosthetic heart valve; Z95.1 Presence of aortocoronary bypass graft
CPT/HCPCS: 36415; 80048

== ENCOUNTER → 2020-04-11 09:47 | Outpatient (CLI) | payer MEDICARE, BC, SELFPAY ==
[2020-02-20 13:56] VITALS: BMI 36.3
[2020-04-09 17:47] VITALS: BMI 36.3
--- NOTE | 2020-04-11 09:48 | ECHOD_ITS ---
Reason For Study: AFIB Procedure This was a 2D Doppler, Color Flow transthoracic echocardiogram. The study was technically difficult. Contrast injection was performed. Exam performed in department. Left Ventricle Normal LV size. The estimated ejection fraction is 65 %. Unable to assess diastolic dysfunction. No regional wall motion abnormalities noted. Right Ventricle Normal RV size. Normal systolic function. Atria The left atrium is moderately enlarged. The right atrium is mildly enlarged. Mitral Valve There is no mitral valve stenosis. No mitral valve insufficiency. An annuloplasty ring is noted in the mitral position. Tricuspid Valve There is no tricuspid stenosis. Trivial tricuspid valve insufficiency. Unable to estimate RV systolic pressure due to insufficient tricuspid regurgitant envelope. Aortic Valve There is no aortic stenosis. No aortic valve insufficiency. Stable appearing bioprosthetic aortic valve apparatus. Pulmonic Valve There is no pulmonic valvular stenosis. No pulmonic valve insufficiency. Great Vessels Normal aortic root. Pericardium/Pleural No pericardial effusion. Medication 22 gauge I.V. with prn adaptor inserted into left arm. Diluted definity 2ml given slow IV push to enhance endocardial definition. MMode/2D Measurements & Calculations LVIDd: 3.7 cm IVSd: 1.3 cm LVOT diam: 2.0 cm LVIDs: 2.6 cm LVPWd: 1.3 cm RVDd: 4.6 cm FS: 30.5 % LVOT area: 3.3 cm2 Ao root diam: 3.6 cm LAV(MOD-bp): 84.1 ml LVAd ap4: 34.7 cm2 LAV(MOD-bp) Indexed: 44.7 ml/m2 EDV(MOD-sp4): 114.7 ml LAV(MOD-sp2): 81.7 ml EDV(sp4-el): 121.1 ml LAV(MOD-sp4): 73.9 ml LVAs ap4: 19.3 cm2 ESV(MOD-sp4): 43.1 ml ESV(sp4-el): 41.3 ml EF(MOD-sp4): 62.4 % EF(sp4-el): 65.9 % SV(MOD-sp4): 71.6 ml SV(sp4-el): 79.8 ml LA A4 area: 23.3 cm2 RA A4 area: 14.4 cm2 Time Measurements MV dec time: 0.18 sec Doppler Measurements & Calculations MV E max tavo: 208.4 cm/sec Lat Peak E' Tavo: 3.5 cm/sec Med Peak E' Tavo: 3.7 cm/sec MV A max tavo: 143.4 cm/sec E/E' lat: 59.8 E/E' med: 56.7 MV E/A: 1.5 MV V2 max: 206.8 cm/sec Ao V2 max: 245.4 cm/sec LV V1 max: 103.8 cm/sec MV max P.2 mmHg Ao max P.1 mmHg LV V1 max P.3 mmHg MV V2 mean: 128.9 cm/sec Ao V2 mean: 192.5 cm/sec LV V1 mean P.6 mmHg MV mean P.5 mmHg Ao mean P.8 mmHg LV V1 mean: 76.0 cm/sec MV V2 VTI: 68.6 cm Ao V2 VTI: 68.1 cm LV V1 VTI: 28.7 cm MVA(VTI): 1.4 cm2 JAVID(I,D): 1.4 cm2 JAVID(V,D): 1.4 cm2 SV(LVOT): 94.4 ml PA V2 max: 115.1 cm/sec TR max tavo: 256.7 cm/sec TR max P.2 mmHg MV P1/2t-pr_phl: 74.9 msec Interpretation Summary The estimated ejection fraction is 65 %. Unable to assess diastolic dysfunction. The left atrium is moderately enlarged. The right atrium is mildly enlarged. Stable appearing bioprosthetic aortic valve apparatus. The study was technically difficult. Contrast injection was performed. Ordering Physician: Omkar Ricci Referring Physician: JONI GRIMM Performed By: Dania Skelton, RDCS, RVT
== END ==
PROVIDERS: PCP Internal Medicine; Referring Provider Specialist; Visit Provider Specialist
DX: I48.0 Paroxysmal atrial fibrillation (principal); I25.10 Atherosclerotic heart disease of native coronary artery without angina pectoris; Z95.2 Presence of prosthetic heart valve; Z95.1 Presence of aortocoronary bypass graft
CPT/HCPCS: 93306; Q9957; A4216; C8929

== ENCOUNTER → 2020-04-20 07:39 | Outpatient (CLI) | payer MEDICARE, BC, SELFPAY ==
[2018-10-19 08:44] VITALS: BMI 34.8
[2020-04-09 17:47] VITALS: BMI 36.3
[2020-04-20 08:49] LABS: Hematocrit 32.5 % (37-47); Hemoglobin 10.3 g/dL (12.0-15.0); Mean Corp Hgb Conc 31.7 g/dL (32-36); Mean Corpuscular Hgb 29.8 pg (27.0-32.0); Mean Corpuscular Volume 93.9 fL (81-99); Mean Platelet Vol. 10.8 fl (6.2-12.0); Platelet Count 271 K/mm3 (150-450); RBC Distribution Width CV 13.7 % (11.6-14.6); RBC Distribution Width SD 47.1 fl (35.1-43.9); Red Blood Count 3.46 M/mm3 (4.2-5.4); White Blood Count 12.5 K/mm3 (4.4-11.0)
[2020-04-20 08:58] LABS: Protein, Urine (Random) 58.2 mg/dL (<11.9); Protein:Creat Ratio 1012 mg/g CRE (0-200)
[2020-04-20 09:10] LABS: BUN 40 mg/dL (7-18); BUN/Creat Ratio 21.2 RATIO (10-20); Calcium,Total 9.1 mg/dL (8.5-10.1); Chloride 107 mmol/L (98-107); Creatinine, Serum 1.89 mg/dL (0.55-1.02); EST Glomerular Filtration Rate 27 mL/min (>60); Est Glom Filt Rate - Afr Amer 33 mL/min (>60); Glucose 133 mg/dL (74-106); Phosphorus 3.7 mg/dL (2.5-4.9); Potassium 4.6 mmol/L (3.5-5.1); Sodium Level 138 mmol/L (136-145)
== END ==
PROVIDERS: PCP Internal Medicine; Referring Provider Internal Medicine Nephrology; Visit Provider Internal Medicine Nephrology
DX: E11.22 Type 2 diabetes mellitus with diabetic chronic kidney disease (principal); N18.3 Chronic kidney disease, stage 3 (moderate)
CPT/HCPCS: 36415; 80069; 82570; 84156; 85027

== ENCOUNTER → 2020-07-03 09:17 | Outpatient (CLI) | payer MEDICARE, BC, SELFPAY ==
[2020-05-20 13:12] VITALS: BMI 36.3
--- NOTE | 2020-07-03 09:23 | US_ITS ---
STUDY: ULTRASOUND BREAST - RIGHT REASON FOR EXAM: Female, 80 years old. Palpable lump in the right axilla. TECHNIQUE: Axial and longitudinal images of the RIGHT breast were performed with a high resolution ultrasound transducer. # OF IMAGES: 19 COMPARISON: Comparison is made with prior mammogram done earlier in the day. FINDINGS: RIGHT Breast: There is a 4 mm x 5 mm x 5 mm hypoechoic irregular nodular density just deep to the skin surface corresponding to the palpable abnormality. This may represent an infected sebaceous cyst. Aspiration is recommended. US/Breast Limited Unilateral IMPRESSION: 4 mm x 5 mm x 5 mm hypoechoic irregular nodular density just deep to the skin surface corresponding to the palpable abnormality. Aspiration is recommended. ASSESSMENT CATEGORY: BIRADS Category 4: Suspicious - Biopsy Should Be Considered. A letter regarding these results will be sent to the patient by the facility within 30 days. Electronically Signed: Alfonso Kent, at 15:28 EST , Service support ,
--- NOTE | 2020-07-03 09:23 | BI_ITS ---
MAMMOGRAPHY - BILATERAL DIAGNOSTIC REASON FOR EXAM: Female, 80 years old. Right axillary palpable lump. PERTINENT HISTORY: Non-contributory. TECHNIQUE: Digital bilateral breast marine (3D mammographic acquisition) in the CC and MLO projections. 2-D mediolateral oblique (MLO) and craniocaudad (CC) views of both breasts were obtained. CAD: Full Field Digital Mammography with Computer Added Detection was performed. COMPARISON: Comparison is made with prior outside examination dated 06/19/2019. FINDINGS: Breast Composition: The breasts are heterogeneously dense, which may obscure small masses. There are no dominant masses or suspicious calcifications. Asymmetrical tissue is seen in the right axillary region. Stable benign appearing axillary lymph nodes. No other significant abnormalities are identified. There has been no significant change since the prior study. BI/DIAG MAMM W/CAD, BILAT IMPRESSION: Stable bilateral diagnostic mammogram. With the patient''s history of a palpable lump in the right axillary region, correlation with ultrasound is recommended. ASSESSMENT CATEGORY: BIRADS Category 0: Incomplete. Need additional imaging evaluation. A letter regarding these results will be sent to the patient by the facility within 30 days. Approximately 10% of breast cancers are not detected by mammography. A normal mammogram should not delay biopsy of a clinically suspicious abnormality. Electronically Signed: Alfonso Kent, at 13:02 EST , Service support ,
== END ==
PROVIDERS: PCP Internal Medicine; Referring Provider Nurse Practitioner; Visit Provider Nurse Practitioner
DX: N63.31 Unspecified lump in axillary tail of the right breast (principal)
CPT/HCPCS: 76642; 77062; 77066; G0279

== ENCOUNTER → 2020-07-12 15:56 | Outpatient (CLI) | payer MEDICARE, BC, SELFPAY ==
--- NOTE | 2020-07-12 | CYST_PTH ---
PATIENT: BHARATH LONGORIA LOC: [facility] U#:[id number] AGE/SX: 85/F ROOM: RE07/12/[address]: Dr. Fran Hernandez MD : 1940 BED: DIS: SPEC #: [id number] RECD: 07/12/20 15:54 STATUS: XAVI JENNIFER #: [id number] DEBO: 07/12/20 00:[address]: Fran Hernandez DEPT: SURGICAL PATHOLOGY RECD BY: Kevin Michelle ENTERED: 07/15/20 10:20 SP TYPE: Cyst OTHR DR: Dr. Fanny De Guzman MD Tissues: CYST Procedures: Surgery Specimen Level III HEADER OPERATION: Excision sebaceous cyst right axilla PRE-OP DIAGNOSIS: Sebaceous cyst right axilla L72.3 TISSUE SUBMITTED: Sebaceous cyst right axilla MICROSCOPIC DIAGNOSIS Sebaceous cyst right axilla, biopsy: Epidermal inclusion cyst. SJ:jeet 07/16/20 MICROSCOPIC DESCRIPTION Slides are reviewed. GROSS DESCRIPTION Received in fixative is one container labeled with the patient's name and designated right axilla cyst. The specimen consists of two variably sized pieces of [place] soft tissue measuring in aggregate 0.8 x 0.6 x 0.5 cm. The larger piece is bisected. The entire specimen is submitted in one cassette. / SJ:jeet 07/15/20 TC:5 CPT: 01700
== END ==
PROVIDERS: PCP Internal Medicine; Referring Provider Surgery; Visit Provider Surgery
DX: L72.3 Sebaceous cyst (principal)
CPT/HCPCS: 88304

== ENCOUNTER → 2020-07-15 08:34 | Outpatient (CLI) | payer MEDICARE, BC, SELFPAY ==
[2020-04-09 17:47] VITALS: BMI 36.3
[2020-07-05 09:36] VITALS: BMI 35.0
[2020-07-15 09:20] LABS: Absolute Neutrophil Count 8.5 X10^3/uL (2.0-7.7); Basophil# 0.05 X10^3/uL; Basophil% 0.4 % (0-1); Eosinophil# 0.58 X10^3/uL; Eosinophils% 5.1 % (0-5); Hematocrit 34.4 % (37-47); Hemoglobin 10.8 g/dL (12.0-15.0); Lymphocyte % 14.9 % (19-41); Mean Corp Hgb Conc 31.4 g/dL (32-36); Mean Corpuscular Hgb 29.5 pg (27.0-32.0); Mean Platelet Vol. 10.8 fl (6.2-12.0); Monocyte# 0.57 X10^3/uL; NRBC Flagged by Analyzer 0 % (0-5); Neutrophil # 8.47 X10^3/uL (2.7-7.7); Neutrophil % 74.3 % (47-70); Platelet Count 287 K/mm3 (150-450); RBC Distribution Width CV 14.7 % (11.6-14.6); RBC Distribution Width SD 50.4 fl (35.1-43.9); Red Blood Count 3.66 M/mm3 (4.2-5.4); White Blood Count 11.4 K/mm3 (4.4-11.0)
[2020-07-15 10:05] LABS: PTHIN 107.8 pg/mL (18.4-80.1)
[2020-07-15 10:22] LABS: Albumin, Serum 3.1 g/dL (3.2-5.0); BUN 42 mg/dL (7-18); BUN/Creat Ratio 21.5 RATIO (10-20); Chloride 106 mmol/L (98-107); Creatinine, Serum 1.95 mg/dL (0.55-1.02); EST Glomerular Filtration Rate 26 mL/min (>60); Est Glom Filt Rate - Afr Amer 32 mL/min (>60); Glucose 122 mg/dL (74-106); Phosphorus 4.2 mg/dL (2.5-4.9); Potassium 4.6 mmol/L (3.5-5.1); Sodium Level 139 mmol/L (136-145)
[2020-07-15 12:58] LABS: Protein, Urine (Random) 231.5 mg/dL (<11.9); Protein:Creat Ratio 1503 mg/g CRE (0-200)
== END ==
PROVIDERS: PCP Internal Medicine; Referring Provider Internal Medicine Nephrology; Visit Provider Internal Medicine Nephrology
DX: E11.22 Type 2 diabetes mellitus with diabetic chronic kidney disease (principal); N18.30 Chronic kidney disease, stage 3 unspecified
CPT/HCPCS: 36415; 80069; 82570; 83970; 84156; 85025

== ENCOUNTER → 2020-07-29 08:18 | Outpatient (CLI) | payer MEDICARE, BC, SELFPAY ==
[2020-07-29 10:01] LABS: Anion Gap 5 (5-15); BUN 43 mg/dL (7-18); BUN/Creat Ratio 21.3 RATIO (10-20); Calcium,Total 9.5 mg/dL (8.5-10.1); Chloride 105 mmol/L (98-107); Creatinine, Serum 2.02 mg/dL (0.55-1.02); EST Glomerular Filtration Rate 25 mL/min (>60); Est Glom Filt Rate - Afr Amer 31 mL/min (>60); Glucose 175 mg/dL (74-106); Potassium 4.9 mmol/L (3.5-5.1); Sodium Level 136 mmol/L (136-145)
== END ==
PROVIDERS: PCP Internal Medicine; Referring Provider Internal Medicine Nephrology; Visit Provider Internal Medicine Nephrology
DX: I12.9 Hypertensive chronic kidney disease with stage 1 through stage 4 chronic kidney disease, or unspecified chronic kidney disease (principal); N18.32 Chronic kidney disease, stage 3b; E11.22 Type 2 diabetes mellitus with diabetic chronic kidney disease
CPT/HCPCS: 36415; 80048

== ENCOUNTER → 2020-08-12 08:18 | Outpatient (CLI) | payer MEDICARE, BC, SELFPAY ==
[2020-08-12 09:52] LABS: Anion Gap 7 (5-15); BUN 44 mg/dL (7-18); BUN/Creat Ratio 20.9 RATIO (10-20); Chloride 105 mmol/L (98-107); Creatinine, Serum 2.11 mg/dL (0.55-1.02); EST Glomerular Filtration Rate 24 mL/min (>60); Est Glom Filt Rate - Afr Amer 29 mL/min (>60); Glucose 206 mg/dL (74-106); Potassium 4.7 mmol/L (3.5-5.1); Sodium Level 138 mmol/L (136-145)
== END ==
PROVIDERS: PCP Internal Medicine; Referring Provider Specialist; Visit Provider Specialist
DX: I48.91 Unspecified atrial fibrillation (principal); N18.30 Chronic kidney disease, stage 3 unspecified; E11.9 Type 2 diabetes mellitus without complications
CPT/HCPCS: 36415; 80048

== ENCOUNTER → 2020-09-05 09:11 | Outpatient (CLI) | payer MEDICARE, BC, SELFPAY ==
[2020-08-20 10:19] VITALS: BMI 34.2
[2020-09-05 10:10] LABS: Hemoglobin A1c 7.8 % (3.8-5.6)
[2020-09-05 10:32] LABS: Anion Gap 8 (5-15); BUN 61 mg/dL (7-18); BUN/Creat Ratio 26.5 RATIO (10-20); Calcium,Total 9.2 mg/dL (8.5-10.1); Chloride 106 mmol/L (98-107); EST Glomerular Filtration Rate 22 mL/min (>60); Est Glom Filt Rate - Afr Amer 26 mL/min (>60); Glucose 181 mg/dL (74-106); Potassium 5.1 mmol/L (3.5-5.1); Sodium Level 136 mmol/L (136-145)
== END ==
PROVIDERS: Internal Medicine Endocrinology, Diabetes & Metabolism; Internal Medicine Nephrology; PCP Internal Medicine; Visit Provider Specialist
DX: I25.10 Atherosclerotic heart disease of native coronary artery without angina pectoris (principal); I12.9 Hypertensive chronic kidney disease with stage 1 through stage 4 chronic kidney disease, or unspecified chronic kidney disease; N18.30 Chronic kidney disease, stage 3 unspecified; E11.22 Type 2 diabetes mellitus with diabetic chronic kidney disease
CPT/HCPCS: 36415; 80048; 83036

== ENCOUNTER → 2020-09-23 15:17 | Outpatient (CLI) | payer MEDICARE, BC, SELFPAY ==
[2020-09-23 14:22] VITALS: BMI 36.2
--- NOTE | 2020-09-23 15:25 | RAD_ITS ---
STUDY: X-RAY CHEST REASON FOR EXAM: Female, 80 years old. WHEEZING TECHNIQUE: PA and lateral views of the chest. COMPARISON: 02/11/2020 FINDINGS: Status post median sternotomy. The lungs are clear and expanded. Tiny bilateral pleural effusions. Normal size heart. Normal mediastinum and ivis. Normal visualized pulmonary arteries. Normal visualized aortic arch and descending thoracic aorta. Normal visualized thoracic spine. Normal visualized ribs, clavicles, and shoulders. There is no demonstrated abnormality of the visualized soft tissue structures of the upper abdomen. RAD/Chest PA and Lateral IMPRESSION: Tiny bilateral pleural effusions. Electronically Signed: Howard Barreto MD at 16:53 EST Tel , Service support ,
[2020-09-23 16:26] LABS: Absolute Lymphocyte Count 1.62 X10^3/uL (0.83-4.51); Absolute Neutrophil Count 8.5 X10^3/uL (2.0-7.7); Basophil# 0.07 X10^3/uL; Basophil% 0.6 % (0-1); Eosinophil# 0.41 X10^3/uL; Eosinophils% 3.5 % (0-5); Hematocrit 30.3 % (37-47); Hemoglobin 9.3 g/dL (12.0-15.0); Lymphocyte # 1.62 X10^3/ul (4.0); Mean Corp Hgb Conc 30.7 g/dL (32-36); Mean Corpuscular Hgb 28.9 pg (27.0-32.0); Mean Corpuscular Volume 94.1 fL (81-99); Mean Platelet Vol. 11.5 fl (6.2-12.0); Monocyte# 0.92 X10^3/uL; NRBC Flagged by Analyzer 0 % (0-5); Neutrophil % 73.6 % (47-70); Platelet Count 265 K/mm3 (150-450); RBC Distribution Width CV 15.4 % (11.6-14.6); Red Blood Count 3.22 M/mm3 (4.2-5.4); White Blood Count 11.6 K/mm3 (4.4-11.0)
[2020-09-23 17:25] LABS: Albumin, Serum 3.3 g/dL (3.2-5.0); BUN 71 mg/dL (7-18); BUN/Creat Ratio 26.7 RATIO (10-20); Calcium,Total 9.1 mg/dL (8.5-10.1); Chloride 107 mmol/L (98-107); Creatinine, Serum 2.66 mg/dL (0.55-1.02); EST Glomerular Filtration Rate 18 mL/min (>60); Est Glom Filt Rate - Afr Amer 22 mL/min (>60); Glucose 76 mg/dL (74-106); Phosphorus 4.4 mg/dL (2.5-4.9); Potassium 4.8 mmol/L (3.5-5.1); Protein, Urine (Random) 55.1 mg/dL (<11.9); Protein:Creat Ratio 1522 mg/g CRE (0-200); Sodium Level 139 mmol/L (136-145)
[2020-09-23 17:25] LABS: BNP,B-Type NATRIURETIC PEPTIDE 157.3 pg/mL (0-100)
[2020-09-23 17:30] LABS: Anion Gap 9 (5-15); BUN 72 mg/dL (7-18); BUN/Creat Ratio 27.8 RATIO (10-20); Calcium,Total 9.2 mg/dL (8.5-10.1); Chloride 107 mmol/L (98-107); Creatinine, Serum 2.59 mg/dL (0.55-1.02); EST Glomerular Filtration Rate 19 mL/min (>60); Est Glom Filt Rate - Afr Amer 23 mL/min (>60); Glucose 78 mg/dL (74-106); Potassium 4.8 mmol/L (3.5-5.1); Sodium Level 139 mmol/L (136-145)
[2020-09-24 08:33] LABS: PTHIN 57.5 pg/mL (18.4-80.1)
== END ==
PROVIDERS: Internal Medicine Nephrology; Specialist; PCP Internal Medicine; Referring Provider Nurse Practitioner Family; Visit Provider Nurse Practitioner Family
DX: N18.32 Chronic kidney disease, stage 3b (principal); E11.22 Type 2 diabetes mellitus with diabetic chronic kidney disease; I48.0 Paroxysmal atrial fibrillation; I25.10 Atherosclerotic heart disease of native coronary artery without angina pectoris; Z95.1 Presence of aortocoronary bypass graft; Z95.2 Presence of prosthetic heart valve; I42.1 Obstructive hypertrophic cardiomyopathy; R06.02 Shortness of breath
CPT/HCPCS: 36415; 71046; 80048; 80069; 82570; 83880; 83970; 84156; 85025

== ENCOUNTER → 2020-12-03 07:59 | Outpatient (CLI) | payer MEDICARE, BC, SELFPAY ==
[2020-09-23 14:22] VITALS: BMI 36.2
[2020-11-20 08:29] VITALS: BMI 33.8
[2020-12-03 09:18] LABS: Albumin, Serum 3.4 g/dL (3.2-5.0); BUN 70 mg/dL (7-18); BUN/Creat Ratio 28.2 RATIO (10-20); Chloride 102 mmol/L (98-107); Creatinine, Serum 2.48 mg/dL (0.55-1.02); EST Glomerular Filtration Rate 20 mL/min (>60); Est Glom Filt Rate - Afr Amer 24 mL/min (>60); Glucose 145 mg/dL (74-106); Phosphorus 4.2 mg/dL (2.5-4.9); Potassium 4.5 mmol/L (3.5-5.1); Sodium Level 136 mmol/L (136-145)
[2020-12-03 09:42] LABS: Creat.Clear Total Volume 975 mL; Creatinine Clearance 26 ml/min (100-200); Creatinine Serum Creat 2.5 mg/dL (0.6-1.0); Creatinine Urine 94.9 mg/dL (NO RANGE EST.); EST Glomerular Filtration Rate 20 mL/min (>60); Est Glom Filt Rate - Afr Amer 24 mL/min (>60)
== END ==
PROVIDERS: PCP Internal Medicine; Referring Provider Internal Medicine Nephrology; Visit Provider Internal Medicine Nephrology
DX: N17.9 Acute kidney failure, unspecified (principal); N18.4 Chronic kidney disease, stage 4 (severe)
CPT/HCPCS: 36415; 80069; 82575

== ENCOUNTER 2021-06-07 06:33 | Emergency (ER) | payer MEDICARE, BC, SELFPAY ==
[2021-06-07] VITALS (9 sets, daily range): BP systolic 166–210; BP diastolic 37–85; PULSE 55–77; RESP 16–18; TEMP 35.7; O2SAT 93–97; BMI 33.5
--- NOTE | 2021-06-07 08:27 | ED.VIS.DENTA ---
HPI <Dr. Luis Jiménez MD - Last Filed: 06/07/21 09:25> History of Present Illness Chief Complaint: Dental Informant: patient Onset/Context/Timing Onset: Yesterday Timing: Intermittent Quality: bleeding Location: left upper tooth Current Severity: Moderate Maximum Severity: Moderate Worsened by: nothing Relieved by: - (nothing) Narrative Narrative: Patient presents with oral bleeding that is spontaneous. It started yesterday, she saw her dentist Dr. Sexton here in town, and she states that he ended up putting some type of gel on it that helped it clot and it stopped, but restarted this morning and she bit down on some hot black tea bags that did not seem to help. She is on Eliquis for paroxysmal atrial fibrillation. She has not been ill lately. She denies any dental pain or abscesses/infections recently. No recent dental work. She denies any systemic symptoms. [facility] <Dr. Luis Jiménez MD - Last Filed: 06/07/21 09:25> [facility] Medical History (Updated 06/07/21 @ 09:[address] Luis Jiménez MD) Aortic valve stenosis Atherosclerosis of coronary artery of [place] heart without angina pectoris Chronic renal failure, stage 3 (moderate) Diabetes type 2, controlled Elevated troponin Essential hypertension GERD (gastroesophageal reflux disease) Glaucoma Gout Heart disease Hyperlipidemia Hypertrophic obstructive cardiomyopathy (HOCM) Mitral valve disease Mixed hyperlipidemia Morbid obesity Neuropathy Normochromic normocytic anemia Osteoarthritis PAOD (peripheral arterial occlusive disease) Paroxysmal atrial fibrillation with rapid ventricular response Polyneuropathy due to type 2 diabetes mellitus Home Medications aspirin 81 mg PO DAILY #30 tablet. 05/11/16 [Rx Last Taken 02/11/20] atorvastatin 80 mg PO QHS #30 tab 05/11/16 [Rx Last Taken 02/10/20] carvedilol 25 mg tablet 25 mg PO BID 08/19/17 [History Last Taken 02/11/20] multivitamin 1 cap PO QAM 08/19/17 [History Last Taken 02/11/20] pen needle, diabetic 32 gauge x #50 ea 04/25/18 [Rx Last Taken Unknown] blood sugar diagnostic #100 ea 06/20/18 [Rx Last Taken Unknown] cholecalciferol (vitamin D3) 25 mcg (1,000 unit) capsule 1,000 unit PO DAILY 02/20/19 [History Last Taken Unknown] pyridoxine (vitamin B6) 100 mg tablet 100 mg PO DAILY 10/19/18 [History Last Taken 02/11/20] allopurinol 100 mg PO DAILYCM 02/11/20 [History Last Taken 02/11/20] tramadol 50 mg PO Q6H PRN PRN 02/11/20 [History Last Taken 02/11/20] acetaminophen 650 mg PO Q6H PRN PRN tab 02/12/20 [Rx Last Taken Unknown] pen needle, diabetic 32 gauge x 5/32 #200 ea 05/20/20 [Rx Last Taken Unknown] insulin lispro protamine-lispro 100 unit/mL (50-50) subcutaneous pen 26 unit SC BID #15 ml 10/14/20 [Rx Last Taken Unknown] furosemide 40 mg tablet 40 mg PO DAILY tablet 11/20/20 [History Last Taken Unknown] lisinopril 5 mg tablet 10 mg PO DAILY 11/20/20 [History Last Taken Unknown] polysaccharide iron complex 150 mg iron capsule ea PO BID 11/20/20 [History Last Taken Unknown] apixaban 5 mg tablet 5 mg PO BID #180 tab 02/13/21 [Rx Last Taken Unknown] diltiazem HCl 120 mg capsule,extended release 24 hr 120 mg PO BID #180 cap 03/06/21 [Rx Last Taken Unknown] hydralazine 25 mg tablet 25 mg PO BID #180 tab 05/13/21 [Rx Last Taken Unknown] pen needle, diabetic 32 gauge x 5/32 #200 ea 05/27/21 [Rx Last Taken Unknown] Allergy/AdvReac Type Severity Reaction Status Date / Time celecoxib [From Celebrex] Allergy Other Verified 06/07/21 06:38 indomethacin [From Indocin] Allergy Other Verified 06/07/21 06:38 Uoaghyx-Ybi-Xfr Reductase Allergy Pain in Verified 06/07/21 06:38 Inhibitor joints acetaminophen [From Vicodin] AdvReac Other Verified 06/07/21 06:38 adhesive tape AdvReac Itching Verified 06/07/21 06:38 fluoxetine [From Prozac] AdvReac Other Verified 06/07/21 06:38 hydrocodone [From Vicodin] AdvReac Other Verified 06/07/21 06:38 ibuprofen [From Motrin] AdvReac Other Verified 06/07/21 06:38 ketoprofen AdvReac Other Verified 06/07/21 06:38 lovastatin [From Mevacor] AdvReac Other Verified 06/07/21 06:38 meclofenamic acid AdvReac Other Verified 06/07/21 06:38 [From Meclomen] naproxen [From Naprosyn] AdvReac Other Verified 06/07/21 06:38 NSAIDS (Non-Steroidal AdvReac Other Verified 06/07/21 06:38 Anti-Inflamma sertraline [From Zoloft] AdvReac Other Verified 06/07/21 06:38 venlafaxine [From Effexor] AdvReac Other Verified 06/07/21 06:38 BATAZOLIDIN AdvReac Other Uncoded 06/07/21 06:38 DIAZIDE AdvReac Other Uncoded 06/07/21 06:38 SPOROSTACIN AdvReac Other Uncoded 06/07/21 06:38 Family History (Reviewed 04/22/21 @ 09:01 by Abdifatah Owusu [employer]ER [employer]LE ATT[employer]ER, [employer] ATT[employer]ER-C) Grandmother Diabetes Mother Heart disease Surgical History History of aortic valve replacement (05/01/16) History of cataract extraction with lens replacement History of cholecystectomy History of coronary artery bypass graft (05/01/16) History of mitral valve replacement (05/01/16) History of open reduction and internal fixation (ORIF) procedure Social History Smoking Status: Never smoker second hand exposure: No alcohol intake: never substance use type: does not use caffeine: No ROS <Dr. Luis Jiménez MD - Last Filed: 06/07/21 09:25> ROS ED Constitutional Constitutional ED: Denies chills or fever(s) Eyes Eyes: Denies change in vision or diplopia ENT ENT ED: Reports other Details: Gingival bleeding ; Denies dental pain, rhinorrhea or sore throat Cardiovascular Cardiovascular: Denies chest pain or palpitations Respiratory/Chest Respiratory/Chest: Denies cough or dyspnea Gastrointestinal Gastrointestinal: Denies abdominal pain, diarrhea, nausea or vomiting Genitourinary Genitourinary ED: Denies dysuria or hematuria Musculoskeletal Musculoskeletal: Denies back pain or neck pain Integumentary Denies abscess or rash Neurologic Neurologic: Denies headache(s), paresthesias or weakness Psychiatric Psychiatric: Denies anxiety or suicidal thoughts Hematologic/Lymphatic Hematologic/Lymphatic: Reports easy bleeding and easy bruising EXAM <Dr. Luis Jiménez MD - Last Filed: 06/07/21 09:25> Physical Exam Const Vital Signs: 06/07/21 06:33 06/07/21 09:10 06/07/21 10:08 Temperature 96.3 F L Temperature Source Temporal Pulse Rate 65 57 L 60 Respiratory Rate 18 16 Blood Pressure 178/65 H 180/85 H 183/61 H Blood Pressure Mean 102 116 101 Pulse Ox 93 94 94 Oxygen Delivery Method Room Air Room Air Room Air 06/07/21 10:16 06/07/21 10:20 06/07/21 10:26 Temperature Temperature Source Pulse Rate 55 L 59 L Respiratory Rate Blood Pressure 204/48 H 210/56 H 210/39 H Blood Pressure Mean 100 107 96 Pulse Ox 93 94 Oxygen Delivery Method Room Air 06/07/21 10:34 06/07/21 11:08 Temperature Temperature Source Pulse Rate Respiratory Rate Blood Pressure 191/44 H 166/37 H Blood Pressure Mean 93 80 Pulse Ox Oxygen Delivery Method Positive well nourished and well developed General Appearance ED: well developed and NAD HEENT Reports moist mucous membranes HEENT Narrative: There is gingival bleeding at the level of the gumline at the medial aspect of teeth numbers 14-15. It is pulsatile. There is no dental injury or subluxation or loosening or tenderness. normocephalic and atraumatic Eyes PERRL and EOMs intact bilaterally Neck full ROM and supple Resp normal respiratory effort Neuro oriented x3, CN's II-XII intact bilaterally and no sensory deficits noted Sensorium / Orientation: awake and alert Motor Exam: strength 5/5 throughout Skin no rashes or lesions noted and no wounds <Dr. Primo Rodriguez DO - Last Filed: 06/07/21 11:43> Physical Exam Const Vital Signs: 06/07/21 06:33 06/07/21 09:10 06/07/21 10:08 Temperature 96.3 F L Temperature Source Temporal Pulse Rate 65 57 L 60 Respiratory Rate 18 16 Blood Pressure 178/65 H 180/85 H 183/61 H Blood Pressure Mean 102 116 101 Pulse Ox 93 94 94 Oxygen Delivery Method Room Air Room Air Room Air 06/07/21 10:16 06/07/21 10:20 06/07/21 10:26 Temperature Temperature Source Pulse Rate 55 L 59 L Respiratory Rate Blood Pressure 204/48 H 210/56 H 210/39 H Blood Pressure Mean 100 107 96 Pulse Ox 93 94 Oxygen Delivery Method Room Air 06/07/21 10:34 06/07/21 11:08 Temperature Temperature Source Pulse Rate Respiratory Rate Blood Pressure 191/44 H 166/37 H Blood Pressure Mean 93 80 Pulse Ox Oxygen Delivery Method [facility] <Dr. Luis Jiménez MD - Last Filed: 06/07/21 09:25> [facility] Narrative Medical decision making narrative: Including a piece of Gelfoam on the affected area and applying pressure with gauze, the bleeding stops while I am applying pressure but restarts whenever I let go, even after 5-10 minutes of constant holding. I was able to get a hold of Dr. Sexton, he used something similar to the FloSeal thrombin that we have. Unfortunately, using a combination of Gelfoam, pressure, and FloSeal did not work. I work for approximately 2 hours trying to stop her bleeding and eventually injected small amounts of 2% lidocaine with epinephrine into the gumline where the bleeding appeared to be coming from, which is in between teeth 14 and 15, followed by small amount of FloSeal injected in between the 2 teeth and along the gumline, and had the patient bite down on some gauze, this seemed to significantly help the bleeding, I had nursing recheck her blood pressure, it is 180/85. She takes hydralazine at home, it was 3 times a day now it is 2. We placed an IV, we will give her hydralazine 10 mg, and another 10 in an hour if her pressure is not below 160. We will continue to observe her and ensure hemostasis. Lab Data Labs: Laboratory Results - last 24 hr 06/07/21 09:30 Hgb 10.3 L Hct 32.3 L <Dr. Primo Rodriguez DO - Last Filed: 06/07/21 11:43> [facility] Narrative Medical decision making narrative: Care of the patient was turned over to me. H&H was normal at 10.3 and 32.3. On reevaluation, there is no further bleeding noted. Patient was instructed to eat a soft or liquid diet. Patient was instructed to follow-up with her dentist in 2 to 3 days. Patient understood and was agreeable with the plan. All questions were answered. Lab Data Labs: Laboratory Results - last 24 hr 06/07/21 09:30 Hgb 10.3 L Hct 32.3 L Discharge Plan Triage Chief Complaint: Dental ED Provider: Luis Jiménez Dx/Rx/DC Orders Clinical Impression: Gingival bleeding, Accelerated hypertension Instructions: First Aid: Bleeding Prescriptions: Continued multivitamin capsule capsule 1 cap PO QAM RF: 0 carvedilol 25 mg tablet 25 mg PO BID RF: 0 (DME) pen needle, diabetic [Comfort EZ Pen [place]] 32 gauge x 5/32 needle See Dose Instructions .ROUTE .MEDSUPPLY Qty: 50 RF: 11 (DME) OneTouch Verio test strips strip See Dose Instructions .ROUTE .MEDSUPPLY Qty: 100 RF: 11 pyridoxine (vitamin B6) 100 mg tablet 100 mg PO DAILY RF: 0 cholecalciferol (vitamin D3) 1,000 unit capsule 1,000 unit capsule 1,000 unit PO DAILY RF: 0 (DME) pen needle, diabetic [BD Ultra-Fine [place]ira Pen Needle] 32 gauge x 5/32 needle See Rx Instructions .ROUTE .MEDSUPPLY Qty: 200 RF: 3 furosemide 40 mg tablet 40 mg PO DAILY RF: 0 lisinopril 5 mg tablet 10 mg PO DAILY RF: 0 polysaccharide iron complex 150 mg iron capsule PO BID RF: 0 atorvastatin 80 MG tablet 80 mg PO QHS Qty: 30 RF: 0 aspirin 81 MG tablet,delayed release (DR/EC) 81 mg PO DAILY Qty: 30 RF: 0 allopurinol 100 MG tablet 100 mg PO DAILYCM RF: 0 tramadol 50 MG tablet 50 mg PO Q6H PRN PRN (Reason: Pain Or Fever) RF: 0 acetaminophen 325 MG tablet 650 mg PO Q6H PRN PRN (Reason: Pain Score 1-10/Temp > 100.7 F) RF: 0 Humalog Mix 50-50 KwikPen 100 unit/mL (50-50) insulin pen 26 unit SC BID Qty: 15 RF: 3 diltiazem HCl 120 mg capsule,extended release 24hr 120 mg PO BID Qty: 180 RF: 3 hydralazine 25 mg tablet 25 mg PO BID Qty: 180 RF: 3 (DME) pen needle, diabetic [ReliOn Pen [place]] 32 gauge x 5/32 needle See Rx Instructions .ROUTE .MEDSUPPLY Qty: 200 RF: 3 Held apixaban 5 mg tablet 5 mg PO BID Qty: 180 RF: 4 Hold Instructions: Resume on 06/08/21. Primary Care Provider: Fanny De Guzman Referrals: Fanny De Guzman MD [Primary Care Provider] - 3-5 Days (for blood pressure recheck and medication management) Dentist,Your [STAFF PHYSICIAN] - As Needed Activity Restrictions/Additional Instructions: Do not take your Eliquis today Disposition Disposition: Home, Self Care
[2021-06-07] MEDS: Lidocaine 2% /Epi 1:100 (20ml) 20 ML VIAL INFILT (09:13)
[2021-06-07 09:43] LABS: Hematocrit 32.3 % (37-47); Hemoglobin 10.3 g/dL (12.0-15.0)
[2021-06-07] MEDS: hydrALAZINE 20 MG/ML Vial 10 MG IV ×2 (10:09→10:29)
--- NOTE | 2021-06-07 10:26 | ED.RN ---
provider aware of bp of 210/39. per provider give prn hydralazine.
== END 2021-06-07 11:56 | disposition home or self-care (01) ==
PROVIDERS: Emergency Provider Emergency Medicine; PCP Internal Medicine
DX: K06.8 Other specified disorders of gingiva and edentulous alveolar ridge (principal); I12.9 Hypertensive chronic kidney disease with stage 1 through stage 4 chronic kidney disease, or unspecified chronic kidney disease; D64.9 Anemia, unspecified; E11.22 Type 2 diabetes mellitus with diabetic chronic kidney disease; N18.30 Chronic kidney disease, stage 3 unspecified; E11.40 Type 2 diabetes mellitus with diabetic neuropathy, unspecified; E11.51 Type 2 diabetes mellitus with diabetic peripheral angiopathy without gangrene; E66.01 Morbid (severe) obesity due to excess calories; E78.2 Mixed hyperlipidemia; H40.9 Unspecified glaucoma; I25.10 Atherosclerotic heart disease of native coronary artery without angina pectoris; I35.0 Nonrheumatic aortic (valve) stenosis; I48.0 Paroxysmal atrial fibrillation; K21.9 Gastro-esophageal reflux disease without esophagitis; M10.9 Gout, unspecified; Z79.01 Long term (current) use of anticoagulants; Z79.1 Long term (current) use of non-steroidal anti-inflammatories (NSAID); Z79.4 Long term (current) use of insulin; Z79.82 Long term (current) use of aspirin
CPT/HCPCS: 85014; 85018; 99283; A4216

== ENCOUNTER 2021-07-19 09:04 | Emergency (ER) | payer MEDICARE, BC, SELFPAY ==
[2021-07-19 09:05] VITALS: BP 141/42; PULSE 59; RESP 28; TEMP 36; O2SAT 97; BMI 32.9
--- NOTE | 2021-07-19 10:14 | VDLE_ITS ---
Reason For Study: PAIN RIGHT GSV is normal. CFV is compressible, spontaneous, phasic, competent and demonstrates normal augmentation. FV is compressible, spontaneous, phasic, competent and demonstrates normal augmentation. POP V is compressible, spontaneous, phasic, competent and demonstrates normal augmentation. T/P Trunk is compressible. PTV is compressible. RT PerV is compressible. Procedure Exam performed portable in ED. A preliminary report was called and/or faxed to ED. VL/Venous Duplex US, Unilateral Interpretation Summary There is no evidence of right lower extremity deep vein thrombosis. Right great saphenous vein appears patent and compressible segmentally. Ordering Physician: Primo Rodriguez Referring Physician: JONI GRIMM Performed By: Dania Skelton, RDCS, RVT
--- NOTE | 2021-07-19 10:15 | RAD_ITS ---
STUDY: X-RAY - RIGHT FEMUR REASON FOR STUDY: Female, 81 years old. Injury/Pain TECHNIQUE: 4 view(s) of the femur. COMPARISON: None. FINDINGS: Normal visualized femur. There is a vascular stent in place. There are degenerative changes of the hip and knee. RAD/Femur Min 2 Views IMPRESSION: Degenerative changes. Electronically Signed: Marisa Haney MD at 11:19 EST Tel , Service support ,
--- NOTE | 2021-07-19 10:15 | RAD_ITS ---
STUDY: X-RAY - PELVIS REASON FOR EXAM: Female, 81 years old. Injury/Pain TECHNIQUE: One view of the pelvis was obtained. COMPARISON: None. FINDINGS: There is a non-specific bowel gas pattern. There are multiple calcified phleboliths. There are degenerative changes of the visualized lower lumbar spine. There are degenerative changes of the sacroiliac joints. Normal visualized bilateral superior and inferior pubic rami. Normal pubic symphysis. Normal ischial tuberosities. There are degenerative changes of the hips characterized by joint space narrowing and subchondral sclerosis. RAD/Pelvis 1 or 2 Views IMPRESSION: Degenerative changes. Electronically Signed: Marisa Haney MD at 11:18 EST Tel , Service support ,
--- NOTE | 2021-07-19 10:35 | ED.VIS.LOWEX ---
HPI History of Present Illness Chief Complaint: Lower Extremity Injury Informant: patient Onset/Context/Timing Onset: Days (3) Context: Sudden Onset Timing: Continuous Quality of Pain: Aching and Burning Location: Right thigh Worsened by: Nothing Relieved by: Nothing Associated Symptoms Associated Symptoms: Negative for Parasthesia and Weakness Narrative Narrative: Patient presents with pain in her right thigh that has been getting worse over the past 3 days. Patient states it began rather suddenly. Patient states it has been constant. Patient states it is burning and aching. Patient states nothing makes it worse and nothing makes it better. Patient denies any paresthesias or weakness. Patient is on Eliquis for atrial fibrillation. Patient states she had her dose reduced to 2 mg recently. Patient admits to some mild swelling of her right lower extremity. Patient denies any trauma or injury. [facility] Medical History (Updated 07/19/21 @ 13:[address] Primo Rodriguez, DO) Aortic valve stenosis Atherosclerosis of coronary artery of [place] heart without angina pectoris Chronic renal failure, stage 3 (moderate) Diabetes type 2, controlled Elevated troponin Essential hypertension GERD (gastroesophageal reflux disease) Glaucoma Gout Heart disease Hyperlipidemia Hypertrophic obstructive cardiomyopathy (HOCM) Mitral valve disease Mixed hyperlipidemia Morbid obesity Neuropathy Normochromic normocytic anemia Osteoarthritis PAOD (peripheral arterial occlusive disease) Paroxysmal atrial fibrillation with rapid ventricular response Polyneuropathy due to type 2 diabetes mellitus Home Medications aspirin 81 mg PO DAILY #30 tablet. 05/11/16 [Rx Last Taken 02/11/20] atorvastatin 80 mg PO QHS #30 tab 05/11/16 [Rx Last Taken 02/10/20] carvedilol 25 mg tablet 25 mg PO BID 08/19/17 [History Last Taken 02/11/20] multivitamin 1 cap PO QAM 08/19/17 [History Last Taken 02/11/20] pen needle, diabetic 32 gauge x 32 #50 ea 04/25/18 [Rx Last Taken Unknown] blood sugar diagnostic #100 ea 06/20/18 [Rx Last Taken Unknown] cholecalciferol (vitamin D3) 25 mcg (1,000 unit) capsule 1,000 unit PO DAILY 10/19/18 [History Last Taken Unknown] pyridoxine (vitamin B6) 100 mg tablet 100 mg PO DAILY 10/19/18 [History Last Taken 02/11/20] allopurinol 100 mg PO DAILYCM 02/11/20 [History Last Taken 02/11/20] tramadol 50 mg PO Q6H PRN PRN 02/11/20 [History Last Taken 02/11/20] pen needle, diabetic 32 gauge x 5/32 #200 ea 05/20/20 [Rx Last Taken Unknown] insulin lispro protamine-lispro 100 unit/mL (50-50) subcutaneous pen 26 unit SC BID #15 ml 10/14/20 [Rx Last Taken Unknown] furosemide 40 mg tablet 40 mg PO DAILY tablet 11/20/20 [History Last Taken Unknown] lisinopril 5 mg tablet 40 mg PO DAILY 11/20/20 [History Last Taken Unknown] polysaccharide iron complex 150 mg iron capsule ea PO BID 11/20/20 [History Last Taken Unknown] diltiazem HCl 120 mg capsule,extended release 24 hr 120 mg PO BID #180 cap 03/06/21 [Rx Last Taken Unknown] pen needle, diabetic 32 gauge x 5/32 #200 ea 05/27/21 [Rx Last Taken Unknown] apixaban 2.5 mg tablet 2.5 mg PO BID #180 tab 06/13/21 [Rx Last Taken Unknown] albuterol mcg INHALATION 07/19/21 [History Last Taken Unknown] hydralazine 50 mg PO TID 07/19/21 [History Last Taken Unknown] Allergy/AdvReac Type Severity Reaction Status Date / Time celecoxib [From Celebrex] Allergy Other Verified 07/19/21 09:08 indomethacin [From Indocin] Allergy Other Verified 07/19/21 09:08 [id number] Reductase Allergy Pain in Verified 07/19/21 09:08 Inhibitor joints [[id number]-Bml Reductase Inhibitor] acetaminophen [From Vicodin] AdvReac Other Verified 07/19/21 09:08 adhesive tape AdvReac Itching Verified 07/19/21 09:08 fluoxetine [From Prozac] AdvReac Other Verified 07/19/21 09:08 hydrocodone [From Vicodin] AdvReac Other Verified 07/19/21 09:08 ibuprofen [From Motrin] AdvReac Other Verified 07/19/21 09:08 ketoprofen AdvReac Other Verified 07/19/21 09:08 lovastatin [From Mevacor] AdvReac Other Verified 07/19/21 09:08 meclofenamic acid AdvReac Other Verified 07/19/21 09:08 [From Meclomen] naproxen [From Naprosyn] AdvReac Other Verified 07/19/21 09:08 NSAIDS (Non-Steroidal AdvReac Other Verified 07/19/21 09:08 Anti-Inflamma sertraline [From Zoloft] AdvReac Other Verified 07/19/21 09:08 venlafaxine [From Effexor] AdvReac Other Verified 07/19/21 09:08 BATAZOLIDIN AdvReac Other Uncoded 07/19/21 09:08 DIAZIDE AdvReac Other Uncoded 07/19/21 09:08 SPOROSTACIN AdvReac Other Uncoded 07/19/21 09:08 Family History Grandmother Diabetes Mother Heart disease Surgical History History of aortic valve replacement (05/01/16) History of cataract extraction with lens replacement History of cholecystectomy History of coronary artery bypass graft (05/01/16) History of mitral valve replacement (05/01/16) History of open reduction and internal fixation (ORIF) procedure Social History Smoking Status: Never smoker second hand exposure: No alcohol intake: never substance use type: does not use caffeine: No ROS ROS ED Constitutional Constitutional ED: Denies chills or fever(s) Eyes Eyes: Denies blurry vision or change in vision ENT ENT ED: Denies rhinorrhea or sore throat Cardiovascular Cardiovascular: Denies chest pain or palpitations Respiratory/Chest Respiratory/Chest: Denies cough or dyspnea Gastrointestinal Gastrointestinal: Denies nausea or vomiting Genitourinary Genitourinary ED: Denies dysuria or hematuria Musculoskeletal Musculoskeletal: Denies back pain or neck pain Integumentary Denies abscess or rash Neurologic Neurologic: Denies headache(s) or weakness Allergic/Immunologic Allergic/Immunologic ED: Denies mouth swelling or urticaria EXAM Physical Exam Const Vital Signs: 07/19/21 09:05 07/19/21 13:17 Temperature 96.8 F L Temperature Source Temporal Pulse Rate 59 L 57 L Respiratory Rate 28 H 16 Blood Pressure 141/42 H 151/49 H Blood Pressure Mean 75 83 Pulse Ox 97 95 Oxygen Delivery Method Room Air Room Air Positive well nourished and well developed General Appearance ED: well developed HEENT Reports moist mucous membranes Neck supple and no JVD Resp normal respiratory effort and clear to auscultation bilaterally Cardio regular rate and no murmurs Rhythm: abnormal rhythm irregularly irregular GI normal to inspection, nondistended, normoactive bowel sounds and non-tender Palpation: soft Extremity normal to inspection Extremity Narrative: There is some mild tenderness over the medial and lateral aspects of the right thigh. There is no bony crepitance or step-off. There is no deformity noted. There is good range of motion. Pedal pulses are equal bilaterally. There are no sensory deficits noted. There is good range of motion. General Extremety ED: Negative for edema or tenderness General Extremity: Negative for edema Neuro oriented x3, CN's II-XII intact bilaterally and no sensory deficits noted Sensorium / Orientation: alert Motor Exam: strength 5/5 throughout Psych mental status grossly normal Skin no rashes or lesions noted MDM MDM MDM Narrative Medical decision making narrative: Patient was given an injection of morphine here. Venous duplex of the right lower extremity was obtained. There is no evidence of DVT. X-rays of the right femur were obtained. There are 4 views. On my interpretation, there are some degenerative changes. There is no acute fracture. There is no dislocation. Radiologist also interpreted the x-ray and agrees. X-rays of the pelvis were obtained. There is 1 view. On my interpretation, there is no acute fracture. There are some degenerative changes in the right hip. There is no dislocation. Radiologist also interpreted the x-rays and agrees. CBC and comprehensive metabolic profile were obtained and were within normal limits. Patient is feeling better on reevaluation. Patient was advised of her findings. Patient was instructed use ice to the area. Patient was instructed to follow-up with her primary care physician in 5 to 7 days. Patient understood and was agreeable with the plan. All questions were answered. Lab Data Attestation: I reviewed the patient's lab results. Labs: Laboratory Results - last 24 hr 07/19/21 07/19/21 10:45 10:45 WBC 7.2 RBC 3.16 L Hgb 9.3 L Hct 29.9 L MCV 94.6 MCH 29.4 MCHC 31.1 L RDW Std Deviation 55.1 H RDW Coeff of Rose 15.9 H Plt Count 203 MPV 10.6 Immature Gran % (Auto) 0.600 Neut % (Auto) 77.7 H Lymph % (Auto) 8.5 L [place] % (Auto) 9.0 Eos % (Auto) 3.8 Baso % (Auto) 0.4 Absolute Neuts (auto) 5.6 Absolute Lymphs (auto) 0.61 L Nucleated RBC % 0 Sodium 137 Potassium 4.3 Chloride 105 Carbon Dioxide 27.0 Anion Gap 5 BUN 65 H Creatinine 2.98 H Estim Creat Clear Calc 12.11 Est GFR (MDRD) Af Amer 20 L Est GFR (MDRD) Non-Af 16 L BUN/Creatinine Ratio 21.8 H Glucose 100 Calcium 8.8 Total Bilirubin 0.50 AST 12 L ALT 19 Alkaline Phosphatase 143 H Total Protein 6.2 L Albumin 3.0 L Globulin 3.2 Albumin/Globulin Ratio 0.9 Radiography Diagnostic Testing: Clinical Impression(s) from Imaging Studies Femur X-Ray 07/19/21 10:15 IMPRESSION: Degenerative changes. Electronically Signed: Marisa Haney MD at 11:19 EST Tel , Service support , Pelvis X-Ray 07/19/21 10:15 IMPRESSION: Degenerative changes. Electronically Signed: Marisa Haney MD at 11:18 EST Tel , Service support , Discharge Plan Triage Chief Complaint: Lower Extremity Injury ED Provider: Primo Rodriguez Dx/Rx/DC Orders Clinical Impression: Osteoarthritis Instructions: ED Osteoarthritis Prescriptions: No Action multivitamin capsule capsule 1 cap PO QAM RF: 0 carvedilol 25 mg tablet 25 mg PO BID RF: 0 (DME) pen needle, diabetic [Comfort EZ Pen [place]] 32 gauge x 5/32 needle See Dose Instructions .ROUTE .MEDSUPPLY Qty: 50 RF: 11 (DME) OneTouch Verio test strips strip See Dose Instructions .ROUTE .MEDSUPPLY Qty: 100 RF: 11 pyridoxine (vitamin B6) 100 mg tablet 100 mg PO DAILY RF: 0 cholecalciferol (vitamin D3) 1,000 unit capsule 1,000 unit capsule 1,000 unit PO DAILY RF: 0 (DME) pen needle, diabetic [BD Ultra-Fine [place] Pen Needle] 32 gauge x 5/32 needle See Rx Instructions .ROUTE .MEDSUPPLY Qty: 200 RF: 3 furosemide 40 mg tablet 40 mg PO DAILY RF: 0 lisinopril 5 mg tablet 40 mg PO DAILY RF: 0 polysaccharide iron complex 150 mg iron capsule PO BID RF: 0 atorvastatin 80 MG tablet 80 mg PO QHS Qty: 30 RF: 0 aspirin 81 MG tablet,delayed release (DR/EC) 81 mg PO DAILY Qty: 30 RF: 0 allopurinol 100 MG tablet 100 mg PO DAILYCM RF: 0 tramadol 50 MG tablet 50 mg PO Q6H PRN PRN (Reason: Pain Or Fever) RF: 0 hydralazine 25 mg tablet 50 mg PO TID RF: 0 albuterol 90 mcg/actuation Aerosol INHALATION RF: 0 Humalog Mix 50-50 KwikPen 100 unit/mL (50-50) insulin pen 26 unit SC BID Qty: 15 RF: 3 diltiazem HCl 120 mg capsule,extended release 24hr 120 mg PO BID Qty: 180 RF: 3 (DME) pen needle, diabetic [ReliOn Pen [place]] 32 gauge x 5/32 needle See Rx Instructions .ROUTE .MEDSUPPLY Qty: 200 RF: 3 Eliquis 2.5 mg tablet 2.5 mg PO BID Qty: 180 RF: 3 Primary Care Provider: Fanny De Guzman Referrals: Fanny De Guzman MD [Primary Care Provider] - 3-5 Days Disposition Disposition: Home, Self Care
[2021-07-19] MEDS: Morphine 4 MG/ML Syringe IV (10:42)
[2021-07-19 10:55] LABS: Absolute Lymphocyte Count 0.61 X10^3/uL (0.83-4.51); Absolute Neutrophil Count 5.6 X10^3/uL (2.0-7.7); Basophil# 0.03 X10^3/uL; Basophil% 0.4 % (0-1); Eosinophil# 0.27 X10^3/uL; Eosinophils% 3.8 % (0-5); Hematocrit 29.9 % (37-47); Hemoglobin 9.3 g/dL (12.0-15.0); Lymphocyte # 0.61 X10^3/ul (0.83-4.51); Lymphocyte % 8.5 % (19-41); Mean Corp Hgb Conc 31.1 g/dL (32-36); Mean Corpuscular Hgb 29.4 pg (27.0-32.0); Mean Corpuscular Volume 94.6 fL (81-99); Mean Platelet Vol. 10.6 fl (6.2-12.0); Monocyte# 0.65 X10^3/uL; NRBC Flagged by Analyzer 0 % (0-5); Neutrophil # 5.59 X10^3/uL (2.7-7.7); Neutrophil % 77.7 % (47-70); Platelet Count 203 K/mm3 (150-450); RBC Distribution Width CV 15.9 % (11.6-14.6); RBC Distribution Width SD 55.1 fl (35.1-43.9); Red Blood Count 3.16 M/mm3 (4.2-5.4); White Blood Count 7.2 K/mm3 (4.4-11.0)
[2021-07-19 11:09] LABS: ALB/GLOB Ratio 0.9 RATIO (0.9-2.4); AST(SGOT) 12 U/L (15-37); Alanine Aminotransfer ALT/SGPT 19 U/L (13-56); Alkaline Phosphatase 143 U/L (45-117); Anion Gap 5 (5-15); BUN 65 mg/dL (7-18); BUN/Creat Ratio 21.8 RATIO (10-20); Calcium,Total 8.8 mg/dL (8.5-10.1); Chloride 105 mmol/L (98-107); Creatinine, Serum 2.98 mg/dL (0.55-1.02); EST Glomerular Filtration Rate 16 mL/min (>60); Est Glom Filt Rate - Afr Amer 20 mL/min (>60); Estimated Creatinine Clearance 12.11 ml/min; Globulin 3.2 g/dL (2.2-4.2); Glucose 100 mg/dL (74-106); Potassium 4.3 mmol/L (3.5-5.1); Protein, Total 6.2 g/dL (6.4-8.2); Sodium Level 137 mmol/L (136-145)
[2021-07-19 13:17] VITALS: BP 151/49; PULSE 57; RESP 16; O2SAT 95
== END 2021-07-19 14:05 | disposition home or self-care (01) ==
PROVIDERS: Emergency Provider Emergency Medicine; PCP Internal Medicine
DX: M19.90 Unspecified osteoarthritis, unspecified site (principal); D64.9 Anemia, unspecified; E11.22 Type 2 diabetes mellitus with diabetic chronic kidney disease; E11.40 Type 2 diabetes mellitus with diabetic neuropathy, unspecified; E11.51 Type 2 diabetes mellitus with diabetic peripheral angiopathy without gangrene; E78.2 Mixed hyperlipidemia; I25.10 Atherosclerotic heart disease of native coronary artery without angina pectoris; I12.9 Hypertensive chronic kidney disease with stage 1 through stage 4 chronic kidney disease, or unspecified chronic kidney disease; I35.0 Nonrheumatic aortic (valve) stenosis; I48.0 Paroxysmal atrial fibrillation; H40.9 Unspecified glaucoma; K21.9 Gastro-esophageal reflux disease without esophagitis; M10.9 Gout, unspecified; N18.30 Chronic kidney disease, stage 3 unspecified; Z79.01 Long term (current) use of anticoagulants; Z79.1 Long term (current) use of non-steroidal anti-inflammatories (NSAID); Z79.4 Long term (current) use of insulin; Z79.82 Long term (current) use of aspirin; Z95.2 Presence of prosthetic heart valve; Z95.1 Presence of aortocoronary bypass graft
CPT/HCPCS: 72170; 73552; 80053; 85025; 93971; 99283; A4216

== ENCOUNTER → 2021-07-29 13:00 | Outpatient (CLI) | payer MEDICARE, BC, SELFPAY ==
[2021-07-29 13:50] VITALS: BP 154/40; PULSE 53; RESP 16; TEMP 35.8; O2SAT 95; BMI 34.7
[2021-07-29] MEDS: 0.9% NaCl Peripheral Flush Adult/Peds IV (13:54)
[2021-07-29] MEDS: Acetaminophen 325 MG Tablet 650 MG PO (13:54)
[2021-07-29 14:21] VITALS: BP 142/37; PULSE 53; RESP 16; TEMP 35.9
[2021-07-29 15:26] VITALS: BP 158/43; PULSE 54; RESP 16; TEMP 35.9; O2SAT 94
[2021-07-29 16:00] VITALS: BP 166/41; PULSE 58; RESP 16; TEMP 35.9; O2SAT 95
== END ==
PROVIDERS: PCP Internal Medicine; Referring Provider Internal Medicine Hematology & Oncology; Visit Provider Internal Medicine Hematology & Oncology
DX: D64.9 Anemia, unspecified (principal)
CPT/HCPCS: 36430; 86850; 86900; 86901; 86920; 86922; J7040; P9016; A4216

== ENCOUNTER 2021-08-05 12:15 | Emergency (ER) | payer MEDICARE, BC, SELFPAY ==
[2021-08-05 12:17] VITALS: BP 151/58; PULSE 47; PULSE 48; RESP 18; RESP 20; TEMP 36.1; O2SAT 95; O2SAT 96; BMI 34.8
--- NOTE | 2021-08-05 14:11 | EKG12_ITS ---
Test Reason : SOB Blood Pressure : / mmHG Vent. Rate : 048 BPM Atrial Rate : 048 BPM P-R Int : 256 ms QRS Dur : 124 ms QT Int : 532 ms P-R-T Axes : 005 -04 162 degrees QTc Int : 475 ms Sinus bradycardia with 1st degree A-V block Left bundle branch block Abnormal ECG Confirmed by ENE VELAZQUEZ, MEGHAN ([id number]), commercial production editor CYNTHIA GALINDO ([id number]) on 08/07/2021 12:21:21 PM Referred By: ESTHER Confirmed By:MEGHAN LUQUE MD
--- NOTE | 2021-08-05 14:14 | EDS_ITS ---
HPI History of Present Illness Chief Complaint: Shortness of Breath Informant: patient Onset/Context/Timing Onset: Weeks (2) Context: gradual Timing: Continuous Quality: Positive for Orthopnea Worsened by: Lying flat Relieved by: Nothing Associated Symptoms Negative for cough, rhinorrhea, ear pain, fever, sore throat, chills, clear sputum, white sputum, yellow sputum or green sputum Chest Pain: Positive for None Narrative Narrative: Patient presents with shortness of breath that has been getting worse over the past 2 weeks. Patient states it is gradually getting worse. Patient states it is worse whenever she lays down at night. Patient states nothing seems to help with it. Patient states she called her doctor and told her that she felt like she needed some oxygen at home. Patient denies any cough. Patient denies any sore throat, rhinorrhea, or ear pain. Patient denies any fevers or chills. Patient denies any chest pain. Patient states she has a history of chronic kidney disease stage IV. Patient admits to some increased swelling of her lower legs. [facility] Medical History Aortic valve stenosis Atherosclerosis of coronary artery of [place] heart without angina pectoris Chronic renal failure, stage 3 (moderate) Diabetes type 2, controlled Elevated troponin Essential hypertension GERD (gastroesophageal reflux disease) Glaucoma Gout Heart disease Hyperlipidemia Hypertrophic obstructive cardiomyopathy (HOCM) Mitral valve disease Mixed hyperlipidemia Morbid obesity Neuropathy Normochromic normocytic anemia Osteoarthritis PAOD (peripheral arterial occlusive disease) Paroxysmal atrial fibrillation with rapid ventricular response Polyneuropathy due to type 2 diabetes mellitus Home Medications aspirin 81 mg PO DAILY #30 tablet. 05/11/16 [Rx Last Taken 02/11/20] atorvastatin 80 mg PO QHS #30 tab 05/11/16 [Rx Last Taken 02/10/20] carvedilol 25 mg tablet 25 mg PO BID 08/19/17 [History Last Taken 02/11/20] multivitamin 1 cap PO QAM 08/19/17 [History Last Taken 02/11/20] pen needle, diabetic 32 gauge x 32 #50 ea 04/25/18 [Rx Last Taken Unknown] blood sugar diagnostic #100 ea 06/20/18 [Rx Last Taken Unknown] allopurinol 100 mg PO DAILYCM 02/11/20 [History Last Taken 02/11/20] tramadol 50 mg PO Q6H PRN PRN 02/11/20 [History Last Taken 02/11/20] pen needle, diabetic 32 gauge x 5/32 #200 ea 05/20/20 [Rx Last Taken Unknown] insulin lispro protamine-lispro 100 unit/mL (50-50) subcutaneous pen 26 unit SC BID #15 ml 10/14/20 [Rx Last Taken Unknown] furosemide 40 mg tablet 40 mg PO DAILY tablet 11/20/20 [History Last Taken Unknown] lisinopril 5 mg tablet 40 mg PO DAILY 11/20/20 [History Last Taken Unknown] polysaccharide iron complex 150 mg iron capsule ea PO BID 11/20/20 [History Last Taken Unknown] diltiazem HCl 120 mg capsule,extended release 24 hr 120 mg PO BID #180 cap 03/06/21 [Rx Last Taken Unknown] pen needle, diabetic 32 gauge x 5/32 #200 ea 05/27/21 [Rx Last Taken Unknown] hydralazine 50 mg PO TID 07/19/21 [History Last Taken Unknown] apixaban 2.5 mg tablet 2.5 mg PO BID #180 tab 08/01/21 [Rx Last Taken Unknown] Allergy/AdvReac Type Severity Reaction Status Date / Time celecoxib [From Celebrex] Allergy Other Verified 08/05/21 12:16 indomethacin [From Indocin] Allergy Other Verified 08/05/21 12:16 Elcrxdt-IQZ-GbH Reductase Allergy Pain in Verified 08/05/21 12:16 Inhibitor joints [Dbeogma-Fos-Kis Reductase Inhibitor] acetaminophen [From Vicodin] AdvReac Other Verified 08/05/21 12:16 adhesive tape AdvReac Itching Verified 08/05/21 12:16 fluoxetine [From Prozac] AdvReac Other Verified 08/05/21 12:16 hydrocodone [From Vicodin] AdvReac Other Verified 08/05/21 12:16 ibuprofen [From Motrin] AdvReac Other Verified 08/05/21 12:16 ketoprofen AdvReac Other Verified 08/05/21 12:16 lovastatin [From Mevacor] AdvReac Other Verified 08/05/21 12:16 meclofenamic acid AdvReac Other Verified 08/05/21 12:16 [From Meclomen] naproxen [From Naprosyn] AdvReac Other Verified 08/05/21 12:16 NSAIDS (Non-Steroidal AdvReac Other Verified 08/05/21 12:16 Anti-Inflamma sertraline [From Zoloft] AdvReac Other Verified 08/05/21 12:16 venlafaxine [From Effexor] AdvReac Other Verified 08/05/21 12:16 BATAZOLIDIN AdvReac Other Uncoded 07/19/21 09:08 DIAZIDE AdvReac Other Uncoded 07/19/21 09:08 SPOROSTACIN AdvReac Other Uncoded 07/19/21 09:08 Family History Grandmother Diabetes Mother Heart disease Surgical History History of aortic valve replacement (05/01/16) History of cataract extraction with lens replacement History of cholecystectomy History of coronary artery bypass graft (05/01/16) History of heart artery stent History of heart valve replacement History of mitral valve replacement (05/01/16) History of open reduction and internal fixation (ORIF) procedure Hx of heart bypass surgery Social History Smoking Status: Never smoker second hand exposure: No alcohol intake: never substance use type: does not use caffeine: No ROS ROS ED Constitutional Constitutional ED: Denies chills or fever(s) Eyes Eyes: Denies blurry vision or change in vision ENT ENT ED: Denies rhinorrhea or sore throat Cardiovascular Cardiovascular: Denies chest pain or palpitations Respiratory/Chest Respiratory/Chest: Reports dyspnea; Denies cough Gastrointestinal Gastrointestinal: Denies nausea or vomiting Genitourinary Genitourinary ED: Reports urinary frequency; Denies dysuria or hematuria Musculoskeletal Musculoskeletal: Denies back pain or neck pain Integumentary Denies abscess or rash Neurologic Neurologic: Reports headache(s); Denies weakness Allergic/Immunologic Allergic/Immunologic ED: Denies mouth swelling or urticaria EXAM Physical Exam Const Vital Signs: 08/05/21 12:17 08/05/21 14:08 08/05/21 14:30 Temperature 96.9 F L Temperature Source Temporal Pulse Rate 47 L Respiratory Rate 18 Respiratory Effort Normal Respiratory Depth Normal Respiratory Pattern Normal Blood Pressure 151/58 H Blood Pressure Mean 89 Pulse Ox 96 Oxygen Delivery Method Room Air Room Air Room Air 08/05/21 14:31 08/05/21 16:40 08/05/21 18:25 Temperature Temperature Source Pulse Rate 48 L 52 L 60 Respiratory Rate 18 18 20 H Respiratory Effort Respiratory Depth Respiratory Pattern Blood Pressure 166/50 H 142/89 H Blood Pressure Mean 88 106 Pulse Ox 94 94 Oxygen Delivery Method Room Air Room Air Positive well nourished and well developed General Appearance ED: well developed HEENT Reports moist mucous membranes Neck supple and no JVD Resp normal respiratory effort Auscultation: rales bilateral base Cardio regular rate, regular rhythm and no murmurs GI normal to inspection, nondistended, normoactive bowel sounds and non-tender Palpation: soft Extremity normal to inspection Extremity Narrative: There is 2+ edema of the lower extremities bilaterally to the knees. There is no calf tenderness. General Extremety ED: Yes edema; Negative for tenderness General Extremity: edema Neuro oriented x3, CN's II-XII intact bilaterally and no sensory deficits noted Sensorium / Orientation: alert Motor Exam: strength 5/5 throughout Psych mental status grossly normal Skin no rashes or lesions noted MDM MDM MDM Narrative Medical decision making narrative: Patient was given a DuoNeb aerosol here. CBC was essentially within normal limits. Hemoglobin was 10.8 and hematocrit 34.3. Comprehensive metabolic profile showed a creatinine of 3.06 and a BUN of 80. These are consistent with prior results. Initial high-sensitivity troponin was normal at 17. B-natriuretic peptide was 327.8. 2-hour repeat high-sensitivity troponin was 16. CBC was obtained and was essentially within normal limits. Portable chest x-ray was obtained. There is 1 view. On my interpretation, there is evidence of congestive heart failure. There is no cardiomegaly. Bony thorax is normal. Radiologist also interpreted the x-ray and agrees. Patient was given a dose of Lasix here. Patient was able to diurese large amount of fluids. Patient was feeling better. Patient ambulated down the tellez and back and her saturation dropped to 88%. We were able to provide for home oxygen for the patient. She was instructed to take an extra dose of Lasix for the next 2 days. Patient was instructed to weigh herself daily. Patient was instructed to follow-up with her primary care physician in 3 to 5 days. Patient understood and was agreeable with the plan. All questions were answered. Lab Data Attestation: I reviewed the patient's lab results. Labs: Laboratory Results - last 24 hr 08/05/21 08/05/21 08/05/21 14:21 14:21 14:21 WBC 9.2 RBC 3.70 L Hgb 10.8 L Hct 34.3 L MCV 92.7 MCH 29.2 MCHC 31.5 L RDW Std Deviation 53.7 H RDW Coeff of Rose 16.2 H Plt Count 216 MPV 11.0 Immature Gran % (Auto) 0.300 Neut % (Auto) 76.1 H Lymph % (Auto) 10.6 L [place] % (Auto) 8.8 Eos % (Auto) 3.8 Baso % (Auto) 0.4 Absolute Neuts (auto) 7.0 Absolute Lymphs (auto) 0.98 Nucleated RBC % 0 Sodium 134 L Potassium 5.0 Chloride 100 Carbon Dioxide 26.0 Anion Gap 8 BUN 80 H Creatinine 3.06 H Estim Creat Clear Calc 11.79 Est GFR (MDRD) Af Amer 19 L Est GFR (MDRD) Non-Af 16 L BUN/Creatinine Ratio 26.1 H Glucose 128 H Calcium 8.8 Total Bilirubin 0.50 AST 15 ALT 29 Alkaline Phosphatase 145 H Troponin I High Sens 17 B-Natriuretic Peptide 327.8 H Total Protein 7.0 Albumin 3.4 Globulin 3.6 Albumin/Globulin Ratio 0.9 Urine Color Urine Clarity Urine pH Ur Specific [place] Urine Protein Urine Glucose (UA) Urine Ketones Urine Occult Blood Urine Nitrite Urine Bilirubin Urine Urobilinogen Ur Leukocyte Esterase Urine RBC Urine WBC Ur Squamous Epith Cells Urine Bacteria Urine Mucus 08/05/21 08/05/21 15:21 16:38 WBC RBC Hgb Hct MCV MCH MCHC RDW Std Deviation RDW Coeff of Rose Plt Count MPV Immature Gran % (Auto) Neut % (Auto) Lymph % (Auto) [place] % (Auto) Eos % (Auto) Baso % (Auto) Absolute Neuts (auto) Absolute Lymphs (auto) Nucleated RBC % Sodium Potassium Chloride Carbon Dioxide Anion Gap BUN Creatinine Estim Creat Clear Calc Est GFR (MDRD) Af Amer Est GFR (MDRD) Non-Af BUN/Creatinine Ratio Glucose Calcium Total Bilirubin AST ALT Alkaline Phosphatase Troponin I High Sens 16 B-Natriuretic Peptide Total Protein Albumin Globulin Albumin/Globulin Ratio Urine Color Yellow Urine Clarity Sl. Cloudy Urine pH 6.5 Ur Specific [place] 1.005 Urine Protein 100 H Urine Glucose (UA) Normal Urine Ketones Negative Urine Occult Blood Negative Urine Nitrite Negative Urine Bilirubin Negative Urine Urobilinogen Normal Ur Leukocyte Esterase 100 H Urine RBC 0 SEEN Urine WBC 5-10 SEEN Ur Squamous Epith Cells 0-5 SEEN Urine Bacteria 1+ Urine Mucus 0 SEEN Radiography Chest X-Ray - ED: 1 View, Read by ED Physician, Read by Radiologist and CHF Diagnostic Testing: Clinical Impression(s) from Imaging Studies Chest X-Ray 08/05/21 14:50 IMPRESSION: Bibasilar infiltrates are noted. Electronically Signed: Teofilo Polanco DO at 18:29 EST Tel [phone], Service support , EKG Initial EKG: Attestation: I personally reviewed and interpreted this EKG as follows: Interpretation: Sinus Bradycardia (With first-degree AV block with a rate of 48) and LBBB Prior EKG tracings: available for review Prior: Unchanged (02/11/2020) Discharge Plan Triage Chief Complaint: Shortness of Breath ED Provider: Primo Rodriguez Dx/Rx/DC Orders Clinical Impression: Congestive heart failure Instructions: ED CHF Left Side Prescriptions: No Action multivitamin capsule capsule 1 cap PO QAM RF: 0 carvedilol 25 mg tablet 25 mg PO BID RF: 0 (DME) pen needle, diabetic [Comfort EZ [place]] 32 gauge x 5/32 needle See Dose Instructions .ROUTE .MEDSUPPLY Qty: 50 RF: 11 (DME) OneTouch Verio test strips strip See Dose Instructions .ROUTE .MEDSUPPLY Qty: 100 RF: 11 (DME) pen needle, diabetic [BD Ultra-Fine [place] Pen Needle] 32 gauge x 5/32 needle See Rx Instructions .ROUTE .MEDSUPPLY Qty: 200 RF: 3 furosemide 40 mg tablet 40 mg PO DAILY RF: 0 lisinopril 5 mg tablet 40 mg PO DAILY RF: 0 polysaccharide iron complex 150 mg iron capsule PO BID RF: 0 atorvastatin 80 MG tablet 80 mg PO QHS Qty: 30 RF: 0 aspirin 81 MG tablet,delayed release (DR/EC) 81 mg PO DAILY Qty: 30 RF: 0 allopurinol 100 MG tablet 100 mg PO DAILYCM RF: 0 tramadol 50 MG tablet 50 mg PO Q6H PRN PRN (Reason: Pain Or Fever) RF: 0 hydralazine 25 mg tablet 50 mg PO TID RF: 0 Humalog Mix 50-50 KwikPen 100 unit/mL (50-50) insulin pen 26 unit SC BID Qty: 15 RF: 3 diltiazem HCl 120 mg capsule,extended release 24hr 120 mg PO BID Qty: 180 RF: 3 (DME) pen needle, diabetic [ReliOn [place]] 32 gauge x 5/32 needle See Rx Instructions .ROUTE .MEDSUPPLY Qty: 200 RF: 3 Eliquis 2.5 mg tablet 2.5 mg PO BID Qty: 180 RF: 4 Primary Care Provider: Fanny De Guzman Referrals: Fanny De Guzman MD [Primary Care Provider] - 3-5 Days Disposition Disposition: Home, Self Care
[2021-08-05 14:30] LABS: Absolute Lymphocyte Count 0.98 X10^3/uL (0.83-4.51); Basophil# 0.04 X10^3/uL; Basophil% 0.4 % (0-1); Eosinophil# 0.35 X10^3/uL; Eosinophils% 3.8 % (0-5); Hematocrit 34.3 % (37-47); Hemoglobin 10.8 g/dL (12.0-15.0); Lymphocyte # 0.98 X10^3/ul (0.83-4.51); Lymphocyte % 10.6 % (19-41); Mean Corp Hgb Conc 31.5 g/dL (32-36); Mean Corpuscular Hgb 29.2 pg (27.0-32.0); Mean Corpuscular Volume 92.7 fL (81-99); Monocyte# 0.81 X10^3/uL; Monocyte% 8.8 % (0-10); NRBC Flagged by Analyzer 0 % (0-5); Neutrophil # 7.02 X10^3/uL (2.7-7.7); Neutrophil % 76.1 % (47-70); Platelet Count 216 K/mm3 (150-450); RBC Distribution Width CV 16.2 % (11.6-14.6); RBC Distribution Width SD 53.7 fl (35.1-43.9); White Blood Count 9.2 K/mm3 (4.4-11.0)
[2021-08-05] MEDS: Ipratropium/Albuterol Sulfate 3 ML AMPUL.NEB INHALATION (14:30)
[2021-08-05 14:31] VITALS: PULSE 48; RESP 18
[2021-08-05 14:48] LABS: ALB/GLOB Ratio 0.9 RATIO (0.9-2.4); AST(SGOT) 15 U/L (15-37); Alanine Aminotransfer ALT/SGPT 29 U/L (13-56); Albumin, Serum 3.4 g/dL (3.2-5.0); Alkaline Phosphatase 145 U/L (45-117); Anion Gap 8 (5-15); BUN 80 mg/dL (7-18); BUN/Creat Ratio 26.1 RATIO (10-20); Calcium,Total 8.8 mg/dL (8.5-10.1); Chloride 100 mmol/L (98-107); Creatinine, Serum 3.06 mg/dL (0.55-1.02); EST Glomerular Filtration Rate 16 mL/min (>60); Est Glom Filt Rate - Afr Amer 19 mL/min (>60); Estimated Creatinine Clearance 11.79 ml/min; Globulin 3.6 g/dL (2.2-4.2); Glucose 128 mg/dL (74-106); Sodium Level 134 mmol/L (136-145); Troponin-I HS 17 pg/mL (3.0-54.0)
--- NOTE | 2021-08-05 14:50 | RAD_ITS ---
STUDY: X-RAY CHEST REASON FOR EXAM: Female, 81 years old. Dyspnea TECHNIQUE: Frontal view COMPARISON: 09/23/2020 FINDINGS: Sternotomy wires over the mediastinum. The lungs are not fully expanded. Bibasilar infiltrates are noted. Normal size heart. Normal mediastinum and ivis. Normal visualized pulmonary arteries. Calcified aortic arch and descending thoracic aorta. Normal visualized thoracic spine. Normal visualized ribs, clavicles, and shoulders. There is no demonstrated abnormality of the visualized soft tissue structures of the upper abdomen. RAD/Chest 1 View (Portable) IMPRESSION: Bibasilar infiltrates are noted. Electronically Signed: Teofilo Polanco DO at 18:29 EST Tel [phone], Service support ,
[2021-08-05 14:54] LABS: BNP,B-Type NATRIURETIC PEPTIDE 327.8 pg/mL (0-100)
[2021-08-05 15:28] LABS: Mucous, Urine 0 SEEN /hpf (<or=2+); Red Blood Cells-Urine 0 SEEN /hpf (0-5)
[2021-08-05 15:32] LABS: Color, Urine Yellow (Yellow); Glucose, Dipstick Normal (Normal); Ketone-Dipstick Negative (Negative); Leukocyte Esterase-Dipstick 100 /ul (Negative); Nitrite-Dipstick Negative (Negative); Occult Blood-Urine Negative /ul (Negative); Protein-Dipstick 100 mg/dl (Negative); Specific Gravity, Urine 1.005 (1.002-1.030); Urine Bilirubin Dipstick Negative (Negative); Urine Clarity Sl. Cloudy (Clear); Urine Urobilinogen Normal (Normal); Urine pH 6.5 (5.0 - 8.0)
[2021-08-05 15:42] LABS: Bacteria 1+ /hpf (None Seen); Squamous Epithelial Cells - UA 0-5 SEEN /hpf (5-10); White Blood Cells 5-10 SEEN /hpf (0-5)
[2021-08-05] MEDS: Furosemide 40 MG/4 ML Vial IV (16:35)
[2021-08-05 16:40] VITALS: BP 166/50; PULSE 52; RESP 18; O2SAT 94
[2021-08-05 17:07] LABS: Troponin-I HS 16 pg/mL (3.0-54.0)
[2021-08-05 18:25] VITALS: BP 142/89; PULSE 60; RESP 20; O2SAT 93; O2SAT 94
--- NOTE | 2021-08-05 18:26 | ED.RN ---
ambulated pt in tellez with pulse ox. pt increased sob and sats dropped to 88% with appx [address] hawkins. pt has ongoing issues with CHF and nasima has been working on getting home oxygen with pcp but has not been able to get it yet. social work consulted.
--- NOTE | 2021-08-05 19:06 | CM.ED ---
Addendum entered by Urmila Laura 08/05/21 19:52: SW had also spoken to Director Tona Carrero who indicated to obtain home oxygen for patient and have patient follow up with PCP. SW spoke to patient. She said that [employer] had called her and they had already spoken and the rep would be at her home. No further SW services needed at this time Original Note: SW Referral Referral Source: manufacturer's service representative Reason: Home oxygen for CHF Patient's RN, Keila, said that patient was 88% with exertion but is covid negative but has CHF. Per RN patient has been working with her PCP on a sleep study and getting home oxygen and a referral has been made to [facility]. SW called [facility] and spoke to director talent acquisition Rojelio and made a referral. SW faxed referral to [facility] after hours. CHRISTINA sent email to [employer]. CHRISTINA called [facility] and left message that patient was discharged home today with home oxygen. Plan: Home with Home oxygen Urmila PERES
[2021-08-05 19:39] VITALS: BP 144/88; PULSE 86; RESP 18; O2SAT 94
== END 2021-08-05 19:40 | disposition home or self-care (01) ==
PROVIDERS: Emergency Provider Emergency Medicine; PCP Internal Medicine
DX: I13.0 Hypertensive heart and chronic kidney disease with heart failure and stage 1 through stage 4 chronic kidney disease, or unspecified chronic kidney disease (principal); I50.9 Heart failure, unspecified; I44.0 Atrioventricular block, first degree; I44.7 Left bundle-branch block, unspecified; D64.9 Anemia, unspecified; E11.22 Type 2 diabetes mellitus with diabetic chronic kidney disease; E11.40 Type 2 diabetes mellitus with diabetic neuropathy, unspecified; E11.51 Type 2 diabetes mellitus with diabetic peripheral angiopathy without gangrene; E66.01 Morbid (severe) obesity due to excess calories; E78.2 Mixed hyperlipidemia; H40.9 Unspecified glaucoma; I25.10 Atherosclerotic heart disease of native coronary artery without angina pectoris; I48.0 Paroxysmal atrial fibrillation; K21.9 Gastro-esophageal reflux disease without esophagitis; M10.9 Gout, unspecified; M19.90 Unspecified osteoarthritis, unspecified site; N18.4 Chronic kidney disease, stage 4 (severe); Z79.01 Long term (current) use of anticoagulants; Z79.1 Long term (current) use of non-steroidal anti-inflammatories (NSAID); Z79.4 Long term (current) use of insulin; Z79.82 Long term (current) use of aspirin; Z95.2 Presence of prosthetic heart valve; Z95.1 Presence of aortocoronary bypass graft; Z90.49 Acquired absence of other specified parts of digestive tract
CPT/HCPCS: 71045; 80053; 81001; 83880; 84484; 85025; 87426; 93005; 94640; 99283; A4216; J1940

== ENCOUNTER 2021-09-02 12:30 | Outpatient (CLI) | payer MEDICARE, BC, SELFPAY ==
--- NOTE | 2021-09-02 12:32 | ECHOD_ITS ---
Reason For Study: PRE OPERATIVE Procedure This was a 2D Doppler, Color Flow transthoracic echocardiogram. The study was technically difficult. Exam performed in department. Left Ventricle Left ventricular systolic function is normal. The estimated ejection fraction is 60 %. Post operative septal motion. Right Ventricle Normal RV size. Normal systolic function. Atria The left atrium is mildly enlarged. Normal right atrium. No doppler evidence for ASD. Mitral Valve Mild mitral valve stenosis. Stable appearing bioprosthetic mitral valve apparatus. Tricuspid Valve Normal tricuspid valve. Mild tricuspid valve insufficiency. Right ventricular systolic pressure estimated to be 48 mmHg. Aortic Valve Mild aortic stenosis. Stable appearing bioprosthetic aortic valve apparatus. Trivial transvalvular insufficiency of the aortic valve. Pulmonic Valve The pulmonic valve is not well visualized. Trivial pulmonic valve insufficiency. Great Vessels The aortic root is not well visualized. Pericardium/Pleural Trivial pericardial effusion. There are no echocardiographic indications of cardiac tamponade. MMode/2D Measurements & Calculations LVIDd: 4.6 cm IVSd: 1.0 cm LVOT diam: 2.0 cm LVIDs: 3.0 cm LVPWd: 1.3 cm LVOT area: 3.3 cm2 RVDd: 3.4 cm FS: 33.7 % LAV(MOD-bp): 65.6 ml LA A4 area: 20.7 cm2 LA dimension(2D): 4.9 cm LAV(MOD-bp) Indexed: 35.8 ml/m2 LAV(MOD-sp2): 63.8 ml LAV(MOD-sp4): 62.9 ml RA A4 area: 10.3 cm2 Time Measurements MV dec time: 0.19 sec Doppler Measurements & Calculations MV E max tavo: 225.3 cm/sec Lat Peak E' Tavo: 2.9 cm/sec Med Peak E' Tavo: 2.4 cm/sec MV A max tavo: 156.7 cm/sec E/E' lat: 78.2 E/E' med: 93.5 MV E/A: 1.4 MV V2 max: 243.5 cm/sec MV P1/2t max tavo: 243.3 cm/sec Ao V2 max: 254.7 cm/sec MV max P.8 mmHg MV P1/2t: 73.8 msec Ao max P.0 mmHg MV V2 mean: 126.9 cm/sec MV dec slope: 965.1 cm/sec2 Ao V2 mean: 174.8 cm/sec MV mean P.6 mmHg Ao mean P.7 mmHg MV V2 VTI: 67.7 cm MVA(P1/2t): 3.0 cm2 Ao V2 VTI: 73.4 cm MVA(VTI): 1.5 cm2 JAVID(I,D): 1.4 cm2 JAVID(V,D): 1.4 cm2 LV V1 max: 111.2 cm/sec SV(LVOT): 99.9 ml PA V2 max: 126.1 cm/sec LV V1 max P.0 mmHg LV V1 mean P.5 mmHg LV V1 mean: 75.7 cm/sec LV V1 VTI: 30.6 cm TR max tavo: 315.8 cm/sec TR max P.9 mmHg ECHO/Echo Complete Interpretation Summary The study was technically difficult. Left ventricular systolic function is normal. The estimated ejection fraction is 60 %. Post operative septal motion. The left atrium is mildly enlarged. Stable appearing bioprosthetic mitral valve apparatus. Mild mitral valve stenosis. Mild tricuspid valve insufficiency. Stable appearing bioprosthetic aortic valve apparatus. Mild aortic stenosis. Trivial transvalvular insufficiency of the aortic valve. Trivial pulmonic valve insufficiency. The aortic root is not well visualized. Trivial pericardial effusion. There are no echocardiographic indications of cardiac tamponade. Right ventricular systolic pressure estimated to be 48 mmHg. Transmitral diastolic flow velocities suggest diastolic dysfunction (pseudonorm al pattern). Ordering Physician: Abdifatah Owusu Referring Physician: Libia Kaplan [phone] fax Performed By: Tara Hollis RDCS, RVT
== END 2021-09-02 23:59 | disposition short-term general hospital (02) ==
PROVIDERS: PCP Internal Medicine; Referring Provider Nurse Practitioner Family; Visit Provider Nurse Practitioner Family
DX: I48.0 Paroxysmal atrial fibrillation (principal); I42.1 Obstructive hypertrophic cardiomyopathy; I25.10 Atherosclerotic heart disease of native coronary artery without angina pectoris; Z95.3 Presence of xenogenic heart valve; Z95.2 Presence of prosthetic heart valve
CPT/HCPCS: 93306

== ENCOUNTER 2022-05-10 23:22 | Emergency (ER) | payer MEDICARE, BC, SELFPAY ==
[2022-05-10 23:23] VITALS: BP 112/60; PULSE 154; RESP 16; TEMP 35.9; O2SAT 98; BMI 31.7
--- NOTE | 2022-05-10 23:50 | EKG12_ITS ---
Test Reason : CP Blood Pressure : / mmHG Vent. Rate : 155 BPM Atrial Rate : 000 BPM P-R Int : 000 ms QRS Dur : 128 ms QT Int : 336 ms P-R-T Axes : 000 -14 162 degrees QTc Int : 539 ms Supraventricular tachycardia Left ventricular hypertrophy with QRS widening and repolarziation abnormality Confirmed by MARIA L VELAZQUEZ, SOCORRO ([id number]), technical writer and editor CYNTHIA GALINDO ([id number]) on 05/11/2022 10:36:24 AM Referred By: Confirmed By:SOCORRO LISA MD
[2022-05-11] MEDS: Digoxin 250 MCG/ML Ampul IV
[2022-05-11 00:13] LABS: Absolute Lymphocyte Count 1.87 X10^3/uL (0.83-4.51); Absolute Neutrophil Count 6.5 X10^3/uL (2.0-7.7); Basophil# 0.06 X10^3/uL; Basophil% 0.6 % (0-1); Eosinophils% 5.2 % (0-5); Hemoglobin 11.4 g/dL (12.0-15.0); Lymphocyte # 1.87 X10^3/ul (0.83-4.51); Lymphocyte % 19.6 % (19-41); Mean Corp Hgb Conc 32.6 g/dL (32-36); Mean Corpuscular Hgb 33.6 pg (27.0-32.0); Mean Corpuscular Volume 103.2 fL (81-99); Mean Platelet Vol. 11.9 fl (6.2-12.0); Monocyte# 0.64 X10^3/uL; Monocyte% 6.7 % (0-10); NRBC Flagged by Analyzer 0 % (0-5); Neutrophil # 6.45 X10^3/uL (2.7-7.7); Neutrophil % 67.6 % (47-70); Platelet Count 159 K/mm3 (150-450); RBC Distribution Width CV 13.2 % (11.6-14.6); RBC Distribution Width SD 49.7 fl (35.1-43.9); Red Blood Count 3.39 M/mm3 (4.2-5.4); White Blood Count 9.6 K/mm3 (4.4-11.0)
[2022-05-11 00:23] VITALS: BP 111/62; PULSE 148; RESP 16; O2SAT 99
[2022-05-11 00:24] LABS: Anion Gap 11 (5-15); BUN 52 mg/dL (7-18); BUN/Creat Ratio 15.8 RATIO (10-20); Calcium,Total 9.4 mg/dL (8.5-10.1); Chloride 99 mmol/L (98-107); EST Glomerular Filtration Rate 14 mL/min (>60); Est Glom Filt Rate - Afr Amer 17 mL/min (>60); Estimated Creatinine Clearance 10.93 ml/min; Glucose 307 mg/dL (74-106); Magnesium 1.8 mg/dL (1.6-2.6); Phosphorus 3.7 mg/dL (2.5-4.9); Potassium 4.3 mmol/L (3.5-5.1); Sodium Level 137 mmol/L (136-145); Thyroid Stim Hormone (TSH) 6.13 uIU/mL (0.358-3.74)
[2022-05-11 00:28] VITALS: BP 111/60; PULSE 149; RESP 20; TEMP 36.9; O2SAT 99
[2022-05-11 00:29] LABS: International Normalized Ratio 1.4; Prothrombin Time (Protime)PT. 16.5 SECONDS (11.7-14.9)
[2022-05-11 00:30] LABS: Partial Thromboplast Time 46.2 Seconds (24.1-36.2)
[2022-05-11 01:00] VITALS: BP 123/52; PULSE 69; RESP 21; O2SAT 97
--- NOTE | 2022-05-11 01:11 | EKG12_ITS ---
Test Reason : CONVERSION Blood Pressure : / mmHG Vent. Rate : 060 BPM Atrial Rate : 060 BPM P-R Int : 160 ms QRS Dur : 134 ms QT Int : 498 ms P-R-T Axes : 001 -04 153 degrees QTc Int : 498 ms Normal sinus rhythm Left bundle branch block Abnormal ECG Confirmed by MARIA L VELAZQUEZ, SOCORRO ([id number]), metropolitan editor CYNTHIA GALINDO ([id number]) on 05/11/2022 10:38:12 AM Referred By: Confirmed By:SOCORRO LISA MD
[2022-05-11 02:00] VITALS: PULSE 60
--- NOTE | 2022-05-11 02:16 | EX.ED.DYSGE1 ---
HPI History of Present Illness Chief Complaint: Palpitations Narrative Narrative: Patient is a 81-year-old female with history of renal failure on dialysis as well as paroxysmal atrial fibrillation with long-term anticoagulation on Eliquis. She states that she receives dialysis Wednesday and Wednesday and has performed the procedure as directed. She states that this evening she was getting ready for bed when she started to feel like her heart was racing. She states she checked her heart rate on her blood pressure and pulse ox machine and each were reading high at approximate 150. She states she is not having chest pain or shortness of breath but she can feel the palpitations and secondary to this comes in for evaluation. Patient does state that she has never required electrical cardioversion but has responded well to medication in the past [facility] Medical History Aortic valve stenosis Atherosclerosis of coronary artery of [place] heart without angina pectoris Chronic renal failure, stage 3 (moderate) Diabetes type 2, controlled Elevated troponin Essential hypertension GERD (gastroesophageal reflux disease) Glaucoma Gout Heart disease Hyperlipidemia Hypertrophic obstructive cardiomyopathy (HOCM) Mitral valve disease Mixed hyperlipidemia Morbid obesity Neuropathy Normochromic normocytic anemia Osteoarthritis PAOD (peripheral arterial occlusive disease) Paroxysmal atrial fibrillation with rapid ventricular response Polyneuropathy due to type 2 diabetes mellitus Home Medications aspirin 81 mg tablet,delayed release 81 mg PO DAILY ##30 05/11/16 [Rx Last Taken 02/11/20] atorvastatin 80 mg tablet 80 mg PO QHS #30 tabs 05/11/16 [Rx Last Taken 02/10/20] carvedilol 25 mg tablet 12.5 mg PO BID 08/19/17 [History Last Taken 02/11/20] multivitamin 1 cap PO QAM 08/19/17 [History Last Taken 02/11/20] pen needle, diabetic 32 gauge x 5/32 (Comfort EZ Pen Warren) #50 ea 04/25/18 [Rx Last Taken Unknown] blood sugar diagnostic (OneTouch Verio test strips) #100 ea 06/20/18 [Rx Last Taken Unknown] allopurinol 100 mg tablet 100 mg PO DAILYCM 02/11/20 [History Last Taken 02/11/20] pen needle, diabetic 32 gauge x 5/32 (BD Ultra-Fine Moira Pen Needle) #200 ea 05/20/20 [Rx Last Taken Unknown] insulin lispro protamine-lispro 100 unit/mL (50-50) subcutaneous pen (Humalog Mix 50-50 KwikPen) 26 unit (0.26 mL) subcut BID #15 mL 10/14/20 [Rx Last Taken Unknown] pen needle, diabetic 32 gauge x 5/32 (ReliOn Pen Warren) #200 ea 05/27/21 [Rx Last Taken Unknown] cholecalciferol (vitamin D3) 25 mcg (1,000 unit) capsule 25 mcg PO DAILY 12/24/21 [History Last Taken Unknown] diltiazem HCl 120 mg capsule,extended release 24 hr 120 mg PO DAILY 12/24/21 [History Last Taken Unknown] escitalopram oxalate 5 mg tablet 5 mg PO DAILY 12/24/21 [History Last Taken Unknown] furosemide 40 mg tablet 80 mg PO DAILY edema 12/24/21 [History Last Taken Unknown] hydralazine 25 mg tablet 50 mg PO DAILY 12/24/21 [History Last Taken Unknown] lisinopril 40 mg tablet 40 mg PO DAILY 12/24/21 [History Last Taken Unknown] apixaban 2.5 mg tablet (Eliquis) 2.5 mg PO BID #60 tabs 04/27/22 [Rx Last Taken Unknown] Allergy/AdvReac Type Severity Reaction Status Date / Time celecoxib [From Celebrex] Allergy Other Verified 05/10/22 23:26 indomethacin [From Indocin] Allergy Other Verified 05/10/22 23:26 Rgxbepl-YLJ-ByG Reductase Allergy Pain in Verified 05/10/22 23:26 Inhibitor joints [Rsvylnc-Hpb-Jhg Reductase Inhibitor] acetaminophen [From Vicodin] AdvReac Other Verified 05/10/22 23:26 adhesive tape AdvReac Itching Verified 05/10/22 23:26 fluoxetine [From Prozac] AdvReac Other Verified 05/10/22 23:26 griseofulvin AdvReac Other Verified 05/10/22 23:26 hydrochlorothiazide AdvReac Other Verified 05/10/22 23:26 [From Dyazide] hydrocodone [From Vicodin] AdvReac Other Verified 05/10/22 23:26 ibuprofen [From Motrin] AdvReac Other Verified 05/10/22 23:26 ketoprofen AdvReac Other Verified 05/10/22 23:26 lovastatin [From Mevacor] AdvReac Other Verified 05/10/22 23:26 meclofenamic acid AdvReac Other Verified 05/10/22 23:26 [From Meclomen] naproxen [From Naprosyn] AdvReac Other Verified 05/10/22 23:26 NSAIDS (Non-Steroidal AdvReac Other Verified 05/10/22 23:26 Anti-Inflamma phenylbutazone AdvReac Other Verified 05/10/22 23:26 sertraline [From Zoloft] AdvReac Other Verified 05/10/22 23:26 triamterene [From Dyazide] AdvReac Other Verified 05/10/22 23:26 venlafaxine [From Effexor] AdvReac Other Verified 05/10/22 23:26 Family History Grandmother Diabetes Mother Heart disease Surgical History History of aortic valve replacement with bioprosthetic valve (~05/01/16) History of cataract extraction with lens replacement History of cholecystectomy History of coronary artery bypass graft (05/01/16) History of heart artery stent History of heart valve replacement History of mitral valve replacement with bioprosthetic valve (~05/01/16) History of open reduction and internal fixation (ORIF) procedure Hx of heart bypass surgery Social History Smoking Status: Never smoker second hand exposure: No alcohol intake: never substance use type: does not use caffeine: No ROS ROS ED Constitutional Constitutional ED: Denies chills or fever(s) ENT ENT ED: Denies sore throat Cardiovascular Cardiovascular: Reports palpitations and racing heartbeat; Denies chest pain Respiratory/Chest Respiratory/Chest: Denies cough or dyspnea Gastrointestinal Gastrointestinal: Denies abdominal pain, diarrhea, nausea or vomiting Musculoskeletal Musculoskeletal: Denies myalgias Integumentary Denies rash Neurologic Neurologic: Denies headache(s) Hematologic/Lymphatic Hematologic/Lymphatic: Reports easy bleeding and easy bruising EXAM Physical Exam Const Vital Signs: 05/10/22 23:23 05/10/22 23:27 05/11/22 00:28 Temperature 96.6 F L 98.4 F Temperature Source Temporal Oral Pulse Rate 154 H 149 H Respiratory Rate 16 20 H Respiratory Effort Normal Non-Labored Blood Pressure 112/60 111/60 Blood Pressure Mean 77 77 Blood Pressure Source Monitor Blood Pressure Position Semi-Fowlers Blood Pressure Location Right Arm Pulse Ox 98 99 Oxygen Delivery Method 05/11/22 00:23 05/11/22 01:00 05/11/22 02:00 Temperature Temperature Source Pulse Rate 148 H 69 60 Respiratory Rate 16 21 H Respiratory Effort Blood Pressure 111/62 123/52 H Blood Pressure Mean 78 75 Blood Pressure Source Monitor Blood Pressure Position Semi-Fowlers Blood Pressure Location Right Arm Pulse Ox 99 97 Oxygen Delivery Method Room Air 05/11/22 02:23 Temperature Temperature Source Pulse Rate 63 Respiratory Rate 16 Respiratory Effort Blood Pressure 105/63 Blood Pressure Mean Blood Pressure Source Blood Pressure Position Blood Pressure Location Pulse Ox 97 Oxygen Delivery Method Positive well nourished and well developed General Appearance ED: well developed and pallor HEENT HEENT Narrative: Normocephalic atraumatic Eyes PERRL and EOMs intact bilaterally Neck supple and no JVD Chest Wall Chest Narrative: Dialysis port in place in the right upper chest wall without surrounding soft tissue changes to suggest infection Resp normal respiratory effort and clear to auscultation bilaterally Cardio Rate: other Other Details: Tachycardic rate with slightly irregular rhythm GI normal to inspection, nondistended, normoactive bowel sounds, non-tender and non-distended GI Narrative: No voluntary guarding or rigidity no pulsatile mass Auscultation: normoactive bowel sounds Palpation: soft Extremity normal to inspection Neuro oriented x3 and CN's II-XII intact bilaterally Sensorium / Orientation: alert Psych mental status grossly normal Skin no rashes or lesions noted General Skin Exam: pallor MDM MDM MDM Narrative Medical decision making narrative: Patient arrived to the ER tachycardic at approximate 150 to 160 bpm. Otherwise she is awake and alert and in no acute distress. She states she felt it flipped approximately 30 minutes to 1 hour prior to arrival and is anticoagulated on Eliquis. Secondary to this I have low concern for pulmonary embolus and therefore elected to perform basic laboratory studies and began treatment with Cardizem as an IV drip and a bolus of diltiazem. The patient's labs revealed no clinically significant findings and after being on the medication had spontaneous conversion to normal sinus rhythm. The patient was taken off the Cardizem drip and watched for approximately 1 hour in the ER. There is no return of her cardiac dysrhythmia and vitals remained stable and therefore patient is otherwise safe for discharge Lab Data Attestation: I reviewed the patient's lab results. Labs: Laboratory Results - last 24 hr 05/10/22 05/10/22 05/10/22 23:37 23:37 23:37 WBC 9.6 RBC 3.39 L Hgb 11.4 L Hct 35.0 L MCV 103.2 H MCH 33.6 H MCHC 32.6 RDW Std Deviation 49.7 H RDW Coeff of Rose 13.2 Plt Count 159 MPV 11.9 Immature Gran % (Auto) 0.300 Neut % (Auto) 67.6 Lymph % (Auto) 19.6 Divide % (Auto) 6.7 Eos % (Auto) 5.2 H Baso % (Auto) 0.6 Absolute Neuts (auto) 6.5 Absolute Lymphs (auto) 1.87 Nucleated RBC % 0 PT 16.5 H INR 1.4 APTT 46.2 H Sodium 137 Potassium 4.3 Chloride 99 Carbon Dioxide 27.0 Anion Gap 11 BUN 52 H Creatinine 3.30 H Estim Creat Clear Calc 10.93 Est GFR (MDRD) Af Amer 17 L Est GFR (MDRD) Non-Af 14 L BUN/Creatinine Ratio 15.8 Glucose 307 H Calcium 9.4 Phosphorus 3.7 Magnesium 1.8 TSH 6.13 H Discharge Plan Triage Chief Complaint: Palpitations ED Provider: yR Polanco Dx/Rx/DC Orders Clinical Impression: Paroxysmal atrial fibrillation with rapid ventricular response, Chronic renal failure, stage 3 (moderate), History of mitral valve replacement with bioprosthetic valve, History of aortic valve replacement with bioprosthetic valve Instructions: AFib Dc Prescriptions: No Action multivitamin capsule capsule 1 cap PO QAM carvedilol 25 mg tablet 12.5 mg PO BID (DME) pen needle, diabetic [Comfort EZ Pen Warren] 32 gauge x 5/32 needle See Dose Instructions .ROUTE .MEDSUPPLY Qty: 50 11RF Dose Instruction: As directed Rx Instructions: As directed (DME) OneTouch Verio test strips strip See Dose Instructions .ROUTE .MEDSUPPLY Qty: 100 11RF Dose Instruction: As directed Rx Instructions: use to check BG tid (DME) pen needle, diabetic [BD Ultra-Fine Moira Pen Needle] 32 gauge x 5/32 needle See Rx Instructions .ROUTE .MEDSUPPLY Qty: 200 3RF Rx Instructions: bid furosemide 40 mg tablet 80 mg PO DAILY Rx Instructions: except for dialysis days lisinopril 40 mg tablet 40 mg PO DAILY Rx Instructions: except for dialysis days diltiazem HCl 120 mg capsule,extended release 24hr 120 mg PO DAILY Rx Instructions: except for dialysis days escitalopram oxalate 5 mg tablet 5 mg PO DAILY cholecalciferol (vitamin D3) 25 mcg (1,000 unit) capsule 25 mcg PO DAILY atorvastatin 80 MG tablet 80 mg PO QHS Qty: 30 0RF aspirin 81 MG tablet,delayed release (DR/EC) 81 mg PO DAILY Qty: 30 0RF allopurinol 100 MG tablet 100 mg PO DAILYCM hydralazine 25 mg tablet 50 mg PO DAILY Rx Instructions: except on dialysis days Humalog Mix 50-50 KwikPen 100 unit/mL (50-50) insulin pen 26 unit SC BID Qty: 15 3RF (DME) pen needle, diabetic [ReliOn Pen Warren] 32 gauge x 5/32 needle See Rx Instructions .ROUTE .MEDSUPPLY Qty: 200 3RF Rx Instructions: 2 times daily Eliquis 2.5 mg tablet 2.5 mg PO BID Qty: 60 11RF Primary Care Provider: Fanny De Guzman Referrals: Fanny De Guzman MD [Primary Care Provider] - Activity Restrictions/Additional Instructions: Please continue all of your medications as previously directed and return to the ER should you have any further concerns Disposition Disposition: Home, Self Care Discharge Date/Time: 05/11/22 02:23
[2022-05-11 02:23] VITALS: BP 105/63; PULSE 63; RESP 16; O2SAT 97
== END 2022-05-11 02:23 | disposition home or self-care (01) ==
PROVIDERS: Emergency Provider Emergency Medicine; PCP Internal Medicine; Visit Provider Emergency Medicine
DX: I48.0 Paroxysmal atrial fibrillation (principal); Z99.2 Dependence on renal dialysis; I42.1 Obstructive hypertrophic cardiomyopathy; E11.22 Type 2 diabetes mellitus with diabetic chronic kidney disease; E11.42 Type 2 diabetes mellitus with diabetic polyneuropathy; N18.30 Chronic kidney disease, stage 3 unspecified; I25.10 Atherosclerotic heart disease of native coronary artery without angina pectoris; E78.2 Mixed hyperlipidemia; I12.9 Hypertensive chronic kidney disease with stage 1 through stage 4 chronic kidney disease, or unspecified chronic kidney disease; Z95.2 Presence of prosthetic heart valve; Z79.01 Long term (current) use of anticoagulants; Z79.82 Long term (current) use of aspirin; Z95.1 Presence of aortocoronary bypass graft
CPT/HCPCS: 36415; 80048; 83735; 84100; 84443; 85025; 85610; 85730; 93005; 96360; 99283; A4216

== ENCOUNTER 2023-05-13 08:37 | Emergency (ER) | payer MEDICARE, BC, SELFPAY ==
[2023-05-13 08:38] VITALS: BP 144/42; PULSE 53; RESP 16; TEMP 36.1; O2SAT 97; BMI 29.9
--- NOTE | 2023-05-13 09:02 | EX.ED.DYSGE1 ---
HPI History of Present Illness Chief Complaint: Hypoglycemia Narrative Narrative: Patient took her insulin this morning but did not eat since she was having colonoscopy, she became diaphoretic and was found to be hypoglycemic right before her colonoscopy. She is now improved. 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 Hyperuricemia Mitral valve disease Mixed hyperlipidemia Morbid obesity Neuropathy Normochromic normocytic anemia Osteoarthritis Other disturbances of skin sensation PAOD (peripheral arterial occlusive disease) Paroxysmal atrial fibrillation with rapid ventricular response Polyneuropathy due to type 2 diabetes mellitus Scar pain Unspecified open wound of unspecified front wall of thorax without penetration into thoracic cavity, sequela Vascular disease Home Medications aspirin 81 mg tablet,delayed release 81 mg PO DAILY ##30 05/11/16 [Rx Last Taken 02/11/20] atorvastatin 80 mg tablet 80 mg PO QHS #30 tabs 05/11/16 [Rx Last Taken 02/10/20] carvedilol 25 mg tablet 12.5 mg PO BID 08/19/17 [History Last Taken 02/11/20] multivitamin 1 cap PO QAM 08/19/17 [History Last Taken 02/11/20] pen needle, diabetic 32 gauge x 5/32 (Comfort EZ Pen [place]) #50 ea 04/25/18 [Rx Last Taken Unknown] blood sugar diagnostic (OneTouch Verio test strips) #100 ea 06/20/18 [Rx Last Taken Unknown] allopurinol 100 mg tablet 100 mg PO DAILYCM 02/11/20 [History Last Taken 02/11/20] pen needle, diabetic 32 gauge x 5/32 (BD Ultra-Fine Moira Pen Needle) #200 ea 05/20/20 [Rx Last Taken Unknown] insulin lispro protamine-lispro 100 unit/mL (50-50) subcutaneous pen (Humalog Mix 50-50 KwikPen) 26 unit (0.26 mL) subcut BID #15 mL 10/14/20 [Rx Last Taken Unknown] pen needle, diabetic 32 gauge x 5/32 (ReliOn Pen [place]) #200 ea 05/27/21 [Rx Last Taken Unknown] cholecalciferol (vitamin D3) 25 mcg (1,000 unit) capsule 25 mcg PO DAILY 12/24/21 [History Last Taken Unknown] escitalopram oxalate 5 mg tablet 5 mg PO DAILY 12/24/21 [History Last Taken Unknown] furosemide 40 mg tablet 80 mg PO DAILY edema 12/24/21 [History Last Taken Unknown] lisinopril 40 mg tablet 40 mg PO DAILY 12/24/21 [History Last Taken Unknown] tramadol 50 mg tablet 50 mg PO DAILY PRN pain 06/02/22 [History Last Taken Unknown] diltiazem HCl 120 mg capsule,extended release 12 hr 120 mg PO BID Do not take on dialysis days 06/23/22 [History Last Taken Unknown] hydralazine 50 mg tablet 25 mg PO DAILY 05/06/23 [History Last Taken Unknown] sevelamer carbonate 800 mg tablet 800 mg PO BID 05/06/23 [History Last Taken Unknown] apixaban 2.5 mg tablet (Eliquis) 2.5 mg PO BID #180 tabs 05/07/23 [Rx Last Taken Unknown] Allergy/AdvReac Type Severity Reaction Status Date / Time celecoxib [From Celebrex] Allergy Other Verified 05/06/23 14:10 indomethacin [From Indocin] Allergy Other Verified 05/06/23 14:10 Srnxtvr-OTT-[id number] Reductase Allergy Pain in Verified 05/06/23 14:10 Inhibitor joints [Xdqziif-[id number]-Qfp Reductase Inhibitor] acetaminophen [From Vicodin] AdvReac Other Verified 05/06/23 14:10 adhesive tape AdvReac Itching Verified 05/06/23 14:10 fluoxetine [From Prozac] AdvReac Other Verified 05/06/23 14:10 griseofulvin AdvReac Other Verified 05/06/23 14:10 hydrochlorothiazide AdvReac Other Verified 05/06/23 14:10 [From Dyazide] hydrocodone [From Vicodin] AdvReac Other Verified 05/06/23 14:10 ibuprofen [From Motrin] AdvReac Other Verified 05/06/23 14:10 ketoprofen AdvReac Other Verified 05/06/23 14:10 lovastatin [From Mevacor] AdvReac Other Verified 05/06/23 14:10 meclofenamic acid AdvReac Other Verified 05/06/23 14:10 [From Meclomen] naproxen [From Naprosyn] AdvReac Other Verified 05/06/23 14:10 NSAIDS (Non-Steroidal AdvReac Other Verified 05/06/23 14:10 Anti-Inflamma phenylbutazone AdvReac Other Verified 05/06/23 14:10 sertraline [From Zoloft] AdvReac Other Verified 05/06/23 14:10 triamterene [From Dyazide] AdvReac Other Verified 05/06/23 14:10 venlafaxine [From Effexor] AdvReac Other Verified 05/06/23 14:10 Family History Grandmother Diabetes Mother Heart disease Other Hypertension Kidney disease Surgical History History of aortic valve replacement with bioprosthetic valve (~05/01/16) History of cataract extraction with lens replacement History of cholecystectomy History of coronary artery bypass graft (05/01/16) History of excision of lesion History of heart artery stent History of heart valve replacement History of mitral valve replacement with bioprosthetic valve (~05/01/16) History of open reduction and internal fixation (ORIF) procedure Hx of heart bypass surgery Social History Smoking Status: Never smoker second hand exposure: No alcohol intake: never substance use type: does not use caffeine: No additional social history: Does Take Aspirin Does Not Take Ibuprofen ROS ROS ED ROS Narrative Review of systems: All systems negative except as indicated General: No fever, prior lethargy which is now improved. Eyes: No visual changes ENT: No upper airway congestion, normal voice Neck: No neck pain Cardiovascular: No chest pain Respiratory: No shortness of breath or cough Gastrointestinal: No abdominal pain, nausea vomiting or diarrhea Genitourinary: No dysuria Musculoskeletal: Denies myalgias no difficulty with ambulation Skin: No rash Neurological: No memory loss, confusion or any focal weakness EXAM Physical Exam Narrative Exam Narrative: Physical exam General: Well nourished, Well developed, No Acute Distress Head: Normocephalic, Atraumatic Eyes: Conjunctiva not pale ENT: Moist mucous membranes Neck: Supple, Nontender, No lymphadenopathy Cardiovascular: Regular rate, Regular rhythm Respiratory: No distress, CTA bilaterally Abdomen: Soft, Nontender, Nondistended Back: Nontender, Normal Inspection. Negative for: CVA tenderness Extremities: Left arm fistula with a palpable thrill. Skin: Normal color, No rash Neurological: Alert, Normal Strength, Normal Sensation Const Vital Signs: 05/13/23 08:38 05/13/23 08:45 Temperature 97 F L Temperature Source Temporal Pulse Rate 53 L Respiratory Rate 16 Respiratory Effort Normal Non-Labored Blood Pressure 144/42 H Blood Pressure Mean 76 Pulse Ox 97 Oxygen Delivery Method Room Air MDM MDM MDM Narrative Medical decision making narrative: Patient ate, her blood sugar is now back to normal she appears well and she was observed in the emergency department. She does have some hyponatremia although this can be fixed with dialysis tomorrow. She appears well otherwise and I will discharge her in stable condition in the care of of the son who I talked to and gets history from also. Patient does not meet admission criteria and she improved therefore we will not admit her. No respiratory symptoms therefore chest x-ray is not needed. Lab Data Labs: Laboratory Results - last 24 hr 05/13/23 05/13/23 05/13/23 08:50 09:30 09:30 WBC Cancelled Corrected WBC Cancelled RBC Cancelled Hgb Cancelled Hct Cancelled MCV Cancelled MCH Cancelled MCHC Cancelled RDW Std Deviation Cancelled RDW Coeff of Rose Cancelled Plt Count Cancelled MPV Cancelled Immature Gran % (Auto) Cancelled Neut % (Auto) Cancelled Lymph % (Auto) Cancelled Grayson % (Auto) Cancelled Eos % (Auto) Cancelled Baso % (Auto) Cancelled Absolute Neuts (auto) Cancelled Absolute Lymphs (auto) Cancelled Total Counted Cancelled Neutrophils % (Manual) Cancelled Band Neutrophils % Cancelled Lymphocytes % (Manual) Cancelled Monocytes % (Manual) Cancelled Eosinophils % (Manual) Cancelled Basophils % (Manual) Cancelled Metamyelocytes % Cancelled Myelocytes % Cancelled Promyelocytes % Cancelled Blast Cells % Cancelled Plasma Cell % (Manual) Cancelled Other Cells % Cancelled Nucleated RBC % Cancelled Nucleated RBCs/100 WBC Cancelled Differential Comment Cancelled Diff Path Review Cancelled Hypersegmented Neuts Cancelled Atypical Lymphocytes Cancelled Reactive Lymphocytes Cancelled Smudge Cells Cancelled Toxic Granulation Cancelled Toxic Vacuolation Cancelled Dohle Bodies Cancelled Claude Rods Cancelled Platelet Estimate Cancelled Plt Morphology Comment Cancelled RBC Morphology Cancelled Cancelled Polychromasia Cancelled Hypochromasia Cancelled Poikilocytosis Cancelled Basophilic Stippling Cancelled Anisocytosis Cancelled Microcytosis Cancelled Macrocytosis Cancelled Spherocytes Cancelled Sickle Cells Cancelled Target Cells Cancelled Tear Drop Cells Cancelled Ovalocytes Cancelled Stomatocytes Cancelled Zavala-Towner Bodies Cancelled [place] Cells Cancelled Bite Cells Cancelled Crenated Cell Cancelled Acanthocytes (Spur) Cancelled Rouleaux Cancelled Schistocytes Cancelled Sodium Cancelled Potassium Cancelled Chloride Cancelled Carbon Dioxide Cancelled Anion Gap Cancelled BUN Cancelled Creatinine Cancelled Estim Creat Clear Calc Cancelled Est GFR (MDRD) Af Amer Cancelled Est GFR (MDRD) Non-Af Cancelled BUN/Creatinine Ratio Cancelled Glucose Cancelled Calcium Cancelled Total Bilirubin Cancelled AST Cancelled ALT Cancelled Alkaline Phosphatase Cancelled Total Protein Cancelled Albumin Cancelled Globulin Cancelled Albumin/Globulin Ratio Cancelled POC Glucose 64 L 05/13/23 05/13/23 10:26 11:18 WBC 13.4 H Corrected WBC RBC 3.07 L Hgb 10.6 L Hct 31.8 L MCV 103.6 H MCH 34.5 H MCHC 33.3 RDW Std Deviation 52.4 H RDW Coeff of Rose 13.8 Plt Count 145 L MPV 11.7 Immature Gran % (Auto) 0.700 Neut % (Auto) 78.8 H Lymph % (Auto) 8.3 L Grayson % (Auto) 10.5 H Eos % (Auto) 1.6 Baso % (Auto) 0.1 Absolute Neuts (auto) 10.6 H Absolute Lymphs (auto) 1.11 Total Counted Neutrophils % (Manual) Band Neutrophils % Lymphocytes % (Manual) Monocytes % (Manual) Eosinophils % (Manual) Basophils % (Manual) Metamyelocytes % Myelocytes % Promyelocytes % Blast Cells % Plasma Cell % (Manual) Other Cells % Nucleated RBC % 0 Nucleated RBCs/100 WBC Differential Comment Diff Path Review Hypersegmented Neuts Atypical Lymphocytes Reactive Lymphocytes Smudge Cells Toxic Granulation Toxic Vacuolation Dohle Bodies Claude Rods Platelet Estimate Plt Morphology Comment RBC Morphology Polychromasia Hypochromasia Poikilocytosis Basophilic Stippling Anisocytosis Microcytosis Macrocytosis Spherocytes Sickle Cells Target Cells Tear Drop Cells Ovalocytes Stomatocytes Zavala-Towner Bodies Ev Cells Bite Cells Crenated Cell Acanthocytes (Spur) Rouleaux Schistocytes Sodium 123 L Potassium 4.0 Chloride 86 L Carbon Dioxide 26.0 Anion Gap 11 BUN 56 H Creatinine 6.10 H Estim Creat Clear Calc 5.82 Est GFR (MDRD) Af Amer 9 L Est GFR (MDRD) Non-Af 7 L BUN/Creatinine Ratio 9.2 L Glucose 150 H Calcium 8.7 Total Bilirubin 0.60 AST 20 ALT 26 Alkaline Phosphatase 133 H Total Protein 6.4 Albumin 3.2 Globulin 3.2 Albumin/Globulin Ratio 1.0 POC Glucose 90 Discharge Plan Triage Chief Complaint: Hypoglycemia ED Provider: Moiz Lin Dx/Rx/DC Orders Clinical Impression: ESRD needing dialysis, Hypoglycemia Instructions: Hypoglycemia (Low Blood Sugar) Prescriptions: No Action multivitamin capsule capsule 1 cap PO QAM carvedilol 25 mg tablet 12.5 mg PO BID (DME) pen needle, diabetic [Comfort EZ Pen [place]] 32 gauge x 5/32 needle See Dose Instructions .ROUTE .MEDSUPPLY Qty: 50 11RF Dose Instruction: As directed Rx Instructions: As directed (DME) OneTouch Verio test strips strip See Dose Instructions .ROUTE .MEDSUPPLY Qty: 100 11RF Dose Instruction: As directed Rx Instructions: use to check BG tid (DME) pen needle, diabetic [BD Ultra-Fine Moira Pen Needle] 32 gauge x 5/32 needle See Rx Instructions .ROUTE .MEDSUPPLY Qty: 200 3RF Rx Instructions: bid furosemide 40 mg tablet 80 mg PO DAILY Rx Instructions: except for dialysis days lisinopril 40 mg tablet 40 mg PO DAILY Rx Instructions: except for dialysis days escitalopram oxalate 5 mg tablet 5 mg PO DAILY cholecalciferol (vitamin D3) 25 mcg (1,000 unit) capsule 25 mcg PO DAILY diltiazem HCl 120 mg capsule,extended release 12 hr 120 mg PO BID sevelamer carbonate 800 mg tablet 800 mg PO BID Rx Instructions: must administer with a meal/food tramadol 50 mg tablet 50 mg PO DAILY PRN (Reason: pain) hydralazine 50 mg tablet 25 mg PO DAILY atorvastatin 80 MG tablet 80 mg PO QHS Qty: 30 0RF aspirin 81 MG tablet,delayed release (DR/EC) 81 mg PO DAILY Qty: 30 0RF allopurinol 100 MG tablet 100 mg PO DAILYCM Humalog Mix 50-50 KwikPen 100 unit/mL (50-50) insulin pen 26 unit SC BID Qty: 15 3RF (DME) pen needle, diabetic [ReliOn Pen [place]] 32 gauge x 5/32 needle See Rx Instructions .ROUTE .MEDSUPPLY Qty: 200 3RF Rx Instructions: 2 times daily Eliquis 2.5 mg tablet 2.5 mg PO BID Qty: 180 4RF Primary Care Provider: Fanny De Guzman Referrals: Fanny De Guzman MD [Primary Care Provider] - 3-5 Days Disposition Disposition: Home, Self Care
[2023-05-13 09:09] LABS: Bedside Glucose 64 mg/dL (74-106)
--- NOTE | 2023-05-13 09:44 | CM.ED ---
Social Work SW performed chart review; HCPOA and LW on file as of 2009. Patient's HCPOA is patient's spouse, Leroy, alternates are patient's son, Edin and daughter, Elise. Flower Willis MSW, PRUDENCE
[2023-05-13 10:44] LABS: Bedside Glucose 90 mg/dL (74-106)
[2023-05-13 11:28] LABS: Absolute Lymphocyte Count 1.11 X10^3/uL (0.83-4.51); Absolute Neutrophil Count 10.6 X10^3/uL (2.0-7.7); Basophil# 0.02 X10^3/uL; Basophil% 0.1 % (0-1); Eosinophil# 0.21 X10^3/uL; Eosinophils% 1.6 % (0-5); Hematocrit 31.8 % (37-47); Hemoglobin 10.6 g/dL (12.0-15.0); Lymphocyte # 1.11 X10^3/ul (0.83-4.51); Lymphocyte % 8.3 % (19-41); Mean Corp Hgb Conc 33.3 g/dL (32-36); Mean Corpuscular Hgb 34.5 pg (27.0-32.0); Mean Corpuscular Volume 103.6 fL (81-99); Mean Platelet Vol. 11.7 fl (6.2-12.0); Monocyte# 1.41 X10^3/uL; Monocyte% 10.5 % (0-10); NRBC Flagged by Analyzer 0 % (0-5); Neutrophil # 10.55 X10^3/uL (2.7-7.7); Neutrophil % 78.8 % (47-70); Platelet Count 145 K/mm3 (150-450); RBC Distribution Width CV 13.8 % (11.6-14.6); RBC Distribution Width SD 52.4 fl (35.1-43.9); Red Blood Count 3.07 M/mm3 (4.2-5.4); White Blood Count 13.4 K/mm3 (4.4-11.0)
[2023-05-13 11:41] LABS: AST(SGOT) 20 U/L (15-37); Alanine Aminotransfer ALT/SGPT 26 U/L (13-56); Albumin, Serum 3.2 g/dL (3.2-5.0); Alkaline Phosphatase 133 U/L (45-117); Anion Gap 11 (5-15); BUN 56 mg/dL (7-18); BUN/Creat Ratio 9.2 RATIO (10-20); Calcium,Total 8.7 mg/dL (8.5-10.1); Chloride 86 mmol/L (98-107); EST Glomerular Filtration Rate 7 mL/min (>60); Est Glom Filt Rate - Afr Amer 9 mL/min (>60); Estimated Creatinine Clearance 5.82 ml/min; Globulin 3.2 g/dL (2.2-4.2); Glucose 150 mg/dL (74-106); Protein, Total 6.4 g/dL (6.4-8.2); Sodium Level 123 mmol/L (136-145)
[2023-05-13 11:57] VITALS: BP 133/83
== END 2023-05-13 12:08 | disposition home or self-care (01) ==
PROVIDERS: Emergency Provider Emergency Medicine; PCP Internal Medicine; Visit Provider Emergency Medicine
DX: E11.649 Type 2 diabetes mellitus with hypoglycemia without coma (principal); N18.6 End stage renal disease; I48.91 Unspecified atrial fibrillation; Z79.4 Long term (current) use of insulin; E87.1 Hypo-osmolality and hyponatremia; I25.10 Atherosclerotic heart disease of native coronary artery without angina pectoris; K21.9 Gastro-esophageal reflux disease without esophagitis; Z79.82 Long term (current) use of aspirin; Z95.2 Presence of prosthetic heart valve
CPT/HCPCS: 36415; 80053; 82962; 85025; 99284; A4216

== ENCOUNTER 2023-05-15 22:31 | Emergency (ER) | payer MEDICARE, BC, SELFPAY ==
--- NOTE | 2023-05-15 | RAD_ITS ---
INDICATION: cough EXAMINATION/TECHNIQUE: X-RAY - XR Chest 2 Views COMPARISON: 08/05/2021 chest radiograph. Findings: Frontal and lateral views of the chest. LUNG PARENCHYMA: No acute focal airspace disease or mass lesion. PLEURA: No pleural effusion. No pneumothorax. HEART/GREAT VESSELS: Cardiomediastinal silhouette is enlarged. Prosthetic valve. BONES: Median sternotomy wires. RAD/Chest PA and Lateral IMPRESSION: Chest with no acute disease. Electronically Signed: Sudheer Zuniga MD at 0:34 EDT ,
[2023-05-15 22:37] VITALS: BP 120/29; PULSE 74; RESP 16; TEMP 35.7; BMI 34.0
[2023-05-15 22:42] VITALS: BP 120/29; PULSE 74; RESP 16; TEMP 35.7
--- NOTE | 2023-05-15 23:42 | CT_ITS ---
INDICATION: head injury EXAMINATION: CT BRAIN - CT Head or Brain W/O Contrast Injection TECHNIQUE: Serial CT axial images were obtained of the head without intravenous contrast. A radiation dose optimization technique was used for this scan. COMPARISON: None. Findings: Serial CT axial images of the head without contrast. BRAIN PARENCHYMA: Diffuse periventricular hypoattenuation likely chronic white matter ischemic changes. Significant diffuse volume loss. No evidence of intraparenchymal hemorrhage or hyperattenuating extra-axial fluid collection. VASCULAR STRUCTURES: Atherosclerotic vascular calcifications. BONES: Paranasal sinuses are clear. SCALP/REMAINING SOFT TISSUES: Unremarkable. ASPECTS Score for Acute Strokes, if applicable: 10 CT/Brain/Head without Contrast IMPRESSION: Age-related changes as above, without evidence of acute intracranial hemorrhage in this noncontrast head CT. Electronically Signed: Sudheer Zuniga MD at 0:07 EDT ,
[2023-05-15 23:57] LABS: Anion Gap 6 (5-15); BUN 53 mg/dL (7-18); BUN/Creat Ratio 8.1 RATIO (10-20); Calcium,Total 8.1 mg/dL (8.5-10.1); Chloride 100 mmol/L (98-107); Creatinine, Serum 6.54 mg/dL (0.55-1.02); EST Glomerular Filtration Rate 7 mL/min (>60); Est Glom Filt Rate - Afr Amer 8 mL/min (>60); Estimated Creatinine Clearance 5.43 ml/min; Glucose 313 mg/dL (74-106); Phosphorus 4.8 mg/dL (2.5-4.9); Potassium 4.4 mmol/L (3.5-5.1); Sodium Level 135 mmol/L (136-145)
[2023-05-16 00:04] LABS: Absolute Neutrophil Count 6.8 X10^3/uL (2.0-7.7); Basophil# 0.03 X10^3/uL; Basophil% 0.3 % (0-1); Eosinophil# 0.22 X10^3/uL; Eosinophils% 2.4 % (0-5); Hematocrit 26.8 % (37-47); Hemoglobin 8.8 g/dL (12.0-15.0); Mean Corp Hgb Conc 32.8 g/dL (32-36); Mean Corpuscular Hgb 34.6 pg (27.0-32.0); Mean Corpuscular Volume 105.5 fL (81-99); Mean Platelet Vol. 11.7 fl (6.2-12.0); Monocyte# 0.88 X10^3/uL; Monocyte% 9.7 % (0-10); NRBC Flagged by Analyzer 0 % (0-5); Neutrophil # 6.83 X10^3/uL (2.7-7.7); Neutrophil % 75.6 % (47-70); Platelet Count 117 K/mm3 (150-450); RBC Distribution Width CV 14.6 % (11.6-14.6); RBC Distribution Width SD 56.8 fl (35.1-43.9); Red Blood Count 2.54 M/mm3 (4.2-5.4); White Blood Count 9.1 K/mm3 (4.4-11.0)
[2023-05-16 01:03] VITALS: BP 145/65; PULSE 62; RESP 12
[2023-05-16] MEDS: Ondansetron 4 MG/2 ML Vial IV (01:23)
[2023-05-16] MEDS: Insulin Lispro 100 UNIT/ML INSULN.PEN 8 UNIT SC (01:23)
--- NOTE | 2023-05-16 02:24 | EX.ED.DYSGE1 ---
HPI History of Present Illness Chief Complaint: Hyperglycemia Informant: patient and family Narrative Narrative: Patient 82-year-old female with past medical history of insulin-dependent diabetes paroxysmal A-fib currently on Eliquis and end-stage renal disease on dialysis. She states that a few days ago she was undergoing prep for a colonoscopy and secondary to this had copious amounts of watery diarrhea for the past few days. She states however that despite undergoing the prep she was unable to have the colonoscopy performed. She states that today she took her blood sugar and it was elevated at approximately 300 when her baseline is typically 120-150. She states she took insulin and checked it a little while later and it was still elevated so this concerned her and therefore he comes in for evaluation. Patient reports he urinates roughly once a day and denies any recent dysuria she also denies any fevers chills chest pain or cough. She does state that just last night she tripped walking in the house and fell striking the backside of her head but denies loss of consciousness. She states she did not come in for evaluation at that time [facility] Medical History Allergies Aortic valve stenosis Arthritis Atherosclerosis of coronary artery of [place] heart without angina pectoris Atrial fibrillation Back problem Cataracts, bilateral Chronic renal failure, stage 3 (moderate) Diabetes Diabetes type 2, controlled Elevated troponin End stage renal failure on dialysis Essential hypertension GERD (gastroesophageal reflux disease) Glaucoma Gout Heart disease High blood pressure Hyperlipidemia Hypertrophic obstructive cardiomyopathy (HOCM) Hypertrophic scar Hyperuricemia Mitral valve disease Mixed hyperlipidemia Morbid obesity Neuropathy Normochromic normocytic anemia Osteoarthritis Other disturbances of skin sensation PAOD (peripheral arterial occlusive disease) Paroxysmal atrial fibrillation with rapid ventricular response Polyneuropathy due to type 2 diabetes mellitus Scar pain Unspecified open wound of unspecified front wall of thorax without penetration into thoracic cavity, sequela Vascular disease Home Medications aspirin 81 mg tablet,delayed release 81 mg PO DAILY ##30 05/11/16 [Rx Last Taken 02/11/20] atorvastatin 80 mg tablet 80 mg PO QHS #30 tabs 05/11/16 [Rx Last Taken 02/10/20] carvedilol 25 mg tablet 12.5 mg PO BID 08/19/17 [History Last Taken 02/11/20] multivitamin 1 cap PO QAM 08/19/17 [History Last Taken 02/11/20] pen needle, diabetic 32 gauge x 5/32 (Comfort EZ Pen Hubertus) #50 ea 04/25/18 [Rx Last Taken Unknown] blood sugar diagnostic (OneTouch Verio test strips) #100 ea 06/20/18 [Rx Last Taken Unknown] allopurinol 100 mg tablet 100 mg PO DAILYCM 02/11/20 [History Last Taken 02/11/20] pen needle, diabetic 32 gauge x 5/32 (BD Ultra-Fine Moira Pen Needle) #200 ea 05/20/20 [Rx Last Taken Unknown] insulin lispro protamine-lispro 100 unit/mL (50-50) subcutaneous pen (Humalog Mix 50-50 KwikPen) 26 unit (0.26 mL) subcut BID #15 mL 10/14/20 [Rx Last Taken Unknown] pen needle, diabetic 32 gauge x 5/32 (ReliOn Pen Hubertus) #200 ea 05/27/21 [Rx Last Taken Unknown] cholecalciferol (vitamin D3) 25 mcg (1,000 unit) capsule 25 mcg PO DAILY 12/24/21 [History Last Taken Unknown] escitalopram oxalate 5 mg tablet 5 mg PO DAILY 12/24/21 [History Last Taken Unknown] furosemide 40 mg tablet 80 mg PO DAILY edema 12/24/21 [History Last Taken Unknown] lisinopril 40 mg tablet 40 mg PO DAILY 12/24/21 [History Last Taken Unknown] tramadol 50 mg tablet 50 mg PO DAILY PRN pain 06/02/22 [History Last Taken Unknown] diltiazem HCl 120 mg capsule,extended release 12 hr 120 mg PO BID Do not take on dialysis days 06/23/22 [History Last Taken Unknown] hydralazine 50 mg tablet 25 mg PO DAILY 05/06/23 [History Last Taken Unknown] sevelamer carbonate 800 mg tablet 800 mg PO BID 05/06/23 [History Last Taken Unknown] apixaban 2.5 mg tablet (Eliquis) 2.5 mg PO BID #180 tabs 05/07/23 [Rx Last Taken Unknown] Allergy/AdvReac Type Severity Reaction Status Date / Time celecoxib [From Celebrex] Allergy Other Verified 05/15/23 22:35 indomethacin [From Indocin] Allergy Other Verified 05/15/23 22:35 Sxmtzhk-AQJ-JrD Reductase Allergy Pain in Verified 05/15/23 22:35 Inhibitor joints [Gugkkxo-Eao-Fbe Reductase Inhibitor] adhesive tape AdvReac Itching Verified 05/15/23 22:35 fluoxetine [From Prozac] AdvReac Other Verified 05/15/23 22:35 griseofulvin AdvReac Other Verified 05/15/23 22:35 hydrochlorothiazide AdvReac Other Verified 05/15/23 22:35 [From Dyazide] hydrocodone [From Vicodin] AdvReac Other Verified 05/06/23 14:10 ibuprofen [From Motrin] AdvReac Other Verified 05/15/23 22:35 ketoprofen AdvReac Other Verified 05/15/23 22:35 lovastatin [From Mevacor] AdvReac Other Verified 05/15/23 22:35 meclofenamic acid AdvReac Other Verified 05/15/23 22:35 [From Meclomen] naproxen [From Naprosyn] AdvReac Other Verified 05/15/23 22:35 NSAIDS (Non-Steroidal AdvReac Other Verified 05/15/23 22:35 Anti-Inflamma phenylbutazone AdvReac Other Verified 05/15/23 22:35 sertraline [From Zoloft] AdvReac Other Verified 05/15/23 22:35 triamterene [From Dyazide] AdvReac Other Verified 05/15/23 22:35 venlafaxine [From Effexor] AdvReac Other Verified 05/15/23 22:35 Family History Grandmother Diabetes Mother Heart disease Other Hypertension Kidney disease Surgical History History of aortic valve replacement with bioprosthetic valve (~05/01/16) History of cataract extraction with lens replacement History of cholecystectomy History of coronary artery bypass graft (05/01/16) History of excision of lesion History of heart artery stent History of heart valve replacement History of mitral valve replacement with bioprosthetic valve (~05/01/16) History of open reduction and internal fixation (ORIF) procedure Hx of heart bypass surgery Social History Smoking Status: Never smoker second hand exposure: No alcohol intake: never substance use type: does not use caffeine: No additional social history: Does Take Aspirin Does Not Take Ibuprofen ROS ROS ED Constitutional Constitutional ED: Denies chills or fever(s) Eyes Eyes: Denies change in vision ENT ENT ED: Denies rhinorrhea or sore throat Cardiovascular Cardiovascular: Denies chest pain Respiratory/Chest Respiratory/Chest: Denies cough or dyspnea Gastrointestinal Gastrointestinal: Reports diarrhea; Denies abdominal pain, nausea or vomiting Genitourinary Genitourinary ED: Denies dysuria Musculoskeletal Musculoskeletal: Denies myalgias or neck pain Integumentary Reports Abrasions Neurologic Neurologic: Reports headache(s) Hematologic/Lymphatic Hematologic/Lymphatic: Reports easy bleeding and easy bruising EXAM Physical Exam Const Vital Signs: 05/16/23 01:03 05/16/23 02:34 Pulse Rate 62 56 L Respiratory Rate 12 15 Blood Pressure 145/65 H Blood Pressure Mean 91 Pulse Ox 98 Positive well nourished and well developed General Appearance ED: well developed HEENT HEENT Narrative: Patient has a superficial abrasion with area of ecchymosis and small 1 x 2 hematoma to the occipital portion of the scalp without signs of depressed or basilar skull fracture Eyes PERRL and EOMs intact bilaterally Neck supple Neck Narrative: No bony deformity or step-off of the cervical spine no midline pain on palpation Chest Wall palpation of chest normal Resp normal respiratory effort and clear to auscultation bilaterally Cardio regular rate and regular rhythm GI non-tender, non-distended and no masses GI Narrative: Abdomen is soft nontender nondistended with hyperactive bowel sounds no voluntary guarding or rigidity. No pulsatile mass or fluid wave Auscultation: hyperactive bowel sounds Palpation: soft Back/Spine no CVA tenderness Extremity Extremity Narrative: Patient has a fistula present in the left upper arm with palpable thrill and good bruit Neuro oriented x3 and CN's II-XII intact bilaterally Sensorium / Orientation: alert Motor Exam: strength 5/5 throughout Psych mental status grossly normal Skin Skin Narrative: Ecchymosis and hematoma to the occiput as documented above otherwise no erythema or warmth to suggest infection MDM MDM MDM Narrative Medical decision making narrative: Patient presented ER awake and alert with stable vitals. She reported that her blood sugar was elevated today above her baseline. Differential diagnosis for the hyperglycemia is DKA versus HHS versus secondary infectious process such as UTI pneumonia or COVID or influenza. Secondary to his I did like to perform a basic laboratory work-up. Patient has no findings to suggest DKA her serum osmolality is 306 going against HHS. Chest x-ray reveals no acute infiltrate and COVID and influenza test are negative as well. Urine sample is still pending but patient states she only urinates typically once each morning. There is a strong possibility that patient has a mild urinary tract infection as she has had recurrent bouts of watery diarrhea for colonoscopy prep. However without a sample I would hesitate to start her on antibiotics. I also elected to perform a head CT based on her history of Eliquis use and recent fall which revealed no acute trauma. At this time patient's vitals are stable mental status is normal and work-up is not finding any signs of DKA or HHS or secondary infectious process. Therefore patient be discharged home and she will follow-up with her family doctor as well as blood bank laboratory technologist to discuss further testing options or care History & Record Review Discussion w/independent historian: Patient and Family Lab Data Attestation: I reviewed the patient's lab results. Labs: Laboratory Results - last 24 hr 05/15/23 23:30 WBC 9.1 RBC 2.54 L Hgb 8.8 L Hct 26.8 L MCV 105.5 H MCH 34.6 H MCHC 32.8 RDW Std Deviation 56.8 H RDW Coeff of Rose 14.6 Plt Count 117 L MPV 11.7 Immature Gran % (Auto) 1.000 H Neut % (Auto) 75.6 H Lymph % (Auto) 11.0 L [place] % (Auto) 9.7 Eos % (Auto) 2.4 Baso % (Auto) 0.3 Absolute Neuts (auto) 6.8 Absolute Lymphs (auto) 1.00 Nucleated RBC % 0 Sodium 135 L Potassium 4.4 Chloride 100 Carbon Dioxide 29.0 Anion Gap 6 BUN 53 H Creatinine 6.54 H Estim Creat Clear Calc 5.43 Est GFR (MDRD) Af Amer 8 L Est GFR (MDRD) Non-Af 7 L BUN/Creatinine Ratio 8.1 L Glucose 313 H Calcium 8.1 L Phosphorus 4.8 Magnesium 2.0 Acetone Level NEGATIVE Radiography Diagnostic Testing: Clinical Impression(s) from Imaging Studies Chest X-Ray 05/15/23 00:00 IMPRESSION: Chest with no acute disease. Electronically Signed: Sudheer Zuniga MD at 0:34 EDT , Brain CT 05/15/23 23:42 IMPRESSION: Age-related changes as above, without evidence of acute intracranial hemorrhage in this noncontrast head CT. Electronically Signed: Sudheer Zuniga MD at 0:07 EDT , Chest x-ray as interpreted by the emergency medicine physician reveals no acute infiltrate pneumothorax or pleural effusion Discharge Plan Triage Chief Complaint: Hyperglycemia ED Provider: Ry Polanco Dx/Rx/DC Orders Clinical Impression: Hyperglycemia, Diabetes, End stage renal failure on dialysis, Paroxysmal atrial fibrillation, Current use of half-way anticoagulation Instructions: ED Diabetic Hyperglycemia Prescriptions: No Action multivitamin capsule capsule 1 cap PO QAM carvedilol 25 mg tablet 12.5 mg PO BID (DME) pen needle, diabetic [Comfort EZ Pen Hubertus] 32 gauge x 5/32 needle See Dose Instructions .ROUTE .MEDSUPPLY Qty: 50 11RF Dose Instruction: As directed Rx Instructions: As directed (DME) OneTouch Verio test strips strip See Dose Instructions .ROUTE .MEDSUPPLY Qty: 100 11RF Dose Instruction: As directed Rx Instructions: use to check BG tid (DME) pen needle, diabetic [BD Ultra-Fine Moira Pen Needle] 32 gauge x 5/32 needle See Rx Instructions .ROUTE .MEDSUPPLY Qty: 200 3RF Rx Instructions: bid furosemide 40 mg tablet 80 mg PO DAILY Rx Instructions: except for dialysis days lisinopril 40 mg tablet 40 mg PO DAILY Rx Instructions: except for dialysis days escitalopram oxalate 5 mg tablet 5 mg PO DAILY cholecalciferol (vitamin D3) 25 mcg (1,000 unit) capsule 25 mcg PO DAILY diltiazem HCl 120 mg capsule,extended release 12 hr 120 mg PO BID sevelamer carbonate 800 mg tablet 800 mg PO BID Rx Instructions: must administer with a meal/food tramadol 50 mg tablet 50 mg PO DAILY PRN (Reason: pain) hydralazine 50 mg tablet 25 mg PO DAILY atorvastatin 80 MG tablet 80 mg PO QHS Qty: 30 0RF aspirin 81 MG tablet,delayed release (DR/EC) 81 mg PO DAILY Qty: 30 0RF allopurinol 100 MG tablet 100 mg PO DAILYCM Humalog Mix 50-50 KwikPen 100 unit/mL (50-50) insulin pen 26 unit SC BID Qty: 15 3RF (DME) pen needle, diabetic [ReliOn Pen Hubertus] 32 gauge x 5/32 needle See Rx Instructions .ROUTE .MEDSUPPLY Qty: 200 3RF Rx Instructions: 2 times daily Eliquis 2.5 mg tablet 2.5 mg PO BID Qty: 180 4RF Primary Care Provider: Fanny De Guzman Referrals: Fanny De Guzman MD [Primary Care Provider] - Activity Restrictions/Additional Instructions: Continue to monitor your blood sugar and continue your previous medications as directed by your doctor. Please have either your blood bank laboratory technologist family doctor or medical recruiter check a urine sample as there is a possibility you have a UTI leading to the elevated blood sugar. If you have any further concerns or worsening of symptoms please return to the ER for repeat evaluation Disposition Disposition: Home, Self Care Discharge Date/Time: 05/16/23 02:35
[2023-05-16 02:34] VITALS: PULSE 56; RESP 15; O2SAT 98
== END 2023-05-16 02:35 | disposition home or self-care (01) ==
PROVIDERS: Emergency Provider Emergency Medicine; PCP Internal Medicine; Visit Provider Emergency Medicine
DX: E11.65 Type 2 diabetes mellitus with hyperglycemia (principal); Z99.2 Dependence on renal dialysis; E11.22 Type 2 diabetes mellitus with diabetic chronic kidney disease; N18.6 End stage renal disease; I48.0 Paroxysmal atrial fibrillation; Z79.4 Long term (current) use of insulin; Z79.01 Long term (current) use of anticoagulants; I25.10 Atherosclerotic heart disease of native coronary artery without angina pectoris; Z79.82 Long term (current) use of aspirin; Z95.2 Presence of prosthetic heart valve; E78.5 Hyperlipidemia, unspecified
CPT/HCPCS: 70450; 71046; 80048; 82009; 83735; 84100; 85025; 87428; 96374; 99282; A4216; J2405

== ENCOUNTER 2023-05-22 09:38 | Inpatient (IN) | payer MEDICARE, BC, SELFPAY ==
[2023-05-22] VITALS (9 sets, daily range): BP systolic 70–107; BP diastolic 43–57; PULSE 71–93; RESP 16–24; TEMP 35.5–36.6; O2SAT 96–100; BMI 34.4; BMI 33.5
--- NOTE | 2023-05-22 10:29 | EKG12_ITS ---
Test Reason : GENERAL Blood Pressure : / mmHG Vent. Rate : 082 BPM Atrial Rate : 082 BPM P-R Int : 160 ms QRS Dur : 134 ms QT Int : 458 ms P-R-T Axes : -16 -02 167 degrees QTc Int : 535 ms Normal sinus rhythm Left bundle branch block Abnormal ECG Confirmed by JOSE VELAZQUEZ, RAD ([id number]), primer expeditor and drier SAAD NICOLAS ([id number]) on 05/25/2023 10:34:24 AM Referred By: Confirmed By:JULIA GARCIA MD
--- NOTE | 2023-05-22 10:31 | EX.ED.DYSGE1 ---
HPI History of Present Illness Chief Complaint: General Illness Narrative Narrative: Presents with generalized weakness. She has a history of of end-stage renal disease, she is on dialysis, she had dialysis yesterday. She had about 3 L of fluid taken off. She thinks there may be something wrong with her blood sugars they have been high in the past. She is denying any chest pain, no fevers or chills, no dyspnea, she just feels lousy. She has no abdominal pain. No rash. [facility] Medical History Allergies Aortic valve stenosis Arthritis Atherosclerosis of coronary artery of [place] heart without angina pectoris Atrial fibrillation Back problem Cataracts, bilateral Chronic renal failure, stage 3 (moderate) Diabetes Diabetes type 2, controlled Elevated troponin End stage renal failure on dialysis Essential hypertension GERD (gastroesophageal reflux disease) Glaucoma Gout Heart disease High blood pressure Hyperlipidemia Hypertrophic obstructive cardiomyopathy (HOCM) Hypertrophic scar Hyperuricemia Mitral valve disease Mixed hyperlipidemia Morbid obesity Neuropathy Normochromic normocytic anemia Osteoarthritis Other disturbances of skin sensation PAOD (peripheral arterial occlusive disease) Paroxysmal atrial fibrillation with rapid ventricular response Polyneuropathy due to type 2 diabetes mellitus Scar pain Unspecified open wound of unspecified front wall of thorax without penetration into thoracic cavity, sequela Vascular disease Home Medications aspirin 81 mg tablet,delayed release 81 mg PO DAILY ##30 05/11/16 [Rx Last Taken 02/11/20] atorvastatin 80 mg tablet 80 mg PO QHS #30 tabs 05/11/16 [Rx Last Taken 02/10/20] carvedilol 25 mg tablet 12.5 mg PO BID 08/19/17 [History Last Taken 02/11/20] multivitamin 1 cap PO QAM 08/19/17 [History Last Taken 02/11/20] pen needle, diabetic 32 gauge x 5/32 (Comfort EZ Pen [place]) #50 ea 04/25/18 [Rx Last Taken Unknown] blood sugar diagnostic (OneTouch Verio test strips) #100 ea 06/20/18 [Rx Last Taken Unknown] allopurinol 100 mg tablet 100 mg PO DAILYCM 02/11/20 [History Last Taken 02/11/20] pen needle, diabetic 32 gauge x 5/32 (BD Ultra-Fine [place] Pen Needle) #200 ea 05/20/20 [Rx Last Taken Unknown] insulin lispro protamine-lispro 100 unit/mL (50-50) subcutaneous pen (Humalog Mix 50-50 KwikPen) 26 unit (0.26 mL) subcut BID #15 mL 10/14/20 [Rx Last Taken Unknown] pen needle, diabetic 32 gauge x /32 (ReliOn Pen [place]) #200 ea 05/27/21 [Rx Last Taken Unknown] cholecalciferol (vitamin D3) 25 mcg (1,000 unit) capsule 25 mcg PO DAILY 12/24/21 [History Last Taken Unknown] escitalopram oxalate 5 mg tablet 5 mg PO DAILY 12/24/21 [History Last Taken Unknown] furosemide 40 mg tablet 80 mg PO DAILY edema 12/24/21 [History Last Taken Unknown] lisinopril 40 mg tablet 40 mg PO DAILY 12/24/21 [History Last Taken Unknown] tramadol 50 mg tablet 50 mg PO DAILY PRN pain 06/02/22 [History Last Taken Unknown] diltiazem HCl 120 mg capsule,extended release 12 hr 120 mg PO BID Do not take on dialysis days 06/23/22 [History Last Taken Unknown] hydralazine 50 mg tablet 25 mg PO DAILY 05/06/23 [History Last Taken Unknown] sevelamer carbonate 800 mg tablet 800 mg PO BID 05/06/23 [History Last Taken Unknown] apixaban 2.5 mg tablet (Eliquis) 2.5 mg PO BID #180 tabs 05/07/23 [Rx Last Taken Unknown] Allergy/AdvReac Type Severity Reaction Status Date / Time celecoxib [From Celebrex] Allergy Other Verified 05/22/23 09:40 indomethacin [From Indocin] Allergy Other Verified 05/22/23 09:40 Tvvaono-HJC-ZhP Reductase Allergy Pain in Verified 05/22/23 09:40 Inhibitor joints [Bajmbtn-Tur-Nci Reductase Inhibitor] adhesive tape AdvReac Itching Verified 05/22/23 09:40 fluoxetine [From Prozac] AdvReac Other Verified 05/22/23 09:40 griseofulvin AdvReac Other Verified 05/22/23 09:40 hydrochlorothiazide AdvReac Other Verified 05/22/23 09:40 [From Dyazide] hydrocodone [From Vicodin] AdvReac Other Verified 05/22/23 09:40 ibuprofen [From Motrin] AdvReac Other Verified 05/22/23 09:40 ketoprofen AdvReac Other Verified 05/22/23 09:40 lovastatin [From Mevacor] AdvReac Other Verified 05/22/23 09:40 meclofenamic acid AdvReac Other Verified 05/22/23 09:40 [From Meclomen] naproxen [From Naprosyn] AdvReac Other Verified 05/22/23 09:40 NSAIDS (Non-Steroidal AdvReac Other Verified 05/22/23 09:40 Anti-Inflamma phenylbutazone AdvReac Other Verified 05/22/23 09:40 sertraline [From Zoloft] AdvReac Other Verified 05/22/23 09:40 triamterene [From Dyazide] AdvReac Other Verified 05/22/23 09:40 venlafaxine [From Effexor] AdvReac Other Verified 05/22/23 09:40 Family History Grandmother Diabetes Mother Heart disease Other Hypertension Kidney disease Surgical History History of aortic valve replacement with bioprosthetic valve (~05/01/16) History of cataract extraction with lens replacement History of cholecystectomy History of coronary artery bypass graft (05/01/16) History of excision of lesion History of heart artery stent History of heart valve replacement History of mitral valve replacement with bioprosthetic valve (~05/01/16) History of open reduction and internal fixation (ORIF) procedure Hx of heart bypass surgery Social History Smoking Status: Never smoker second hand exposure: No alcohol intake: never substance use type: does not use caffeine: No additional social history: Does Take Aspirin Does Not Take Ibuprofen ROS ROS ED ROS Narrative Past medical history: Reviewed includes end-stage renal disease, A-fib, chronic anticoagulation. Medications: Reviewed Social history: Noncontributory Review of systems: All systems negative except as indicated General: No fever. Generalized weakness Eyes: No visual changes ENT: No upper airway congestion, normal voice Neck: No neck pain Cardiovascular: No chest pain Respiratory: No shortness of breath or cough Gastrointestinal: No abdominal pain, nausea vomiting or diarrhea Genitourinary: No dysuria Musculoskeletal: Denies myalgias no difficulty with ambulation Skin: No rash Neurological: No memory loss, confusion or any focal weakness Psych: No recent behavioral changes EXAM Physical Exam Narrative Exam Narrative: Physical exam General: Appears chronically ill. She does not appear in any distress Head: Normocephalic, Atraumatic Eyes: Conjunctiva pale ENT: Dry mucous membranes Neck: Supple, Nontender, No lymphadenopathy Cardiovascular: Somewhat irregular no obvious murmur. Respiratory: No distress, CTA bilaterally Abdomen: Soft, Nontender, Nondistended Back: Nontender, Normal Inspection. Negative for: CVA tenderness Extremities: Nontender, trace lower extremity edema. Left arm fistula with palpable thrill and some bruising. Skin: Normal color, No rash, I do not appreciate pallor on the skin. Neurological: Alert, Normal Strength, Normal Sensation Psychological: Normal affect Const Vital Signs: 05/22/23 09:41 05/22/23 11:26 Temperature 95.9 F L Temperature Source Oral Pulse Rate 82 83 Respiratory Rate 24 H 16 Blood Pressure 70/48 L 93/43 L Blood Pressure Mean 55 59 Pulse Ox 99 97 Oxygen Delivery Method Room Air MDM MDM MDM Narrative Medical decision making narrative: Patient's work-up was significant for an NSTEMI. EKG showed a left bundle branch block virtually unchanged from April 2022. Because of the significant increase in troponin I do not believe this is secondary to dialysis I believe this is likely real. She is on Eliquis. I talked to cardiology recommended deseeding Eliquis and starting heparin later on tonight. I conveyed this to the hospitalist. Otherwise I do not see another reason for her symptoms. She make urine once a day and has not given us a urine yet. This can be checked by the hospitalist. Lab Data Lab results narrative: EKG: Normal sinus rhythm with a rate in the 80s without ectopy. There is a chronic left bundle branch block Labs: Laboratory Results - last 24 hr 05/22/23 10:00 WBC 9.9 RBC 2.97 L Hgb 10.1 L Hct 32.9 L MCV 110.8 H MCH 34.0 H MCHC 30.7 L RDW Std Deviation 62.6 H RDW Coeff of Rose 15.5 H Plt Count 228 MPV 10.8 Immature Gran % (Auto) 0.500 Neut % (Auto) 80.9 H Lymph % (Auto) 11.5 L [place] % (Auto) 5.3 Eos % (Auto) 1.4 Baso % (Auto) 0.4 Absolute Neuts (auto) 8.0 H Absolute Lymphs (auto) 1.14 Nucleated RBC % 0 Sodium 133 L Potassium 4.5 Chloride 96 L Carbon Dioxide 27.0 Anion Gap 10 BUN 27 H Creatinine 4.50 H Estim Creat Clear Calc 7.89 Est GFR (MDRD) Af Amer 12 L Est GFR (MDRD) Non-Af 10 L BUN/Creatinine Ratio 6.0 L Glucose 250 H Calcium 9.4 Total Bilirubin 0.70 AST 95 H ALT 31 Alkaline Phosphatase 156 H Troponin I High Sens 07601 H* Total Protein 7.5 Albumin 3.3 Globulin 4.2 Albumin/Globulin Ratio 0.8 L Radiography Diagnostic Testing: Clinical Impression(s) from Imaging Studies Chest X-Ray 05/22/23 10:36 IMPRESSION: No radiographic evidence of acute cardiopulmonary disease. 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, Discussing w/Consultants, Arranging Admission or Transfer, Performing Direct Patient Care at Bedside and - (35 min) Discharge Plan Triage Chief Complaint: General Illness ED Provider: Moiz Lin Dx/Rx/DC Orders Clinical Impression: Non-ST elevation [place] (NSTEMI), Weakness, End-stage renal disease (ESRD) Prescriptions: No Action multivitamin capsule capsule 1 cap PO QAM carvedilol 25 mg tablet 12.5 mg PO BID (DME) pen needle, diabetic [Comfort EZ Pen [place]] 32 gauge x 5/32 needle See Dose Instructions .ROUTE .MEDSUPPLY Qty: 50 11RF Dose Instruction: As directed Rx Instructions: As directed (DME) OneTouch Verio test strips strip See Dose Instructions .ROUTE .MEDSUPPLY Qty: 100 11RF Dose Instruction: As directed Rx Instructions: use to check BG tid (DME) pen needle, diabetic [BD Ultra-Fine [place] Pen Needle] 32 gauge x 5/32 needle See Rx Instructions .ROUTE .MEDSUPPLY Qty: 200 3RF Rx Instructions: bid furosemide 40 mg tablet 80 mg PO DAILY Rx Instructions: except for dialysis days lisinopril 40 mg tablet 40 mg PO DAILY Rx Instructions: except for dialysis days escitalopram oxalate 5 mg tablet 5 mg PO DAILY cholecalciferol (vitamin D3) 25 mcg (1,000 unit) capsule 25 mcg PO DAILY diltiazem HCl 120 mg capsule,extended release 12 hr 120 mg PO BID sevelamer carbonate 800 mg tablet 800 mg PO BID Rx Instructions: must administer with a meal/food tramadol 50 mg tablet 50 mg PO DAILY PRN (Reason: pain) hydralazine 50 mg tablet 25 mg PO DAILY atorvastatin 80 MG tablet 80 mg PO QHS Qty: 30 0RF aspirin 81 MG tablet,delayed release (DR/EC) 81 mg PO DAILY Qty: 30 0RF allopurinol 100 MG tablet 100 mg PO DAILYCM Humalog Mix 50-50 KwikPen 100 unit/mL (50-50) insulin pen 26 unit SC BID Qty: 15 3RF (DME) pen needle, diabetic [ReliOn Pen [place]] 32 gauge x 5/32 needle See Rx Instructions .ROUTE .MEDSUPPLY Qty: 200 3RF Rx Instructions: 2 times daily Eliquis 2.5 mg tablet 2.5 mg PO BID Qty: 180 4RF Primary Care Provider: Fanny De Guzman Referrals: Fanny De Guzman MD [Primary Care Provider] - Disposition Disposition: Acute Care Hospital [facility]
--- NOTE | 2023-05-22 10:36 | RAD_ITS ---
INDICATION: weakness EXAMINATION/TECHNIQUE: X-RAY - XR Chest 1 View COMPARISON: Prior study dated: 05/15/2023. FINDINGS: LINES/DEVICES: None. LUNGS: Vague right lower lung opacity likely exaggerated by hypoventilatory changes. No focal infiltrate is definitely seen. No evidence of pleural effusions. MEDIASTINUM AND CARDIOVASCULAR STRUCTURES: Stable cardiac mediastinal silhouette. Status post CABG. BONES AND SOFT TISSUES: No demonstrated acute osseous changes. RAD/Chest 1 View (Portable) IMPRESSION: No radiographic evidence of acute cardiopulmonary disease. Electronically Signed: Luther Menezes MD at 11:11 EDT ,
[2023-05-22 10:37] LABS: Absolute Lymphocyte Count 1.14 X10^3/uL (0.83-4.51); Basophil# 0.04 X10^3/uL; Basophil% 0.4 % (0-1); Eosinophil# 0.14 X10^3/uL; Eosinophils% 1.4 % (0-5); Hematocrit 32.9 % (37-47); Hemoglobin 10.1 g/dL (12.0-15.0); Lymphocyte # 1.14 X10^3/ul (0.83-4.51); Lymphocyte % 11.5 % (19-41); Mean Corp Hgb Conc 30.7 g/dL (32-36); Mean Corpuscular Volume 110.8 fL (81-99); Mean Platelet Vol. 10.8 fl (6.2-12.0); Monocyte# 0.52 X10^3/uL; Monocyte% 5.3 % (0-10); NRBC Flagged by Analyzer 0 % (0-5); Neutrophil # 8.01 X10^3/uL (2.7-7.7); Neutrophil % 80.9 % (47-70); Platelet Count 228 K/mm3 (150-450); RBC Distribution Width CV 15.5 % (11.6-14.6); RBC Distribution Width SD 62.6 fl (35.1-43.9); Red Blood Count 2.97 M/mm3 (4.2-5.4); White Blood Count 9.9 K/mm3 (4.4-11.0)
[2023-05-22] MEDS: 0.9% Normal Saline (500mL Bag) 500 ML 1000 ML IV (10:51)
[2023-05-22 11:12] LABS: ALB/GLOB Ratio 0.8 RATIO (0.9-2.4); AST(SGOT) 95 U/L (15-37); Alanine Aminotransfer ALT/SGPT 31 U/L (13-56); Albumin, Serum 3.3 g/dL (3.2-5.0); Alkaline Phosphatase 156 U/L (45-117); Anion Gap 10 (5-15); BUN 27 mg/dL (7-18); Calcium,Total 9.4 mg/dL (8.5-10.1); Chloride 96 mmol/L (98-107); EST Glomerular Filtration Rate 10 mL/min (>60); Est Glom Filt Rate - Afr Amer 12 mL/min (>60); Estimated Creatinine Clearance 7.89 ml/min; Globulin 4.2 g/dL (2.2-4.2); Glucose 250 mg/dL (74-106); Potassium 4.5 mmol/L (3.5-5.1); Protein, Total 7.5 g/dL (6.4-8.2); Sodium Level 133 mmol/L (136-145); Troponin-I HS 13900 pg/mL (3.0-54.0)
--- NOTE | 2023-05-22 11:40 | PCM.HP.STD ---
HPI - General General Date of Admission: 05/22/23 Date of Service: 05/22/23 Chief Complaint: Back pain HPI Narrative BHARATH LONGORIA, is a 82 F with multiple comorbidities including end-stage renal disease on hemodialysis, diabetes mellitus type 2, coronary artery disease with previous CABG in 2016, aortic valve replacement as well as mitral valve replacement who presented with back pain. Per patient symptoms started a couple of days ago after being prepped for possible colonoscopy. Per patient the prep messed up her blood glucose levels. Work-up for pneumonia of her presentation not feeling well and experiencing upper back pain. Presented to the emergency department as a result was found to have markedly elevated troponin levels consistent with acute non-STEMI supervisor trust accounts on-call Dr. Ricci was informed recommended for patient to be admitted. [facility] Medical History Allergies Aortic valve stenosis Arthritis Atherosclerosis of coronary artery of [place] heart without angina pectoris Atrial fibrillation Back problem Cataracts, bilateral Chronic renal failure, stage 3 (moderate) Diabetes Diabetes type 2, controlled Elevated troponin End stage renal failure on dialysis Essential hypertension GERD (gastroesophageal reflux disease) Glaucoma Gout Heart disease High blood pressure Hyperlipidemia Hypertrophic obstructive cardiomyopathy (HOCM) Hypertrophic scar Hyperuricemia Mitral valve disease Mixed hyperlipidemia Morbid obesity Neuropathy Normochromic normocytic anemia Osteoarthritis Other disturbances of skin sensation PAOD (peripheral arterial occlusive disease) Paroxysmal atrial fibrillation with rapid ventricular response Polyneuropathy due to type 2 diabetes mellitus Scar pain Unspecified open wound of unspecified front wall of thorax without penetration into thoracic cavity, sequela Vascular disease Home Medications aspirin 81 mg tablet,delayed release 81 mg PO DAILY ##30 05/11/16 [Rx Last Taken 02/11/20] atorvastatin 80 mg tablet 80 mg PO QHS #30 tabs 05/11/16 [Rx Last Taken 02/10/20] carvedilol 25 mg tablet 12.5 mg PO BID 08/19/17 [History Last Taken 02/11/20] multivitamin 1 cap PO QAM 08/19/17 [History Last Taken 02/11/20] pen needle, diabetic 32 gauge x 5/32 (Comfort EZ Pen [place]) #50 ea 04/25/18 [Rx Last Taken Unknown] blood sugar diagnostic ([place] Verio test strips) #100 ea 06/20/18 [Rx Last Taken Unknown] allopurinol 100 mg tablet 100 mg PO DAILYCM 02/11/20 [History Last Taken 02/11/20] pen needle, diabetic 32 gauge x 5/32 (BD Ultra-Fine [place] Pen Needle) #200 ea 05/20/20 [Rx Last Taken Unknown] insulin lispro protamine-lispro 100 unit/mL (50-50) subcutaneous pen (Humalog Mix 50-50 KwikPen) 26 unit (0.26 mL) subcut BID #15 mL 10/14/20 [Rx Last Taken Unknown] pen needle, diabetic 32 gauge x 5/32 (ReliOn Pen [place]) #200 ea 05/27/21 [Rx Last Taken Unknown] cholecalciferol (vitamin D3) 25 mcg (1,000 unit) capsule 25 mcg PO DAILY 12/24/21 [History Last Taken Unknown] escitalopram oxalate 5 mg tablet 5 mg PO DAILY 12/24/21 [History Last Taken Unknown] furosemide 40 mg tablet 80 mg PO DAILY edema 12/24/21 [History Last Taken Unknown] lisinopril 40 mg tablet 40 mg PO DAILY 12/24/21 [History Last Taken Unknown] tramadol 50 mg tablet 50 mg PO DAILY PRN pain 06/02/22 [History Last Taken Unknown] diltiazem HCl 120 mg capsule,extended release 12 hr 120 mg PO BID Do not take on dialysis days 06/23/22 [History Last Taken Unknown] hydralazine 50 mg tablet 25 mg PO DAILY 05/06/23 [History Last Taken Unknown] sevelamer carbonate 800 mg tablet 800 mg PO BID 05/06/23 [History Last Taken Unknown] apixaban 2.5 mg tablet (Eliquis) 2.5 mg PO BID #180 tabs 05/07/23 [Rx Last Taken Unknown] Allergy/AdvReac Type Severity Reaction Status Date / Time celecoxib [From Celebrex] Allergy Other Verified 05/22/23 09:40 indomethacin [From Indocin] Allergy Other Verified 05/22/23 09:40 Aqaycon-SGW-NwQ Reductase Allergy Pain in Verified 05/22/23 09:40 Inhibitor joints [Ukgjvfd-Rqz-Yvh Reductase Inhibitor] adhesive tape AdvReac Itching Verified 05/22/23 09:40 fluoxetine [From Prozac] AdvReac Other Verified 05/22/23 09:40 griseofulvin AdvReac Other Verified 05/22/23 09:40 hydrochlorothiazide AdvReac Other Verified 05/22/23 09:40 [From Dyazide] hydrocodone [From Vicodin] AdvReac Other Verified 05/22/23 09:40 ibuprofen [From Motrin] AdvReac Other Verified 05/22/23 09:40 ketoprofen AdvReac Other Verified 05/22/23 09:40 lovastatin [From Mevacor] AdvReac Other Verified 05/22/23 09:40 meclofenamic acid AdvReac Other Verified 05/22/23 09:40 [From Meclomen] naproxen [From Naprosyn] AdvReac Other Verified 05/22/23 09:40 NSAIDS (Non-Steroidal AdvReac Other Verified 05/22/23 09:40 Anti-Inflamma phenylbutazone AdvReac Other Verified 05/22/23 09:40 sertraline [From Zoloft] AdvReac Other Verified 05/22/23 09:40 triamterene [From Dyazide] AdvReac Other Verified 05/22/23 09:40 venlafaxine [From Effexor] AdvReac Other Verified 05/22/23 09:40 Family History Grandmother Diabetes Mother Heart disease Other Hypertension Kidney disease Surgical History History of aortic valve replacement with bioprosthetic valve (~05/01/16) History of cataract extraction with lens replacement History of cholecystectomy History of coronary artery bypass graft (05/01/16) History of excision of lesion History of heart artery stent History of heart valve replacement History of mitral valve replacement with bioprosthetic valve (~05/01/16) History of open reduction and internal fixation (ORIF) procedure Hx of heart bypass surgery Social History Smoking Status: Never smoker second hand exposure: No alcohol intake: never substance use type: does not use caffeine: No additional social history: Does Take Aspirin Does Not Take Ibuprofen ROS ROS Narrative GENERAL: denies fever, chills, night sweats, weight loss, anorexia HEENT: denies headache, sinus congestion, or drainage, dysphagia RESPIRATORY: denies cough, sputum production, shortness of breath, dyspnea on exertion CARDIAC: denies chest pain, palpitations, orthopnea, PND GASTROINTESTINAL: denies abdominal pain, nausea, vomiting, melena, GENITOURINARY: denies dysuria, urgency, frequency, heamaturia EXTREMITY: denies swelling MUSCULOSKELETAL: Back pain NEUROLOGIC: denies focal numbness, weakness, tingling HEMATOLOGIC: denies easy bruising and/or hemorrhage INTEGUMENT: denies rashes PSYCHIATRIC: denies suicidal or homicidal ideation Vital Signs Vital Signs Vital Signs: 05/22/23 09:41 05/22/23 11:26 Temperature 95.9 F L Temperature Source Oral Pulse Rate 82 83 Respiratory Rate 24 H 16 Blood Pressure 70/48 L 93/43 L Blood Pressure Mean 55 59 Pulse Ox 99 97 Oxygen Delivery Method Room Air Weight Weight: 85.6 kg Body Mass Index (BMI) 34.4 Physical Exam Narrative GENERAL: cooperative HEENT: Atraumatic; normocephalic EYES; Anicteric, Normal Conjunctiva NECK; supple, normal thyroid, RESPIRATORY: Diminished to auscultation CARDIOVASCULAR: Regular S1 S2, GI: soft, normoactive bowel sounds, : No Renal angle tenderness; EXTREMITIES: No edema, no clubbing, MUSCULOSKELETAL: no muscle wasting NEURO: Awake; no lateralizing signs. SKIN: No Rash PSYCH; Flat affect Results Lab / Micro Data 05/22/23 10:00 05/22/23 10:00 Labs: Laboratory Results - last 24 hr 05/22/23 10:00: WBC 9.9, RBC 2.97 L, Hgb 10.1 L, Hct 32.9 L, MCV 110.8 H, MCH 34.0 H, MCHC 30.7 L, RDW Std Deviation 62.6 H, RDW Coeff of Rose 15.5 H, Plt Count 228, MPV 10.8, Immature Gran % (Auto) 0.500, Neut % (Auto) 80.9 H, Lymph % (Auto) 11.5 L, [place] % (Auto) 5.3, Eos % (Auto) 1.4, Baso % (Auto) 0.4, Absolute Neuts (auto) 8.0 H, Absolute Lymphs (auto) 1.14, Nucleated RBC % 0, Sodium 133 L, Potassium 4.5, Chloride 96 L, Carbon Dioxide 27.0, Anion Gap 10, BUN 27 H, Creatinine 4.50 H, Estim Creat Clear Calc 7.89, Est GFR (MDRD) Af Amer 12 L, Est GFR (MDRD) Non-Af 10 L, BUN/Creatinine Ratio 6.0 L, Glucose 250 H, Calcium 9.4, Total Bilirubin 0.70, AST 95 H, ALT 31, Alkaline Phosphatase 156 H, Troponin I High Sens 88745 H*, Total Protein 7.5, Albumin 3.3, Globulin 4.2, Albumin/Globulin Ratio 0.8 L Radiology Impression Chest X-Ray 05/22/23 10:36 IMPRESSION: No radiographic evidence of acute cardiopulmonary disease. Electronically Signed: Luther Menezes MD at 11:11 EDT , Assessment & Plan Assessment/Plan (1) Non-ST elevation [place] (NSTEMI): PLAN: Plan Patient is an 82-year-old lady with significant past cardiac history presenting with back pain found to have elevated troponin levels consistent with acute non-STEMI 1. Acute non-STEMI ? Patient presented with back pain and elevated troponin levels greater than 13,000. Admitted to monitored bed patient is on Eliquis held with plans to initiate heparin. Cardiology consulted Dr. Ricci notified plans for patient to undergo possible left heart catheterization on 05/24/2023 with possible intervention if needed 2. Coronary artery disease ? Previous PCI as well as CABG 3. Valvular heart disease ? With history of aortic and mitral valve replacement 4. End-stage renal disease ? 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 Hypertension - Blood pressure on the low on presentation we will monitor 6. Dyslipidemia ? Patient is on atorvastatin 7. Gout ? Patient is on allopurinol 8. Paroxysmal A-fib ? Rate controlled, on systemic anticoagulation with apixaban which is being held 9. Diabetes mellitus type 2 ? Patient is on long-acting insulin did continue in addition to Accu-Cheks ACHS with sliding scale coverage 10. Class I obesity with BMI of 34.5 ? Complicating care weight loss advised 11.Hypertrophic obstructive cardiomyopathy ? Status post myomectomy, followed by cardiology as outpatient 12. DVT prophylaxis ? On systemic anticoagulation Time spent in the patient's overall evaluation,decision-making process, review of diagnostic data, adjustment of management, discussion with other providers, nursing nursing and ancillary staff involved in patient's care documentation, 75 Minutes Advance planning; did discuss with the patient and family regarding advanced directives as well as CODE STATUS. Did explain the various scenarios involved ( FULL CODE, DNR CCA, DNR CCA with no intubation, and DNR CC and what each meant) patient elected to remain full code with CPR and intubation if needed. Order was placed. Time spent on discussion 18 minutes. Charges/Coding Visit Charges Inpatient E&M: 96247 Subs Hosp L3 Procedures Hospitalists Procedures: 10020 Advncd Care Plan 30 Min
--- NOTE | 2023-05-22 11:53 | NURSING ---
PCU NSTEMI KITTOE
[2023-05-22 14:41] LABS: International Normalized Ratio 1.2; Prothrombin Time (Protime)PT. 15.2 SECONDS (11.7-14.9)
[2023-05-22 15:52] LABS: Partial Thromboplast Time 54.9 Seconds (24.1-36.2)
[2023-05-22 17:44] LABS: Troponin-I HS 17945 pg/mL (3.0-54.0)
[2023-05-22] MEDS: Insulin Lispro 100 UNIT/ML INSULN.PEN SC ×2 (17:52→22:54)
[2023-05-22] MEDS: HEPARIN/D5w 25,000 UNITS 25,000 UNITS/250 ML IV.SOLN. 10 UNITS CONT INF (17:53)
[2023-05-22] MEDS: Acetaminophen 325 MG Tablet 650 MG PO (18:02)
[2023-05-22 19:28] LABS: Bedside Glucose 180 mg/dL (74-106)
[2023-05-22 20:16] LABS: Bedside Glucose 213 mg/dL (74-106)
--- NOTE | 2023-05-22 21:08 | CON.PCM.RE_ITS ---
Assessment & Plan Assessment/Plan (1) End-stage renal disease (ESRD): PLAN: Plan ESRD on hemodialysis. Continue dialysis Wednesday, Wednesday, Wednesday. No acute indications today. Left arm AV fistula. Has a hematoma, recent fistulogram. Non-ST elevation MT. Management as per cardiology. Possible angiogram on Wednesday HPI Consult Data Date of Consult: 05/22/23 HPI Narrative Reason for Consultation: ESRD HPI Narrative: BHARATH LONGORIA, is a 82 F who presents To the hospital with chest discomfort. Nephrology on consultation due to ESRD. ESRD on hemodialysis Wednesday, Wednesday, Wednesday. Last dialysis was Wednesday. Had some chest discomfort on Wednesday after dialysis. Came into the ER, was found to have significantly elevated troponins. Currently on heparin drip. No chest pain. [facility] Medical History Allergies Aortic valve stenosis Arthritis Atherosclerosis of coronary artery of creek heart without angina pectoris Atrial fibrillation Back problem Cataracts, bilateral Chronic renal failure, stage 3 (moderate) Diabetes Diabetes type 2, controlled Elevated troponin End stage renal failure on dialysis Essential hypertension GERD (gastroesophageal reflux disease) Glaucoma Gout Heart disease High blood pressure Hyperlipidemia Hypertrophic obstructive cardiomyopathy (HOCM) Hypertrophic scar Hyperuricemia Mitral valve disease Mixed hyperlipidemia Morbid obesity Neuropathy Normochromic normocytic anemia Osteoarthritis Other disturbances of skin sensation PAOD (peripheral arterial occlusive disease) Paroxysmal atrial fibrillation with rapid ventricular response Polyneuropathy due to type 2 diabetes mellitus Scar pain Unspecified open wound of unspecified front wall of thorax without penetration into thoracic cavity, sequela Vascular disease Home Medications aspirin 81 mg tablet,delayed release 81 mg PO DAILY antiplatelet ##30 05/11/16 [Rx Last Taken 02/11/20] atorvastatin 80 mg tablet 80 mg PO QHS #30 tabs 05/11/16 [Rx Last Taken 02/10/20] carvedilol 25 mg tablet 12.5 mg PO BID bp 08/19/17 [History Last Taken 02/11/20] multivitamin 1 cap PO QAM vitamin 08/19/17 [History Last Taken 02/11/20] pen needle, diabetic 32 gauge x 5/32 (Comfort EZ Pen Garfield) #50 ea 04/25/18 [Rx Last Taken Unknown] blood sugar diagnostic (YouFastUnlockuch Verio test strips) #100 ea 06/20/18 [Rx Last Taken Unknown] allopurinol 100 mg tablet 100 mg PO DAILYCM gout 02/11/20 [History Last Taken 02/11/20] pen needle, diabetic 32 gauge x 5/32 (BD Ultra-Fine Moira Pen Needle) #200 ea 05/20/20 [Rx Last Taken Unknown] pen needle, diabetic 32 gauge x 5/32 (ReliOn Pen Garfield) #200 ea 05/27/21 [Rx Last Taken Unknown] cholecalciferol (vitamin D3) 25 mcg (1,000 unit) capsule 25 mcg PO DAILY vitamin 12/24/21 [History Last Taken Unknown] escitalopram oxalate 5 mg tablet 5 mg PO DAILY anxiety 12/24/21 [History Last Taken Unknown] furosemide 40 mg tablet 80 mg PO DAILY edema 12/24/21 [History Last Taken Unknown] lisinopril 40 mg tablet 40 mg PO DAILY bp 12/24/21 [History Last Taken Unknown] tramadol 50 mg tablet 50 mg PO DAILY PRN pain 06/02/22 [History Last Taken Unknown] diltiazem HCl 120 mg capsule,extended release 12 hr 120 mg PO BID Do not take on dialysis days 06/23/22 [History Last Taken Unknown] sevelamer carbonate 800 mg tablet 800 mg PO BID phos binder 05/06/23 [History L ast Taken Unknown] apixaban 2.5 mg tablet (Eliquis) 2.5 mg PO BID #180 tabs 05/07/23 [Rx Last Taken Unknown] insulin lispro protamine-lispro 100 unit/mL (50-50) subcutaneous pen (Humalog Mix 50-50 KwikPen) See Rx Instructions subcut .COMPLEX diabetes 05/22/23 [History Last Taken Unknown] Allergy/AdvReac Type Severity Reaction Status Date / Time celecoxib [From Celebrex] Allergy Other Verified 05/22/23 09:40 indomethacin [From Indocin] Allergy Other Verified 05/22/23 09:40 Vpawpxm-[id number] Reductase Allergy Pain in Verified 05/22/23 09:40 Inhibitor joints [Bnszhaq-Tsy-Owm Reductase Inhibitor] adhesive tape AdvReac Itching Verified 05/22/23 09:40 fluoxetine [From Prozac] AdvReac Other Verified 05/22/23 09:40 griseofulvin AdvReac Other Verified 05/22/23 09:40 hydrochlorothiazide AdvReac Other Verified 05/22/23 09:40 [From Dyazide] hydrocodone [From Vicodin] AdvReac Other Verified 05/22/23 09:40 ibuprofen [From Motrin] AdvReac Other Verified 05/22/23 09:40 ketoprofen AdvReac Other Verified 05/22/23 09:40 lovastatin [From Mevacor] AdvReac Other Verified 05/22/23 09:40 meclofenamic acid AdvReac Other Verified 05/22/23 09:40 [From Meclomen] naproxen [From Naprosyn] AdvReac Other Verified 05/22/23 09:40 NSAIDS (Non-Steroidal AdvReac Other Verified 05/22/23 09:40 Anti-Inflamma phenylbutazone AdvReac Other Verified 05/22/23 09:40 sertraline [From Zoloft] AdvReac Other Verified 05/22/23 09:40 triamterene [From Dyazide] AdvReac Other Verified 05/22/23 09:40 venlafaxine [From Effexor] AdvReac Other Verified 05/22/23 09:40 Family History Grandmother Diabetes Mother Heart disease Other Hypertension Kidney disease Surgical History History of aortic valve replacement with bioprosthetic valve (~05/01/16) History of cataract extraction with lens replacement History of cholecystectomy History of coronary artery bypass graft (05/01/16) History of excision of lesion History of heart artery stent History of heart valve replacement History of mitral valve replacement with bioprosthetic valve (~05/01/16) History of open reduction and internal fixation (ORIF) procedure Hx of heart bypass surgery Social History Smoking Status: Never smoker second hand exposure: No alcohol intake: never substance use type: does not use caffeine: No additional social history: Does Take Aspirin Does Not Take Ibuprofen ROS ROS Narrative Negative except above Physical Exam Narrative Alert awake oriented x 3 no obvious distress no pallor no icterus no JVD s1s2 no murmurs lungs clear abdomen soft no organomegaly no edema no cyanosis Lab / Micro Data 05/22/23 10:00 05/22/23 10:00 Labs: Laboratory Results - last 24 hr 05/22/23 10:00: WBC 9.9, RBC 2.97 L, Hgb 10.1 L, Hct 32.9 L, MCV 110.8 H, MCH 34.0 H, MCHC 30.7 L, RDW Std Deviation 62.6 H, RDW Coeff of Rose 15.5 H, Plt Count 228, MPV 10.8, Immature Gran % (Auto) 0.500, Neut % (Auto) 80.9 H, Lymph % (Auto) 11.5 L, Bremer % (Auto) 5.3, Eos % (Auto) 1.4, Baso % (Auto) 0.4, Absolute Neuts (auto) 8.0 H, Absolute Lymphs (auto) 1.14, Nucleated RBC % 0, Sodium 133 L , Potassium 4.5, Chloride 96 L, Carbon Dioxide 27.0, Anion Gap 10, BUN 27 H, Creatinine 4.50 H, Estim Creat Clear Calc 7.89, Est GFR (MDRD) Af Amer 12 L, Est GFR (MDRD) Non-Af 10 L, BUN/Creatinine Ratio 6.0 L, Glucose 250 H, Calcium 9.4, Total Bilirubin 0.70, AST 95 H, ALT 31, Alkaline Phosphatase 156 H, Troponin I High Sens 51917 H*, Total Protein 7.5, Albumin 3.3, Globulin 4.2, Albumin/Globulin Ratio 0.8 L 05/22/23 15:29: PT 15.2 H, INR 1.2, APTT 54.9 H 05/22/23 16:52: POC Glucose 180 H 05/22/23 17:04: Troponin I High Sens [id number] H* 05/22/23 19:52: POC Glucose 213 H Radiology Impression Chest X-Ray 05/22/23 10:36 IMPRESSION: No radiographic evidence of acute cardiopulmonary disease. Electronically Signed: Luther Menezes MD at 11:11 EDT ,
[2023-05-22 21:48] LABS: Bedside Glucose 210 mg/dL (74-106)
[2023-05-22] MEDS: Atorvastatin Calcium 80 MG Tablet PO (22:58)
[2023-05-22] MEDS: Albuterol 2.5 MG/3 ML VIAL.NEB. INHALATION (23:13)
[2023-05-23] LABS: Bedside Glucose 253 mg/dL (74-106)
[2023-05-23 01:06] LABS: Partial Thromboplast Time > 200.0 Seconds (24.1-36.2)
--- NOTE | 2023-05-23 02:56 | NURSING ---
pt c/o intermittent left shoulder pain w sob and sweating, bs 249, bp 93/49, unable to give nitro, ekg ordered, dr notified.
[2023-05-23 02:57] LABS: Bedside Glucose 249 mg/dL (74-106)
[2023-05-23 03:00] VITALS: BP 93/49; PULSE 78; RESP 16; TEMP 36.3; O2SAT 99
[2023-05-23 04:00] VITALS: BMI 33.5
[2023-05-23 06:00] LABS: Absolute Lymphocyte Count 1.13 X10^3/uL (0.83-4.51); Absolute Neutrophil Count 8.6 X10^3/uL (2.0-7.7); Basophil# 0.03 X10^3/uL; Basophil% 0.3 % (0-1); Eosinophil# 0.02 X10^3/uL; Eosinophils% 0.2 % (0-5); Hematocrit 28.5 % (37-47); Hemoglobin 8.9 g/dL (12.0-15.0); Lymphocyte # 1.13 X10^3/ul (0.83-4.51); Lymphocyte % 10.7 % (19-41); Mean Corp Hgb Conc 31.2 g/dL (32-36); Mean Corpuscular Hgb 34.5 pg (27.0-32.0); Mean Corpuscular Volume 110.5 fL (81-99); Mean Platelet Vol. 10.2 fl (6.2-12.0); Monocyte# 0.75 X10^3/uL; Monocyte% 7.1 % (0-10); NRBC Flagged by Analyzer 0.3 % (0-5); Neutrophil # 8.57 X10^3/uL (2.7-7.7); Neutrophil % 81.3 % (47-70); Platelet Count 217 K/mm3 (150-450); RBC Distribution Width CV 15.6 % (11.6-14.6); RBC Distribution Width SD 61.4 fl (35.1-43.9); Red Blood Count 2.58 M/mm3 (4.2-5.4); White Blood Count 10.5 K/mm3 (4.4-11.0)
[2023-05-23 06:27] LABS: Anion Gap 15 (5-15); BUN 39 mg/dL (7-18); BUN/Creat Ratio 6.7 RATIO (10-20); Calcium,Total 9.2 mg/dL (8.5-10.1); Chloride 95 mmol/L (98-107); Cholesterol 160 mg/dL (200); EST Glomerular Filtration Rate 7 mL/min (>60); Est Glom Filt Rate - Afr Amer 9 mL/min (>60); Estimated Creatinine Clearance 6.12 ml/min; Glucose 296 mg/dL (74-106); High Density Lipoprotein 51 mg/dL; Magnesium 2.3 mg/dL (1.6-2.6); Phosphorus 5.5 mg/dL (2.5-4.9); Potassium 5.5 mmol/L (3.5-5.1); Sodium Level 132 mmol/L (136-145); Triglycerides 159 mg/dL; Very Low Density Lipoprotein 32 mg/dL (5-40)
--- NOTE | 2023-05-23 06:30 | NURSING ---
pt rating her pain a 9/10 at this time, no it is chest pain to the left side, sob, nauseated and sweating, will call for an ekg
[2023-05-23 06:38] VITALS: BP 81/36; PULSE 73; RESP 18; TEMP 36.3; O2SAT 99
--- NOTE | 2023-05-23 06:38 | NURSING ---
pt called c/o cp 05/09, nausea, sweating, sob, low bp,hr drpping into the 20s, pt kept stating she feels awful, pt kept asking to have a heart cath done now, called for an ekg, some changes, faxed to the hospitalist, ordered a 500ml bolus of lr, no second line so tried to start another one, while doing so she kept having cp, then pain radiating to her back, her hr kept dropping, then she stopped breathing, code called and chest compressions started.
--- NOTE | 2023-05-23 07:54 | PCM.DEATH ---
Preliminary Cause of Preliminary Cause of Preliminary Cause of : Cardiopulmonary arrest ? Acute known Date of Admission: 05/22/23 Date of : 05/23/23 Principle Diagnosis Acute non-ST elevation DC Problem List: Active and Suspected Problems (Updated 05/22/23 @ 11:[address] Moiz Lin MD) End-stage renal disease (ESRD) (Acute) Weakness (Acute) Non-ST elevation DC (NSTEMI) (Acute) Hospital Course BHARATH LONGORIA, is a 82 F with multiple comorbidities including end-stage renal disease on hemodialysis, diabetes mellitus type 2, coronary artery disease with previous CABG in 2016, aortic valve replacement as well as mitral valve replacement who presented with back pain. Per patient symptoms started a couple of days ago after being prepped for possible colonoscopy. Per patient the prep messed up her blood glucose levels. Work-up for pneumonia of her presentation not feeling well and experiencing upper back pain. Presented to the emergency department as a result was found to have markedly elevated troponin levels consistent with acute non-STEMI technical sales consultant on-call Dr. Ricci was informed recommended for patient to be admitted. Treatment was initiated per protocol. On the morning of 05/23/2023 patient was reported to be complaining of 9 out of 10 chest pain she was apparently bradycardic on the monitor she was later found without pulse with asystole on the monitor. Resuscitation using ACLS protocol initiated. Patient did receive rounds of CPR and epinephrine. After 30 minutes of resuscitation Case was discussed with patient family decision was made to stop the CPR. Patient was pronounced on 05/23/2023 at 0745 Visit Charges Inpatient E&M: 15165 Disch Hosp
[2023-05-23 08:08] LABS: Bedside Glucose 298 mg/dL (74-106)
== END 2023-05-23 07:18 ==
LOC: ED 12:17 → PCU 12:26
PROVIDERS: Admitting Provider Internal Medicine; Emergency Provider Emergency Medicine; PCP Internal Medicine; Visit Provider Internal Medicine
DX: I21.4 Non-ST elevation (NSTEMI) myocardial infarction (principal); N18.6 End stage renal disease; I12.0 Hypertensive chronic kidney disease with stage 5 chronic kidney disease or end stage renal disease; I42.1 Obstructive hypertrophic cardiomyopathy; I46.9 Cardiac arrest, cause unspecified; E11.22 Type 2 diabetes mellitus with diabetic chronic kidney disease; Z79.4 Long term (current) use of insulin; I48.0 Paroxysmal atrial fibrillation; E78.5 Hyperlipidemia, unspecified; I25.10 Atherosclerotic heart disease of native coronary artery without angina pectoris; R00.1 Bradycardia, unspecified; M10.9 Gout, unspecified; I44.7 Left bundle-branch block, unspecified; Z95.2 Presence of prosthetic heart valve; E66.9 Obesity, unspecified; Z79.82 Long term (current) use of aspirin; Z79.1 Long term (current) use of non-steroidal anti-inflammatories (NSAID); Z66 Do not resuscitate; Z68.34 Body mass index [BMI] 34.0-34.9, adult
CPT/HCPCS: 36415; 71045; 80048; 80053; 80061; 82962; 83735; 84100; 84484; 85025; 85610; 85730; 92950; 93005; 94640; 94668; 99252; 99284; J7030; J7040; G0463